=== PATIENT | male | born 1935 | race Caucasian/White ===

== ENCOUNTER 2016-08-03 12:38 | Outpatient (CLI) ==
[2015-03-22 16:52] VITALS: BMI 22.7
--- NOTE | 2016-08-03 13:13 | DI ---
EXAM: Lumbar spine three view HISTORY: Low back pain COMPARISON: None TECHNIQUE: Three views lumbar spine were performed FINDINGS: Sacroiliac joints intact. Sacral arcuate lines intact. Mild leftward curvature lumbar s pine. Vertebral bodies normal height. No fracture. Multilevel marginal osteophyte formation. Mil d to moderate intervertebral disc space narrowing L2-3 and severe intervertebral space narrowing L4- L5. Multilevel facet arthrosis, greatest in the lower spine. 2 mm retrolisthesis L2 on L3 and 4 mm anterolisthesis of L4 on L5. Atherosclerosis. IMPRESSION: Chronic discogenic degenerative disease and facet arthrosis with grade 1 spondylolisthe ses and leftward curvature lumbar spine.
== END 2016-08-03 12:39 | disposition home or self-care (01) ==
LOC: RAD 12:38
PROVIDERS: ATTEND Emergency Medicine
DX: M54.5 Low back pain (principal)

== ENCOUNTER 2016-10-27 12:24 | Emergency (ER) ==
[2016-10-27 12:28] VITALS: BP 152/79; TEMP 97.7; BMI 23.0
--- NOTE | 2016-10-27 12:32 | ED.PDOC ---
General ED Provider: Dr. CATIE GE JR Chief Complaint: Abdominal Pain Stated Complaint: COMPLAINS OF ADOMINAL PAIN AND BACK PAIN. FEELS LIKE HE IS CONSTIPATED. TOOK SOME MIRALAX AND HAD SMALL RESULTS. [ End ]97.7 67 20 93% 152 /79 12/17. DR PENA SAID HE WOULD SET UP FOR THE CAT SCAN OVER HERE- PER PATIENT Time Seen by Physician: 12:32 Mode of Arrival: Walk-In Information Source: Patient Exam Limitations: No limitations Primary Care Provider: SHWETA PENA Nursing and Triage Documentation Reviewed and Agree: No Review of Systems - Review Of Systems Constitutional: Reports: No symptoms Eyes: Reports: No symptoms Ears, Nose, Mouth, Throat: Reports: No symptoms Respiratory: Reports: Short of air, Wheezing Cardiac: Reports: No symptoms GI: Reports: Abdomen distended, Abdominal pain, Constipated, Nausea (CRAMPING) : Reports: No symptoms Musculoskeletal: Reports: No symptoms Skin: Reports: No symptoms Neurological: Reports: Cognitive dysfunction Endocrine: Reports: No symptoms Hematologic/Lymphatic: Reports: No symptoms All Other Systems: Other Past Medical History - Past Medical History Endocrine: Reports: Dyslipidemia Cardiovascular: Reports: CAD, Hypertension, CHF, Other () Respiratory: Reports: COPD, Bronchitis Hematological: Reports: None Gastrointestinal: Reports: None, GERD, Other (bilateral hernia) Genitourinary: Reports: CKD Neuro/Psych: Reports: None 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, Other (DJD SPINE) Cancer: Reports: Other (prostate) Other Pertinent Past Medical History: Prostate-Prostate, - Surgical History General Surgical History: Reports: Cholecystectomy, Hernia Repair (bilateral hernia), Other (Prostate) - Family History Family History: Reports: Unknown - Social History Smoking Status: Former smoker Hx Substance Use: No Alcohol Screening: None Physical Exam - Physical Exam Appearance: Well-appearing Pain Distress: Moderate Eyes: JANY, EOMI, Conjunctiva clear ENT: Ears normal, Nose normal, Oropharynx normal Neck: Supple Respiratory: Airway patent, Breath sounds clear, Breath sounds equal, Respirations nonlabored GI/: Soft, Tender, Bowel sounds hypoactive Musculoskeletal: Normal strength, ROM intact, No edema, No calf tenderness Skin: Warm, Dry, Normal color Neurological: Sensation intact, Motor intact, Reflexes intact, Cranial nerves intact, Alert, Oriented Psychiatric: Affect appropriate, Mood appropriate Critical Care Note - Critical Care Note Total Time (mins): 0 Course - Course Hematology/Chemistry: 10/27/16 12:55 10/27/16 12:55 Orders, Labs, Meds: Lab Review 10/27/16 10/27/16 12:50 12:55 WBC 9.37 RBC 3.83 L Hgb 11.6 L Hct 34.8 L MCV 90.9 MCH 30.3 MCHC 33.3 RDW Coeff of [place] 13.2 Plt Count 155 Immature Gran % (Auto) 0.5 Neut % (Auto) 76.7 Lymph % (Auto) 17.4 [place] % (Auto) 4.8 Eos % (Auto) 0.5 Baso % (Auto) 0.1 Immature Gran # (Auto) 0.1 Neut # 7.2 H Lymph # 1.6 [place] # 0.5 Eos # 0.1 Baso # 0.0 Sodium 139 Potassium 4.8 Chloride 97 L Carbon Dioxide 29 Anion Gap 17.8 BUN 54 H Creatinine 2.10 H Estimated GFR (MDRD) 30.00 BUN/Creatinine Ratio 25.71 Glucose 101 Calcium 9.3 Total Bilirubin 0.57 AST 19 ALT 17 Alkaline Phosphatase 52 L Total Protein 7.0 Albumin 3.5 Globulin 3.5 Albumin/Globulin Ratio 1.00 Amylase 299 H Lipase 31 Urine Color Yellow Urine Clarity Clear Urine pH 6.5 Ur Specific [place] 1.015 Urine Protein Negative Urine Glucose (UA) Negative Urine Ketones Negative Urine Blood Negative Urine Nitrite Negative Urine Bilirubin Negative Urine Urobilinogen 1.0 Ur Leukocyte Esterase Negative H. pylori IgG Antibody Negative Orders Category Date Time Status AMYLASE Stat LAB 10/27/16 12:55 Completed CBC W/ AUTO DIFF Stat LAB 10/27/16 12:55 Completed COMPREHENSIVE METABOLIC PANEL Stat LAB 10/27/16 12:55 Completed H. PYLORI SCREEN Stat LAB 10/27/16 12:55 Completed LIPASE Stat LAB 10/27/16 12:55 Completed URINALYSIS C & S IF INDICATED Stat LAB 10/27/16 12:[address] ABDOMEN/PELVIS WO CONTRAST Stat RADS 10/27/16 12:41 Completed Vital Signs: Temp Pulse Resp BP Pulse Ox 10/27/16 12:24 97.7 F 67 20 152/79 H 93 L Departure - Departure Time of Disposition: 15:05 Disposition: HOME SELF-CARE Discharge Problem: Impaction of the bowels Instructions: Fecal Impaction (ED), Obstipation (ED) Condition: Good Pt referred to PMD for follow-up: Yes Additional Instructions: ANUSOL SUPPOSITORY ONCE DAILY NEEDED FOR NO BOWEL MOVEMENT MAY USE DULCOLAX SUPPOSITORY TWICE A DAY IF ANUSOL NOT EFFECTIVE CONTINUE TO USE MIRALAX DAILY HOLD IF LOOSE STOOLS MAY STOP MEDICATIONS WHEN NORMAL STOOL FOR THREE DAYS RECHECK pmd Please follow-up with Dr. Pena in 1-5 days. Prescriptions: Bisacodyl [Dulcolax] 10 mg RC DAILY PRN #10 supp.rect PRN Reason: Constipation Hydrocortisone Acetate [Anusol-Hc] 25 mg RC DAILY PRN #7 supp.rect PRN Reason: Constipation Polyethylene Glycol 3350 [Miralax] 17 gm PO DAILY PRN #20 powd.pack PRN Reason: Constipation Allergies/Adverse Reactions: Allergies lisinopril Adverse Reaction (Verified 10/27/16 12:28) rash, cough Home Medications: Ambulatory Orders Alprazolam [Xanax] 0.25 mg PO TID PRN 12/09/12 Carvedilol [Coreg] 6.25 mg PO DAILY 12/09/12 Spironolactone [Aldactone] 25 mg PO DAILY 12/09/12 Furosemide [Lasix Tab] 40 mg PO QAM 12/12/12 Cholecalciferol (Vitamin D3) [Vitamin D] 400 unit PO DAILY 02/14/14 Ipratropium/Albuterol Sulfate [Combivent Respimat Inhal [place]] 4 gm IH QID PRN 02/14/14 Budesonide/Formoterol Fumarate [Symbicort 160-4.5 Mcg Inhaler] 2 puff INH BID Bisacodyl [Dulcolax] 10 mg RC DAILY PRN #10 supp.rect 10/27/16 Esomeprazole Magnesium [Nexium] 40 mg PO DAILY 10/27/16 Formoterol Fumarate [Foradil] 12 mcg IH Q12H 10/27/16 Furosemide [Lasix Tab] 20 mg PO BEDTIME 10/27/16 Hydrocortisone Acetate [Anusol-Hc] 25 mg RC DAILY PRN #7 supp.rect 10/27/16 Polyethylene Glycol 3350 [Miralax] 17 gm PO DAILY PRN #20 powd.pack 10/27/16
[2016-10-27 13:06] LABS: BASOPHILS % (AUTO) 0.1 % (0.0-3.0); EOSINOPHILS # (AUTO) 0.1 K/ul (0.0-0.7); EOSINOPHILS % (AUTO) 0.5 % (0.0-7.0); HEMATOCRIT 34.8 % (42.0-52.0); HEMOGLOBIN 11.6 g/dl (14.0-18.0); IMMATURE GRANULOCYTE % (AUTO) 0.5 % (0.0-5.0); LYMPHOCYTES # (AUTO) 1.6 K/uL (0.60-3.4); LYMPHOCYTES % (AUTO) 17.4 (10.0-50.0); MEAN CORPUSCULAR HEMOGLOBIN 30.3 pg (27.0-31.0); MEAN CORPUSCULAR HGB CONC 33.3 (31.8-35.4); MEAN CORPUSCULAR VOLUME 90.9 fl (80.0-94.0); MONOCYTES # (AUTO) 0.5 K/uL (0.4-2.0); MONOCYTES % (AUTO) 4.8 (0-10); NEUTROPHILS # (AUTO) 7.2 K/ul (2.0-6.9); NEUTROPHILS % (AUTO) 76.7; PLATELET COUNT 155 10^3/uL (140-440); RED BLOOD COUNT 3.83 10^6/ul (4.70-6.10); WHITE BLOOD COUNT 9.37 K/ul (4.2-10.2)
[2016-10-27 13:14] LABS: ADD URINE MICROSCOPIC NO; BILIRUBIN,URINE Negative (NEGATIVE); KETONES,URINE Negative (NEGATIVE); LEUKOCYTE ESTERASE ,URINE Negative (NEGATIVE); NITRITE,URINE Negative (NEGATIVE); PH,URINE 6.5 (5-9); PROTEIN,URINE Negative (NEGATIVE); URINE, BLOOD Negative (NEGATIVE)
[2016-10-27 13:19] LABS: H. PYLORI ANTIBODY NEGATIVE (NEGATIVE); H.PYLORI INTERNAL QC INTERNAL QC VALID
[2016-10-27 13:26] LABS: ALBUMIN 3.5 g/dL (3.4-5.0); ANION GAP 17.8; BILIRUBIN,TOTAL 0.57 mg/dL (0.00-1.20); BUN/CREATININE RATIO 25.71; CALCIUM 9.3 mg/dL (8.2-10.2); CREATININE 2.1 mg/dL (0.60-1.10); POTASSIUM 4.8 mmol/L (3.5-5.1)
--- NOTE | 2016-10-27 13:43 | CT ---
EXAM: CT ABDOMEN AND PELVIS HISTORY: Abdominal pain, constipation TECHNIQUE: CT abdomen and pelvis without intravenous contrast. Images were reconstructed using 5 m m section thickness. Reformations were prepared. COMPARISON: 04/29/2009 FINDINGS: Diagnostic limitations exist without including contrast enhanced images. No focal hepatic or spleni c lesions are identified. Gallbladder has been removed. Pancreas and adrenal glands are within norm al limits. Again noted are multiple cystic appearing masses of the renal cortices bilaterally large st superiorly on the left at 5 cm. Some of these cystic masses have enlarged since the distant prio r exam. The dominant cyst on the left has become partially calcified at its periphery. No hydronep hrosis. Moderate atherosclerotic disease of the aorta with no aneurysmal caliber. Stomach is within normal limits. The appendix has internal high attenuation suggesting either insuf flated dense material or an appendicolith. No evidence of appendicitis. There is moderate fecal ret ention within the distal rectosigmoid/rectum. Otherwise no excessive fecal retention is suggested. Normal bowel gas pattern. Urinary bladder appears normal. Surgical clips in the lower anatomic pe lvis. No definite prostate is seen. There is a penile prosthesis in place. No ascites. There is a lateral left diaphragmatic hernia containing only fat, neck of 2.8 cm and stable since pr evious exam. The bones demonstrate moderate degenerative changes of the lower spine with bilateral pars defects at L4 and anterior spondylolisthesis of L4 on L5 by about 0.40 cm. Scoliosis is noted. Lung bases reveal evidence of pulmonary emphysema. There is a punctate calcified diaphragmatic pl eural plaque on the right. No pneumoperitoneum. IMPRESSION: 1. Slight excess fecal retention within the rectal vault. Otherwise no excess. Normal bowel gas p attern. The appendix has internal high attenuation suggesting either insufflated dense material or an appendicolith. No evidence of appendicitis. 2. Multiple cystic masses of the kidneys probably representing cysts. This can be correlated with renal ultrasound. 3. Moderate atherosclerotic disease. 4. Postop changes within the pelvis. 5. Stable lateral left diaphragmatic hernia containing only fat. 6. Pars defects L4.
== END 2016-10-27 15:37 | disposition home or self-care (01) ==
LOC: ED 12:24
DX: K56.49 Other impaction of intestine (principal); R06.02 Shortness of breath; R06.2 Wheezing; E78.5 Hyperlipidemia, unspecified; I25.10 Atherosclerotic heart disease of native coronary artery without angina pectoris; I10 Essential (primary) hypertension; I50.9 Heart failure, unspecified; J44.9 Chronic obstructive pulmonary disease, unspecified; N18.9 Chronic kidney disease, unspecified; M19.90 Unspecified osteoarthritis, unspecified site; Z79.899 Other long term (current) drug therapy; Z87.19 Personal history of other diseases of the digestive system
CPT/HCPCS: 36415; 80053; 81001; 82150; 83690; 85025; 86677; 99283

== ENCOUNTER 2016-11-03 11:09 | Emergency (ER) ==
[2016-11-03 11:31] VITALS: BP 149/79; TEMP 96.8; BMI 23.3
[2016-11-03 11:49] LABS: BASOPHILS % (AUTO) 0.2 % (0.0-3.0); EOSINOPHILS # (AUTO) 0.3 K/ul (0.0-0.7); EOSINOPHILS % (AUTO) 3.4 % (0.0-7.0); HEMATOCRIT 37.5 % (42.0-52.0); HEMOGLOBIN 12.3 g/dl (14.0-18.0); IMMATURE GRANULOCYTE % (AUTO) 0.6 % (0.0-5.0); LYMPHOCYTES # (AUTO) 1.9 K/uL (0.60-3.4); LYMPHOCYTES % (AUTO) 21.6 (10.0-50.0); MEAN CORPUSCULAR HGB CONC 32.8 (31.8-35.4); MEAN CORPUSCULAR VOLUME 94.5 fl (80.0-94.0); MONOCYTES # (AUTO) 0.5 K/uL (0.4-2.0); MONOCYTES % (AUTO) 5.8 (0-10); NEUTROPHILS # (AUTO) 6.1 K/ul (2.0-6.9); NEUTROPHILS % (AUTO) 68.4; PLATELET COUNT 185 10^3/uL (140-440); RED BLOOD COUNT 3.97 10^6/ul (4.70-6.10); WHITE BLOOD COUNT 8.84 K/ul (4.2-10.2)
--- NOTE | 2016-11-03 12:15 | CT ---
EXAM: CT Abdomen without contrast. CT Pelvis without contrast. HISTORY: Abdominal pain. Constipation. COMPARISON: 10/27/2016. TECHNIQUE: Multiple axial images of the abdomen and pelvis were obtained without intravenous contra st. Images were reformatted in the coronal plane. FINDINGS: Please note that evaluation of the abdominal and pelvic structures is limited due to lack of intravenous contrast. Lung bases are clear. Calcified pleural plaquing seen along the right diaphragm. Left sided fat-co ntaining diaphragmatic hernia again seen. Degenerative changes present throughout the spine. Pars d efects L4 noted with grade 1 anterolisthesis of L4 on L5. Gallbladder is absent. The liver, pancreas, spleen, adrenal glands are unremarkable. Bilateral brandt al cysts noted, largest a peripherally calcified cyst of the medial left kidney measuring up to 5.3 cm diameter. The bowel is normal in course and caliber without evidence for obstruction or inflammatory process. Prostate is absent. Urinary bladder is unremarkable. Atherosclerotic calcifications present. No free fluid or free air identified. Since the prior study, there has been no significant interval change IMPRESSION: No acute abnormality in the abdomen or pelvis.
[2016-11-03 12:22] LABS: ALBUMIN 3.4 g/dL (3.4-5.0); ALBUMIN/GLOBULIN RATIO 1.13; AMYLASE 281 U/L (25-115); ANION GAP 17.6; BILIRUBIN,TOTAL 0.51 mg/dL (0.00-1.20); BUN/CREATININE RATIO 17.1; CALCIUM 9.1 mg/dL (8.2-10.2); CREATININE 2.28 mg/dL (0.60-1.10); LIPASE 59 U/L (8-78); POTASSIUM 4.6 mmol/L (3.5-5.1); TOTAL PROTEIN 6.4 g/dL (5.8-8.1)
--- NOTE | 2016-11-03 12:42 | ED.PDOC ---
General ED Provider: Dr. RENY ROBERTS Chief Complaint: Constipation Stated Complaint: constipation Time Seen by Physician: 11:10 (seen with staff ) Mode of Arrival: Walk-In Information Source: Patient Exam Limitations: No limitations Primary Care Provider: SHWETA PENA Nursing and Triage Documentation Reviewed and Agree: Yes GI Complaint Exam - Abdominal Pain Complaint/Exam Onset: Gradual Duration: constipation x 3 days Symptoms Are: Still present Timing: Constant Initial Severity: Mild Current Severity: None Aggravating: Reports: None Alleviating: Reports: None Associated Signs and Symptoms: Reports: Constipation. Denies: Diaphoresis, Fever, Cough, Chest pain, Dizziness, Back pain, Blood in stool, Dysuria, Urinary frequency, Decreased urine output, Decreased appetite, Discharge, Nausea , Vomiting, Diarrhea, Decreased activity Related History: Reports: Similar episode Review of Systems - Review Of Systems Constitutional: Reports: No symptoms Eyes: Reports: No symptoms Ears, Nose, Mouth, Throat: Reports: No symptoms Respiratory: Reports: No symptoms Cardiac: Reports: No symptoms GI: Reports: Abdominal pain, Constipated : Reports: No symptoms Musculoskeletal: Reports: No symptoms Skin: Reports: No symptoms Neurological: Reports: No symptoms Endocrine: Reports: No symptoms Hematologic/Lymphatic: Reports: No symptoms All Other Systems: Reviewed and Negative Past Medical History - Past Medical History Previously Healthy: Yes Endocrine: Reports: Dyslipidemia Cardiovascular: Reports: CAD, Hypertension, CHF, Other () Respiratory: Reports: COPD, Bronchitis Hematological: Reports: None Gastrointestinal: Reports: None, GERD, Other (bilateral hernia) Genitourinary: Reports: CKD Neuro/Psych: Reports: None 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, Other (DJD SPINE) Cancer: Reports: Other (prostate) Other Pertinent Past Medical History: Prostate-Prostate, - Surgical History General Surgical History: Reports: Cholecystectomy, Hernia Repair (bilateral hernia), Other (Prostate) - Family History Family History: Reports: Unknown - Social History Smoking Status: Current every day smoker, Light tobacco smoker Hx Substance Use: No Alcohol Screening: None Physical Exam - Physical Exam Appearance: Well-appearing, No pain distress, Well-nourished Eyes: JANY, EOMI, Conjunctiva clear ENT: Ears normal, Nose normal, Oropharynx normal Respiratory: Airway patent, Breath sounds clear, Breath sounds equal, Respirations nonlabored Cardiovascular: RRR, Pulses normal, No rub, No murmur GI/: Soft, Nontender, No masses, Bowel sounds normal, No Organomegaly Musculoskeletal: Normal strength, ROM intact, No edema, No calf tenderness Skin: Warm, Dry, Normal color Neurological: Sensation intact, Motor intact, Reflexes intact, Cranial nerves intact, Alert, Oriented Psychiatric: Affect appropriate, Mood appropriate Interpretation - Radiology Interpretation Radiology Interpretation By: Radiologist Radiology Results: No acute changes Physician Notification - Case Discussed Physician Notified: pmd Time of Notification: 12:43 (pt can go home amylase discussed ) Critical Care Note - Critical Care Note Total Time (mins): 0 Course - Course Hematology/Chemistry: 11/03/16 11:41 11/03/16 11:41 Orders, Labs, Meds: Lab Review 11/03/16 11:41 WBC 8.84 RBC 3.97 L Hgb 12.3 L Hct 37.5 L MCV 94.5 H MCH 31.0 MCHC 32.8 RDW Coeff of [place] 13.4 Plt Count 185 Immature Gran % (Auto) 0.6 Neut % (Auto) 68.4 Lymph % (Auto) 21.6 [place] % (Auto) 5.8 Eos % (Auto) 3.4 Baso % (Auto) 0.2 Immature Gran # (Auto) 0.1 Neut # 6.1 Lymph # 1.9 [place] # 0.5 Eos # 0.3 Baso # 0.0 Sodium 145 Potassium 4.6 Chloride 100 Carbon Dioxide 32 H Anion Gap 17.6 BUN 39 H Creatinine 2.28 H Estimated GFR (MDRD) 28.00 BUN/Creatinine Ratio 17.10 Glucose 94 Calcium 9.1 Total Bilirubin 0.51 AST 18 ALT 12 Alkaline Phosphatase 52 L Total Protein 6.4 Albumin 3.4 Globulin 3.0 Albumin/Globulin Ratio 1.13 Amylase 281 H Lipase 59 Orders Category Date Time Status AMYLASE Stat LAB 11/03/16 11:41 Completed CBC W/ AUTO DIFF Stat LAB 11/03/16 11:41 Completed COMPREHENSIVE METABOLIC PANEL Stat LAB 11/03/16 11:41 Completed LIPASE Stat LAB 11/03/16 11:[address] ABDOMEN/PELVIS WO CONTRAST Stat RADS 11/03/16 11:17 Completed Vital Signs: Temp Pulse Resp BP Pulse Ox 11/03/16 11:10 96.8 F L 68 20 149/79 H 94 L Departure - Departure Time of Disposition: 12:42 ( ct report given ) Disposition: HOME SELF-CARE Discharge Problem: Constipation Instructions: Abdominal Pain (ED) Condition: Good Pt referred to PMD for follow-up: Yes Additional Instructions: Please call your Family Physician as soon as possible to schedule a follow-up appointment. Allergies/Adverse Reactions: Allergies lisinopril Adverse Reaction (Verified 10/27/16 12:28) rash, cough Home Medications: Ambulatory Orders Alprazolam [Xanax] 0.25 mg PO TID PRN 12/09/12 Carvedilol [Coreg] 6.25 mg PO DAILY 12/09/12 Spironolactone [Aldactone] 25 mg PO DAILY 12/09/12 Furosemide [Lasix Tab] 40 mg PO QAM 12/12/12 Cholecalciferol (Vitamin D3) [Vitamin D] 400 unit PO DAILY 02/14/14 Ipratropium/Albuterol Sulfate [Combivent Respimat Inhal [place]] 4 gm IH QID PRN 02/14/14 Budesonide/Formoterol Fumarate [Symbicort 160-4.5 Mcg Inhaler] 2 puff INH BID Bisacodyl [Dulcolax] 10 mg RC DAILY PRN #10 supp.rect 10/27/16 Esomeprazole Magnesium [Nexium] 40 mg PO DAILY 10/27/16 Formoterol Fumarate [Foradil] 12 mcg IH Q12H 10/27/16 Furosemide [Lasix Tab] 20 mg PO BEDTIME 10/27/16 Hydrocortisone Acetate [Anusol-Hc] 25 mg RC DAILY PRN #7 supp.rect 10/27/16 Polyethylene Glycol 3350 [Miralax] 17 gm PO DAILY PRN #20 powd.pack 10/27/16
== END 2016-11-03 12:49 | disposition home or self-care (01) ==
LOC: ED 11:09
DX: K59.00 Constipation, unspecified (principal); F17.210 Nicotine dependence, cigarettes, uncomplicated; Z79.899 Other long term (current) drug therapy
CPT/HCPCS: 36415; 80053; 82150; 83690; 85025; 99283

== ENCOUNTER 2016-11-06 13:15 | Outpatient (CLI) ==
--- NOTE | 2016-11-06 13:43 | DI ---
EXAM: Radiographs, thoracic spine HISTORY: Back pain. COMPARISON: Abdominal CT 11/03/2016. TECHNIQUE: Three views. FINDINGS: Moderate compression fracture of T10 noted without retropulsion. Vertebral body heights are otherwise maintained. Disc heights are normal. Mild endplate osteophyte formation seen at mult iple levels. Adjacent soft tissues without acute abnormality. IMPRESSION: Moderate compression deformity of T10 without retropulsion.
== END 2016-11-06 13:16 | disposition home or self-care (01) ==
LOC: RAD 13:15
PROVIDERS: ATTEND Internal Medicine
DX: M54.9 Dorsalgia, unspecified (principal)

== ENCOUNTER 2016-11-30 19:30 | Outpatient (CLI) | payer OTHER | END 2016-11-30 19:31 | disposition home or self-care (01) | LOC: LAB 19:30 | PROVIDERS: ATTEND Internal Medicine | DX: T18.9XXA Foreign body of alimentary tract, part unspecified, initial encounter (principal) ==

== ENCOUNTER 2016-12-03 21:16 | Emergency (ER) | payer OTHER ==
[2016-12-03 21:24] VITALS: BP 158/80; BMI 22.1
[2016-12-03 21:30] LABS: BASOPHILS % (AUTO) 0.2 % (0.0-3.0); EOSINOPHILS # (AUTO) 0.3 K/ul (0.0-0.7); EOSINOPHILS % (AUTO) 3.7 % (0.0-7.0); HEMATOCRIT 33.9 % (42.0-52.0); HEMOGLOBIN 11.6 g/dl (14.0-18.0); IMMATURE GRANULOCYTE % (AUTO) 0.3 % (0.0-5.0); LYMPHOCYTES % (AUTO) 32.7 (10.0-50.0); MEAN CORPUSCULAR HEMOGLOBIN 30.7 pg (27.0-31.0); MEAN CORPUSCULAR HGB CONC 34.2 (31.8-35.4); MEAN CORPUSCULAR VOLUME 89.7 fl (80.0-94.0); MONOCYTES # (AUTO) 0.9 K/uL (0.4-2.0); MONOCYTES % (AUTO) 9.3 (0-10); NEUTROPHILS # (AUTO) 4.9 K/ul (2.0-6.9); NEUTROPHILS % (AUTO) 53.8; PLATELET COUNT 200 10^3/uL (140-440); RED BLOOD COUNT 3.78 10^6/ul (4.70-6.10); WHITE BLOOD COUNT 9.11 K/ul (4.2-10.2)
--- NOTE | 2016-12-03 21:39 | ED.PDOC ---
General ED Provider: Dr. MADI WHEELER-ER Chief Complaint: Stroke Stated Complaint: his right arm has been numb since this am---13hrs--no trouble with mobility or speech--moved rue without difficulty--has taken asa before coming Time Seen by Physician: 21:20 Mode of Arrival: Walk-In Information Source: Patient, Family Exam Limitations: No limitations Primary Care Provider: SHWETA FIELDS Nursing and Triage Documentation Reviewed and Agree: Yes Neurological Complaint Exam - Neurological Deficit Complaint/Exam Patient Complains of: Reports: Abnormal sensation Symptom Onset Unknown: No Symptom Onset Time: 07:00 Onset: Gradual Symptoms Are: Still present Timing: Constant Episodes Lasting: Hours Initial Severity: Mild Location: Reports: RUE Character: Reports: Numbness, Tingling, Paresthesia. Denies: Motor weakness, Paralysis, Sensory loss, Impaired speech Aggravating: Reports: Hypertension Alleviating: Reports: None Associated Signs and Symptoms: Denies: Confusion, Agitation, Responsiveness, LOC , Headache, Fever, Nuchal rigidity, Recent trauma, Remote trauma, Recent illness Related History: Reports: Anticoagulant therapy CVA Risk Factors: Reports: Hypertension SDH Risk Factors: Reports: Male, Elderly Related Surgical History: Denies: None, Craniotomy, Tumor, Carotid Endarterectomy, Pacemaker, Artificial valve Glascow Coma Scale (see protocol): 15 Meningeal Signs Positive: No Focal Weakness: Present: None Focal Sensory Loss: Present: RUE Gait: Normal Nystagmus Present: No Gag Reflex Present: Yes [id number]: Normal Findings Romberg Test Positive: No Babinski Sign: Negative Right, Negative Left Heel to Toe Normal: Yes Signs of Trauma: Yes NIH Scale Score (see protocol): 1 IV t-PA Prescribed: No Reasons for not prescribing IV t-PA: Medical contraindication (falls outside time) Differential Diagnoses: CVA, TIA Quality Indicator For Non-Traumatic Chest Pain/Syncope: EKG Performed Review of Systems - Review Of Systems Constitutional: Reports: No symptoms Eyes: Reports: No symptoms Ears, Nose, Mouth, Throat: Reports: No symptoms Respiratory: Reports: No symptoms Cardiac: Reports: No symptoms GI: Reports: No symptoms : Reports: No symptoms Musculoskeletal: Reports: No symptoms Skin: Reports: No symptoms Neurological: Reports: Numbness Endocrine: Reports: No symptoms Hematologic/Lymphatic: Reports: No symptoms All Other Systems: Reviewed and Negative Past Medical History - Past Medical History Previously Healthy: Yes Endocrine: Reports: Dyslipidemia Cardiovascular: Reports: CAD, Hypertension, CHF, Other () Respiratory: Reports: COPD, Bronchitis Hematological: Reports: None Gastrointestinal: Reports: None, GERD, Other (bilateral hernia) Genitourinary: Reports: CKD Neuro/Psych: Reports: None 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, Other (DJD SPINE) Cancer: Reports: Other (prostate) Other Pertinent Past Medical History: Prostate-Prostate, - Surgical History General Surgical History: Reports: Cholecystectomy, Hernia Repair (bilateral hernia), Other (Prostate) - Family History Family History: Reports: Unknown - Social History Smoking Status: Current some day smoker, Light tobacco smoker Hx Substance Use: No Alcohol Screening: None Lives: With family - Immunizations Tetanus Shot up to Date: (UNKNOWN) Physical Exam - Physical Exam Appearance: Well-appearing, No pain distress, Well-nourished Eyes: JANY, EOMI, Conjunctiva clear ENT: Ears normal, Nose normal, Oropharynx normal Neck: Supple Respiratory: Airway patent, Breath sounds clear, Breath sounds equal, Respirations nonlabored Cardiovascular: RRR, Pulses normal, No rub, No murmur GI/: Soft, Nontender, No masses, Bowel sounds normal, No Organomegaly Musculoskeletal: Normal strength, ROM intact, No edema, No calf tenderness Skin: Warm, Dry, Normal color Neurological: Sensation intact, Motor intact, Reflexes intact, Cranial nerves intact, Alert, Oriented, Focal Deficit Psychiatric: Affect appropriate, Mood appropriate Interpretation - Radiology Interpretation Radiology Interpretation By: Radiologist Radiology Results: Negative Exam Interpreted: CT Scan Physician Notification - Case Discussed Physician Notified: dr fields--asked for the patient to be transferred Time of Notification: 21:54 Physician Notified: dr perez will see but wants hospitalist to see--10:10 Endorsed To/Discussed With: dr christiansen accepted the patient--22:20 Critical Care Note - Critical Care Note Total Time (mins): 30 Course - Course Hematology/Chemistry: 12/03/16 21:29 12/03/16 21:29 Orders, Labs, Meds: Lab Review 12/03/16 21:29 WBC 9.11 RBC 3.78 L Hgb 11.6 L Hct 33.9 L MCV 89.7 MCH 30.7 MCHC 34.2 RDW Coeff of [place] 13.2 Plt Count 200 Immature Gran % (Auto) 0.3 Neut % (Auto) 53.8 Lymph % (Auto) 32.7 [place] % (Auto) 9.3 Eos % (Auto) 3.7 Baso % (Auto) 0.2 Immature Gran # (Auto) 0.0 Neut # 4.9 Lymph # 3.0 [place] # 0.9 Eos # 0.3 Baso # 0.0 PT 10.4 INR 1.02 Sodium 143 Potassium 4.2 Chloride 103 Carbon Dioxide 28 Anion Gap 16.2 BUN 47 H Creatinine 1.86 H Estimated GFR (MDRD) 35.00 BUN/Creatinine Ratio 25.26 Glucose 110 Calcium 9.4 Total Bilirubin 0.34 AST 15 ALT 9 L Alkaline Phosphatase 57 Total Creatine Kinase 47 Troponin I 0.3880 Total Protein 6.4 Albumin 3.3 L Globulin 3.1 Albumin/Globulin Ratio 1.06 Orders Category Date Time Status EKG-(ED ONLY) Stat CARDIO 12/03/16 21:19 Completed Software Validation Technician [ED ENGINEERING TECHNOLOGIST APPLIED] .ONCE EMERGENCY 12/03/16 21:20 Active IV [ED IV/MEDIPORT/POWERPORT] .ONCE EMERGENCY 12/03/16 21:20 Active RESUSCITATION [ED CODE STATUS] .ONCE EMERGENCY 12/03/16 21:26 Active CBC W/ AUTO DIFF Stat LAB 12/03/16 21:29 Completed COMPREHENSIVE METABOLIC PANEL Stat LAB 12/03/16 21:29 Completed CREATINE KINASE Stat LAB 12/03/16 21:29 Completed PT WITH INR Stat LAB 12/03/16 21:29 Completed TROPONIN I Stat LAB 12/03/16 21:29 Completed 0.9 % Sodium Chloride [Saline Flush] MEDS 12/03/16 21:20 Ordered 1 syr IVF PRN PRN CT HEAD W/O CONTRAST Stat RADS 12/03/16 21:19 Completed Medications Generic Name Dose Route Start Last Admin Trade Name Freq PRN Reason Stop Dose Admin Sodium Chloride 1 syr 12/03/16 21:20 Saline Flush IVF PRN PRN To flush IV Vital Signs: Temp Pulse Resp BP Pulse Ox 12/03/16 21:17 98.1 F 87 22 158/80 H 96 Departure - Departure Time of Disposition: 22:19 Disposition: TSF SHORT-TRM HOSP Discharge Problem: Cerebrovascular accident (CVA) Qualifiers: CVA mechanism: unspecified Qualifier Code: (I63.9) Cerebral infarction, unspecified Instructions: Paresthesia (ED) Condition: Stable Pt referred to PMD for follow-up: Yes Allergies/Adverse Reactions: Allergies lisinopril Adverse Reaction (Verified 10/27/16 12:28) rash, cough verapamil Adverse Reaction (Verified 12/03/16 21:24) Home Medications: Ambulatory Orders Alprazolam [Xanax] 0.25 mg PO TID PRN 12/09/12 Carvedilol [Coreg] 6.25 mg PO DAILY 12/09/12 Spironolactone [Aldactone] 25 mg PO DAILY 12/09/12 Furosemide [Lasix Tab] 40 mg PO QAM 12/12/12 Cholecalciferol (Vitamin D3) [Vitamin D] 400 unit PO DAILY 02/14/14 Ipratropium/Albuterol Sulfate [Combivent Respimat Inhal [place]] 2 puff IH QID PRN 02/14/14 Budesonide/Formoterol Fumarate [Symbicort 160-4.5 Mcg Inhaler] 2 puff INH BID Bisacodyl [Dulcolax] 10 mg RC DAILY PRN #10 supp.rect 10/27/16 Hydrocortisone Acetate [Anusol-Hc] 25 mg RC DAILY PRN #7 supp.rect 10/27/16 Polyethylene Glycol 3350 [Miralax] 17 gm PO DAILY PRN #20 powd.pack 10/27/16 Aspirin [Aspirin EC] 81 mg PO DAILYWM 12/03/16 Ipratropium/Albuterol Neb [Duoneb] 1 vial NEB RTQ6H 12/03/16 Omeprazole 20 mg PO DAILY 12/03/16 Pravastatin Sodium [Pravachol] 20 mg PO BEDTIME 12/03/16 Transfer Form Completed: Yes Disposition Discussed With: Patient, Family
[2016-12-03 21:41] VITALS: TEMP 98.1
[2016-12-03 21:47] LABS: PROTHROMBIN TIME 10.4 SEC (9.3-11.0)
--- NOTE | 2016-12-03 21:48 | CT ---
Exam: CT brain without contrast Clinical indication: Right arm numbness times 13 hours. Comparison: None available. TECHNIQUE: Axial unenhanced CT images from the skull base through the brain were obtained. Coronal and sagital reformats were performed. Findings: There is no evidence of intra or extra-axial hemorrhage. There is no evidence of mass, infarct or midline shift. The ventricles and basilar cisterns are within normal limits. The visualized paranasal sinuses and mastoid air cells are clear. The visualized bony structures are unremarkable. Impression: Negative unenhanced CT of the brain.
[2016-12-03 21:56] LABS: ALBUMIN 3.3 g/dL (3.4-5.0); ALBUMIN/GLOBULIN RATIO 1.06; ANION GAP 16.2; BILIRUBIN,TOTAL 0.34 mg/dL (0.00-1.20); BUN/CREATININE RATIO 25.26; CALCIUM 9.4 mg/dL (8.2-10.2); CREATININE 1.86 mg/dL (0.60-1.10); POTASSIUM 4.2 mmol/L (3.5-5.1); TOTAL PROTEIN 6.4 g/dL (5.8-8.1); TROPONIN I 0.388 ng/ml (0.0000-0.4000)
== END 2016-12-03 22:50 | disposition short-term general hospital (02) ==
LOC: ED 21:16
DX: I63.9 Cerebral infarction, unspecified (principal); I13.0 Hypertensive heart and chronic kidney disease with heart failure and stage 1 through stage 4 chronic kidney disease, or unspecified chronic kidney disease; N18.9 Chronic kidney disease, unspecified; I50.9 Heart failure, unspecified; E78.5 Hyperlipidemia, unspecified; J44.9 Chronic obstructive pulmonary disease, unspecified; F17.210 Nicotine dependence, cigarettes, uncomplicated; Z85.46 Personal history of malignant neoplasm of prostate; Z79.899 Other long term (current) drug therapy; R20.0 Anesthesia of skin
CPT/HCPCS: 36415; 80053; 82550; 84484; 85025; 85610; 93005; 93010; 99285

== ENCOUNTER 2017-02-11 16:59 | Inpatient (IN) ==
[2017-02-11] MEDS ORDERED: ROCEPHIN 1 GM in SODIUM CHLORIDE 50 ML IV STA (17:11)
[2017-02-11] MEDS ORDERED: DUONEB NEB STA (17:12)
[2017-02-11] MEDS ORDERED: SOLU-MEDROL 125 MG IVP STA (17:12)
[2017-02-11] MEDS ORDERED: XOPENEX 1.25 MG NEB STA (17:12)
[2017-02-11 17:19] LABS: ABG PH 7.361 (7.35-7.45)
[2017-02-11 17:20] LABS: ABG BASE EXCESS 9 (-2.0-2.0); ABG PCO2 60.2 mmHg (35-45)
[2017-02-11 17:21] LABS: ABG HCO3 34.1 (22.0-26.0); ABG TCO2 36 (22.0-28.0)
[2017-02-11] MEDS ORDERED: ROCEPHIN ONE (17:30)
[2017-02-11 17:41] LABS: BASOPHILS % (AUTO) 0.3 % (0.0-3.0); EOSINOPHILS # (AUTO) 0.4 K/ul (0.0-0.7); EOSINOPHILS % (AUTO) 5.6 % (0.0-7.0); HEMATOCRIT 36.9 % (42.0-52.0); HEMOGLOBIN 12.3 g/dl (14.0-18.0); IMMATURE GRANULOCYTE % (AUTO) 0.3 % (0.0-5.0); LYMPHOCYTES # (AUTO) 2.3 K/uL (0.60-3.4); LYMPHOCYTES % (AUTO) 29.1 (10.0-50.0); MEAN CORPUSCULAR HEMOGLOBIN 30.8 pg (27.0-31.0); MEAN CORPUSCULAR HGB CONC 33.3 (31.8-35.4); MEAN CORPUSCULAR VOLUME 92.5 fl (80.0-94.0); MONOCYTES # (AUTO) 0.7 K/uL (0.4-2.0); MONOCYTES % (AUTO) 9.4 (0-10); NEUTROPHILS # (AUTO) 4.4 K/ul (2.0-6.9); NEUTROPHILS % (AUTO) 55.3; PLATELET COUNT 151 10^3/uL (140-440); RED BLOOD COUNT 3.99 10^6/ul (4.70-6.10); WHITE BLOOD COUNT 7.87 K/ul (4.2-10.2)
--- NOTE | 2017-02-11 17:43 | CT ---
EXAM: CT chest without intravenous contrast 02/11/2017. Sagittal and coronal reformatted images obt ained productive HISTORY: Cough COMPARISON: 07/01/2015, 12/07/2010, 11/03/2016 FINDINGS: Aneurysmal dilatation of the ascending thoracic aorta. On image 39 this measures 4.4 x 4. 2 cm diameter. The heart size appears within normal limits. There is no pericardial effusion. There is extensive calcification at the level of the aortic root. Cardiology consultation could be ob tained for further evaluation. Emphysematous changes throughout both lungs. Nodular density within the right lower lobe on image 35 measures approximately 1.3 x 1.4 cm diameter. This is new as compared to 2010. Follow-up CT chest co uld be obtained in approximately 3 months. Alternatively PET-CT could be obtained. Diffuse bronchial wall thickening. Correlate for bronchitis/bronchiolitis. Severe compression fracture of the T10 vertebral body. This has progressed in severity as compared t o previous examinations. IMPRESSION: 1. 1.3 x 1.4 cm nodular density within the right lower lobe. Follow-up CT chest could be obtained 3 months. PET-CT could also be obtained. 2. Emphysema. 3. Bronchial wall thickening. Correlate for bronchitis/bronchiolitis. 4. Aneurysmal dilatation ascending thoracic aorta up to 4.2 x 4.4 cm diameter. 5.. Aortic root calcifications. Cardiology consultation could be obtained for further evaluation. 6. Severe compression fracture of T10. This has worsened in severity as compared to 11/03/2016. Th ere is near-complete loss of vertebral body height at the anterior aspect of the spine. This causes focal angulation of the spine. MRI thoracic spine could be considered for further evaluation if clin ically indicated.
[2017-02-11 17:57] LABS: FLU INTERNAL QC INTERNAL QC VALID; RAPID FLU A NEGATIVE (NEGATIVE); RAPID FLU B NEGATIVE (NEGATIVE)
[2017-02-11 18:14] LABS: ALBUMIN 3.5 g/dL (3.4-5.0); ALBUMIN/GLOBULIN RATIO 0.97; ANION GAP 13.2; BILIRUBIN,TOTAL 0.48 mg/dL (0.00-1.20); BUN/CREATININE RATIO 17.46; CALCIUM 9.9 mg/dL (8.2-10.2); CREATININE 1.89 mg/dL (0.60-1.10); POTASSIUM 4.2 mmol/L (3.5-5.1); TOTAL PROTEIN 7.1 g/dL (5.8-8.1); TROPONIN I 0.033 ng/ml (0.0000-0.4000)
--- NOTE | 2017-02-11 18:23 | ED.PDOC ---
General ED Provider: Dr. MADI WHEELER-ER Chief Complaint: Shortness of Air Stated Complaint: hes not breathign well at home--coughing up yellow sputum-- low grade temp Time Seen by Physician: 17:05 Mode of Arrival: Wheelchair Information Source: Patient Exam Limitations: No limitations Primary Care Provider: SHWETA FIELDS Nursing and Triage Documentation Reviewed and Agree: Yes Respiratory Complaint Exam - Respiratory Complaint/Exam Onset/Duration: 4 days Symptoms Are: Still present Timing: Constant Initial Severity: Mild Current Severity: Mild Location: Chest Character: Reports: Productive cough Aggravating: Reports: URI Alleviating: Reports: Bronchodilators Associated Signs and Symptoms: Reports: Dyspnea, Fever, URI, Hoarseness. Denies : Rapid breathing, Chills, Chest pain, Pleuritic chest pain, Wheezing, Hemoptysis, Dizziness, Calf pain, Calf swelling, Edema, Nasal congestion, Sinus discomfort, Vomiting, Sore throat, Weight loss, Decreased oral intake, Increased thirst, Increased appetite, Increased urination Related History: Reports: Similar episode History of Healthcare-Acquired Pneumonia: No Related Surgical History: Reports: None Pulmonary Embolism Risk Factors: Smoking Cardiac Risk Factors: Reports: Smoking Pseudomonas Risk Factors: Reports: Chronic Lung Disease Tuberculosis Risk Factors: Reports: Chronic Resp. Faliure Status Asthmaticus Risk Factors: Reports: None Home Oxygen Use: Yes Recent Stress Test: No Recent Echo/LV Function: No Current Antibiotic Use: No Current Asthma Medication Use: Yes Respiratory Distress: Mild Inadequate Respiratory Effort: No Dysphagia Present: No Stridor Present: No JVD Present: No Accessory Muscle Use: No Retractions: Not Present Diminished Breath Sounds: No Sinus Tenderness: None Grunting Respirations: No Kussmaul Respirations: No Differential Diagnoses: COPD Exacerbation, Pneumonia, Bronchitis Non-Traumatic Chest Pain Syncope: EKG Performed Review of Systems - Review Of Systems Constitutional: Reports: No symptoms Eyes: Reports: No symptoms Ears, Nose, Mouth, Throat: Reports: No symptoms Respiratory: Reports: Cough, Wheezing Cardiac: Reports: No symptoms GI: Reports: No symptoms : Reports: No symptoms Musculoskeletal: Reports: No symptoms Skin: Reports: No symptoms Neurological: Reports: No symptoms Endocrine: Reports: No symptoms Hematologic/Lymphatic: Reports: No symptoms All Other Systems: Reviewed and Negative Past Medical History - Past Medical History Previously Healthy: Yes Endocrine: Reports: Dyslipidemia Cardiovascular: Reports: CAD, Hypertension, CHF, Other () Respiratory: Reports: COPD, Bronchitis Hematological: Reports: None Gastrointestinal: Reports: None, GERD, Other (bilateral hernia) Genitourinary: Reports: CKD Neuro/Psych: Reports: None 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, Other (DJD SPINE) Cancer: Reports: Other (prostate) Other Pertinent Past Medical History: Prostate-Prostate, - Surgical History General Surgical History: Reports: Cholecystectomy, Hernia Repair (bilateral hernia), Other (Prostate) - Family History Family History: Reports: Unknown - Social History Smoking Status: Current some day smoker, Light tobacco smoker Hx Substance Use: No Alcohol Screening: None Lives: With family Physical Exam - Physical Exam Appearance: Well-appearing, No pain distress, Well-nourished Eyes: JANY, EOMI, Conjunctiva clear ENT: Ears normal, Nose normal, Oropharynx normal Neck: Supple Respiratory: Airway patent, Breath sounds equal, Respirations nonlabored, Crackles, Rhonchi, Wheezes Cardiovascular: RRR, Pulses normal, No rub, No murmur GI/: Soft, Nontender, No masses, Bowel sounds normal, No Organomegaly Musculoskeletal: Normal strength Skin: Warm, Dry, Normal color Neurological: Sensation intact, Motor intact, Reflexes intact, Cranial nerves intact, Alert, Oriented Psychiatric: Affect appropriate, Mood appropriate, Anxious Interpretation - Radiology Interpretation Radiology Interpretation By: Radiologist Radiology Results: Negative Exam Interpreted: CT Scan - EKG Interpretation Time of EKG #1: 18:24 Rate: Normal Rhythm: Sinus Ectopy: None [place]: NL ST Segment: Normal Physician Notification - Case Discussed Physician Notified: dr fields Time of Notification: 18:24 Critical Care Note - Critical Care Note Total Time (mins): 0 Course - Course Hematology/Chemistry: 02/11/17 17:35 02/11/17 17:35 Orders, Labs, Meds: Lab Review 02/11/17 02/11/17 02/11/17 17:10 17:26 17:35 WBC 7.87 RBC 3.99 L Hgb 12.3 L Hct 36.9 L MCV 92.5 MCH 30.8 MCHC 33.3 RDW Coeff of [place] 12.9 Plt Count 151 Immature Gran % (Auto) 0.3 Neut % (Auto) 55.3 Lymph % (Auto) 29.1 [place] % (Auto) 9.4 Eos % (Auto) 5.6 Baso % (Auto) 0.3 Immature Gran # (Auto) 0.0 Neut # 4.4 Lymph # 2.3 [place] # 0.7 Eos # 0.4 Baso # 0.0 Puncture Site Rr O2 Saturation 95.0 ABG pH 7.361 ABG pCO2 60.2 H ABG pO2 82.0 L ABG HCO3 34.1 H ABG Total CO2 36 H ABG Base Excess 9 H Manuel Test + O2 Delivery Device Nc Oxygen Liter Flow 2.00 FiO2 % 28.0 Sodium Potassium Chloride Carbon Dioxide Anion Gap BUN Creatinine Estimated GFR (MDRD) BUN/Creatinine Ratio Glucose Calcium Total Bilirubin AST ALT Alkaline Phosphatase Total Creatine Kinase Troponin I B-Natriuretic Peptide Total Protein Albumin Globulin Albumin/Globulin Ratio Influenza A (Rapid) Negative Influenza B (Rapid) Negative 02/11/17 02/11/17 17:35 17:35 WBC RBC Hgb Hct MCV MCH MCHC RDW Coeff of [place] Plt Count Immature Gran % (Auto) Neut % (Auto) Lymph % (Auto) [place] % (Auto) Eos % (Auto) Baso % (Auto) Immature Gran # (Auto) Neut # Lymph # [place] # Eos # Baso # Puncture Site O2 Saturation ABG pH ABG pCO2 ABG pO2 ABG HCO3 ABG Total CO2 ABG Base Excess Manuel Test O2 Delivery Device Oxygen Liter Flow FiO2 % Sodium 142 Potassium 4.2 Chloride 101 Carbon Dioxide 32 H Anion Gap 13.2 BUN 33 H Creatinine 1.89 H Estimated GFR (MDRD) 34.00 BUN/Creatinine Ratio 17.46 Glucose 117 H Calcium 9.9 Total Bilirubin 0.48 AST 16 ALT 7 L Alkaline Phosphatase 54 L Total Creatine Kinase 44 Troponin I 0.0330 B-Natriuretic Peptide 462 H Total Protein 7.1 Albumin 3.5 Globulin 3.6 Albumin/Globulin Ratio 0.97 Influenza A (Rapid) Influenza B (Rapid) Orders Category Date Time Status ABG DRAW REQUEST Stat CARDIO 02/11/17 17:10 Completed EKG-(ED ONLY) Stat CARDIO 02/11/17 17:10 Completed NEBULIZER TREATMENT Stat CARDIO 02/11/17 17:12 Completed Rda [ED TAX SERVICES SPECIALIST APPLIED] .ONCE EMERGENCY 02/11/17 17:11 Active IV [ED IV/MEDIPORT/POWERPORT] .ONCE EMERGENCY 02/11/17 17:10 Active ABG Stat LAB 02/11/17 17:10 Completed BLOOD CULTURE (ED ONLY) Stat LAB 02/11/17 17:35 Received BNP [B-TYPE NATRIURETIC PEPTIDE] Stat LAB 02/11/17 17:35 Completed CBC W/ AUTO DIFF Stat LAB 02/11/17 17:35 Completed COMPREHENSIVE METABOLIC PANEL Stat LAB 02/11/17 17:35 Completed CREATINE KINASE Stat LAB 02/11/17 17:35 Completed MOLECULAR GROUP A STREP Stat LAB 02/11/17 17:26 Results RAPID FLU A/B Stat LAB 02/11/17 17:26 Completed STREP SCREEN Stat LAB 02/11/17 17:26 Results TROPONIN I Stat LAB 02/11/17 17:35 Completed 0.9 % Sodium Chloride [Saline Flush] MEDS 02/11/17 17:10 Ordered 1 syr IVF PRN PRN Ceftriaxone Sodium [Rocephin] MEDS 02/11/17 17:30 Discontinued 1 gm .ROUTE .STK-MED ONE Ceftriaxone Sodium [Rocephin] 1 gm MEDS 02/11/17 17:11 Discontinued 0.9 % Sodium Chloride [Sodium Chloride] 50 ml IV ONCE Ipratropium/Albuterol Neb [Duoneb] MEDS 02/11/17 17:12 Discontinued 1 vial NEB ONCE STA Levalbuterol HCl [Xopenex 1.25 mg] MEDS 02/11/17 17:12 Discontinued 1 vial NEB ONCE STA Methylprednisolone Sod Succ/Pf [Solu-Medrol 125 mg] MEDS 02/11/17 17:12 Discontinued 125 [address] IVP ONCE STA CT CHEST W/O CONTRAST Stat RADS 02/11/17 17:13 Completed Medications Generic Name Dose Route Start Last Admin Trade Name Freq PRN Reason Stop Dose Admin Sodium Chloride 1 syr 02/11/17 17:10 02/11/17 17:50 Saline Flush IVF 1 syr PRN PRN Administration To flush IV Discontinued Medications Generic Name Dose Route Start Last Admin Trade Name Freq PRN Reason Stop Dose Admin Albuterol/Ipratropium 1 vial 02/11/17 17:12 02/11/17 17:29 Duoneb NEB 02/11/17 17:13 1 vial ONCE STA Administration Ceftriaxone Sodium 1 gm/ 50 mls @ 75 mls/hr 02/11/17 17:11 02/11/17 17:53 Sodium Chloride IV 02/11/17 17:50 75 mls/hr ONCE STA Administration Levalbuterol HCl 1 vial 02/11/17 17:12 02/11/17 17:46 Xopenex 1.25 Mg NEB 02/11/17 17:13 1 vial ONCE STA Administration Methylprednisolone Sodium Succinate 125 mg 02/11/17 17:12 02/11/17 17:48 Solu-Medrol 125 Mg IVP 02/11/17 17:13 125 mg ONCE STA Administration Vital Signs: Temp Pulse Resp BP Pulse Ox 02/11/17 17:01 99.4 F 93 H 24 148/74 H 89 L Departure - Departure Time of Disposition: 18:24 Disposition: ADMITTED INPATIENT Discharge Problem: COPD exacerbation Instructions: COPD (Chronic Obstructive Pulmonary Disease) (ED) Condition: Stable Pt referred to PMD for follow-up: Yes Allergies/Adverse Reactions: Allergies lisinopril Adverse Reaction (Verified 02/11/17 17:06) rash, cough verapamil Adverse Reaction (Verified 02/11/17 17:06) Home Medications: Ambulatory Orders Alprazolam [Xanax] 0.25 mg PO TID PRN 12/09/12 Carvedilol [Coreg] 6.25 mg PO DAILY 12/09/12 Spironolactone [Aldactone] 25 mg PO DAILY 12/09/12 Furosemide [Lasix Tab] 40 mg PO QAM 12/12/12 Cholecalciferol (Vitamin D3) [Vitamin D] 400 unit PO DAILY 02/14/14 Ipratropium/Albuterol Sulfate [Combivent Respimat Inhal Beatrice] 2 puff IH QID PRN 02/14/14 Budesonide/Formoterol Fumarate [Symbicort 160-4.5 Mcg Inhaler] 2 puff INH BID Polyethylene Glycol 3350 [Miralax] 17 gm PO DAILY PRN #20 powd.pack 10/27/16 Aspirin [Aspirin EC] 81 mg PO DAILYWM 12/03/16 Ipratropium/Albuterol Neb [Duoneb] 1 vial NEB RTQ4H PRN 12/03/16 Omeprazole 20 mg PO DAILY 12/03/16 Furosemide [Lasix Tab] 20 mg PO QPM 02/11/17 Glycerin 1 each RC DAILY PRN 02/11/17 Transfer Form Completed: No Disposition Discussed With: Patient, Family
[2017-02-11] MEDS ORDERED: TYLENOL PO PRN (18:27)
[2017-02-11] MEDS ORDERED: GLYCERIN RC PRN (18:30)
[2017-02-11] MEDS ORDERED: MIRALAX PO PRN (18:30)
[2017-02-11 19:10] VITALS: BMI 20.5
[2017-02-11] MEDS ORDERED: SOLU-MEDROL 40 MG IVP SCH (21:00)
[2017-02-11] MEDS: SYMBICORT 160-4.5 MCG INHALER IH SCH (21:13)
[2017-02-11] MEDS: DUONEB NEB SCH (23:06)
[2017-02-12 04:29] LABS: BASOPHILS % (AUTO) 0.2 % (0.0-3.0); EOSINOPHILS % (AUTO) 0.2 % (0.0-7.0); HEMATOCRIT 34.1 % (42.0-52.0); HEMOGLOBIN 11.4 g/dl (14.0-18.0); IMMATURE GRANULOCYTE % (AUTO) 0.4 % (0.0-5.0); LYMPHOCYTES % (AUTO) 19.3 (10.0-50.0); MEAN CORPUSCULAR HEMOGLOBIN 30.6 pg (27.0-31.0); MEAN CORPUSCULAR HGB CONC 33.4 (31.8-35.4); MEAN CORPUSCULAR VOLUME 91.7 fl (80.0-94.0); MONOCYTES # (AUTO) 0.1 K/uL (0.4-2.0); MONOCYTES % (AUTO) 1.3 (0-10); NEUTROPHILS # (AUTO) 4.2 K/ul (2.0-6.9); NEUTROPHILS % (AUTO) 78.6; PLATELET COUNT 142 10^3/uL (140-440); RED BLOOD COUNT 3.72 10^6/ul (4.70-6.10); WHITE BLOOD COUNT 5.28 K/ul (4.2-10.2)
[2017-02-12 04:50] LABS: ALBUMIN 3.2 g/dL (3.4-5.0); ALBUMIN/GLOBULIN RATIO 0.94; ANION GAP 13.7; BILIRUBIN,TOTAL 0.38 mg/dL (0.00-1.20); BUN/CREATININE RATIO 19.58; CALCIUM 9.5 mg/dL (8.2-10.2); CREATININE 1.94 mg/dL (0.60-1.10); POTASSIUM 4.7 mmol/L (3.5-5.1); TOTAL PROTEIN 6.6 g/dL (5.8-8.1)
[2017-02-12] MEDS: DUONEB NEB SCH ×4 (05:06→23:06)
[2017-02-12] MEDS ORDERED: GLYCERIN SUPPOSITORY RC PRN (06:39)
[2017-02-12] MEDS: LASIX TAB PO SCH ×2 (07:24→18:35)
[2017-02-12] MEDS: PRILOSEC PO SCH (07:24)
[2017-02-12] MEDS: ROCEPHIN 1 GM in SODIUM CHLORIDE 50 ML IV SCH (08:50)
[2017-02-12] MEDS: VITAMIN D PO SCH (08:50)
[2017-02-12] MEDS: ASPIRIN EC PO SCH (08:51)
[2017-02-12] MEDS: ALDACTONE PO SCH (08:51)
[2017-02-12] MEDS: COREG PO SCH (08:51)
[2017-02-12] MEDS: LOVENOX SUBCUT SCH (08:52)
[2017-02-12] MEDS: DEXTROSE 5%-1/2NS IV SOLUTION 1,000 ML IV SCH (08:58)
[2017-02-12] MEDS ORDERED: LOVENOX SUBCUT SCH (09:00)
--- NOTE | 2017-02-12 10:29 | PCM.PROG ---
Attending Provider: ATTENDING PROVIDER: Dr. SHWETA PENA This patient is seen with Caity Wagner, Nurse Practitioner. DATE OF SERVICE: 02/12/17 SUBJECTIVE: This 81 year old WHITE/ M was hospitalized 02/11/17. The patient is lying in bed, is alert. He states he is feeling better today. Shortness of breath slightly better. REVIEW OF SYSTEMS: CONSTITUTIONAL: No night sweats. No fatigue, malaise, lethargy. No fever or chills. HEENT: Eyes: No visual changes. No eye pain. No eye discharge. ENT: No runny nose. No epistaxis. No sinus pain. No odynophagia. No congestion. RESPIRATORY: Cough and congestion. Wheeze inspiratory and expiratory No hemoptysis. Shortness of breath, slightly better. CARDIOVASCULAR: No angina symptoms. No CHF symptoms. No atypical chest pain for CAD. No palpitations. No orthopnea.. GASTROINTESTINAL: No abdominal pain. No nausea or vomiting. No diarrhea or constipation. No hematemesis. No hematochezia. GENITOURINARY: No urgency. No frequency. No dysuria. No hematuria. No obstructive symptoms. No discharge. No pain. No significant abnormal bleeding. MUSCULOSKELETAL: No musculoskeletal pain; no joint swelling. NEUROLOGICAL: Awake, alert, oriented to time, place and person. No headache. No neck pain. No syncope. No seizures. No dizziness. PSYCHIATRIC: Not anxious. No depression. No suicidal thoughts. No homicidal thoughts. SKIN: No rash. No lesions. No wounds. ENDOCRINE: No unexplained weight loss. No weight gain. HEMATOLOGIC/LYMPHATIC: No anemia. No purpura. No petechiae. No prolonged or excessive bleeding. No palpable lymph nodes. PHYSICAL EXAMINATION: GENERAL: The patient is awake, alert and oriented, lying in bed in no distress. VITAL SIGNS: Temperature 98.7 F, Pulse 84, Respiratory Rate 15, BP 133/77, Pulse Ox 99% HEENT: Head normocephalic, atraumatic. Eyes: Extraocular muscles are intact. Pupils are equal, round and reactive to light and accommodation. Ears: No lesions. Nose appeared normal. Throat: No exudate or erythema. NECK: Supple. No JVD, no carotid bruit. No lymphadenopathy or thyromegaly. LUNGS: Bilateral inspiratory and expiratory wheeze with bilateral rub. Percussion note normal. Chest symmetrical. HEART: S1, S2, no S3. No murmurs. No cyanosis or clubbing. No ascites. Pulses: Dorsalis pedis and posterior tibial pulses +1 to +2 both sides. ABDOMEN: Soft. Non-tender. Bowel sounds active. No CVA tenderness. No mass felt. EXTREMITIES: No edema. Full range of motion of all extremities, equal. NEUROLOGIC: No focal deficit. Cranial nerves II through XII are grossly intact. No headache, no double vision or headache. SKIN: Not dry. Intact. Turgor-normal. LYMPHATIC: No palpable lymph nodes/no lymphedema. MUSCULOSKELETAL: Normal joints with no swelling. Muscle tone is normal. LAB REVIEW: 02/12/17 04:28 02/12/17 04:28 02/12/17 04:28: Sodium 141, Potassium 4.7, Chloride 99, Carbon Dioxide 33 H, Anion Gap 13.7, BUN 38 H, Creatinine 1.94 H, Estimated GFR (MDRD) 33.00, BUN/ Creatinine Ratio 19.58, Glucose 165 H, Calcium 9.5, Total Bilirubin 0.38, AST 14 L, ALT 8 L, Alkaline Phosphatase 50 L, Total Protein 6.6, Albumin 3.2 L, Globulin 3.4, Albumin/Globulin Ratio 0.94 02/12/17 04:28: WBC 5.28, RBC 3.72 L, Hgb 11.4 L, Hct 34.1 L, MCV 91.7, MCH 30.6 , MCHC 33.4, RDW Coeff of [place] 12.6, Plt Count 142, Immature Gran % (Auto) 0.4, Neut % (Auto) 78.6, Lymph % (Auto) 19.3, [place] % (Auto) 1.3, Eos % (Auto) 0.2, Baso % (Auto) 0.2, Immature Gran # (Auto) 0.0, Neut # 4.2, Lymph # 1.0, [place] # 0.1 L, Eos # 0.0, Baso # 0.0 ASSESSMENT: 1. ACUTE BRONCHITIS 2. ACUTE COPD EXACERBATION 3. SHORTNESS OF BREATH PLAN: 1. Solu-Medrol 125 mg t.i.d. 2. Continue meds 3. D5 1/2 NS at 75 mL/hr Plan and coordination of the patient's care discussed in the presence of Line Mechanic and nurse. CONDITION: STABLE SCRIBED BY: ALEC STOREY Pathology Collector scribed while in presence of service performed by Dr. Pena/Caity Wagner APRN on 02/12/17 ([id number])
--- NOTE | 2017-02-12 12:52 | PN ---
DATE OF SERVICE: 02/11/17 CHIEF COMPLAINT: Short of breath, cough, congestion, fever and chills. HISTORY OF PRESENT ILLNESS: The patient was seen and examined in the emergency room by Dr. Veliz, who called me. The patient's blood gases showed pH of 7.30 with pc02 of 49, p02 66 approximately on 2L. When I saw the patient in Room 115 at approximately 9 p.m. , the patient was sitting up reading some literature, was not in distress, said he was feeling a lot better. Oxygen saturation was 92% on 2L. REVIEW OF SYSTEMS: CONSTITUTIONAL: No night sweats. No fatigue, malaise, lethargy. No fever or chills. HEENT: Eyes: No visual changes. No eye pain. No eye discharge. ENT: No runny nose. No epistaxis. No sinus pain. No sore throat. No odynophagia. No congestion. RESPIRATORY: No cough, no congestion. No hemoptysis. No shortness of breath. CARDIOVASCULAR: No angina symptoms. No CHF symptoms. No atypical chest pain for CAD. No palpitations. No orthopnea. GASTROINTESTINAL: No abdominal pain. No nausea or vomiting. No diarrhea or constipation. No hematemesis. No hematochezia. GENITOURINARY: No urgency. No frequency. No dysuria. No hematuria. No obstructive symptoms. No discharge. No pain. No significant abnormal bleeding. MUSCULOSKELETAL: No musculoskeletal pain; no joint swelling. NEUROLOGICAL: No headache. No neck pain. No syncope. No seizures. No dizziness. PSYCHIATRIC: Not anxious. No depression. No suicidal thoughts. No homicidal thoughts. SKIN: No rash. No lesions. No wounds. ENDOCRINE: No unexplained weight loss. No weight gain. HEMATOLOGIC/LYMPHATIC: No anemia. No purpura. No petechiae. No prolonged or excessive bleeding. No palpable lymph nodes. PHYSICAL EXAMINATION: HEENT: Head normocephalic, atraumatic. Eyes: Extraocular muscles are intact. Pupils are equal, round and reactive to light and accommodation. Ears: No lesions. Nose appeared normal. Throat: No exudate or erythema. NECK: Supple. No JVD, no carotid bruit. No lymphadenopathy or thyromegaly. LUNGS: Bilateral wheezing. Clear to auscultation. Percussion note normal. Chest symmetrical. HEART: S1, S2, no S3. No murmurs. No cyanosis or clubbing. No ascites. Pulses: Dorsalis pedis and posterior tibial pulses +1 to +2 both sides. ABDOMEN: Soft. Nontender. Bowel sounds active. No CVA tenderness. No mass felt. EXTREMITIES: No edema. Full range of motion of all extremities, equal. NEUROLOGIC: No focal deficit. Cranial nerves II through XII are grossly intact. No headache, no double vision or headache. SKIN: Not dry. Intact. Turgor - normal. LYMPHATIC: No palpable lymph nodes/no lymphedema. MUSCULOSKELETAL: Normal joints with no swelling. Muscle tone is normal. ASSESSMENT: 1. ACUTE BRONCHITIS WITH PNEUMONITIS 2. SEVERE CHRONIC LUNG DISEASE 3. HISTORY OF CHF 4. HISTORY OF CORONARY ARTERY DISEASE PLAN: 1. Steroids, antibiotics 2. Nebs treatment 3. Oxygen 4. Advised pulmonary rehab TIME SPENT: More than 30 minutes. Plan and coordination of the patient's care discussed in the presence of nurse. JOSEPH
[2017-02-12] MEDS ORDERED: SOLU-MEDROL 40 MG IVP SCH (13:00)
[2017-02-12] MEDS: SOLU-MEDROL 125 MG IVP SCH ×2 (13:20→20:11)
[2017-02-12] MEDS: SYMBICORT 160-4.5 MCG INHALER IH SCH ×2 (13:22→20:13)
[2017-02-13] MEDS: DEXTROSE 5%-1/2NS IV SOLUTION 1,000 ML IV SCH ×2 (02:32→16:31)
[2017-02-13 04:40] LABS: BASOPHILS % (AUTO) 0.1 % (0.0-3.0); HEMATOCRIT 28.6 % (42.0-52.0); HEMOGLOBIN 9.6 g/dl (14.0-18.0); IMMATURE GRANULOCYTE % (AUTO) 0.6 % (0.0-5.0); LYMPHOCYTES % (AUTO) 13.4 (10.0-50.0); MEAN CORPUSCULAR HEMOGLOBIN 30.2 pg (27.0-31.0); MEAN CORPUSCULAR HGB CONC 33.6 (31.8-35.4); MEAN CORPUSCULAR VOLUME 89.9 fl (80.0-94.0); MONOCYTES # (AUTO) 0.2 K/uL (0.4-2.0); MONOCYTES % (AUTO) 3.1 (0-10); NEUTROPHILS # (AUTO) 5.9 K/ul (2.0-6.9); NEUTROPHILS % (AUTO) 82.8; PLATELET COUNT 126 10^3/uL (140-440); RED BLOOD COUNT 3.18 10^6/ul (4.70-6.10); WHITE BLOOD COUNT 7.14 K/ul (4.2-10.2)
[2017-02-13] MEDS: DUONEB NEB SCH ×4 (04:49→23:00)
[2017-02-13 05:07] LABS: ALBUMIN 2.9 g/dL (3.4-5.0); ALBUMIN/GLOBULIN RATIO 0.97; ANION GAP 11.4; BILIRUBIN,TOTAL 0.22 mg/dL (0.00-1.20); BUN/CREATININE RATIO 25.12; CALCIUM 8.4 mg/dL (8.2-10.2); CREATININE 1.95 mg/dL (0.60-1.10); POTASSIUM 4.4 mmol/L (3.5-5.1); TOTAL PROTEIN 5.9 g/dL (5.8-8.1)
[2017-02-13] MEDS: PRILOSEC PO SCH (05:32)
[2017-02-13] MEDS: SOLU-MEDROL 125 MG IVP SCH ×3 (05:32→20:20)
[2017-02-13] MEDS: LASIX TAB PO SCH ×2 (05:32→16:45)
[2017-02-13] MEDS: VITAMIN D PO SCH (08:19)
[2017-02-13] MEDS: ALDACTONE PO SCH (08:19)
[2017-02-13] MEDS: COREG PO SCH (08:19)
[2017-02-13] MEDS: ASPIRIN EC PO SCH (08:19)
[2017-02-13] MEDS: LOVENOX SUBCUT SCH (08:20)
[2017-02-13] MEDS: ROCEPHIN 1 GM in SODIUM CHLORIDE 50 ML IV SCH (08:20)
[2017-02-13] MEDS: SYMBICORT 160-4.5 MCG INHALER IH SCH ×2 (08:22→20:21)
--- NOTE | 2017-02-13 08:42 | PCM.PROG ---
Attending Provider: ATTENDING PROVIDER: Dr. SHWETA PENA This patient is seen with Caity Wagner, Nurse Practitioner. DATE OF SERVICE: 02/13/17 SUBJECTIVE: This 81 year old WHITE/ M was hospitalized 02/11/17. The patient is alert, lying in bed. Shortness of breath slightly improved. REVIEW OF SYSTEMS: CONSTITUTIONAL: No night sweats. No fatigue, malaise, lethargy. No fever or chills. HEENT: Eyes: No visual changes. No eye pain. No eye discharge. ENT: No runny nose. No epistaxis. No sinus pain. No odynophagia. No congestion. RESPIRATORY: Cough and wheeze. No hemoptysis. Shortness of breath. CARDIOVASCULAR: No angina symptoms. No CHF symptoms. No atypical chest pain for CAD. No palpitations. No orthopnea.. GASTROINTESTINAL: No abdominal pain. No nausea or vomiting. No diarrhea or constipation. No hematemesis. No hematochezia. GENITOURINARY: No urgency. No frequency. No dysuria. No hematuria. No obstructive symptoms. No discharge. No pain. No significant abnormal bleeding. MUSCULOSKELETAL: No musculoskeletal pain; no joint swelling. NEUROLOGICAL: Awake, alert, oriented to time, place and person. No headache. No neck pain. No syncope. No seizures. No dizziness. PSYCHIATRIC: Not anxious. No depression. No suicidal thoughts. No homicidal thoughts. SKIN: No rash. No lesions. No wounds. ENDOCRINE: No unexplained weight loss. No weight gain. HEMATOLOGIC/LYMPHATIC: No anemia. No purpura. No petechiae. No prolonged or excessive bleeding. No palpable lymph nodes. PHYSICAL EXAMINATION: GENERAL: The patient is awake, alert and oriented, lying in bed in no distress. VITAL SIGNS: Temperature 97.4 F, Pulse 77, Respiratory Rate 22, BP 133/73, Pulse Ox 98% HEENT: Head normocephalic, atraumatic. Eyes: Extraocular muscles are intact. Pupils are equal, round and reactive to light and accommodation. Ears: No lesions. Nose appeared normal. Throat: No exudate or erythema. NECK: Supple. No JVD, no carotid bruit. No lymphadenopathy or thyromegaly. LUNGS: Clear to auscultation. Percussion note normal. Chest symmetrical. HEART: S1, S2, no S3. Grade I/ systolic murmur with bilateral rub. No cyanosis or clubbing. No ascites. Pulses: Dorsalis pedis and posterior tibial pulses +1 to +2 both sides. ABDOMEN: Soft. Non-tender. Bowel sounds active. No CVA tenderness. No mass felt. EXTREMITIES: No edema. Full range of motion of all extremities, equal. NEUROLOGIC: No focal deficit. Cranial nerves II through XII are grossly intact. No headache, no double vision or headache. SKIN: Not dry. Intact. Turgor-normal. LYMPHATIC: No palpable lymph nodes/no lymphedema. MUSCULOSKELETAL: Normal joints with no swelling. Muscle tone is normal. LAB REVIEW: 02/13/17 04:20 02/13/17 04:20 02/13/17 04:20: Sodium 136, Potassium 4.4, Chloride 100, Carbon Dioxide 29, Anion Gap 11.4, BUN 49 H, Creatinine 1.95 H, Estimated GFR (MDRD) 33.00, BUN/ Creatinine Ratio 25.12, Glucose 194 H, Calcium 8.4, Total Bilirubin 0.22, AST 13 L, ALT 6 L, Alkaline Phosphatase 45 L, Total Protein 5.9, Albumin 2.9 L, Globulin 3.0, Albumin/Globulin Ratio 0.97 02/13/17 04:20: WBC 7.14, RBC 3.18 L, Hgb 9.6 L, Hct 28.6 L, MCV 89.9, MCH 30.2 , MCHC 33.6, RDW Coeff of [place] 12.5, Plt Count 126 L, Immature Gran % (Auto) 0.6 , Neut % (Auto) 82.8, Lymph % (Auto) 13.4, [place] % (Auto) 3.1, Eos % (Auto) 0.0, Baso % (Auto) 0.1, Immature Gran # (Auto) 0.0, Neut # 5.9, Lymph # 1.0, [place] # 0.2 L, Eos # 0.0, Baso # 0.0 ASSESSMENT: 1. ACUTE BRONCHITIS 2. ACUTE COPD EXACERBATION 3. SHORTNESS OF BREATH PLAN: 1. Encouraged to be up and about 2. Continue same plan Plan and coordination of the patient's care discussed in the presence of Field Coil Winder and nurse. CONDITION: Stable SCRIBED BY: Siena DUDLEY scribed while in presence of service performed by Dr. Pena/Caity Wagner APRN on 02/13/17 ([id number])
--- NOTE | 2017-02-13 09:29 | HP ---
DATE OF SERVICE: 02/12/17 HISTORY OF PRESENT ILLNESS: This is an 81-year-old white male who presented to the emergency room complaining of shortness of breath. He stated he was not breathing well at home , had been coughing up yellow sputum and had a low grade temperature. The patient has a history of severe COPD. He is on continuous oxygen all the time. He also has a significant history of CHF. He was subsequently admitted. PAST MEDICAL HISTORY: Chronic bronchitis COPD on continuous oxygen at History of CHF Moderate to severe aortic stenosis LVH Dyslipidemia Coronary artery disease Chronic kidney disease, Stage 4 Generalized anxiety History of chronic constipation History of CVA with left thalamic infarction PAST SURGICAL HISTORY: Status post cholecystectomy Bilateral hernia repair Prostate surgery REVIEW OF SYSTEMS: CONSTITUTIONAL: No night sweats. Fatigue. Low grade fever and chills. HEENT: Eyes: No visual changes. No eye pain. No eye discharge. ENT: Sinus drainage. No epistaxis. No sinus pain. Sore throat. No odynophagia. No ear pain. RESPIRATORY: Shortness of breath. Cough and wheeze. No hemoptysis. CARDIOVASCULAR: No angina symptoms. No CHF symptoms. No atypical chest pain for CAD. No palpitations. No orthopnea. GASTROINTESTINAL: No abdominal pain. No nausea or vomiting. No diarrhea or constipation. No hematemesis. No hematochezia. GENITOURINARY: No urgency. No frequency. No dysuria. No hematuria. No obstructive symptoms. No discharge. No pain. No significant abnormal bleeding. MUSCULOSKELETAL: No musculoskeletal pain. No joint swelling or redness. No pain. NEUROLOGICAL: No confusion. No dizziness. No headache. No neck pain. No syncope. No seizures. PSYCHIATRIC: Not anxious. No depression. No suicidal thoughts. No homicidal thoughts. SKIN: No rash. No lesions. No wounds. ENDOCRINE: No unexplained weight loss. No weight gain. HEMATOLOGIC/LYMPHATIC: No anemia. No purpura. No petechiae. No prolonged or excessive bleeding. No palpable lymph nodes. PERSONAL/FAMILY/SOCIAL HISTORY: The patient currently resides at home with his . He is a current every day smoker. He wears oxygen continuously. He denies any alcohol or ilicit drug use. He still drives his care and is pretty independent with activities of daily living. MEDICATIONS: (HOME) Xanax 0.25 mg p.o. t.i.d. p.r.n. Aldactone 25 mg p.o. daily Coreg 6.25 mg p.o. daily Lasix 40 mg p.o. q.a.m. Cholecalciferol 400 unit p.o. daily Ipratropium/Albuterol two puff IH q.i.d. p.r.n. Budesonide/Formoterol two puff INH b.i.d. Miralax 17 gm p.o. daily p.r.n. Aspirin 81 mg p.o. daily with meal Omeprazole 20 mg p.o. daily Duoneb one vial neb RT q.4h p.r.n. Lasix 20 mg p.o. q.p.m. Glycerin one each suppostiroy rectally daily p.r.n. ALLERGIES: LISINOPRIL, VERAPAMIL PHYSICAL EXAMINATION: VITAL SIGNS: Temperature 98.7, heart rate 84, respirations 15, BP 133/77, pulse ox 99%. HEENT: Head normocephalic, atraumatic. Eyes: Extraocular muscles are intact. Pupils are equal, round and reactive to light and accommodation. Conjunctiva clear. Ears: TM's within normal limits. No lesions. Nose: Clear nasal drainage. Throat: No exudate or erythema. NECK: Supple. No JVD, no carotid bruit. No lymphadenopathy or thyromegaly. LUNGS: Severely diminished breath sounds with bilateral inspiratory and expiratory wheezing as well as bilateral rubs. No rhonchi, crackles or rales. Percussion note normal. Chest symmetrical. HEART: Regular rate and rhythm. S1, S2, no S3. Grade II/ systolic murmur. No rub. No cyanosis or clubbing. No ascites. Pulses: Dorsalis pedis and posterior tibial pulses +1 to +2 both sides. ABDOMEN: Soft. Nontender. Bowel sounds active times four quadrants. No CVA tenderness. No mass felt. EXTREMITIES: No clubbing, no cyanosis, no edema. Full range of motion of all extremities, equal. Negative Jasmyn's sign bilaterally. NEUROLOGIC: Alert and oriented times three. No focal deficit. Cranial nerves II through XII are grossly intact. No headache, no double vision or headache. SKIN: Clean, dry and intact. Turgor - normal. He does have some skin discoloration on lower extremities due to peripheral vascular disease. LYMPHATIC: No palpable lymph nodes/no lymphedema. MUSCULOSKELETAL: Normal joints with no swelling. Muscle tone is normal. LABS: Most recent, hemoglobin 11.4, hematocrit 34.1, white count 5.28, platelets 142. Sodium 141, potassium 4.7, BUN 38, creatinine 1.94, glucose 165, BNP 462. ABGs on admission 02 saturation 95%, pH 7.361, pc02 60.2, p02 82, bicarb 34.1, total c02 36, base excess of 9. This is on 2L. Influenza A and B were both negative. CT scan of the chest without contrast showed a 1.3 times 1.4 cm nodular density within the right lower lobe with recommended followup chest CT in 3 months. Showed bronchial wall thickening, correlate for bronchitis. Dilatation of the ascending aorta 4 x 4. Aortic root calcifications. Severe compression fracture of T10. ASSESSMENT: 1. ACUTE BRONCHITIS 2. COPD EXACERBATION 3. CHRONIC KIDNEY DISEASE 4. SHORTNESS OF BREATH PLAN: 1. The patient is admitted, placed on Rocephin 1 gm IV daily 2. Continue home medications 3. Start Solu-Medrol 125 mg t.i.d. 4. Continue with oxygen 5. Start Duonebs q.6hr 6. Regular diet 7. Start on D5 1/2 NS at 75 cc/hr 8. CBC/CMP daily 9. Routine telemetry 10. Sputum for culture TIME SPENT: More than 70 minutes. MTDD
[2017-02-13] MEDS: XANAX PO PRN (20:21)
[2017-02-14] MEDS: SOLU-MEDROL 125 MG IVP SCH ×3 (04:12→20:05)
[2017-02-14] MEDS: DUONEB NEB SCH ×4 (05:00→22:12)
[2017-02-14] MEDS: DEXTROSE 5%-1/2NS IV SOLUTION 1,000 ML IV SCH ×2 (05:31→19:51)
[2017-02-14] MEDS: LASIX TAB PO SCH ×2 (05:31→17:08)
[2017-02-14] MEDS: PRILOSEC PO SCH (05:31)
[2017-02-14] MEDS ORDERED: CITRATE OF MAGNESIA PO STA ×2 (08:20→17:30)
[2017-02-14 08:56] LABS: HEMATOCRIT 32.8 % (42.0-52.0); HEMOGLOBIN 10.9 g/dl (14.0-18.0); IMMATURE GRANULOCYTE % (AUTO) 0.9 % (0.0-5.0); LYMPHOCYTES # (AUTO) 0.7 K/uL (0.60-3.4); MEAN CORPUSCULAR HEMOGLOBIN 30.6 pg (27.0-31.0); MEAN CORPUSCULAR HGB CONC 33.2 (31.8-35.4); MEAN CORPUSCULAR VOLUME 92.1 fl (80.0-94.0); MONOCYTES # (AUTO) 0.2 K/uL (0.4-2.0); NEUTROPHILS # (AUTO) 9.4 K/ul (2.0-6.9); NEUTROPHILS % (AUTO) 90.1; PLATELET COUNT 162 10^3/uL (140-440); RED BLOOD COUNT 3.56 10^6/ul (4.70-6.10); WHITE BLOOD COUNT 10.43 K/ul (4.2-10.2)
[2017-02-14 09:22] LABS: ALBUMIN 3.2 g/dL (3.4-5.0); ALBUMIN/GLOBULIN RATIO 0.97; ANION GAP 13.7; BILIRUBIN,TOTAL 0.27 mg/dL (0.00-1.20); BUN/CREATININE RATIO 25.12; CREATININE 1.99 mg/dL (0.60-1.10); POTASSIUM 4.7 mmol/L (3.5-5.1); TOTAL PROTEIN 6.5 g/dL (5.8-8.1)
[2017-02-14] MEDS: SYMBICORT 160-4.5 MCG INHALER IH SCH ×2 (09:31→20:06)
[2017-02-14] MEDS: ASPIRIN EC PO SCH (09:32)
[2017-02-14] MEDS: COREG PO SCH (09:32)
[2017-02-14] MEDS: ALDACTONE PO SCH (09:32)
[2017-02-14] MEDS: VITAMIN D PO SCH (09:32)
[2017-02-14] MEDS: ROCEPHIN 1 GM in SODIUM CHLORIDE 50 ML IV SCH (09:32)
[2017-02-14] MEDS: LOVENOX SUBCUT SCH (09:33)
--- NOTE | 2017-02-14 13:35 | PCM.PROG ---
Attending Provider: ATTENDING PROVIDER: Dr. SHWETA PENA DATE OF SERVICE: 02/14/17 SUBJECTIVE: This 81 year old WHITE/ M was hospitalized 02/11/17. The patient was admitted with acute bronchitis, COPD exaceration and is on antibiotics and steroids. He is still complaining of weakness, shortness of breath with mild wheezing. He is no on distress. Hydration status has improved. REVIEW OF SYSTEMS: CONSTITUTIONAL: Weakness. No night sweats. No fatigue, malaise, lethargy. No fever or chills. HEENT: Eyes: No visual changes. No eye pain. No eye discharge. ENT: No runny nose. No epistaxis. No sinus pain. No odynophagia. No congestion. RESPIRATORY: No cough, no congestion. No hemoptysis. Shortness of breath. CARDIOVASCULAR: No angina symptoms. No CHF symptoms. No atypical chest pain for CAD. No palpitations. No orthopnea.. GASTROINTESTINAL: No abdominal pain. No nausea or vomiting. No diarrhea or constipation. No hematemesis. No hematochezia. GENITOURINARY: No urgency. No frequency. No dysuria. No hematuria. No obstructive symptoms. No discharge. No pain. No significant abnormal bleeding. MUSCULOSKELETAL: No musculoskeletal pain; no joint swelling. NEUROLOGICAL: Awake, alert, oriented to time, place and person. No headache. No neck pain. No syncope. No seizures. No dizziness. PSYCHIATRIC: Not anxious. No depression. No suicidal thoughts. No homicidal thoughts. SKIN: No rash. No lesions. No wounds. ENDOCRINE: No unexplained weight loss. No weight gain. HEMATOLOGIC/LYMPHATIC: No anemia. No purpura. No petechiae. No prolonged or excessive bleeding. No palpable lymph nodes. PHYSICAL EXAMINATION: GENERAL: The patient is awake, alert and oriented, lying in bed in no distress. VITAL SIGNS: Temperature 97.8 F, Pulse 85, Respiratory Rate 18, BP 138/63, Pulse Ox 98% HEENT: Head normocephalic, atraumatic. Eyes: Extraocular muscles are intact. Pupils are equal, round and reactive to light and accommodation. Ears: No lesions. Nose appeared normal. Throat: No exudate or erythema. NECK: Supple. No JVD, no carotid bruit. No lymphadenopathy or thyromegaly. LUNGS: Good air entry with wheeze. Percussion note normal. Chest symmetrical. HEART: S1, S2, no S3. Grade I/ systolic murmur. No cyanosis or clubbing. No ascites. Pulses: Dorsalis pedis and posterior tibial pulses +1 to +2 both sides. ABDOMEN: Soft. Non-tender. Bowel sounds active. No CVA tenderness. No mass felt. EXTREMITIES: No edema. Full range of motion of all extremities, equal. NEUROLOGIC: No focal deficit. Cranial nerves II through XII are grossly intact. No headache, no double vision or headache. SKIN: Warm, dry and intact. Turgor better. LYMPHATIC: No palpable lymph nodes/no lymphedema. MUSCULOSKELETAL: Normal joints with no swelling. Muscle tone is normal. LAB REVIEW: 02/13/17 04:20 02/13/17 04:20 ASSESSMENT: 1. Acute bronchitis 2. Severe COPD exacerbation 3. The patient is followed by Dr. Cheema for lung problems and nodule 4. Aortic stenosis and is not a surgical candidate PLAN: 1. Mag Citrate 1/2 bottle 2. Daily CBC and CMP Plan and coordination of the patient's care discussed in the presence of Street Sprinkler and nurse. CONDITION: Stable SCRIBED BY: ALEC STOREY Medical Editor scribed while in presence of service performed by Dr. SHWETA PENA on 02/14/17 ([id number])
[2017-02-14] MEDS: XANAX PO PRN (20:05)
[2017-02-15] MEDS: SOLU-MEDROL 125 MG IVP SCH ×3 (04:13→20:04)
[2017-02-15 04:25] LABS: HEMATOCRIT 29.9 % (42.0-52.0); LYMPHOCYTES # (AUTO) 0.8 K/uL (0.60-3.4); LYMPHOCYTES % (AUTO) 9.3 (10.0-50.0); MEAN CORPUSCULAR HEMOGLOBIN 30.3 pg (27.0-31.0); MEAN CORPUSCULAR HGB CONC 33.4 (31.8-35.4); MEAN CORPUSCULAR VOLUME 90.6 fl (80.0-94.0); MONOCYTES # (AUTO) 0.4 K/uL (0.4-2.0); MONOCYTES % (AUTO) 4.9 (0-10); NEUTROPHILS # (AUTO) 7.1 K/ul (2.0-6.9); NEUTROPHILS % (AUTO) 84.8; PLATELET COUNT 162 10^3/uL (140-440); WHITE BLOOD COUNT 8.36 K/ul (4.2-10.2)
[2017-02-15 04:53] LABS: ALBUMIN 2.8 g/dL (3.4-5.0); ALBUMIN/GLOBULIN RATIO 1.04; ANION GAP 11.1; BILIRUBIN,TOTAL 0.19 mg/dL (0.00-1.20); BUN/CREATININE RATIO 28.72; CALCIUM 8.3 mg/dL (8.2-10.2); CREATININE 1.81 mg/dL (0.60-1.10); POTASSIUM 5.1 mmol/L (3.5-5.1); TOTAL PROTEIN 5.5 g/dL (5.8-8.1)
[2017-02-15] MEDS: DUONEB NEB SCH ×4 (05:03→22:35)
[2017-02-15] MEDS: PRILOSEC PO SCH (05:42)
[2017-02-15] MEDS: LASIX TAB PO SCH ×2 (05:43→17:28)
[2017-02-15] MEDS: ROCEPHIN 1 GM in SODIUM CHLORIDE 50 ML IV SCH (09:19)
[2017-02-15] MEDS: LOVENOX SUBCUT SCH (09:22)
[2017-02-15] MEDS: ASPIRIN EC PO SCH (09:23)
[2017-02-15] MEDS: COREG PO SCH (09:23)
[2017-02-15] MEDS: ALDACTONE PO SCH (09:24)
[2017-02-15] MEDS: VITAMIN D PO SCH (09:24)
[2017-02-15] MEDS: SYMBICORT 160-4.5 MCG INHALER IH SCH ×4 (09:40→20:04)
[2017-02-15] MEDS: DEXTROSE 5%-1/2NS IV SOLUTION 1,000 ML IV SCH (10:16)
--- NOTE | 2017-02-15 10:21 | PCM.PROG ---
Attending Provider: ATTENDING PROVIDER: Dr. SHWETA JARVIS This patient is seen with Caity Wagner, Nurse Practitioner. DATE OF SERVICE: 02/15/17 SUBJECTIVE: This 81 year old WHITE/ M was hospitalized 02/11/17. The patient is lying in bed, is alert. He states breathing is better. He states he feels somewhat better but not good enough to go home. REVIEW OF SYSTEMS: CONSTITUTIONAL: No night sweats. No fatigue, malaise, lethargy. No fever or chills. HEENT: Eyes: No visual changes. No eye pain. No eye discharge. ENT: No runny nose. No epistaxis. No sinus pain. No odynophagia. No congestion. RESPIRATORY: Cough and congestion. No hemoptysis. No shortness of breath. CARDIOVASCULAR: No angina symptoms. No CHF symptoms. No atypical chest pain for CAD. No palpitations. No orthopnea.. GASTROINTESTINAL: No abdominal pain. No nausea or vomiting. No diarrhea or constipation. No hematemesis. No hematochezia. GENITOURINARY: No urgency. No frequency. No dysuria. No hematuria. No obstructive symptoms. No discharge. No pain. No significant abnormal bleeding. MUSCULOSKELETAL: No musculoskeletal pain; no joint swelling. NEUROLOGICAL: Awake, alert, oriented to time, place and person. No headache. No neck pain. No syncope. No seizures. No dizziness. PSYCHIATRIC: Not anxious. No depression. No suicidal thoughts. No homicidal thoughts. SKIN: No rash. No lesions. No wounds. ENDOCRINE: No unexplained weight loss. No weight gain. HEMATOLOGIC/LYMPHATIC: No anemia. No purpura. No petechiae. No prolonged or excessive bleeding. No palpable lymph nodes. PHYSICAL EXAMINATION: GENERAL: The patient is awake, alert and oriented, lying/sitting in bed in no distress. VITAL SIGNS: Temperature 97.6 F, Pulse 88, Respiratory Rate 20, BP 159/78, Pulse Ox 100% HEENT: Head normocephalic, atraumatic. Eyes: Extraocular muscles are intact. Pupils are equal, round and reactive to light and accommodation. Ears: No lesions. Nose appeared normal. Throat: No exudate or erythema. NECK: Supple. No JVD, no carotid bruit. No lymphadenopathy or thyromegaly. LUNGS: Bilateral expiratory wheeze is improved. Percussion note normal. Chest symmetrical. HEART: S1, S2, no S3. Grade II/ murmur. No cyanosis or clubbing. No ascites. Pulses: Dorsalis pedis and posterior tibial pulses +1 to +2 both sides. ABDOMEN: Soft. Non-tender. Bowel sounds active. No CVA tenderness. No mass felt. EXTREMITIES: No edema. Full range of motion of all extremities, equal. NEUROLOGIC: No focal deficit. Cranial nerves II through XII are grossly intact. No headache, no double vision or headache. SKIN: Not dry. Intact. Turgor-normal. LYMPHATIC: No palpable lymph nodes/no lymphedema. MUSCULOSKELETAL: Normal joints with no swelling. Muscle tone is normal. LAB REVIEW: 02/15/17 03:50 02/15/17 03:50 02/15/17 03:50: Sodium 138, Potassium 5.1, Chloride 101, Carbon Dioxide 31, Anion Gap 11.1, BUN 52 H, Creatinine 1.81 H, Estimated GFR (MDRD) 36.00, BUN/ Creatinine Ratio 28.72, Glucose 157 H, Calcium 8.3, Total Bilirubin 0.19, AST 12 L, ALT 9 L, Alkaline Phosphatase 41 L, Total Protein 5.5 L, Albumin 2.8 L, Globulin 2.7, Albumin/Globulin Ratio 1.04 02/15/17 03:50: WBC 8.36, RBC 3.30 L, Hgb 10.0 L, Hct 29.9 L, MCV 90.6, MCH 30.3 , MCHC 33.4, RDW Coeff of [place] 12.8, Plt Count 162, Immature Gran % (Auto) 1.0, Neut % (Auto) 84.8, Lymph % (Auto) 9.3 L, [place] % (Auto) 4.9, Eos % (Auto) 0.0, Baso % (Auto) 0.0, Immature Gran # (Auto) 0.1, Neut # 7.1 H, Lymph # 0.8, [place] # 0.4, Eos # 0.0, Baso # 0.0 02/14/17 08:45: Sodium 139, Potassium 4.7, Chloride 100, Carbon Dioxide 30, Anion Gap 13.7, BUN 50 H, Creatinine 1.99 H, Estimated GFR (MDRD) 32.00, BUN/ Creatinine Ratio 25.12, Glucose 179 H, Calcium 9.0, Total Bilirubin 0.27, AST 13 L, ALT 8 L, Alkaline Phosphatase 44 L, Total Protein 6.5, Albumin 3.2 L, Globulin 3.3, Albumin/Globulin Ratio 0.97 02/14/17 08:45: WBC 10.43 H, RBC 3.56 L, Hgb 10.9 L, Hct 32.8 L, MCV 92.1, MCH 30.6, MCHC 33.2, RDW Coeff of [place] 12.6, Plt Count 162, Immature Gran % (Auto) 0.9, Neut % (Auto) 90.1, Lymph % (Auto) 7.0 L, [place] % (Auto) 2.0, Eos % (Auto) 0.0, Baso % (Auto) 0.0, Immature Gran # (Auto) 0.1, Neut # 9.4 H, Lymph # 0.7, [place] # 0.2 L, Eos # 0.0, Baso # 0.0 ASSESSMENT: 1. Acute bronchitis 2. Severe COPD exacerbation 3. The patient is followed by Dr. Cheema for lung problems and nodule 4. Aortic stenosis and is not a surgical candidate PLAN: 1. D/C IV fluids 2. Repeat chest x-ray up and about Plan and coordination of the patient's care discussed in the presence of Guest Services and nurse. CONDITION: Stable SCRIBED BY: ALEC STOREY Circuit Board Inspector scribed while in presence of service performed by Dr. Jarvis/Caity Wagner APRN on 02/15/17 ([id number])
--- NOTE | 2017-02-15 14:21 | PN ---
DATE OF SERVICE: 02/13/17 SUBJECTIVE: 81 year old white male was hospitalized with acute bronchitis and COPD. The patient's condition seems to have improve with steroids, antibiotics, NEBS treatment. Hydration status has improved. PHYSICAL EXAMINATION: HEENT: Head normocephalic, atraumatic. Eyes: Extraocular muscles are intact. Pupils are equal, round and reactive to light and accommodation. Ears: No lesions. Nose appeared normal. Throat: No exudate or erythema. NECK: Supple. No JVD, no carotid bruit. No lymphadenopathy or thyromegaly. LUNGS: More air entry with mild wheeze. Clear to auscultation. Percussion note normal. Chest symmetrical. HEART: S1, S2, no S3. Grade II-III/ systolic murmurs. No cyanosis or clubbing. No ascites. Pulses: Dorsalis pedis and posterior tibial pulses +1 to +2 both sides. As mentioned before the patient has aortic stenosis which is moderate to severe. He is not a candidate for surgery. In fact he himself declined along with his . ABDOMEN: Soft. Nontender. Bowel sounds active. No CVA tenderness. No mass felt. EXTREMITIES: No edema. Full range of motion of all extremities, equal. NEUROLOGIC: No focal deficit. Cranial nerves II through XII are grossly intact. No headache, no double vision or headache. SKIN: Not dry. Intact. Turgor - normal. LYMPHATIC: No palpable lymph nodes/no lymphedema. MUSCULOSKELETAL: Normal joints with no swelling. Muscle tone is normal. The patient was seen and examined with Nurse Practitioner and Informatics Coordinator. TIME SPENT: More than 30 minutes. Plan and coordination of the patient's care discussed in the presence of nurse. JOSEPH
--- NOTE | 2017-02-15 15:28 | PN ---
DATE OF SERVICE: 02/12/17 SUBJECTIVE: The patient was hospitalized with pneumonia. The patient is being treated with IV antibiotics and steroids. His condition has improved remarkably and his appetite has improved. He is sitting up in the chair and very comfortable. No distress but extremely weak and tired. His other problems are aortic stenosis which is quite severe. It is inoperable because of his medical conditions. The patient 's sql consultant on the valvular side had advised him to go to [place] but the patient's and the patient has decided not to go because his other medical conditions. The patient also has lung nodules. The patient is being followed by Dr. Estrada who is pulmonary physician and has been explained about these new findings. PHYSICAL EXAMINATION: HEENT: Head normocephalic, atraumatic. Eyes: Extraocular muscles are intact. Pupils are equal, round and reactive to light and accommodation. Ears: No lesions. Nose appeared normal. Throat: No exudate or erythema. NECK: Supple. No JVD, no carotid bruit. No lymphadenopathy or thyromegaly. LUNGS: Decreased breath sounds but clear to auscultation. Percussion note normal. Chest symmetrical. HEART: S1, S2, no S3. Grade II- systolic murmurs. No cyanosis or clubbing. No ascites. Pulses: Dorsalis pedis and posterior tibial pulses +1 to +2 both sides. No evidence of CHF. ABDOMEN: Soft. Nontender. Bowel sounds active. No CVA tenderness. No mass felt. EXTREMITIES: No edema. Full range of motion of all extremities, equal. NEUROLOGIC: No focal deficit. Cranial nerves II through XII are grossly intact. No headache, no double vision or headache. SKIN: Not dry. Intact. Turgor - normal. LYMPHATIC: No palpable lymph nodes/no lymphedema. MUSCULOSKELETAL: Normal joints with no swelling. Muscle tone is normal. The patient was seen and examined with Nurse Practitioner and Classroom Assistant. TIME SPENT: More than 30 minutes. Plan and coordination of the patient's care discussed in the presence of nurse. JOSEPH
--- NOTE | 2017-02-15 15:46 | DI ---
EXAM: CHEST FRONTAL AND LATERAL VIEWS HISTORY: Cough and congestion. COMPARISON: 07/01/2015 FINDINGS: Heart size remains within normal limits. There is at least mild atherosclerosis. Bluntin g of the left costophrenic angle is new. Mild hyperinflation. T10 vertebral body compression fractu re is severe although does not appear acute. This was described on CT thorax of 02/11/2017 has worse diana since October 2016. IMPRESSION: 1. Tiny left pleural effusion. Mild left base pneumonia would be difficult to exclude. Hyperinflat ion, correlate clinically for any evidence of chronic obstructive pulmonary disease. Consider follow- up chest imaging to assure resolution. 2. T10 vertebral body compression fracture.
[2017-02-15] MEDS: XANAX PO PRN (23:25)
[2017-02-16] MEDS: DUONEB NEB SCH ×2 (05:05→11:06)
[2017-02-16 05:06] LABS: BASOPHILS % (AUTO) 0.1 % (0.0-3.0); HEMATOCRIT 30.2 % (42.0-52.0); HEMOGLOBIN 10.3 g/dl (14.0-18.0); IMMATURE GRANULOCYTE % (AUTO) 1.1 % (0.0-5.0); LYMPHOCYTES # (AUTO) 0.8 K/uL (0.60-3.4); LYMPHOCYTES % (AUTO) 10.3 (10.0-50.0); MEAN CORPUSCULAR HEMOGLOBIN 30.7 pg (27.0-31.0); MEAN CORPUSCULAR HGB CONC 34.1 (31.8-35.4); MEAN CORPUSCULAR VOLUME 90.1 fl (80.0-94.0); MONOCYTES # (AUTO) 0.4 K/uL (0.4-2.0); MONOCYTES % (AUTO) 4.4 (0-10); NEUTROPHILS # (AUTO) 6.9 K/ul (2.0-6.9); NEUTROPHILS % (AUTO) 84.1; PLATELET COUNT 167 10^3/uL (140-440); RED BLOOD COUNT 3.35 10^6/ul (4.70-6.10); WHITE BLOOD COUNT 8.18 K/ul (4.2-10.2)
[2017-02-16 05:25] LABS: ALBUMIN 2.8 g/dL (3.4-5.0); ALBUMIN/GLOBULIN RATIO 1.17; ANION GAP 9.9; BILIRUBIN,TOTAL 0.26 mg/dL (0.00-1.20); BUN/CREATININE RATIO 31.63; CALCIUM 8.5 mg/dL (8.2-10.2); CREATININE 1.77 mg/dL (0.60-1.10); POTASSIUM 4.9 mmol/L (3.5-5.1); TOTAL PROTEIN 5.2 g/dL (5.8-8.1)
[2017-02-16] MEDS: PRILOSEC PO SCH (06:01)
[2017-02-16] MEDS: SOLU-MEDROL 125 MG IVP SCH (06:01)
[2017-02-16] MEDS: LASIX TAB PO SCH (06:01)
[2017-02-16] MEDS ORDERED: PREDNISONE PO SCH (08:30)
[2017-02-16] MEDS: ROCEPHIN 1 GM in SODIUM CHLORIDE 50 ML IV SCH (08:33)
[2017-02-16] MEDS: ALDACTONE PO SCH (08:39)
[2017-02-16] MEDS: COREG PO SCH (08:39)
[2017-02-16] MEDS: VITAMIN D PO SCH (08:39)
[2017-02-16] MEDS: ASPIRIN EC PO SCH (08:39)
[2017-02-16] MEDS: SYMBICORT 160-4.5 MCG INHALER IH SCH (08:40)
[2017-02-16] MEDS: LOVENOX SUBCUT SCH (08:41)
--- NOTE | 2017-02-16 09:25 | PCM.PROG ---
Attending Provider: ATTENDING PROVIDER: Dr. SHWETA JARVIS This patient is seen with Caity Wagner, Nurse Practitioner. DATE OF SERVICE: 02/16/17 SUBJECTIVE: This 81 year old WHITE/ M was hospitalized 02/11/17. The patient is lying in bed, is alert. He states he feels like going home. He has been up walking. Shortness of breath as usual. REVIEW OF SYSTEMS: CONSTITUTIONAL: No night sweats. No fatigue, malaise, lethargy. No fever or chills. HEENT: Eyes: No visual changes. No eye pain. No eye discharge. ENT: No runny nose. No epistaxis. No sinus pain. No odynophagia. No congestion. RESPIRATORY: Cough. No congestion. No hemoptysis. No shortness of breath. CARDIOVASCULAR: No angina symptoms. No CHF symptoms. No atypical chest pain for CAD. No palpitations. No orthopnea.. GASTROINTESTINAL: No abdominal pain. No nausea or vomiting. No diarrhea or constipation. No hematemesis. No hematochezia. GENITOURINARY: No urgency. No frequency. No dysuria. No hematuria. No obstructive symptoms. No discharge. No pain. No significant abnormal bleeding. MUSCULOSKELETAL: No musculoskeletal pain; no joint swelling. NEUROLOGICAL: Awake, alert, oriented to time, place and person. No headache. No neck pain. No syncope. No seizures. No dizziness. PSYCHIATRIC: Not anxious. No depression. No suicidal thoughts. No homicidal thoughts. SKIN: No rash. No lesions. No wounds. ENDOCRINE: No unexplained weight loss. No weight gain. HEMATOLOGIC/LYMPHATIC: No anemia. No purpura. No petechiae. No prolonged or excessive bleeding. No palpable lymph nodes. PHYSICAL EXAMINATION: GENERAL: The patient is awake, alert and oriented, lying/sitting in bed in no distress. VITAL SIGNS: Temperature 97.9 F, Pulse 69, Respiratory Rate 19, BP 127/69, Pulse Ox 100% HEENT: Head normocephalic, atraumatic. Eyes: Extraocular muscles are intact. Pupils are equal, round and reactive to light and accommodation. Ears: No lesions. Nose appeared normal. Throat: No exudate or erythema. NECK: Supple. No JVD, no carotid bruit. No lymphadenopathy or thyromegaly. LUNGS: Diminished breath sounds bilaterally. Clear to auscultation. Percussion note normal. Chest symmetrical. HEART: S1, S2, no S3. Grade II/ systolic murmur. No cyanosis or clubbing. No ascites. Pulses: Dorsalis pedis and posterior tibial pulses +1 to +2 both sides. ABDOMEN: Soft. Non-tender. Bowel sounds active. No CVA tenderness. No mass felt. EXTREMITIES: No edema. Full range of motion of all extremities, equal. NEUROLOGIC: No focal deficit. Cranial nerves II through XII are grossly intact. No headache, no double vision or headache. SKIN: Not dry. Intact. Turgor-normal. LYMPHATIC: No palpable lymph nodes/no lymphedema. MUSCULOSKELETAL: Normal joints with no swelling. Muscle tone is normal. LAB REVIEW: 02/16/17 04:19 02/16/17 04:19 02/16/17 04:19: Sodium 137, Potassium 4.9, Chloride 100, Carbon Dioxide 32 H, Anion Gap 9.9, BUN 56 H, Creatinine 1.77 H, Estimated GFR (MDRD) 37.00, BUN/ Creatinine Ratio 31.63, Glucose 128 H, Calcium 8.5, Total Bilirubin 0.26, AST 19 , ALT 22, Alkaline Phosphatase 36 L, Total Protein 5.2 L, Albumin 2.8 L, Globulin 2.4, Albumin/Globulin Ratio 1.17 02/16/17 04:19: WBC 8.18, RBC 3.35 L, Hgb 10.3 L, Hct 30.2 L, MCV 90.1, MCH 30.7 , MCHC 34.1, RDW Coeff of [place] 12.9, Plt Count 167, Immature Gran % (Auto) 1.1, Neut % (Auto) 84.1, Lymph % (Auto) 10.3, [place] % (Auto) 4.4, Eos % (Auto) 0.0, Baso % (Auto) 0.1, Immature Gran # (Auto) 0.1, Neut # 6.9, Lymph # 0.8, [place] # 0.4, Eos # 0.0, Baso # 0.0 ASSESSMENT: 1. Acute bronchitis 2. Severe COPD exacerbation 3. The patient is followed by Dr. Cheema for lung problems and nodule 4. Aortic stenosis and is not a surgical candidate 5. Chronic kidney disease. PLAN: 1. Possible discharge home today 2. Prednisone 20 mg p.o. b.i.d. 3. Up and about as tolerated. 4. One more dose of Rocephin IV then Keflex 500 mg t.i.d. beginning tomorrow. Plan and coordination of the patient's care discussed in the presence of Student Truck Driver and nurse. CONDITION: Stable SCRIBED BY: ALEC STOREY Appliance Painter And Refinisher scribed while in presence of service performed by Dr. Jarvis/Caity Wagner APRN on 02/16/17 ([id number])
[2017-02-16 09:39] VITALS: BP 136/72; TEMP 98.2
--- NOTE | 2017-02-16 10:43 | CM.DICTOOL ---
ADMISSION: 02/11/17 18:41 DISCHARGE: 02/16/17 FINAL DIAGNOSIS COPD exacerbation (Acute) HISTORY OF: CVA 2017 CAD CHF PVD HTN COPD PNEUMONIA GERF CKD DDD HYPERGLYCEMIA TOBACCO USE Treatment Plan: ADMIT FROM ER ROCEPHIN IV O2 THERAPY SOLUMEDROL SALINE LOCK HOME MEDICATIONS BLOOD CULTURES REGULAR DIET TELEMETRY SPUTUM CULTURE LAST VITALS Temp Pulse Resp BP Pulse Ox 98.2 F 81 20 136/72 98 02/16/17 09:38 02/16/17 09:38 02/16/17 09:38 02/16/17 09:38 02/16/17 09:38 ACTIVE MEDICATIONS Albuterol/Ipratropium (Duoneb) 1 vial NEB RTQ6H [facility] Last Admin: 02/16/17 05:05 Dose: 1 vial Alprazolam (Xanax) 0.25 mg PO TID PRN PRN Reason: Anxiety Last Admin: 02/15/17 23:25 Dose: 0.25 mg Aspirin (Aspirin Ec) 81 mg PO DAILYWM [facility] Last Admin: 02/16/17 08:39 Dose: 81 mg Budesonide/Formoterol Fumarate (Symbicort 160-4.5 Mcg Inhaler) 2 puff IH BID [facility] Last Admin: 02/16/17 08:40 Dose: 2 puff Carvedilol (Coreg) 6.25 mg PO DAILYWM [facility] Last Admin: 02/16/17 08:39 Dose: 6.25 mg Cephalexin (Keflex) 500 mg PO Q8HR [facility] Cholecalciferol (Vitamin D) 400 unit PO DAILY [facility] Last Admin: 02/16/17 08:39 Dose: 400 unit Furosemide (Lasix Tab) 20 mg PO QPM [facility] Last Admin: 02/15/17 17:28 Dose: Not Given Furosemide (Lasix Tab) 40 mg PO QDAC [facility] Last Admin: 02/16/17 06:01 Dose: 40 mg Glycerin (Glycerin Suppository) 1 each RC DAILY PRN PRN Reason: Constipation Omeprazole (Prilosec) 20 mg PO QDAC [facility] Last Admin: 02/16/17 06:01 Dose: 20 mg Polyethylene Glycol (Miralax) 17 gm PO DAILY PRN PRN Reason: Constipation Last Admin: 02/13/17 16:45 Dose: 17 gm Prednisone (Prednisone) 20 mg PO BIDWM [facility] Last Admin: 02/16/17 09:24 Dose: 20 mg Spironolactone (Aldactone) 25 mg PO DAILY [facility] Last Admin: 02/16/17 08:39 Dose: 25 mg ALLERGIES lisinopril Adverse Reaction (Verified 02/11/17 17:06) verapamil Adverse Reaction (Verified 02/11/17 17:06) NEW PRESCRIPTIONS: NEW MEDICATIONS: 1. KEFLEX 500MG TAKE 1 TABLET 3 TIMES A DAY FOR 7 DAYS. 2. PREDNISONE 20MG TAKE 1 TABLET 2 TIMES A DAY FOR 2 DAYS THEN 10MG 2 TIMES A DAY FOR 5 DAYS. SMOKING: NO SMOKING AND AVOID SECOND HAND SMOKE DISEASE SPECIFIC EDUCATION: MEDICATIONS COPD SMOKING CESSATION LAB REVIEW: 02/16/17 04:19 02/16/17 04:19 02/16/17 04:19: Sodium 137, Potassium 4.9, Chloride 100, Carbon Dioxide 32 H, Anion Gap 9.9, BUN 56 H, Creatinine 1.77 H, Estimated GFR (MDRD) 37.00, BUN/ Creatinine Ratio 31.63, Glucose 128 H, Calcium 8.5, Total Bilirubin 0.26, AST 19 , ALT 22, Alkaline Phosphatase 36 L, Total Protein 5.2 L, Albumin 2.8 L, Globulin 2.4, Albumin/Globulin Ratio 1.17 02/16/17 04:19: WBC 8.18, RBC 3.35 L, Hgb 10.3 L, Hct 30.2 L, MCV 90.1, MCH 30.7 , MCHC 34.1, RDW Coeff of [place] 12.9, Plt Count 167, Immature Gran % (Auto) 1.1, Neut % (Auto) 84.1, Lymph % (Auto) 10.3, [place] % (Auto) 4.4, Eos % (Auto) 0.0, Baso % (Auto) 0.1, Immature Gran # (Auto) 0.1, Neut # 6.9, Lymph # 0.8, [place] # 0.4, Eos # 0.0, Baso # 0.0 PLAN: HOME TODAY NO SMOKING AND AVOID SECOND HAND SMOKE CONTINUE HOME MEDICATIONS PER NURSING SHEET NEW MEDICATIONS: 1. KEFLEX 500MG TAKE 1 TABLET 3 TIMES A DAY FOR 7 DAYS. 2. PREDNISONE 20MG TAKE 1 TABLET 2 TIMES A DAY FOR 2 DAYS THEN 10MG 2 TIMES A DAY FOR 5 DAYS. DIET TOLERATED. GRADUALLY RESUME ACTIVITY TOLERATED. FOLLOW UP WITH DR. PENA ON SundayFebruary AT 2PM. SITTING UP IN BED. ALERT AND ORIENTED X 4. Colin CABELLO INTO SEE PATIENT. PATIENT STATES FEELING BETTER. PLAN OF CARE DISCUSSED PER Colin RIVERA INCLUDING POSSIBLE DISCHARGE LATER TODAY. PATIENT IS AGREEABLE. APPETITE IS GOOD. VITAL SIGNS ARE STABLE. IS AFEBRILE. POX 100% ON 2L/C. HEART TONES ARE REGULAR WITH TELEMETRY REVEALING SINUS RHYTHM. LUNGS ARE COARSE WITH WHEEZES NOTED. HAS INTERMITTENT NON-PRODUCTIVE COUGH. HAS DYSPNEA WITH ACTIVITY. IS UNABLE TO LIE FLAT DUE TO BREATHING. ABDOMEN IS SOFT, NON-TENDER WITH BOWEL SOUNDS POSITIVE IN ALL 4 QUADS. HAD BM 11/9. PEDAL PULSES ARE POSITIVE WITHOUT EDEMA. HAS SALINE LOCK IN RIGHT FOREARM SITE IS CLEAR. AMBULATED IN HALLWAY SEVERAL TIMES YESTERDAY AND TOLERATED ACTIVITY WELL. INDEPENDENT WITH USE OF STRAIGHT CANE. DR. SHWETA PENA MD Colin CABELLO LOADING UNIT TOOL SETTER
[2017-02-17] MEDS ORDERED: KEFLEX PO SCH (09:00)
--- NOTE | 2017-02-20 11:18 | PN ---
DATE OF SERVICE: 02/15/17 SUBJECTIVE: 81-year-old white male hospitalized with COPD AND BRONCHITIS. REVIEW OF SYSTEMS: CONSTITUTIONAL: No night sweats. No fatigue, malaise, lethargy. No fever or chills. HEENT: Eyes: No visual changes. No eye pain. No eye discharge. ENT: No runny nose. No epistaxis. No sinus pain. No sore throat. No odynophagia. No congestion. RESPIRATORY: No cough, no congestion. No hemoptysis. No shortness of breath. CARDIOVASCULAR: No angina symptoms. No CHF symptoms. No atypical chest pain for CAD. No palpitations. No orthopnea. GASTROINTESTINAL: No abdominal pain. No nausea or vomiting. No diarrhea or constipation. No hematemesis. No hematochezia. GENITOURINARY: No urgency. No frequency. No dysuria. No hematuria. No obstructive symptoms. No discharge. No pain. No significant abnormal bleeding. MUSCULOSKELETAL: No musculoskeletal pain; no joint swelling. NEUROLOGICAL: No headache. No neck pain. No syncope. No seizures. No dizziness. PSYCHIATRIC: Not anxious. No depression. No suicidal thoughts. No homicidal thoughts. SKIN: No rash. No lesions. No wounds. ENDOCRINE: No unexplained weight loss. No weight gain. HEMATOLOGIC/LYMPHATIC: No anemia. No purpura. No petechiae. No prolonged or excessive bleeding. No palpable lymph nodes. PHYSICAL EXAMINATION: HEENT: Head normocephalic, atraumatic. Eyes: Extraocular muscles are intact. Pupils are equal, round and reactive to light and accommodation. Ears: No lesions. Nose appeared normal. Throat: No exudate or erythema. NECK: Supple. No JVD, no carotid bruit. No lymphadenopathy or thyromegaly. LUNGS: Decreased breath sounds. More air entry. Clear to auscultation. Percussion note normal. Chest symmetrical. HEART: S1, S2, no S3. No murmurs. No cyanosis or clubbing. No ascites. Pulses: Dorsalis pedis and posterior tibial pulses +1 to +2 both sides. ABDOMEN: Soft. Nontender. Bowel sounds active. No CVA tenderness. No mass felt. EXTREMITIES: No edema. Full range of motion of all extremities, equal. NEUROLOGIC: No focal deficit. Cranial nerves II through XII are grossly intact. No headache, no double vision or headache. SKIN: Not dry. Intact. Turgor - normal. LYMPHATIC: No palpable lymph nodes/no lymphedema. MUSCULOSKELETAL: Normal joints with no swelling. Muscle tone is normal. LABS: BUN and creatinine seems to be stable but not done. Hydration status has improved. Appetite has improved. His blood pressure is borderline high. ASSESSMENT: 1. BRONCHITIS/COPD SEEMS TO BE GETTING UNDER CONTROL WITH NEBS TREATMENT, STEROIDS, ANTIBIOTICS, IV FLUIDS. 2. THE PATIENT IS END-STAGE CHF, COPD. 3. ALSO HAS MODERATE TO SEVERE AORTIC STENOSIS INOPERABLE BECAUSE OF THE PATIENT'S OVERALL MEDICAL CONDITION. The patient was seen and examined with the nurse practitioner. TIME SPENT: More than 30 minutes. Plan and coordination of the patient's care discussed in the presence of nurse. JOSEPH
--- NOTE | 2017-02-20 13:05 | PN ---
DATE OF SERVICE: 02/16/17 SUBJECTIVE: The patient is hospitalized with acute bronchitis, severe COPD and dehydration. The patient's condition has improved a lot. Breathing is a lot better. He is not in distress. He is eating better. His hydration status is better. Skin turgor is better. PHYSICAL EXAMINATION: HEENT: Head normocephalic, atraumatic. Eyes: Extraocular muscles are intact. Pupils are equal, round and reactive to light and accommodation. Ears: No lesions. Nose appeared normal. Throat: No exudate or erythema. NECK: Supple. No JVD, no carotid bruit. No lymphadenopathy or thyromegaly. LUNGS: Decreased breath sounds with good air entry. Clear to auscultation. Percussion note normal. Chest symmetrical. HEART: S1, S2, no S3. Grade I/ systolic murmur. No cyanosis or clubbing. No ascites. Pulses: Dorsalis pedis and posterior tibial pulses +1 to +2 both sides. ABDOMEN: Soft. Nontender. Bowel sounds active. No CVA tenderness. No mass felt. EXTREMITIES: No edema. Full range of motion of all extremities, equal. NEUROLOGIC: No focal deficit. Cranial nerves II through XII are grossly intact. No headache, no double vision or headache. SKIN: Not dry. Intact. Turgor - normal. LYMPHATIC: No palpable lymph nodes/no lymphedema. MUSCULOSKELETAL: Normal joints with no swelling. Muscle tone is normal. ASSESSMENT: 1. BRONCHITIS/COPD UNDER CONTROL. PLAN: 1. NUTRITIONAL ASPECT AGAIN STRESSED WITH THE PATIENT. HE NEEDS TO EAT 3 TO 4 MEALS, MORE PROTEIN. 2. ADVISED TO CONSIDER PULMONARY REHABILITATION AND HE DECLINED. The patient was seen and examined with the nurse practitioner. Plan and coordination of the patient's care discussed in the presence of nurse. JOSEPH
--- NOTE | 2017-02-20 13:07 | PN ---
CODING FOR BILLIN02/11/17 - Admission day - level 5 02/12/17 Intermediate 02/13/17 Intermediate 02/14/17 Intermediate 02/15/17 Intermediate 02/16/17 Discharge - Extensive MTDD
--- NOTE | 2017-02-21 14:21 | PN ---
02/11/17: Level 5 02/12/17: Intermediate 02/13/17: Intermediate 02/14/17: Intermediate 02/15/17: Intermediate 02/16/17: D as in discharge MTDD
--- NOTE | 2017-02-21 15:38 | DS ---
DATE OF SERVICE: 02/16/17 FINAL DIAGNOSIS: 1. COPD EXACERBATION (ACUTE) 2. HISTORY OF CVA 2016 3. CAD 4. CHF 5. PVD 6. HYPERTENSION 7. COPD 8. PNEUMONIA 9. GERD 10. CKD 11. DDD 12. HYPERGLYCEMIA 13. TOBACCO USE DISCHARGE INSTRUCTIONS: Followup appointment: To followup with Dr. Jarvis on , 02/22/17 at 2 p.m. MEDICATIONS AT DISCHARGE: Albuterol one vial neb Rtq.6h PATRIA Xanax 0.25 mg p.o.t.i.d. p.r.n. Aspirin 81 mg p.o. daily with meal PATRIA Symbicort inhaler 160-4.5 mcg, two puff IH b.i.d. PATRIA Coreg 6.25 mg p.o. daily with meal [facility] Keflex 500 mg p.o. q.8hr [facility] Cholecalciferol 400 unit p.o. daily [facility]A Furosemide 20 mg p.o. q.p.m. PAT[facility]A Furosemide 40 mg p.o. q.d a.c. [facility]A Glycerin suppository one each RC daily p.r.n. Prilosec 20 mg p.o. q.d a.c [facility] Miralax 17 gm p.o. daily p.r.n. Prednisone 20 mg p.o. b.i.d. with meal PATRIA Aldactone 25 mg p.o.d aily [facility] NEW PRESCRIPTIONS: 1. Keflex 500 mg take one tablet three times a day for 7 days 2. Prednisone 20 mg take one tablet two times a day for two days then 10 mg two times a day for five days. DIET INSTRUCTIONS: As tolerated ACTIVITY: Gradually resume as tolerated SMOKING: No smoking and avoid secondhand smoke DISEASE SPECIFIC EDUCATION: Medications COPD Smoking cessation HOSPITAL COURSE: This is an 81-year-old white male who presented to the emergency room complaining of shortness of breath, productive cough and low grade fever. He is a long-term smoker, has severe COPD and is oxygen dependent. He was admitted with acute bronchitis, acute COPD exacerbation, shortness of breath along with worsening chronic kidney disease. He was placed on IV fluids, D5 1/2 NS at 75 cc an hour. He was started on Rocephin 1 gm IV daily along with Solu-Medrol 125 mg q.8hr IV. He was started on Duoneb neb treatments q.6hr along with his continued oxygen. Chest x-ray revealed no pneumonia. Approximately two days after admission, his breath sounds finally started to improve. The bilateral rub had resolved and he began having a mild expiratory wheeze. Today on day of discharge, he just has a very faint expiratory wheeze. His kidney function has slowly improved with the administration of IV fluids. Creatinine 1.77, BUN 56. Yesterday, I encouraged him to be up and about and he stated that he made three rounds around the hospital with minimal exertion as usual for him so today he has been eating well and states he feels like he can go home. Will discharge him home after one last dose of Rocephin. He will be getting Keflex 500 mg t.i.d. tomorrow. Will start him on Prednisone 20 mg b.i.d. for the next three days and then 10 mg b.i.d. for the next four days. Labs are stable. Hemoglobin 10.3, hematocrit 30.2, BUN 56, creatinine 1.77, sodium 137, potassium 4.9. Vital Signs: Temperature 97.9, heart rate 69, respirations 19, BP 127/69, pulse ox 100. Will see him early next week in the office. He is discharged in stable condition. TIME SPENT: More than 60 minutes. JOSEPH
== END 2017-02-16 12:16 | disposition home or self-care (01) | DRG 191 ==
LOC: ED 16:59 → MEDSURG B 18:41
PROVIDERS: ADMIT Internal Medicine; ATTEND Internal Medicine
DX: J44.1 Chronic obstructive pulmonary disease with (acute) exacerbation (principal); N18.4 Chronic kidney disease, stage 4 (severe); J44.0 Chronic obstructive pulmonary disease with (acute) lower respiratory infection; J20.9 Acute bronchitis, unspecified; R06.02 Shortness of breath; I35.0 Nonrheumatic aortic (valve) stenosis; R50.9 Fever, unspecified; I12.9 Hypertensive chronic kidney disease with stage 1 through stage 4 chronic kidney disease, or unspecified chronic kidney disease; R91.1 Solitary pulmonary nodule; I71.4 Abdominal aortic aneurysm, without rupture; R73.9 Hyperglycemia, unspecified; I25.10 Atherosclerotic heart disease of native coronary artery without angina pectoris; R01.1 Cardiac murmur, unspecified; I73.9 Peripheral vascular disease, unspecified; I10 Essential (primary) hypertension; K21.9 Gastro-esophageal reflux disease without esophagitis; M51.34 Other intervertebral disc degeneration, thoracic region; S22.07 Fracture of T9-T10 vertebra; Z86.73 Personal history of transient ischemic attack (TIA), and cerebral infarction without residual deficits; F17.200 Nicotine dependence, unspecified, uncomplicated; Z79.899 Other long term (current) drug therapy; Z99.81 Dependence on supplemental oxygen
CPT/HCPCS: 36415; 80053; 82550; 82803; 83880; 84484; 85025; 87040; 87081; 87651; 87804; 87880; 93005; 93010; 94640; 96365; 96375; 99284

== ENCOUNTER 2017-03-07 12:04 | Inpatient (IN) ==
[2017-03-07 12:25] VITALS: BMI 21.2
[2017-03-07] MEDS ORDERED: VISTARIL INJ IM PRN (12:26)
[2017-03-07] MEDS ORDERED: ATROPINE SULFATE PFS IVP PRN (12:26)
[2017-03-07] MEDS ORDERED: TYLENOL PO PRN (12:26)
[2017-03-07] MEDS ORDERED: NITROSTAT SL PRN (12:26)
[2017-03-07] MEDS ORDERED: MORPHINE 4 MG/ML VIAL IVP PRN (12:26)
[2017-03-07] MEDS ORDERED: MIRALAX PO PRN (12:35)
[2017-03-07] MEDS ORDERED: COMBIVENT RESPIMAT INHAL SPRAY IH PRN (12:35)
[2017-03-07 12:42] LABS: BASOPHILS % (AUTO) 0.2 % (0.0-3.0); EOSINOPHILS # (AUTO) 0.6 K/ul (0.0-0.7); EOSINOPHILS % (AUTO) 8.6 % (0.0-7.0); HEMATOCRIT 34.4 % (42.0-52.0); HEMOGLOBIN 11.5 g/dl (14.0-18.0); IMMATURE GRANULOCYTE % (AUTO) 0.3 % (0.0-5.0); LYMPHOCYTES # (AUTO) 1.5 K/uL (0.60-3.4); LYMPHOCYTES % (AUTO) 22.5 (10.0-50.0); MEAN CORPUSCULAR HEMOGLOBIN 30.3 pg (27.0-31.0); MEAN CORPUSCULAR HGB CONC 33.4 (31.8-35.4); MEAN CORPUSCULAR VOLUME 90.8 fl (80.0-94.0); MONOCYTES # (AUTO) 0.7 K/uL (0.4-2.0); NEUTROPHILS # (AUTO) 3.8 K/ul (2.0-6.9); NEUTROPHILS % (AUTO) 57.4; PLATELET COUNT 151 10^3/uL (140-440); RED BLOOD COUNT 3.79 10^6/ul (4.70-6.10); WHITE BLOOD COUNT 6.61 K/ul (4.2-10.2)
[2017-03-07 12:46] LABS: ABG BASE EXCESS 10 (-2.0-2.0); ABG PCO2 47.7 mmHg (35-45); ABG PH 7.461 (7.35-7.45); ABG TCO2 35 (22.0-28.0)
[2017-03-07 13:02] LABS: ALBUMIN 2.9 g/dL (3.4-5.0); ALBUMIN/GLOBULIN RATIO 0.74; ANION GAP 16.4; BILIRUBIN,TOTAL 0.63 mg/dL (0.00-1.20); BUN/CREATININE RATIO 22.7; CALCIUM 9.6 mg/dL (8.2-10.2); CREATININE 2.07 mg/dL (0.60-1.10); POTASSIUM 4.4 mmol/L (3.5-5.1); TOTAL PROTEIN 6.8 g/dL (5.8-8.1)
[2017-03-07 13:07] LABS: TROPONIN I 0.237 ng/ml (0.0000-0.4000)
[2017-03-07] MEDS: DECADRON 4 MG/ML SDV IM SCH (13:07)
[2017-03-07] MEDS: ZITHROMAX PO SCH (13:08)
--- NOTE | 2017-03-07 14:07 | DI ---
EXAM: Chest one view, frontal view only. HISTORY: Chest pain. COMPARISON: 02/15/2017. FINDINGS: The heart size is normal. There is no pulmonary vascular congestion. Probable stable smal l left pleural effusion. The lungs are otherwise clear. No pneumothorax is seen. No acute osseous abnormality is identified. Since the prior study, there has been no significant interval change. IMPRESSION: Stable small left pleural effusion.
[2017-03-07] MEDS: TORADOL IVP SCH ×2 (14:14→21:15)
[2017-03-07 14:40] LABS: BILIRUBIN,URINE Negative (NEGATIVE); KETONES,URINE Negative (NEGATIVE); LEUKOCYTE ESTERASE ,URINE Negative (NEGATIVE); NITRITE,URINE Negative (NEGATIVE); PH,URINE 6.5 (5-9); PROTEIN,URINE Negative (NEGATIVE); URINE, BLOOD Negative (NEGATIVE)
[2017-03-07 14:41] LABS: ADD URINE MICROSCOPIC NO
[2017-03-07] MEDS: XOPENEX 1.25 MG NEB SCH ×2 (16:55→23:08)
[2017-03-07 21:08] LABS: TROPONIN I 0.165 ng/ml (0.0000-0.4000)
[2017-03-07] MEDS: SYMBICORT 160-4.5 MCG INHALER IH SCH (21:14)
[2017-03-08] MEDS: TORADOL IVP SCH ×3 (04:23→20:27)
[2017-03-08] MEDS: XOPENEX 1.25 MG NEB SCH ×3 (05:05→16:45)
[2017-03-08 05:14] LABS: EOSINOPHILS % (AUTO) 0.4 % (0.0-7.0); HEMOGLOBIN 11.3 g/dl (14.0-18.0); IMMATURE GRANULOCYTE % (AUTO) 0.4 % (0.0-5.0); LYMPHOCYTES # (AUTO) 0.9 K/uL (0.60-3.4); LYMPHOCYTES % (AUTO) 19.5 (10.0-50.0); MEAN CORPUSCULAR HEMOGLOBIN 30.6 pg (27.0-31.0); MEAN CORPUSCULAR HGB CONC 34.2 (31.8-35.4); MEAN CORPUSCULAR VOLUME 89.4 fl (80.0-94.0); MONOCYTES # (AUTO) 0.3 K/uL (0.4-2.0); MONOCYTES % (AUTO) 5.2 (0-10); NEUTROPHILS # (AUTO) 3.6 K/ul (2.0-6.9); NEUTROPHILS % (AUTO) 74.5; PLATELET COUNT 159 10^3/uL (140-440); RED BLOOD COUNT 3.69 10^6/ul (4.70-6.10); WHITE BLOOD COUNT 4.81 K/ul (4.2-10.2)
[2017-03-08 05:42] LABS: ALBUMIN 3.1 g/dL (3.4-5.0); ALBUMIN/GLOBULIN RATIO 0.79; ANION GAP 16.5; BILIRUBIN,TOTAL 0.44 mg/dL (0.00-1.20); BUN/CREATININE RATIO 25.86; CALCIUM 9.4 mg/dL (8.2-10.2); CREATININE 2.32 mg/dL (0.60-1.10); POTASSIUM 4.5 mmol/L (3.5-5.1)
[2017-03-08] MEDS: LASIX TAB PO SCH (05:59)
[2017-03-08] MEDS: PRILOSEC PO SCH (05:59)
[2017-03-08] MEDS: SYMBICORT 160-4.5 MCG INHALER IH SCH ×2 (08:52→20:27)
[2017-03-08] MEDS: ALDACTONE PO SCH (08:53)
[2017-03-08] MEDS: VITAMIN D PO SCH (08:53)
[2017-03-08] MEDS: ASPIRIN EC PO SCH (08:53)
[2017-03-08] MEDS: COREG PO SCH (08:53)
[2017-03-08] MEDS: DECADRON 4 MG/ML SDV IM SCH (08:54)
[2017-03-08] MEDS: ZITHROMAX PO SCH (08:57)
--- NOTE | 2017-03-08 13:00 | PCM.PROG ---
Attending Provider: ATTENDING PROVIDER: Dr. SHWETA PENA This patient is seen with Caity Wagner, Nurse Practitioner. DATE OF SERVICE: 03/08/17 SUBJECTIVE: This 81 year old WHITE/ M was hospitalized 03/07/17. The patient is alert, lying in bed. Shortness of breath improved. Chest x-ray showed stable left pleural effusion. REVIEW OF SYSTEMS: CONSTITUTIONAL: No night sweats. No fatigue, malaise, lethargy. No fever or chills. HEENT: Eyes: No visual changes. No eye pain. No eye discharge. ENT: No runny nose. No epistaxis. No sinus pain. No odynophagia. No congestion. RESPIRATORY: Cough. No hemoptysis. No shortness of breath. CARDIOVASCULAR: No angina symptoms. No CHF symptoms. Pleuritic type chest pain. No palpitations. No orthopnea.. GASTROINTESTINAL: No abdominal pain. No nausea or vomiting. No diarrhea or constipation. No hematemesis. No hematochezia. GENITOURINARY: No urgency. No frequency. No dysuria. No hematuria. No obstructive symptoms. No discharge. No pain. No significant abnormal bleeding. MUSCULOSKELETAL: No musculoskeletal pain; no joint swelling. NEUROLOGICAL: Awake, alert, oriented to time, place and person. No headache. No neck pain. No syncope. No seizures. No dizziness. PSYCHIATRIC: Not anxious. No depression. No suicidal thoughts. No homicidal thoughts. SKIN: No rash. No lesions. No wounds. ENDOCRINE: No unexplained weight loss. No weight gain. HEMATOLOGIC/LYMPHATIC: No anemia. No purpura. No petechiae. No prolonged or excessive bleeding. No palpable lymph nodes. PHYSICAL EXAMINATION: GENERAL: The patient is awake, alert and oriented, lying in bed in no distress. VITAL SIGNS: Temperature 97.5 F, Pulse 77, Respiratory Rate 16, BP 141/76, Pulse Ox 99% HEENT: Head normocephalic, atraumatic. Eyes: Extraocular muscles are intact. Pupils are equal, round and reactive to light and accommodation. Ears: No lesions. Nose appeared normal. Throat: No exudate or erythema. NECK: Supple. No JVD, no carotid bruit. No lymphadenopathy or thyromegaly. LUNGS: Diminished breath sounds bilaterally with bilateral rhonchi. Percussion note normal. Chest symmetrical. HEART: S1, S2, no S3. No murmurs. No cyanosis or clubbing. No ascites. Pulses: Dorsalis pedis and posterior tibial pulses +1 to +2 both sides. ABDOMEN: Soft. Non-tender. Bowel sounds active. No CVA tenderness. No mass felt. EXTREMITIES: No edema. Full range of motion of all extremities, equal. NEUROLOGIC: No focal deficit. Cranial nerves II through XII are grossly intact. No headache, no double vision or headache. SKIN: Not dry. Intact. Turgor-normal. LYMPHATIC: No palpable lymph nodes/no lymphedema. MUSCULOSKELETAL: Normal joints with no swelling. Muscle tone is normal. LAB REVIEW: 03/08/17 05:05 03/08/17 05:05 03/08/17 05:05: Sodium 139, Potassium 4.5, Chloride 96 L, Carbon Dioxide 31, Anion Gap 16.5, BUN 60 H*, Creatinine 2.32 H, Estimated GFR (MDRD) 27.00, BUN/ Creatinine Ratio 25.86, Glucose 138 H, Calcium 9.4, Total Bilirubin 0.44, AST 13 L, ALT 12, Alkaline Phosphatase 53 L, Total Protein 7.0, Albumin 3.1 L, Globulin 3.9, Albumin/Globulin Ratio 0.79 03/08/17 05:05: WBC 4.81, RBC 3.69 L, Hgb 11.3 L, Hct 33.0 L, MCV 89.4, MCH 30.6 , MCHC 34.2, RDW Coeff of [place] 12.9, Plt Count 159, Immature Gran % (Auto) 0.4, Neut % (Auto) 74.5, Lymph % (Auto) 19.5, [place] % (Auto) 5.2, Eos % (Auto) 0.4, Baso % (Auto) 0.0, Immature Gran # (Auto) 0.0, Neut # 3.6, Lymph # 0.9, [place] # 0.3 L, Eos # 0.0, Baso # 0.0 03/07/17 20:40: Total Creatine Kinase 31, Myoglobin 84, Troponin I 0.1650 03/07/17 14:30: Urine Color Yellow, Urine Clarity Clear, Urine pH 6.5, Ur Specific [place] 1.015, Urine Protein Negative, Urine Glucose (UA) Negative, Urine Ketones Negative, Urine Blood Negative, Urine Nitrite Negative, Urine Bilirubin Negative, Urine Urobilinogen 0.2, Ur Leukocyte Esterase Negative 03/07/17 12:39: Total Creatine Kinase 33, Myoglobin 92, Troponin I 0.2370 03/07/17 12:39: Sodium 141, Potassium 4.4, Chloride 97 L, Carbon Dioxide 32 H, Anion Gap 16.4, BUN 47 H, Creatinine 2.07 H, Estimated GFR (MDRD) 31.00, BUN/ Creatinine Ratio 22.70, Glucose 90, Calcium 9.6, Total Bilirubin 0.63, AST 16, ALT 13, Alkaline Phosphatase 58, Total Protein 6.8, Albumin 2.9 L, Globulin 3.9 , Albumin/Globulin Ratio 0.74 03/07/17 12:39: WBC 6.61, RBC 3.79 L, Hgb 11.5 L, Hct 34.4 L, MCV 90.8, MCH 30.3 , MCHC 33.4, RDW Coeff of [place] 13.2, Plt Count 151, Immature Gran % (Auto) 0.3, Neut % (Auto) 57.4, Lymph % (Auto) 22.5, [place] % (Auto) 11.0 H, Eos % (Auto) 8.6 H, Baso % (Auto) 0.2, Immature Gran # (Auto) 0.0, Neut # 3.8, Lymph # 1.5, [place] # 0.7, Eos # 0.6, Baso # 0.0 03/07/17 12:30: Puncture Site Lrad, O2 Saturation 98.0, ABG pH 7.461 H, ABG pCO2 47.7 H, ABG pO2 105.0 H, ABG HCO3 34.0 H, ABG Total CO2 35 H, ABG Base Excess 10 H, Manuel Test +, O2 Delivery Device Nc, Oxygen Liter Flow 2.00 ASSESSMENT: 1. ACUTE BRONCHITIS 2. SEVERE COPD 3. PLEURITIC TYPE CHEST PAIN 4. SMOKER 5. CHRONIC KIDNEY DISEASE 6. HYPERTENSION PLAN: 1. Continue daily Decadron 2. Nebs 3. CBC, CMP daily Plan and coordination of the patient's care discussed in the presence of Pen Rider and nurse. CONDITION: Stable SCRIBED BY: Siena DUDLEY scribed while in presence of service performed by Dr. Pena/Caity Wagner APRN on 03/08/17 ([id number])
[2017-03-08] MEDS: DEXTROSE 5%-1/2NS IV SOLUTION 1,000 ML IV SCH (14:57)
[2017-03-09] MEDS: XOPENEX 1.25 MG NEB SCH ×5 (00:16→23:01)
[2017-03-09 05:11] LABS: BASOPHILS % (AUTO) 0.1 % (0.0-3.0); EOSINOPHILS # (AUTO) 0.1 K/ul (0.0-0.7); EOSINOPHILS % (AUTO) 0.7 % (0.0-7.0); HEMATOCRIT 28.4 % (42.0-52.0); HEMOGLOBIN 9.4 g/dl (14.0-18.0); IMMATURE GRANULOCYTE % (AUTO) 0.4 % (0.0-5.0); LYMPHOCYTES # (AUTO) 1.2 K/uL (0.60-3.4); LYMPHOCYTES % (AUTO) 16.3 (10.0-50.0); MEAN CORPUSCULAR HGB CONC 33.1 (31.8-35.4); MEAN CORPUSCULAR VOLUME 90.7 fl (80.0-94.0); MONOCYTES # (AUTO) 0.6 K/uL (0.4-2.0); MONOCYTES % (AUTO) 8.5 (0-10); NEUTROPHILS # (AUTO) 5.5 K/ul (2.0-6.9); PLATELET COUNT 144 10^3/uL (140-440); RED BLOOD COUNT 3.13 10^6/ul (4.70-6.10); WHITE BLOOD COUNT 7.38 K/ul (4.2-10.2)
[2017-03-09] MEDS: LASIX TAB PO SCH (05:43)
[2017-03-09] MEDS: TORADOL IVP SCH ×3 (05:43→21:07)
[2017-03-09] MEDS: PRILOSEC PO SCH (05:43)
[2017-03-09 05:50] LABS: ALBUMIN 2.5 g/dL (3.4-5.0); ALBUMIN/GLOBULIN RATIO 0.78; ANION GAP 15.1; BILIRUBIN,TOTAL 0.21 mg/dL (0.00-1.20); BUN/CREATININE RATIO 31.83; CALCIUM 8.6 mg/dL (8.2-10.2); CREATININE 2.45 mg/dL (0.60-1.10); POTASSIUM 4.1 mmol/L (3.5-5.1); TOTAL PROTEIN 5.7 g/dL (5.8-8.1)
[2017-03-09] MEDS: ASPIRIN EC PO SCH (08:42)
[2017-03-09] MEDS: ALDACTONE PO SCH (08:42)
[2017-03-09] MEDS: VITAMIN D PO SCH (08:43)
[2017-03-09] MEDS: SYMBICORT 160-4.5 MCG INHALER IH SCH ×2 (08:43→21:07)
[2017-03-09] MEDS: ZITHROMAX PO SCH (08:43)
[2017-03-09] MEDS: COREG PO SCH (08:43)
--- NOTE | 2017-03-09 09:47 | PCM.PROG ---
Attending Provider: ATTENDING PROVIDER: Dr. SHWETA PENA This patient is seen with Caity Wagner, Nurse Practitioner. DATE OF SERVICE: 03/09/17 SUBJECTIVE: This 81 year old WHITE/ M was hospitalized 03/07/17. The patient is lying in bed, alert. Shortness of breath is improved. Kidney function slightly worse today. REVIEW OF SYSTEMS: CONSTITUTIONAL: No night sweats. No fatigue, malaise, lethargy. No fever or chills. HEENT: Eyes: No visual changes. No eye pain. No eye discharge. ENT: No runny nose. No epistaxis. No sinus pain. No odynophagia. No congestion. RESPIRATORY: Cough and congestion. No hemoptysis. No shortness of breath. CARDIOVASCULAR: No angina symptoms. No CHF symptoms. No atypical chest pain for CAD. No palpitations. No orthopnea.. GASTROINTESTINAL: No abdominal pain. No nausea or vomiting. No diarrhea or constipation. No hematemesis. No hematochezia. GENITOURINARY: No urgency. No frequency. No dysuria. No hematuria. No obstructive symptoms. No discharge. No pain. No significant abnormal bleeding. MUSCULOSKELETAL: No musculoskeletal pain; no joint swelling. NEUROLOGICAL: Awake, alert, oriented to time, place and person. No headache. No neck pain. No syncope. No seizures. No dizziness. PSYCHIATRIC: Not anxious. No depression. No suicidal thoughts. No homicidal thoughts. SKIN: No rash. No lesions. No wounds. ENDOCRINE: No unexplained weight loss. No weight gain. HEMATOLOGIC/LYMPHATIC: No anemia. No purpura. No petechiae. No prolonged or excessive bleeding. No palpable lymph nodes. PHYSICAL EXAMINATION: GENERAL: The patient is awake, alert and oriented, lying/sitting in bed in no distress. VITAL SIGNS: Temperature 97.5 F, Pulse 72, Respiratory Rate 15, BP 97/51, Pulse Ox 99% HEENT: Head normocephalic, atraumatic. Eyes: Extraocular muscles are intact. Pupils are equal, round and reactive to light and accommodation. Ears: No lesions. Nose appeared normal. Throat: No exudate or erythema. NECK: Supple. No JVD, no carotid bruit. No lymphadenopathy or thyromegaly. LUNGS: Diminished breath sounds bilaterally with faint expiratory wheeze. Percussion note normal. Chest symmetrical. HEART: S1, S2, no S3. No murmurs. No cyanosis or clubbing. No ascites. Pulses: Dorsalis pedis and posterior tibial pulses +1 to +2 both sides. ABDOMEN: Soft. Non-tender. Bowel sounds active. No CVA tenderness. No mass felt. EXTREMITIES: No edema. Full range of motion of all extremities, equal. NEUROLOGIC: No focal deficit. Cranial nerves II through XII are grossly intact. No headache, no double vision or headache. SKIN: Not dry. Intact. Turgor-normal. LYMPHATIC: No palpable lymph nodes/no lymphedema. MUSCULOSKELETAL: Normal joints with no swelling. Muscle tone is normal. LAB REVIEW: 03/09/17 05:05 03/09/17 05:05 03/09/17 05:05: Sodium 136, Potassium 4.1, Chloride 96 L, Carbon Dioxide 29, Anion Gap 15.1, BUN 78 H*, Creatinine 2.45 H, Estimated GFR (MDRD) 25.00, BUN/ Creatinine Ratio 31.83, Glucose 144 H, Calcium 8.6, Total Bilirubin 0.21, AST 11 L, ALT 11 L, Alkaline Phosphatase 42 L, Total Protein 5.7 L, Albumin 2.5 L, Globulin 3.2, Albumin/Globulin Ratio 0.78 03/09/17 05:05: WBC 7.38, RBC 3.13 L, Hgb 9.4 L, Hct 28.4 L, MCV 90.7, MCH 30.0 , MCHC 33.1, RDW Coeff of [place] 13.0, Plt Count 144, Immature Gran % (Auto) 0.4, Neut % (Auto) 74.0, Lymph % (Auto) 16.3, [place] % (Auto) 8.5, Eos % (Auto) 0.7, Baso % (Auto) 0.1, Immature Gran # (Auto) 0.0, Neut # 5.5, Lymph # 1.2, [place] # 0.6, Eos # 0.1, Baso # 0.0 ASSESSMENT: 1. ACUTE BRONCHITIS 2. SEVERE COPD 3. PLEURITIC TYPE CHEST PAIN RESOLVED 4. SMOKER 5. CHRONIC KIDNEY DISEASE 6. HYPERTENSION PLAN: 1. Continue IV fluids 2. Daily CBC and CMP Plan and coordination of the patient's care discussed in the presence of Pilot Teacher and nurse. CONDITION: Stable SCRIBED BY: ALEC STOREY, Firer Low Pressure scribed while in presence of service performed by Dr. Pena/Caity Wagner APRN on 03/09/17 ([id number])
[2017-03-09] MEDS: DEXTROSE 5%-1/2NS IV SOLUTION 1,000 ML IV SCH (11:35)
[2017-03-09] MEDS: XANAX PO PRN (21:07)
[2017-03-10] MEDS: TORADOL IVP SCH ×3 (04:56→21:04)
[2017-03-10] MEDS: XOPENEX 1.25 MG NEB SCH ×4 (05:11→23:20)
[2017-03-10] MEDS: PRILOSEC PO SCH (05:43)
[2017-03-10] MEDS: LASIX TAB PO SCH (05:43)
[2017-03-10] MEDS: DEXTROSE 5%-1/2NS IV SOLUTION 1,000 ML IV SCH (07:47)
[2017-03-10] MEDS: ASPIRIN EC PO SCH (09:59)
[2017-03-10] MEDS: VITAMIN D PO SCH (09:59)
[2017-03-10] MEDS: COREG PO SCH (09:59)
[2017-03-10] MEDS: ALDACTONE PO SCH (09:59)
[2017-03-10] MEDS: SYMBICORT 160-4.5 MCG INHALER IH SCH ×2 (09:59→21:04)
[2017-03-10 13:12] LABS: BASOPHILS % (AUTO) 0.3 % (0.0-3.0); EOSINOPHILS # (AUTO) 0.6 K/ul (0.0-0.7); EOSINOPHILS % (AUTO) 8.7 % (0.0-7.0); HEMOGLOBIN 10.9 g/dl (14.0-18.0); IMMATURE GRANULOCYTE % (AUTO) 0.9 % (0.0-5.0); LYMPHOCYTES # (AUTO) 1.8 K/uL (0.60-3.4); LYMPHOCYTES % (AUTO) 26.6 (10.0-50.0); MEAN CORPUSCULAR HEMOGLOBIN 30.4 pg (27.0-31.0); MEAN CORPUSCULAR VOLUME 91.9 fl (80.0-94.0); MONOCYTES % (AUTO) 14.3 (0-10); NEUTROPHILS # (AUTO) 3.3 K/ul (2.0-6.9); NEUTROPHILS % (AUTO) 49.2; PLATELET COUNT 208 10^3/uL (140-440); RED BLOOD COUNT 3.59 10^6/ul (4.70-6.10); WHITE BLOOD COUNT 6.77 K/ul (4.2-10.2)
[2017-03-10 13:38] LABS: ALBUMIN 2.9 g/dL (3.4-5.0); ALBUMIN/GLOBULIN RATIO 0.85; ANION GAP 17.1; BILIRUBIN,TOTAL 0.31 mg/dL (0.00-1.20); BUN/CREATININE RATIO 33.92; CALCIUM 9.3 mg/dL (8.2-10.2); CREATININE 2.27 mg/dL (0.60-1.10); POTASSIUM 5.1 mmol/L (3.5-5.1); TOTAL PROTEIN 6.3 g/dL (5.8-8.1)
[2017-03-10] MEDS: XANAX PO PRN (21:08)
[2017-03-11] MEDS: DEXTROSE 5%-1/2NS IV SOLUTION 1,000 ML IV SCH ×2 (03:39→23:54)
[2017-03-11] MEDS: XOPENEX 1.25 MG NEB SCH ×4 (05:00→23:48)
[2017-03-11 05:22] LABS: BASOPHILS % (AUTO) 0.2 % (0.0-3.0); EOSINOPHILS # (AUTO) 0.6 K/ul (0.0-0.7); EOSINOPHILS % (AUTO) 11.9 % (0.0-7.0); HEMATOCRIT 28.2 % (42.0-52.0); HEMOGLOBIN 9.3 g/dl (14.0-18.0); IMMATURE GRANULOCYTE % (AUTO) 0.6 % (0.0-5.0); LYMPHOCYTES # (AUTO) 1.4 K/uL (0.60-3.4); LYMPHOCYTES % (AUTO) 30.1 (10.0-50.0); MONOCYTES # (AUTO) 0.7 K/uL (0.4-2.0); MONOCYTES % (AUTO) 13.8 (0-10); NEUTROPHILS # (AUTO) 2.1 K/ul (2.0-6.9); NEUTROPHILS % (AUTO) 43.4; PLATELET COUNT 167 10^3/uL (140-440); WHITE BLOOD COUNT 4.78 K/ul (4.2-10.2)
[2017-03-11] MEDS: TORADOL IVP SCH ×3 (05:39→20:22)
[2017-03-11] MEDS: LASIX TAB PO SCH (05:39)
[2017-03-11] MEDS: PRILOSEC PO SCH (05:39)
[2017-03-11 06:10] LABS: ALANINE AMINOTRANSFERASE < 6 U/L (12-78); ALBUMIN 2.4 g/dL (3.4-5.0); ALBUMIN/GLOBULIN RATIO 0.86; ALKALINE PHOSPHATASE 43 U/L (56-119); ANION GAP 12.6; ASPARTATE AMINO TRANSFERASE 13 U/L (15-37); BILIRUBIN,TOTAL 0.25 mg/dL (0.00-1.20); CALCIUM 8.5 mg/dL (8.2-10.2); CARBON DIOXIDE 29 mmol/L (23-31); CHLORIDE 98 mmol/L (98-107); CREATININE 2.36 mg/dL (0.60-1.10); GLUCOSE 106 mg/dL (82-115); POTASSIUM 4.6 mmol/L (3.5-5.1); SODIUM 135 mmol/L (136-145); TOTAL PROTEIN 5.2 g/dL (5.8-8.1)
[2017-03-11 06:20] LABS: BLOOD UREA NITROGEN 76 mg/dL (7-18)
[2017-03-11] MEDS: ASPIRIN EC PO SCH (09:39)
[2017-03-11] MEDS: ALDACTONE PO SCH (09:39)
[2017-03-11] MEDS: VITAMIN D PO SCH (09:39)
[2017-03-11] MEDS: COREG PO SCH (09:39)
[2017-03-11] MEDS: SYMBICORT 160-4.5 MCG INHALER IH SCH ×2 (09:39→20:24)
[2017-03-11 18:14] VITALS: TEMP 97.4
[2017-03-12] MEDS: XOPENEX 1.25 MG NEB SCH ×2 (04:50→11:09)
[2017-03-12 05:50] LABS: BASOPHILS % (AUTO) 0.2 % (0.0-3.0); EOSINOPHILS # (AUTO) 0.5 K/ul (0.0-0.7); HEMATOCRIT 27.7 % (42.0-52.0); HEMOGLOBIN 9.1 g/dl (14.0-18.0); IMMATURE GRANULOCYTE % (AUTO) 0.6 % (0.0-5.0); LYMPHOCYTES # (AUTO) 1.3 K/uL (0.60-3.4); LYMPHOCYTES % (AUTO) 25.4 (10.0-50.0); MEAN CORPUSCULAR HGB CONC 32.9 (31.8-35.4); MEAN CORPUSCULAR VOLUME 91.4 fl (80.0-94.0); MONOCYTES # (AUTO) 0.6 K/uL (0.4-2.0); MONOCYTES % (AUTO) 11.5 (0-10); NEUTROPHILS # (AUTO) 2.7 K/ul (2.0-6.9); NEUTROPHILS % (AUTO) 53.3; PLATELET COUNT 177 10^3/uL (140-440); RED BLOOD COUNT 3.03 10^6/ul (4.70-6.10); WHITE BLOOD COUNT 5.11 K/ul (4.2-10.2)
[2017-03-12] MEDS: LASIX TAB PO SCH (05:54)
[2017-03-12] MEDS: PRILOSEC PO SCH (05:54)
[2017-03-12] MEDS: TORADOL IVP SCH ×2 (05:54→13:00)
[2017-03-12 06:27] LABS: ALANINE AMINOTRANSFERASE < 6 U/L (12-78); ALBUMIN 2.5 g/dL (3.4-5.0); ALBUMIN/GLOBULIN RATIO 0.86; ALKALINE PHOSPHATASE 50 U/L (56-119); ANION GAP 12.9; ASPARTATE AMINO TRANSFERASE 13 U/L (15-37); BILIRUBIN,TOTAL 0.29 mg/dL (0.00-1.20); BUN/CREATININE RATIO 30.63; CALCIUM 8.9 mg/dL (8.2-10.2); CARBON DIOXIDE 29 mmol/L (23-31); CHLORIDE 101 mmol/L (98-107); CREATININE 2.22 mg/dL (0.60-1.10); GLUCOSE 93 mg/dL (82-115); POTASSIUM 4.9 mmol/L (3.5-5.1); SODIUM 138 mmol/L (136-145); TOTAL PROTEIN 5.4 g/dL (5.8-8.1)
[2017-03-12 06:48] LABS: BLOOD UREA NITROGEN 68 mg/dL (7-18)
[2017-03-12] MEDS ORDERED: DECADRON 4 MG/ML SDV IM STA (08:04)
--- NOTE | 2017-03-12 08:08 | PN ---
DATE OF SERVICE: 03/08/17 SUBJECTIVE: 81 year old white male hospitalized with chest pain and chronic lung disease. The patient's chest pain is a lot better. His BUN and creatinine are 2.3 and 60 respectively. He has renal azotemia. The patient will be given slow IV fluids. The patient was seen and examined with Nurse Practitioner. PHYSICAL EXAMINATION: HEENT: Head normocephalic, atraumatic. Eyes: Extraocular muscles are intact. Pupils are equal, round and reactive to light and accommodation. Ears: No lesions. Nose appeared normal. Throat: No exudate or erythema. NECK: Supple. No JVD, no carotid bruit. No lymphadenopathy or thyromegaly. LUNGS: Decreased breath sounds with mild wheeze. Good air entry. Clear to auscultation. Percussion note normal. Chest symmetrical. HEART: S1, S2, no S3. No murmurs. No cyanosis or clubbing. No ascites. Pulses: Dorsalis pedis and posterior tibial pulses +1 to +2 both sides. ABDOMEN: Soft. Nontender. Bowel sounds active. No CVA tenderness. No mass felt. EXTREMITIES: No edema. Full range of motion of all extremities, equal. NEUROLOGIC: No focal deficit. Cranial nerves II through XII are grossly intact. No headache, no double vision or headache. SKIN: Not dry. Intact. Turgor - normal. LYMPHATIC: No palpable lymph nodes/no lymphedema. MUSCULOSKELETAL: Normal joints with no swelling. Muscle tone is normal. CONDITION: Over all is deteriorating with his multiple medical problems PROGNOSIS: Poor and the understands that. He is a DNR. TIME SPENT: More than 30 minutes. Plan and coordination of the patient's care discussed in the presence of nurse. JOSEPH
--- NOTE | 2017-03-12 09:38 | PCM.PROG ---
Attending Provider: ATTENDING PROVIDER: Dr. SHWETA PENA This patient is seen with Caity Wagner, Nurse Practitioner. DATE OF SERVICE: 03/12/17 SUBJECTIVE: This 81 year old WHITE/ M was hospitalized 03/07/17. The patient is lying in bed, alert. Kidney function is slightly improved today. Shortness of breath significantly improved. He still has a productive cough. He is afebrile , up and about. REVIEW OF SYSTEMS: CONSTITUTIONAL: No night sweats. No fatigue, malaise, lethargy. No fever or chills. HEENT: Eyes: No visual changes. No eye pain. No eye discharge. ENT: No runny nose. No epistaxis. No sinus pain. No odynophagia. No congestion. RESPIRATORY: Cough and congestion. No hemoptysis. Improved shortness of breath. CARDIOVASCULAR: No angina symptoms. No CHF symptoms. No atypical chest pain for CAD. No palpitations. No orthopnea.. GASTROINTESTINAL: No abdominal pain. No nausea or vomiting. No diarrhea or constipation. No hematemesis. No hematochezia. GENITOURINARY: No urgency. No frequency. No dysuria. No hematuria. No obstructive symptoms. No discharge. No pain. No significant abnormal bleeding. MUSCULOSKELETAL: No musculoskeletal pain; no joint swelling. NEUROLOGICAL: Awake, alert, oriented to time, place and person. No headache. No neck pain. No syncope. No seizures. No dizziness. PSYCHIATRIC: Not anxious. No depression. No suicidal thoughts. No homicidal thoughts. SKIN: No rash. No lesions. No wounds. ENDOCRINE: No unexplained weight loss. No weight gain. HEMATOLOGIC/LYMPHATIC: No anemia. No purpura. No petechiae. No prolonged or excessive bleeding. No palpable lymph nodes. PHYSICAL EXAMINATION: GENERAL: The patient is awake, alert and oriented, lying/sitting in bed in no distress. VITAL SIGNS: Temperature 97.4 F, Pulse 75, Respiratory Rate 22, BP 129/65, Pulse Ox 96% HEENT: Head normocephalic, atraumatic. Eyes: Extraocular muscles are intact. Pupils are equal, round and reactive to light and accommodation. Ears: No lesions. Nose appeared normal. Throat: No exudate or erythema. NECK: Supple. No JVD, no carotid bruit. No lymphadenopathy or thyromegaly. LUNGS: Diminished breath sounds bilaterally with expiratory wheeze which is chronic. Percussion note normal. Chest symmetrical. HEART: S1, S2, no S3. No murmurs. No cyanosis or clubbing. No ascites. Pulses: Dorsalis pedis and posterior tibial pulses +1 to +2 both sides. ABDOMEN: Soft. Non-tender. Bowel sounds active. No CVA tenderness. No mass felt. EXTREMITIES: No edema. Full range of motion of all extremities, equal. NEUROLOGIC: No focal deficit. Cranial nerves II through XII are grossly intact. No headache, no double vision or headache. SKIN: Not dry. Intact. Turgor-normal. LYMPHATIC: No palpable lymph nodes/no lymphedema. MUSCULOSKELETAL: Normal joints with no swelling. Muscle tone is normal. LAB REVIEW: 03/12/17 05:00 03/12/17 05:00 03/12/17 05:00: Sodium 138, Potassium 4.9, Chloride 101, Carbon Dioxide 29, Anion Gap 12.9, BUN 68 H*, Creatinine 2.22 H, Estimated GFR (MDRD) 29.00, BUN/ Creatinine Ratio 30.63, Glucose 93, Calcium 8.9, Total Bilirubin 0.29, AST 13 L , ALT < 6 L, Alkaline Phosphatase 50 L, Total Protein 5.4 L, Albumin 2.5 L, Globulin 2.9, Albumin/Globulin Ratio 0.86 03/12/17 05:00: WBC 5.11, RBC 3.03 L, Hgb 9.1 L, Hct 27.7 L, MCV 91.4, MCH 30.0 , MCHC 32.9, RDW Coeff of [place] 13.4, Plt Count 177, Immature Gran % (Auto) 0.6, Neut % (Auto) 53.3, Lymph % (Auto) 25.4, [place] % (Auto) 11.5 H, Eos % (Auto) 9.0 H, Baso % (Auto) 0.2, Immature Gran # (Auto) 0.0, Neut # 2.7, Lymph # 1.3, [place] # 0.6, Eos # 0.5, Baso # 0.0 ASSESSMENT: 1. ACUTE BRONCHITIS, RESOLVING 2. SEVERE COPD 3. PLEURITIC TYPE CHEST PAIN RESOLVED 4. SMOKER 5. ACUTE ON CHRONIC KIDNEY DISEASE, IMPROVING 6. HYPERTENSION PLAN: 1. 1 cc Decadron today 2. Continue IV fluids 3. Possible discharge home 4. PFT Plan and coordination of the patient's care discussed in the presence of Instrumentation Chemist and nurse. CONDITION: Stable SCRIBED BY: Siena DUDLEY scribed while in presence of service performed by Dr. Pena/Caity Wagner APRN on 03/12/17 ([id number])
[2017-03-12] MEDS: SYMBICORT 160-4.5 MCG INHALER IH SCH (09:48)
[2017-03-12] MEDS: COREG PO SCH (09:49)
[2017-03-12] MEDS: VITAMIN D PO SCH (09:49)
[2017-03-12] MEDS: ALDACTONE PO SCH (09:49)
[2017-03-12] MEDS: ASPIRIN EC PO SCH (09:49)
--- NOTE | 2017-03-12 10:40 | PN ---
DATE OF SERVICE: 03/09/17 SUBJECTIVE: 81-year-old white male hospitalized with chest pain. Chest pain was noncardiac. CHF and COPD under control. New problem is renal azotemia on top of CKD. Slow hydration is being done with IV fluids. Medical condition otherwise stable. Will monitor CBC and CMP. The patient was seen and examined with nurse practitioner. TIME SPENT: More than 30 minutes. Plan and coordination of the patient's care discussed in the presence of nurse. JOSEPH
--- NOTE | 2017-03-12 11:51 | CM.DICTOOL ---
ADMISSION: 03/07/17 12:04 DISCHARGE: 03/12/17 DATE OF SERVICE: 03/12/17 FINAL DIAGNOSIS CHEST PAIN, PLEURITIC IN NATURE ACUTE BRONCHITIS SEVERE COPD, OXYGEN DEPENDENT CHRONIC KIDNEY DISEASE, STAGE 4 HYPERTENSION CHF MODERATE TO SEVERE AORTIC STENOSIS LVH DYSLIPIDEMIA CAD CVA BY HISTORY, LEFT THALAMIC INFARCTION CHRONIC CONSTIPATION GENERALIZED ANXIETY CHOLECYSTECTOMY BILATERAL HERNIA REPAIR PROSTATE SURGERY LAST VITALS Temp Pulse Resp BP Pulse Ox 97.4 F L 75 22 129/65 96 03/11/17 22:00 03/12/17 05:40 03/12/17 05:40 03/12/17 05:40 03/12/17 05:40 ACTIVE MEDICATIONS Albuterol/Ipratropium (Combivent Respimat Inhal [place]) 1 spray IH QID PRN PRN Reason: shortness of air Alprazolam (Xanax) 0.25 mg PO TID PRN PRN Reason: anxiety Last Admin: 03/10/17 21:08 Dose: 0.25 mg Aspirin (Aspirin Ec) 81 mg PO DAILYWM [facility] Last Admin: 03/11/17 09:39 Dose: 81 mg Budesonide/Formoterol Fumarate (Symbicort 160-4.5 Mcg Inhaler) 2 puff IH BID [facility] Last Admin: 03/11/17 20:24 Dose: 2 puff Carvedilol (Coreg) 6.25 mg PO DAILYWM [facility] Last Admin: 03/11/17 09:39 Dose: 6.25 mg Cholecalciferol (Vitamin D) 400 unit PO DAILY [facility] Last Admin: 03/11/17 09:39 Dose: 400 unit Furosemide (Lasix Tab) 40 mg PO QDAC [facility] Last Admin: 03/12/17 05:54 Dose: 40 mg Ipratropium/Albuterol Neb (Duonebs) 1 Vial NEB Q4H PRN Omeprazole (Prilosec) 20 mg PO QDAC [facility] Last Admin: 03/12/17 05:54 Dose: 20 mg Polyethylene Glycol (Miralax) 17 gm PO DAILY PRN PRN Reason: Constipation Spironolactone (Aldactone) 25 mg PO DAILY [facility] Last Admin: 03/11/17 09:39 Dose: 25 mg ALLERGIES lisinopril Adverse Reaction (Verified 02/11/17 17:06) verapamil Adverse Reaction (Verified 02/11/17 17:06) NEW PRESCRIPTIONS: NO NEW PRESCRIPTIONS SMOKING: CURRENT SMOKER THE PATIENT HAS BEEN PROVIDED SMOKING CESSATION TEACHING. HE HAS BEEN MADE AWARE OF THE ADVERSE EFFECTS CONTINUATION WILL HAVE ON HIS CARDIOPULMONARY HEALTH. HE HAS ALSO BEEN MADE AWARE OF THE BENEFITS OF COMPLETE CESSATION. HE HAS NOT AGREED TO STOP SMOKING. HE WILL REQUIRE ADDITIONAL ENCOURAGEMENT/ TEACHING IN THE OUTPATIENT SETTING. DISEASE SPECIFIC EDUCATION: BRONCHITIS PLEURITIC TYPE CHEST PAIN KIDNEY DISEASE HOME MEDICATIONS FOLLOW UP LAB REVIEW: 03/12/17 05:00 03/12/17 05:00 03/12/17 05:00: Sodium 138, Potassium 4.9, Chloride 101, Carbon Dioxide 29, Anion Gap 12.9, BUN 68 H*, Creatinine 2.22 H, Estimated GFR (MDRD) 29.00, BUN/ Creatinine Ratio 30.63, Glucose 93, Calcium 8.9, Total Bilirubin 0.29, AST 13 L , ALT < 6 L, Alkaline Phosphatase 50 L, Total Protein 5.4 L, Albumin 2.5 L, Globulin 2.9, Albumin/Globulin Ratio 0.86 03/12/17 05:00: WBC 5.11, RBC 3.03 L, Hgb 9.1 L, Hct 27.7 L, MCV 91.4, MCH 30.0 , MCHC 32.9, RDW Coeff of [place] 13.4, Plt Count 177, Immature Gran % (Auto) 0.6, Neut % (Auto) 53.3, Lymph % (Auto) 25.4, [place] % (Auto) 11.5 H, Eos % (Auto) 9.0 H, Baso % (Auto) 0.2, Immature Gran # (Auto) 0.0, Neut # 2.7, Lymph # 1.3, [place] # 0.6, Eos # 0.5, Baso # 0.0 PLAN: DISCHARGE HOME TODAY PLEASE PHONE DR. PENA'S OFFICE TO SCHEDULE YOUR FOLLOW UP APPOINTMENT ([phone]) RESUME YOUR HOME MEDICATIONS PER LIST PROVIDED BY THE NURSING STAFF NO NEW PRESCRIPTIONS CONTINUE YOUR OXYGEN USE AT 2L/NC DIET HEALTHY HEART TOLERATED ACTIVITY GET PLENTY OF REST AT HOME. GRADUALLY INCREASE YOUR ACTIVITY LEVEL ACCORDING TO YOUR TOLERATION SUMMARY THE PATIENT CURRENTLY RESIDES AT HOME WITH HIS SPOUSE. HE HAS BEEN INDEPENDENT WITH ADL'S. HOWEVER, SHE IS VERY SUPPORTIVE OF HIS NEEDS WHEN NECESSARY. HE REQUIRES OXYGEN AT NIGHT BUT HAS BEEN REQUIRED IT HERE CONTINUALLY AT 2L/NC. WHEN MEASURED AT REST THIS MORNING SATS WERE 93-96% ON ROOM AIR. HE ALSO HAS A NEBULIZER AND A CANE AT HOME. HE DESIRES TO RETURN HOME AT DISCHARGE. HIS SKIN TURGOR IS INTACT AND WITHOUT DECUBITUS ULCERS. HE HAS MULTIPLE AREAS OF BRUISING ON HIS ARMS IN VARIOUS STAGES OF HEALING WHERE THE SKIN IS THIN AND MORE FRAGILE. HIS HYDRATION AND NUTRITIONAL STATUS IS GOOD. HE IS AWARE AND AGREEABLE FOR TODAY'S DISCHARGE PLANS. CURRENT CODE STATUS DO NOT INTUBATE, CPR ONLY MARLO DESTINEY, MULE DEVELOPER SHWETA PENA M.D.
--- NOTE | 2017-03-12 11:56 | HP ---
DATE OF SERVICE: 03/07/17 HISTORY OF PRESENT ILLNESS: This 81-year-old male presents with complaints of chest pain 3 to 4 times a day. The pain is sharp, unrelated to exertion. The patient has shortness of breath, fatigue and tiredness. Also has chronic cough. The duration of symptoms is 3 days. No PND, no orthopnea. PAST MEDICAL HISTORY: CA prostate CHF CAD CKD 4 Dyslipidemia CVA Aortic stenosis 02 LVH PAST SURGICAL HISTORY: Gallbladder Prostate Bilateral hernia REVIEW OF SYSTEMS: CONSTITUTIONAL: Fatigue. No fever. HEENT: No sinus drainage, no sore throat. RESPIRATORY: Cough. No hemoptysis. CARDIOVASCULAR: Atypical chest pain for coronary artery disease sharp with deep inspiration. Positive for shortness of breath. No angina, CHF symptoms, palpitations. GASTROINTESTINAL: No melena or abdominal pain. No GERD. GENITOURINARY: No hematuria, no prostatism, no polyuria. 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 MUSCULOSKELETAL: Osteoarthritis pain. ENDOCRINE: No weight loss, no weight gain. SKIN: Not dry, no rash. PSYCHIATRIC: Anxious. No depression, no suicidal thoughts, no homicidal thoughts. SOCIAL HISTORY: Smoker; . No alcohol use. Three children. FAMILY HISTORY: Father ; mother . Three brothers, two sisters. MEDICATIONS: Xanax 0.25 mg p.o. t.i.d. p.r.n. Aldactone 25 mg p.o. daily Coreg 6.25 mg p.o. daily Lasix 40 mg p.o. q.a.m. Cholecalciferol (Vitamin D3) 400 unit p.o. daily Ipratropium/Albuterol two puff IH q.i.d p.r.n. Budesonide/Formoterol (Symbicort 160-4.5 mcg inhaler) two puff INH b.i.d. Miralax 17 gm p.o. daily p.r.n. Aspirin 81 mg p.o. daily with meal Omeprazole 20 mg p.o. daily Ipratropium/Albuterol one vial neb RT q.4h p.r.n. ALLERGIES: LISINOPRIL, VERAPAMIL, PRAVASTATIN, ADVAIR, VALIUM, FOSAMAX PHYSICAL EXAMINATION: V/S: Pulse 96, BP 112/60, temperature 98.6, 02 sat 92%. Weight 142.4, height 5'8 ", BMI 21.6. GENERAL APPEARANCE: Oriented times three. HEENT: Normal. NECK: No JVP, no bruits. RESPIRATORY: Decreased breath sounds. Lungs are clear. CARDIOVASCULAR: S1, S2, no S3. Grade II/ systolic ejection murmur. No cyanosis, clubbing. No ascites. GI/ABDOMEN: No tenderness. Bowel sounds are active. EXTREMITIES: No edema, pulses +1, equal. 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 RECTAL/PROSTATE: The patient refused colonoscopy screening. LAB TESTS: ABG p02 105, pc02 47, pH 7.467 on 2L. Hemoglobin 11.5, hematocrit 34, WBC 6, 600, normal differential. ASSESSMENT: 1. CHEST PAIN, PLEURITIC TYPE 2. HISTORY OF CORONARY ARTERY DISEASE, RULE OUT CORONARY INSUFFICIENCY 3. ACUTE BRONCHITIS CHRONIC 4. LEG EDEMA DEPENDENT 5. CHRONIC CONSTIPATION 6. CVA 7. SUSAN 8. COPD 9. 02 PRN 10. CHF 11. AORTIC STENOSIS MODERATE/SEVERE 12. LVH 13. DYSLIPIDEMIA 14. CAD 15. CKD-4 PLAN: 1. Admit regular 2. Routine telemetry orders 3. 2 cc Decadron IM now and tomorrow a.m. 4. Continue all medications 5. Xopenex nebs q.i.d. 6. Sputum for C & S 7. Daily CBC and CMP 8. Zithromax 500 mg p.o. today and daily a.m. times three day 9. Oxygen 2 to 3L 10. ABG today 11. Toradol 30 mg IV now and 8 hourly TIME SPENT: More than 70 minutes. MTDD
[2017-03-12 14:40] VITALS: BP 146/76
--- NOTE | 2017-03-13 10:11 | PN ---
DATE OF SERVICE: 03/10/17 SUBJECTIVE: 81 year old white male hospitalized with chest pain. Chest pain was atypical. Didn't turnaround engineer to be coronary artery disease or insufficiency. There was no acute event. The patient's new problem is renal azotemia which is being treated with IV slow fluid. Today this morning CBC and CMP was not done so I ordered it , reports pending. Yesterday his creatinine was 2.4 and BUN 78. REVIEW OF SYSTEMS: CONSTITUTIONAL: No night sweats. No fatigue, malaise, lethargy. No fever or chills. Weakness. HEENT: Eyes: No visual changes. No eye pain. No eye discharge. ENT: No runny nose. No epistaxis. No sinus pain. No sore throat. No odynophagia. No congestion. RESPIRATORY: Mild cough, no congestion. No hemoptysis. No shortness of breath. CARDIOVASCULAR: No angina symptoms. No CHF symptoms. No atypical chest pain for CAD. No palpitations. No orthopnea. GASTROINTESTINAL: No abdominal pain. No nausea or vomiting. No diarrhea or constipation. No hematemesis. No hematochezia. GENITOURINARY: No urgency. No frequency. No dysuria. No hematuria. No obstructive symptoms. No discharge. No pain. No significant abnormal bleeding. MUSCULOSKELETAL: No musculoskeletal pain; no joint swelling. NEUROLOGICAL: No headache. No neck pain. No syncope. No seizures. No dizziness. PSYCHIATRIC: Not anxious. No depression. No suicidal thoughts. No homicidal thoughts. SKIN: No rash. No lesions. No wounds. ENDOCRINE: No unexplained weight loss. No weight gain. HEMATOLOGIC/LYMPHATIC: No anemia. No purpura. No petechiae. No prolonged or excessive bleeding. No palpable lymph nodes. PHYSICAL EXAMINATION: VITAL SIGNS: Temperature 97, pulse 70, respiratory rate 16, blood pressure 122/ 64 with pulse ox 97%. HEENT: Head normocephalic, atraumatic. Eyes: Extraocular muscles are intact. Pupils are equal, round and reactive to light and accommodation. Ears: No lesions. Nose appeared normal. Throat: No exudate or erythema. NECK: Supple. No JVD, no carotid bruit. No lymphadenopathy or thyromegaly. LUNGS: Decreased breath sounds but clear to auscultation. Percussion note normal. Chest symmetrical. HEART: S1, S2, no S3. No murmurs. No cyanosis or clubbing. No ascites. Pulses: Dorsalis pedis and posterior tibial pulses +1 to +2 both sides. ABDOMEN: Soft. Nontender. Bowel sounds active. No CVA tenderness. No mass felt. EXTREMITIES: No edema. Full range of motion of all extremities, equal. NEUROLOGIC: No focal deficit. Cranial nerves II through XII are grossly intact. No headache, no double vision or headache. SKIN: Not dry. Intact. Turgor - normal. LYMPHATIC: No palpable lymph nodes/no lymphedema. MUSCULOSKELETAL: Normal joints with no swelling. Muscle tone is normal. ASSESSMENT: 1. Chest pain seems to be noncardiac 2. History of coronary artery disease 3. History of CHF 4. Severe COPD 5. Severe aortic stenosis 6. Renal azotemia with chronic kidney disease PLAN: 1. Given slow hydration 2. Continue steroids 3. Continue antibiotics 4. Up and about 5. Pulmonary rehab advised PROGNOSIS: Poor CONDITION: Stable TIME SPENT: More than 30 minutes. Plan and coordination of the patient's care discussed in the presence of nurse. JOSEPH
--- NOTE | 2017-03-13 14:23 | PN ---
DATE OF SERVICE: 03/11/17 SUBJECTIVE: 81 year old white male hospitalized with chest pain. Chest pain was atypical. The patient's other problem is renal azotemia which seems to be resolving. He is on slow IV fluid hydration. The patient's overall vascular status is stable with no evidence of CHF and no evidence of fluid overload. The patient has coronary artery disease, CHF, Severe aortic stenosis. Also the patient has severe chronic lung disease endstage inoperable because of that condition concerning his aortic valves. The patient is feeling better, up and about. REVIEW OF SYSTEMS: CONSTITUTIONAL: No night sweats. No fatigue, malaise, lethargy. No fever or chills. HEENT: Eyes: No visual changes. No eye pain. No eye discharge. ENT: No runny nose. No epistaxis. No sinus pain. No sore throat. No odynophagia. No congestion. RESPIRATORY: No cough, no congestion. No hemoptysis. No shortness of breath. CARDIOVASCULAR: No angina symptoms. No CHF symptoms. No atypical chest pain for CAD. No palpitations. No orthopnea. GASTROINTESTINAL: No abdominal pain. No nausea or vomiting. No diarrhea or constipation. No hematemesis. No hematochezia. GENITOURINARY: No urgency. No frequency. No dysuria. No hematuria. No obstructive symptoms. No discharge. No pain. No significant abnormal bleeding. MUSCULOSKELETAL: No musculoskeletal pain; no joint swelling. NEUROLOGICAL: No headache. No neck pain. No syncope. No seizures. No dizziness. PSYCHIATRIC: Not anxious. No depression. No suicidal thoughts. No homicidal thoughts. SKIN: No rash. No lesions. No wounds. ENDOCRINE: No unexplained weight loss. No weight gain. HEMATOLOGIC/LYMPHATIC: No anemia. No purpura. No petechiae. No prolonged or excessive bleeding. No palpable lymph nodes. PHYSICAL EXAMINATION: VITAL SIGNS: Temperature 97.7, pulse 71, respiratory rate 16, blood pressure 137/69 and pulse ox 98%. HEENT: Head normocephalic, atraumatic. Eyes: Extraocular muscles are intact. Pupils are equal, round and reactive to light and accommodation. Ears: No lesions. Nose appeared normal. Throat: No exudate or erythema. NECK: Supple. No JVD, no carotid bruit. No lymphadenopathy or thyromegaly. LUNGS: Decreased breath sounds but clear to auscultation. Percussion note normal. Chest symmetrical. HEART: S1, S2, no S3. Grade II/ systolic murmurs. No cyanosis or clubbing. No ascites. Pulses: Dorsalis pedis and posterior tibial pulses +1 to +2 both sides. ABDOMEN: Soft. Nontender. Bowel sounds active. No CVA tenderness. No mass felt. EXTREMITIES: No edema. Full range of motion of all extremities, equal. NEUROLOGIC: No focal deficit. Cranial nerves II through XII are grossly intact. No headache, no double vision or headache. SKIN: Not dry. Intact. Turgor - normal. LYMPHATIC: No palpable lymph nodes/no lymphedema. MUSCULOSKELETAL: Normal joints with no swelling. Muscle tone is normal. LABS: Hgb 9.3, hct 28, WBC 4,700 normal differential, creatinine 2.3, BUN 76, potassium 4.6. ASSESSMENT: 1. Chest pain atypical 2. Severe chronic lung disease 3. Congestive heart failure, stable 4. Aortic stenosis, moderate to severe 5. Renal azotemia seems to be resolving on top of CKD PLAN: 1. Continue slow hydration 2. Up and about 3. Breathing exercises discussed 4. Advised to quit smoking 5. Pulmonary rehab advised in the room PROGNOSIS: Poor TIME SPENT: More than 30 minutes. Plan and coordination of the patient's care discussed in the presence of nurse. JOSEPH
--- NOTE | 2017-03-14 10:04 | PN ---
DATE OF SERVICE: 03/12/17 SUBJECTIVE: 81 year old white male hospitalized with chest pain noncardiac. No acute findings noted. The patient's other problem with renal azotemia which seems to be resolving. Now the creatinine is 2.3 and BUN [address] of improvement. He was given slow hydration for 3-4 days the patient is up and about. PHYSICAL EXAMINATION: HEENT: Head normocephalic, atraumatic. Eyes: Extraocular muscles are intact. Pupils are equal, round and reactive to light and accommodation. Ears: No lesions. Nose appeared normal. Throat: No exudate or erythema. NECK: Supple. No JVD, no carotid bruit. No lymphadenopathy or thyromegaly. LUNGS: Decreased breath sounds more air entry. Clear to auscultation. Percussion note normal. Chest symmetrical. HEART: S1, S2, no S3. No murmurs. No cyanosis or clubbing. No ascites. Pulses: Dorsalis pedis and posterior tibial pulses +1 to +2 both sides. ABDOMEN: Soft. Nontender. Bowel sounds active. No CVA tenderness. No mass felt. EXTREMITIES: No edema. Full range of motion of all extremities, equal. NEUROLOGIC: No focal deficit. Cranial nerves II through XII are grossly intact. No headache, no double vision or headache. SKIN: Not dry. Intact. Turgor - normal. LYMPHATIC: No palpable lymph nodes/no lymphedema. MUSCULOSKELETAL: Normal joints with no swelling. Muscle tone is normal. CONDITION: Stable. PROGNOSIS: Poor PLAN: 1. The patient will undergo echo as an outpatient The patient was seen and examined with Nurse Practitioner. TIME SPENT: More than 30 minutes. Plan and coordination of the patient's care discussed in the presence of nurse. JOSEPH
--- NOTE | 2017-03-14 10:06 | PN ---
03/07/17: Level 5 03/08/17: Intermediate 03/09/17: Intermediate 03/10/17: Intermediate 03/11/17: Intermediate 03/12/17: D as in discharge MTDD
--- NOTE | 2017-03-14 15:37 | DS ---
DATE OF SERVICE: 03/12/17 FINAL DIAGNOSIS: 1. Chest pain, pleuritic in nature 2. Acute bronchitis 3. Severe COPD, oxygen dependant 4. Chronic kidney disease, stage 4 5. Hypertension 6. CHF 7. Moderate to severe aortic stenosis 8. LVH 9. Dyslipidemia 10.CAD 11.CVA by history, left thalamic infarction 12.Chronic constipation 13.Generalized anxiety 14.Cholecystectomy 15.Bilateral hernia repair 16.Prostate surgery LAST VITALS: Temperature 97.4, pulse 75, respiratory 22, blood pressure 129/65, pulse ox 96. DISCHARGE INSTRUCTIONS: Discharge home today. Please phone Dr. Jarvis's office to schedule follow up appointment. Resume home medications as per list provided by the nursing staff. Continue oxygen use at 2 liters nasal cannula. MEDICATIONS AT DISCHARGE: Combivent 1 spray IH four times a day PRN Xanax 0.25mg PO three times a day PRN Aspirin EC 81mg PO daily Symbicort 160-4.5ncg two puff IH twice a day Coreg 6.25mg Po daily Vitamin D 400 unit PO daily Lasix 40mg PO QDAC DUO NEBS Q4 hour PRN Prilosec 20mg PO QDAC Miralax 17 grams PO daily PRN Aldactone 25mg PO daily ALLERGIES: Lisinopril Verapamil NEW PRESCRIPTIONS: No new medications DIET INSTRUCTIONS: Healthy heart As tolerated ACTIVITY: Get plenty of rest at home. Gradually increased your activity level according to toleration. SMOKING: Current smoker. The patient has been provided smoking cessation teaching. He has been made aware of the adverse effects continuation will have on his cardiopulmonary health. He has also been made aware of the benefits of complete cessation. He has not agreed to stop smoking. He will require additional encouragement/ teaching in the outpatient setting. DISEASE SPECIFIC EDUCATION: Bronchitis Pleuritic type chest pain Kidney disease Home medications Followup. HOSPITAL COURSE: This is an 80 year old white male with a history of severe COPD, he is oxygen dependant who presented to the office with worsening shortness of breath, coughing for the past several days and pleuritic type chest pain. He was subsequently admitted. Chest x-ray revealed that he had no pneumonia, more acute COPD exacerbation and acute bronchitis. He was placed on Solu-Medrol 125mg Q 8 hours IV along with Rocephin 1 gram daily IV and Zithromax 500mg daily times three days PO. Within 24 hours his respiratory distress improved. His pleuritic type pain improved within 24 hours after starting the IV steroids. We placed him on Xopenex NEBS treats Q 4-6 hours. Due to history CHF and Aortic stenosis he initially was not started any IV fluids however even though his breathing had improved after the second day his kidney function began to acutely worsen with BUN of up to 80, creatinine up to 3. This has slowly improved with slow IV hydration. He was started on IV fluids normal saline at 50cc an hour. Today on day of discharge his BUN has steadily gone down for the past two days with BUN of 68 and creatinine of 2.22 today. His vital signs have otherwise remained stable. He has afebrile since admission. At this point is not on any steroids or antibiotics at time of discharge as his bronchitis has resolved as well as his pleuritic pain. He has a history of chronic kidney disease and normally has a creatinine around 2 so this is not unusual for him so he is now back to baseline. Today on day so discharge temperature 97.4, heart rate 75, respirations 22, blood pressure 129/65 and pulse ox 96% on room air. For the past three days he has been up and about walking around on his own mingling and talking to the nursing staff. He has been eating 75-100% of his meals. He will get 1cc of Decadron before discharge due to a very mild expiratory wheeze on auscultation today. No changes were made to his home medications. Education has been provided regarding the need to stop smoking. 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 He is instructed to continue with increased rest and gradually increase his activity according to toleration. We will followup him up later in the office this week. TIME SPENT: More than 60 minutes. JOSEPH
== END 2017-03-12 16:00 | disposition home or self-care (01) | DRG 204 ==
LOC: MEDSURG B 12:04
PROVIDERS: ADMIT Internal Medicine; ATTEND Internal Medicine
DX: R07.81 Pleurodynia (principal); J44.1 Chronic obstructive pulmonary disease with (acute) exacerbation; J44.0 Chronic obstructive pulmonary disease with (acute) lower respiratory infection; N18.4 Chronic kidney disease, stage 4 (severe); J90 Pleural effusion, not elsewhere classified; N17.9 Acute kidney failure, unspecified; R06.02 Shortness of breath; R53.83 Other fatigue; J20.9 Acute bronchitis, unspecified; I12.9 Hypertensive chronic kidney disease with stage 1 through stage 4 chronic kidney disease, or unspecified chronic kidney disease; I10 Essential (primary) hypertension; I50.9 Heart failure, unspecified; I35.0 Nonrheumatic aortic (valve) stenosis; I25.10 Atherosclerotic heart disease of native coronary artery without angina pectoris; E78.5 Hyperlipidemia, unspecified; K59.09 Other constipation; F41.1 Generalized anxiety disorder; F17.200 Nicotine dependence, unspecified, uncomplicated; Z86.73 Personal history of transient ischemic attack (TIA), and cerebral infarction without residual deficits; Z90.49 Acquired absence of other specified parts of digestive tract; Z98.890 Other specified postprocedural states; Z79.899 Other long term (current) drug therapy
CPT/HCPCS: 36415; 80053; 81001; 82550; 82803; 83874; 84484; 85025; 87070; 87081; 87186; 93005; 93010; 94640

== ENCOUNTER 2017-03-15 06:18 | Outpatient (CLI) ==
--- NOTE | 2017-03-16 11:02 | ECHO2D ---
Date of Exam: 03/15/17 Ordering Physician: SHWETA PENA Room #: OP Reason for Echo: CHEST PAIN, HYPERTENSION, COPD M-Mode Normal Adult Results LV Dimensions Normal Adult Results AoV Opening excursions >1.6 0.8 LVEDD-base- 3.5-5.8 5.1 Ao root dimensions 2.0-3.7 3.8 LVESD-base- 3.1-4.6 L. Atrium dimensions 1.9-3.8 4.5 Post. Wall thickness 0.8-1.1 1.3 IV septum (thickness) 0.7-1.2 1.4 Post. Wall excursion 0.72-1.3 NORMAL Septal motion NORMAL Systolic motion R. Ventricular cavity 1.5-2.0 3.0 LVEF 60% 50% Paradoxical septal wall motion NORMAL 2-D : NORMAL LEFT VENTRICULAR CONTRACTILITY--CALCIFIC AORTIC STENOSIS, NO EFFUSION, NO THROMBUS, ENLARGED LEFT ATRIAL CAVITY M-MODE: MV: NORMAL AV: CALCIFIC AORTIC STENOSIS, MODERATE TO SEVERE TV: NORMAL PV: CHAMBER SIZE: ENLARGED LEFT ATRIAL CAVITY WALL MOTION: NORMAL PERICARDIUM: NORMAL INTERPRETATION: 1. CALCIFIC AORTIC STENOSIS (MODERATE TO SEVERE) 2. LEFT VENTRICULAR HYPERTROPHY 3. NORMAL LEFT VENTRICULAR CONTRACTILITY MTDD
== END 2017-03-15 06:19 | disposition home or self-care (01) ==
LOC: CAR 06:18
PROVIDERS: ATTEND Internal Medicine
DX: R07.9 Chest pain, unspecified (principal); I10 Essential (primary) hypertension

== ENCOUNTER 2017-03-23 13:57 | Outpatient (CLI) ==
[2017-03-23 15:42] LABS: ALBUMIN/GLOBULIN RATIO 0.83; ANION GAP 15.6; BILIRUBIN,TOTAL 0.37 mg/dL (0.00-1.20); BUN/CREATININE RATIO 19.07; CALCIUM 9.6 mg/dL (8.2-10.2); CREATININE 1.94 mg/dL (0.60-1.10); POTASSIUM 4.6 mmol/L (3.5-5.1); TOTAL PROTEIN 6.6 g/dL (5.8-8.1)
== END 2017-03-23 13:58 | disposition home or self-care (01) ==
LOC: LAB 13:57
PROVIDERS: ATTEND Internal Medicine
DX: I50.9 Heart failure, unspecified (principal); R06.02 Shortness of breath; J40 Bronchitis, not specified as acute or chronic
CPT/HCPCS: 36415; 80053

== ENCOUNTER 2017-04-11 14:32 | Inpatient (IN) ==
[2017-04-11 14:41] VITALS: BMI 20.7
[2017-04-11] MEDS ORDERED: SOLU-MEDROL 125 MG IVP STA (14:51)
[2017-04-11] MEDS ORDERED: DUONEB NEB STA (15:01)
--- NOTE | 2017-04-11 16:24 | CT ---
EXAM: CT cervical spine without contrast. HISTORY: Initial presentation for neck injury due to a fall. COMPARISON: 06/16/2009. TECHNIQUE: Multiple axial images of the cervical spine were obtained without intravenous contrast. Images were reformatted in the sagittal and coronal planes. FINDINGS: There is approximately 0.4 cm anterolisthesis of C7 and T1. There is approximately 0.2 cm retrolisthesis of C5 on C6. Cervical spine vertebral body heights are normal. There is mild superi or endplate compression deformity of T1 and T2 which is old. Severe loss of disc height seen at C4-5 and C5-6 with more mild changes at C3-4 and C6-7. Multilevel disc osteophyte formation, uncovertebr al hypertrophy and facet arthropathy noted with mild spinal stenosis at C4-5 through C6-7, and multil evel neural foraminal narrowing, severe at C3-4 on the right, C4-5 on the right, C5-6 bilaterally, an d C6-7 on the left. Paravertebral soft tissue without acute abnormality. Atherosclerotic calcificat ions present. Emphysematous changes seen in the lung apices. IMPRESSION: No acute abnormality of the cervical spine.
--- NOTE | 2017-04-11 16:25 | CT ---
EXAM: CT LUMBAR SPINE HISTORY: Fall TECHNIQUE: CT lumbar spine without contrast. 3-mm axial sections. Coronal and sagittal reformation s. COMPARISON: CT abdomen and pelvis dated 11/03/2016 FINDINGS: The bones appear demineralized. No acute fracture is obvious. There is a healing fracture of the mi d left 12th rib. There is a scoliosis convex to the left. Sacroiliac joints are intact. Chronic bi lateral pars defects are present at L4 with anterior spondylolisthesis of L4 on L5 by approximately 5 .2 mm. The endplates at the interspace of L4/L5 are sclerotic and irregular suggesting change from s evere longstanding degenerative disc disease. This does not appear noticeably changed since the [facility] and therefore endplate infection and diskitis would be less likely. There is no paraspinal soft tissue inflammation or fluid collection. Correlate clinically. No significant loss of vertebral body height. Other levels of degenerative disc and facet disease are present. This leads to mild c entral stenosis probably most apparent at L2/L3. Incidental findings include atherosclerotic disease and cystic masses of the kidneys suggesting cysts, at least one on the left complex in nature. IMPRESSION: 1. No acute fracture or subluxation. 2. Degenerative disc and facet disease most apparent at L4/L5 as described. Bilateral pars interarti cularis defects L4 with listhesis.
--- NOTE | 2017-04-11 16:37 | CT ---
EXAM: CT thoracic spine without contrast HISTORY: Fall COMPARISON: CT chest of 02/11/2017 TECHNIQUE: CT thoracic spine performed without intravenous contrast. Coronal and sagittal reformatt ed images obtained. FINDINGS: Severe compression fracture of T10, unchanged from 02/11/2017. No retropulsion. Remote f racture T9 spinous process appears unchanged. Mild chronic compression deformities T1, T2, T4 appear unchanged. No acute fracture. No subluxation. Central canal grossly patent. Mild to moderate mult ilevel chronic discogenic degenerative disease with intervertebral disc space narrowing and marginal osteophyte formation. Mild to moderate rightward curvature lumbar spine, thoracic spine. Emphysema. Bilateral lower airway thickening. Debris in the trachea and right and left mainstem bronchus. Gran ulomatous calcification. Atherosclerosis. Remote fractures of the left posterior eleventh and twelft h ribs. IMPRESSION: 1. No new compression fracture of the thoracic spine. 2. Severe compression fracture of T10, unchanged from 02/11/2017. 3. Remote fracture T9 spinous process. Remote fractures of the left posterior eleventh and twelfth r ibs. 4. Mild chronic compression deformities T1, T2, T4, unchanged. 5. Chronic degenerative changes. 6. Lower airway thickening, suggesting infectious/inflammatory bronchitis. Debris in the trachea and right and left mainstem bronchus. Bronchitis may be on the basis of aspiration. 7. Emphysema.
[2017-04-11] MEDS ORDERED: MIRALAX PO PRN (17:24)
--- NOTE | 2017-04-11 17:28 | ED.PDOC ---
General ED Provider: Dr. RENY ROBERTS Chief Complaint: Shortness of Air Stated Complaint: flu like symp Time Seen by Physician: 14:40 (seen with entire staff) Mode of Arrival: Wheelchair Information Source: Patient, Family Exam Limitations: No limitations Primary Care Provider: SHWETA PENA Nursing and Triage Documentation Reviewed and Agree: Yes Reviewed sepsis parameters & appropriate labs ordered?: Yes (fall history perwide 1 week ago pt denied ) System Inflammatory Response Syndrome: Temp 101F or Greater Sepsis Protocol: For patient's 13 years and over: Temp is 96.8 and below OR 101 and greater Pulse >90 BPM Resp >20/minute Acutely Altered Mental Status Are patient's symptoms suggestive of a new infection, such as: -Pneumonia -Skin, Soft Tissue -Endocarditis -UTI -Bone, Joint Infection -Implantable Device -Acute Abdominal Infection -Wound Infection -Meningitis -Blood Stream Catheter Infection -Unknown Respiratory Complaint Exam - Respiratory Complaint/Exam Onset/Duration: chronic issue worse today Symptoms Are: Still present Timing: Intermittent Initial Severity: Moderate Current Severity: Mild Location: Nose, Throat, Chest Character: Reports: Non-productive cough Aggravating: Reports: URI Alleviating: Reports: Bronchodilators, Upright position Associated Signs and Symptoms: Reports: URI, Nasal congestion, Sore throat. Denies: Rapid breathing, Dyspnea, Fever, Chills, Chest pain, Pleuritic chest pain, Wheezing, Hemoptysis, Dizziness, Calf pain, Calf swelling, Edema, Hoarseness, Sinus discomfort, Vomiting, Weight loss, Decreased oral intake, Increased thirst, Increased appetite, Increased urination Related History: Reports: Similar episode (copd) History of Healthcare-Acquired Pneumonia: No Related Surgical History: Reports: None Pulmonary Embolism Risk Factors: Bedrest, Smoking Cardiac Risk Factors: Reports: Hypertension Pseudomonas Risk Factors: Reports: Chronic Lung Disease Tuberculosis Risk Factors: Reports: None Status Asthmaticus Risk Factors: Reports: None Home Oxygen Use: Yes Recent Stress Test: No Recent Echo/LV Function: No Current Antibiotic Use: No Current Asthma Medication Use: Yes Respiratory Distress: None Inadequate Respiratory Effort: No Dysphagia Present: No Stridor Present: No JVD Present: No Accessory Muscle Use: No Retractions: Not Present Diminished Breath Sounds: Yes Prolonged Respiration: Expiratory phase Sinus Tenderness: None Grunting Respirations: No Kussmaul Respirations: No Differential Diagnoses: Asthma, CHF, Pulmonary Edema, COPD Exacerbation, Pneumonia, Bronchitis, Bronchospasm, URI, Influenza, Lower Resp. Infection Quality Indicators For Pneumonia: Blood Cultures-SCU admit, Antibiotics in 6hr- admit, SpO2 assessed, Vital signs, Mental status assessed Non-Traumatic Chest Pain Syncope: EKG Performed Review of Systems - Review Of Systems Constitutional: Reports: Fever, Malaise, Weakness, Loss of appetite Eyes: Reports: No symptoms Ears, Nose, Mouth, Throat: Reports: No symptoms Respiratory: Reports: Cough Cardiac: Reports: No symptoms GI: Reports: No symptoms : Reports: No symptoms Musculoskeletal: Reports: Back pain, Joint pain (left shoulder paon) Skin: Reports: No symptoms Neurological: Reports: No symptoms Endocrine: Reports: No symptoms Hematologic/Lymphatic: Reports: No symptoms All Other Systems: Reviewed and Negative Past Medical History - Past Medical History Previously Healthy: Yes Endocrine: Reports: Dyslipidemia Cardiovascular: Reports: CAD, Hypertension, CHF, Other () Respiratory: Reports: COPD, Bronchitis Hematological: Reports: None Gastrointestinal: Reports: None, GERD, Other (bilateral hernia) Genitourinary: Reports: CKD Neuro/Psych: Reports: None 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, Other (DJD SPINE) Cancer: Reports: Other (prostate) Other Pertinent Past Medical History: Prostate-Prostate, - Surgical History General Surgical History: Reports: Cholecystectomy, Hernia Repair (bilateral hernia), Other (Prostate) - Family History Family History: Reports: Unknown - Social History Smoking Status: Current some day smoker, Light tobacco smoker Hx Substance Use: No Alcohol Screening: None Physical Exam - Physical Exam Appearance: Ill-appearing Ill-appearing: Mild Pain Distress: Mild Eyes: JANY, EOMI, Conjunctiva clear ENT: Ears normal, Nose normal, Oropharynx normal Respiratory: Breath sounds diminished, Rhonchi, Wheezes Cardiovascular: RRR, Pulses normal, No rub, No murmur GI/: Soft, Nontender, No masses, Bowel sounds normal, No Organomegaly Musculoskeletal: Normal strength, ROM intact, No edema, No calf tenderness Skin: Warm, Dry, Normal color Neurological: Sensation intact, Motor intact, Reflexes intact, Cranial nerves intact, Alert, Oriented Psychiatric: Affect appropriate, Mood appropriate Interpretation - Radiology Interpretation Radiology Interpretation By: Radiologist Radiology Results: No acute changes Physician Notification - Case Discussed Physician Notified: pmd Time of Notification: 17:31 Admit To: Inpatient Critical Care Note - Critical Care Note Total Time (mins): 0 Course - Course Hematology/Chemistry: 04/11/17 15:10 04/11/17 15:10 Orders, Labs, Meds: Lab Review 04/11/17 04/11/17 04/11/17 14:50 14:55 15:10 WBC 13.64 H RBC 3.72 L Hgb 11.5 L Hct 34.5 L MCV 92.7 MCH 30.9 MCHC 33.3 RDW Coeff of Park 13.8 Plt Count 191 Immature Gran % (Auto) 0.5 Neut % (Auto) 75.0 Lymph % (Auto) 13.1 [place] % (Auto) 10.3 H Eos % (Auto) 1.0 Baso % (Auto) 0.1 Immature Gran # (Auto) 0.1 Neut # 10.2 H Lymph # 1.8 [place] # 1.4 Eos # 0.1 Baso # 0.0 Puncture Site R rad O2 Saturation 92.0 L ABG pH 7.430 ABG pCO2 47.3 H ABG pO2 62.0 L ABG HCO3 31.3 H ABG Total CO2 33 H ABG Base Excess 7 H Manuel Test + FiO2 % 21.0 Sodium Potassium Chloride Carbon Dioxide Anion Gap BUN Creatinine Estimated GFR (MDRD) BUN/Creatinine Ratio Glucose Lactic Acid Calcium Total Bilirubin AST ALT Alkaline Phosphatase Total Creatine Kinase Troponin I Total Protein Albumin Globulin Albumin/Globulin Ratio Procalcitonin Influenza A (Rapid) Negative by naat Influenza B (Rapid) Negative by naat 04/11/17 04/11/17 04/11/17 15:10 15:10 15:10 WBC RBC Hgb Hct MCV MCH MCHC RDW Coeff of [place] Plt Count Immature Gran % (Auto) Neut % (Auto) Lymph % (Auto) [place] % (Auto) Eos % (Auto) Baso % (Auto) Immature Gran # (Auto) Neut # Lymph # [place] # Eos # Baso # Puncture Site O2 Saturation ABG pH ABG pCO2 ABG pO2 ABG HCO3 ABG Total CO2 ABG Base Excess Manuel Test FiO2 % Sodium 137 Potassium 4.4 Chloride 94 L Carbon Dioxide 33 H Anion Gap 14.4 BUN 50 H Creatinine 1.89 H Estimated GFR (MDRD) 34.00 BUN/Creatinine Ratio 26.45 Glucose 185 H Lactic Acid 10.9 Calcium 9.5 Total Bilirubin 0.8 AST 14 L ALT < 6 L Alkaline Phosphatase 58 Total Creatine Kinase 30 Troponin I 0.2070 Total Protein 7.2 Albumin 3.1 L Globulin 4.1 Albumin/Globulin Ratio 0.76 Procalcitonin < 0.05 Influenza A (Rapid) Influenza B (Rapid) Orders Category Date Time Status ADMIT PATIENT INPATIENT .TO [facility] (MONITORED BED) ADMISSION 04/11/17 17: 22 Ordered ABG DRAW REQUEST Stat CARDIO 04/11/17 14:46 Completed EKG-(ED ONLY) Stat CARDIO 04/11/17 14:46 Completed EKG-(IP & OP ONLY) DAILY CARDIO 04/12/17 06:00 Ordered EKG-(IP & OP ONLY) DAILY CARDIO 04/13/17 06:00 Ordered EKG-(IP & OP ONLY) DAILY CARDIO 04/14/17 06:00 Ordered NEBULIZER TREATMENT Stat CARDIO 04/11/17 15:01 Completed NEBULIZER TREATMENT Stat CARDIO 04/11/17 17:24 Ordered OXYGEN Routine CARDIO 04/11/17 17:23 Ordered ACTIVITY .Complete BR CARE 04/11/17 17:22 Ordered TELEMETRY MONITORING TELE CARE 04/11/17 17:22 Ordered VITAL SIGNS Q8HR CARE 04/11/17 17:22 Ordered REGULAR DIET DIETARY 04/11/17 Dinner Ordered ED IV/MEDIPORT/POWERPORT .ONCE EMERGENCY 04/11/17 14:51 Active ABG Stat LAB 04/11/17 14:50 Completed BLOOD CULTURE (ED ONLY) Stat LAB 04/11/17 15:10 Received CBC W/ AUTO DIFF DAILY@0600 LAB 04/12/17 06:00 Ordered CBC W/ AUTO DIFF DAILY@0600 LAB 04/13/17 06:00 Ordered CBC W/ AUTO DIFF Stat LAB 04/11/17 15:10 Completed COMPREHENSIVE METABOLIC PANEL DAILY@0600 LAB 04/12/17 06:00 Ordered COMPREHENSIVE METABOLIC PANEL DAILY@0600 LAB 04/13/17 06:00 Ordered COMPREHENSIVE METABOLIC PANEL Stat LAB 04/11/17 15:10 Completed CREATINE KINASE Q8H LAB 04/11/17 23:30 Ordered CREATINE KINASE Q8H LAB 04/12/17 07:30 Ordered CREATINE KINASE Stat LAB 04/11/17 15:10 Completed LACTIC ACID Stat LAB 04/11/17 15:10 Completed MOLECULAR FLU A/B Stat LAB 04/11/17 14:55 Completed PROCALCITONIN Stat LAB 04/11/17 15:10 Completed TROPONIN I Q8H LAB 04/11/17 23:30 Ordered TROPONIN I Q8H LAB 04/12/17 07:30 Ordered TROPONIN I Stat LAB 04/11/17 15:10 Completed 0.9 % Sodium Chloride [Saline Flush] MEDS 04/11/17 14:51 Active 1 syr IVF PRN PRN Alprazolam [Xanax] MEDS 04/11/17 17:24 Ordered 0.25 mg PO TID PRN Aspirin [Aspirin EC] MEDS 04/12/17 08:00 Ordered 81 mg PO DAILYWM Carvedilol [Coreg] MEDS 04/12/17 09:00 Ordered 6.25 mg PO DAILY Ceftriaxone Sodium [Rocephin] 1 gm MEDS 04/11/17 17:30 Ordered 0.9 % Sodium Chloride [Sodium Chloride] 50 ml IV DAILY Enoxaparin Sodium [Lovenox] MEDS 04/12/17 09:00 Ordered 30 mg SUBCUT DAILY Furosemide [Lasix Tab] MEDS 04/12/17 09:00 Ordered 40 mg PO QAM Ipratropium/Albuterol Neb [Duoneb] MEDS 04/11/17 15:01 Discontinued 1 vial NEB ONCE STA Ipratropium/Albuterol Neb [Duoneb] MEDS 04/11/17 18:00 Ordered 1 vial NEB RTQ6H Methylprednisolone Sod Succ/Pf [Solu-Medrol 125 mg] MEDS 04/11/17 14:51 Discontinued 125 mg IVP ONCE STA Methylprednisolone Sod Succ/Pf [Solu-Medrol 40 mg] MEDS 04/11/17 21:00 Ordered 40 mg IVP Q12HR Omeprazole [Prilosec] MEDS 04/12/17 09:00 Ordered 20 mg PO DAILY Polyethylene Glycol 3350 [Miralax] MEDS 04/11/17 17:24 Ordered 17 gm PO DAILY PRN Potassium Chloride in 0.9%NaCl [Sodium Chloride 0.9%- MEDS 04/11/17 17:30 Ordered KCl 20 Meq] 1,000 ml IV 75 mls/hr Sodium Chloride 0.9% [Sodium Chloride] 1,000 ml MEDS 04/11/17 17:30 Ordered IV 75 mls/hr Spironolactone [Aldactone] MEDS 04/12/17 09:00 Ordered [address] CERVICAL SPINE W/O CONTRAST Stat RADS 04/11/17 15:[address] CHEST W/O CONTRAST Stat RADS 04/11/17 17:[address] LUMBAR SPINE W/O CONTRAST Stat RADS 04/11/17 15:[address] THORACIC SPINE W/O CONTRAST Stat RADS 04/11/17 15:04 Completed Medications Generic Name Dose Route Start Last Admin Trade Name Fredwayne PRN Reason Stop Dose Admin Albuterol/Ipratropium 1 vial 04/11/17 18:00 Duoneb NEB RTQ6H PATRIA Alprazolam 0.25 mg 04/11/17 17:24 Xanax PO TID PRN Anxiety Aspirin 81 mg 04/12/17 08:00 Aspirin Ec PO DAILYWM PATRIA Carvedilol 6.25 mg 04/12/17 09:00 Coreg PO DAILY PATRIA Enoxaparin Sodium 30 mg 04/12/17 09:00 Lovenox SUBCUT DAILY PATRIA Furosemide 40 mg 04/12/17 09:00 Lasix Tab PO QAM PATRIA Ceftriaxone Sodium 1 gm/ 50 mls @ 75 mls/hr 04/11/17 17:30 Sodium Chloride IV DAILY PATRIA Sodium Chloride 1,000 mls @ 75 mls/hr 04/11/17 17:30 Sodium Chloride IV .[id number] PATRIA Potassium Chloride/Sodium Chloride 1,000 mls @ 75 mls/hr 04/11/17 17:30 Sodium Chloride 0.9%-Kcl 20 Meq IV .[id number] PATRIA Methylprednisolone Sodium Succinate 40 mg 04/11/17 21:00 Solu-Medrol 40 Mg IVP Q12HR PATRIA Omeprazole 20 mg 04/12/17 09:00 Prilosec PO DAILY PATRIA Polyethylene Glycol 17 gm 04/11/17 17:24 Miralax PO DAILY PRN Constipation Sodium Chloride 1 syr 04/11/17 14:51 Saline Flush IVF PRN PRN To flush IV Spironolactone 25 mg 04/12/17 09:00 Aldactone PO DAILY PATRIA Discontinued Medications Generic Name Dose Route Start Last Admin Trade Name Freq PRN Reason Stop Dose Admin Albuterol/Ipratropium 1 vial 04/11/17 15:01 04/11/17 15:12 Moncho GARCIA 04/11/17 15:02 1 vial ONCE STA Administration Methylprednisolone Sodium Succinate 125 mg 04/11/17 14:51 04/11/17 15:24 Solu-Medrol 125 Mg IVP 04/11/17 14:52 125 mg ONCE STA Administration Vital Signs: Temp Pulse Resp BP Pulse Ox 04/11/17 17:21 101.7 F H 04/11/17 14:36 97.0 F L 96 H 24 110/71 95 Departure - Departure Time of Disposition: 18:30 (all labs and imaging discussed with malik reese was present eladio also present during the process ) Disposition: ADMITTED INPATIENT Discharge Problem: Bronchitis, Renal insufficiency Compressed spine fracture Qualifiers: Fracture healing: with delayed healing Instructions: COPD (Chronic Obstructive Pulmonary Disease) (ED) Condition: Good Pt referred to PMD for follow-up: Yes Additional Instructions: Please call your Family Physician as soon as possible to schedule a follow-up appointment. Allergies/Adverse Reactions: Allergies lisinopril Adverse Reaction (Verified 04/11/17 14:34) rash, cough verapamil Adverse Reaction (Verified 04/11/17 14:34) Home Medications: Ambulatory Orders Alprazolam [Xanax] 0.25 mg PO TID PRN 12/09/12 Carvedilol [Coreg] 6.25 mg PO DAILY 12/09/12 Spironolactone [Aldactone] 25 mg PO DAILY 12/09/12 Furosemide [Lasix Tab] 40 mg PO QAM 12/12/12 Cholecalciferol (Vitamin D3) [Vitamin D] 400 unit PO DAILY 02/14/14 Ipratropium/Albuterol Sulfate [Combivent Respimat Inhal [place]] 2 puff IH QID PRN 02/14/14 Budesonide/Formoterol Fumarate [Symbicort 160-4.5 Mcg Inhaler] 2 puff INH BID Polyethylene Glycol 3350 [Miralax] 17 gm PO DAILY PRN #20 powd.pack 10/27/16 Aspirin [Aspirin EC] 81 mg PO DAILYWM 12/03/16 Ipratropium/Albuterol Neb [Duoneb] 1 vial NEB RTQ4H PRN 12/03/16 Omeprazole 20 mg PO DAILY 12/03/16 Tramadol HCl [Ultram] 50 mg PO BID PRN 04/11/17
[2017-04-11] MEDS ORDERED: ROCEPHIN 1 GM in SODIUM CHLORIDE 50 ML IV SCH (17:30)
[2017-04-11] MEDS ORDERED: SODIUM CHLORIDE 0.9%-KCL 20 MEQ 1,000 ML IV SCH (17:30)
[2017-04-11] MEDS ORDERED: NORCO 10-325 PO PRN (17:34)
[2017-04-11] MEDS ORDERED: DUONEB NEB ONE (18:10)
[2017-04-11] MEDS: DUONEB NEB SCH ×2 (18:12→22:57)
--- NOTE | 2017-04-11 19:13 | CT ---
EXAM: Noncontrast CT of the chest HISTORY: Cough COMPARISON: 03/07/2017 chest x-ray, 02/11/2017 CT TECHNIQUE: Noncontrast CT of the chest FINDINGS: There are mild to moderate emphysematous changes. There is mild peribronchial wall thickening. Minim al right lower lobe and left lower lobe tree in bud type opacities are identified. This is best seen on coronal images. A few calcified granulomas are seen. There is mild lingular atelectasis. Debris i s seen within the left mainstem bronchus. The previously seen right lower lobe nodular density is muc h less conspicuous than in the prior exam. No pneumothorax, pleural effusion or focal consolidation is identified. Heart size is normal. Atherosclerotic calcifications are present including the coronary arteries. T here is calcification of the aortic valve. The ascending aorta measures 4.1 x 4.2 cm. No mediastinal lymphadenopathy is seen. Multiple renal cysts are identified with thin peripheral calcification of one on the left. There is a left renal superior pole exophytic lesion measuring 1.9 cm and 57 HU. Severe compression fracture of T10 is again seen unchanged compared to 02/11/2017. Multiple other remote compression deformities ar e again seen. IMPRESSION: Mild peribronchial thickening suggesting bronchitis/bronchiolitis. Minimal bilateral lower lobe tree in bud opacities which can be seen with small airway infection or i nflammation. Left mainstem bronchus debris which could represent mucous, with aspiration not excluded. Ascending aortic aneurysmal dilation measuring 4.1 x 4.2 cm, unchanged. Atherosclerosis including the coronary arteries. Emphysematous changes. Left renal lesion measuring soft density. Neoplasm cannot be excluded. Follow-up renal mass protocol CT is recommended. Please see same day thoracic spine report for spine findings.
[2017-04-11] MEDS ORDERED: ROCEPHIN ONE (19:27)
[2017-04-11] MEDS: SODIUM CHLORIDE 1,000 ML IV SCH (19:33)
[2017-04-11] MEDS ORDERED: SODIUM CHLORIDE 50 ML IV ONE (19:38)
[2017-04-11] MEDS: SOLU-MEDROL 40 MG IVP SCH (20:03)
[2017-04-11] MEDS: XANAX PO PRN (20:41)
[2017-04-12] MEDS: DUONEB NEB SCH ×4 (04:18→22:52)
[2017-04-12] MEDS ORDERED: TORADOL IVP PRN (09:15)
[2017-04-12] MEDS: LASIX TAB PO SCH (09:31)
[2017-04-12] MEDS: ALDACTONE PO SCH (09:31)
[2017-04-12] MEDS: ASPIRIN EC PO SCH (09:31)
[2017-04-12] MEDS: COREG PO SCH (09:31)
[2017-04-12] MEDS: LOVENOX SUBCUT SCH (09:32)
[2017-04-12] MEDS: PRILOSEC PO SCH (09:32)
[2017-04-12] MEDS ORDERED: SOLU-MEDROL 40 MG IVP SCH (10:00)
[2017-04-12] MEDS: SODIUM CHLORIDE 1,000 ML IV SCH ×2 (10:14→10:15)
--- NOTE | 2017-04-12 10:20 | PCM.PROG ---
Attending Provider: ATTENDING PROVIDER: Dr. SHWETA PENA This patient is seen with Caity Wagner, Nurse Practitioner. DATE OF SERVICE: 04/12/17 SUBJECTIVE: This 81 year old WHITE/ M was hospitalized 04/11/17. The patient is sitting on the side of the bed, alert. Arm pain is better. Cough, shortness of breath. REVIEW OF SYSTEMS: CONSTITUTIONAL: Weakness. No night sweats. No fever or chills. HEENT: Eyes: No visual changes. No eye pain. No eye discharge. ENT: No runny nose. No epistaxis. No sinus pain. No odynophagia. No congestion. RESPIRATORY: Cough. No congestion. No hemoptysis. No shortness of breath. CARDIOVASCULAR: No angina symptoms. No CHF symptoms. No atypical chest pain for CAD. No palpitations. No orthopnea.. GASTROINTESTINAL: No abdominal pain. No nausea or vomiting. No diarrhea or constipation. No hematemesis. No hematochezia. GENITOURINARY: No urgency. No frequency. No dysuria. No hematuria. No obstructive symptoms. No discharge. No pain. No significant abnormal bleeding. MUSCULOSKELETAL: Neck and arm pain. NEUROLOGICAL: Awake, alert, oriented to time, place and person. No headache. No neck pain. No syncope. No seizures. No dizziness. PSYCHIATRIC: Not anxious. No depression. No suicidal thoughts. No homicidal thoughts. SKIN: No rash. No lesions. No wounds. ENDOCRINE: No unexplained weight loss. No weight gain. HEMATOLOGIC/LYMPHATIC: No anemia. No purpura. No petechiae. No prolonged or excessive bleeding. No palpable lymph nodes. PHYSICAL EXAMINATION: GENERAL: The patient is awake, alert and oriented, sitting on side of bed in no distress. VITAL SIGNS: Temperature 97.8 F, Pulse 70, Respiratory Rate 16, BP 111/68, Pulse Ox 98% HEENT: Head normocephalic, atraumatic. Eyes: Extraocular muscles are intact. Pupils are equal, round and reactive to light and accommodation. Ears: No lesions. Nose appeared normal. Throat: No exudate or erythema. NECK: Supple. No JVD, no carotid bruit. No lymphadenopathy or thyromegaly. LUNGS: Bilateral expiratory wheeze. Percussion note normal. Chest symmetrical. HEART: S1, S2, no S3. No murmurs. No cyanosis or clubbing. No ascites. Pulses: Dorsalis pedis and posterior tibial pulses +1 to +2 both sides. ABDOMEN: Soft. Non-tender. Bowel sounds active. No CVA tenderness. No mass felt. EXTREMITIES: No edema. Full range of motion of all extremities, equal. NEUROLOGIC: No focal deficit. Cranial nerves II through XII are grossly intact. No headache, no double vision or headache. SKIN: Not dry. Intact. Turgor-normal. LYMPHATIC: No palpable lymph nodes/no lymphedema. MUSCULOSKELETAL: Normal joints with no swelling. Muscle tone is normal. LAB REVIEW: 04/12/17 05:00 04/12/17 05:00 04/12/17 07:00: Total Creatine Kinase 20, Troponin I 0.1760 04/12/17 05:00: Sodium 136, Potassium 4.4, Chloride 99, Carbon Dioxide 32 H, Anion Gap 9.4, BUN 52 H, Creatinine 1.79 H, Estimated GFR (MDRD) 37.00, BUN/ Creatinine Ratio 29.05, Glucose 184 H, Calcium 8.7, Total Bilirubin 0.4, AST 12 L, ALT < 6 L, Alkaline Phosphatase 46 L, Total Protein 6.1, Albumin 2.5 L, Globulin 3.6, Albumin/Globulin Ratio 0.69 04/12/17 05:00: WBC 10.27 H, RBC 3.09 L, Hgb 9.6 L, Hct 28.0 L D, MCV 90.6, MCH 31.1 H, MCHC 34.3, RDW Coeff of Park 13.7, Plt Count 138 L, Immature Gran % (Auto ) 0.6, Neut % (Auto) 85.8, Lymph % (Auto) 9.9 L, [place] % (Auto) 3.6, Eos % (Auto ) 0.0, Baso % (Auto) 0.1, Immature Gran # (Auto) 0.1, Neut # 8.8 H, Lymph # 1.0 , [place] # 0.4, Eos # 0.0, Baso # 0.0 04/11/17 23:05: Total Creatine Kinase 24, Troponin I 0.2140 ASSESSMENT: Please see below. 1. ACUTE BRONCHITIS 2. CERVICAL OSTEOARTHRITIS WITH RADICULOPATHY 3. SEVERE COPD OXYGEN DEPENDENT 4. ACUTE ON CHRONIC RENAL FAILURE PLAN: 1. Solu-Medrol 125 mg q.8hr 2. Toradol 30 mg IV q.8hr 3. PT/OT evaluation 4. IV fluids 50 mL/hr Plan and coordination of the patient's care discussed in the presence of Oil Field Worker and nurse. CONDITION: Stable SCRIBED BY: ALEC STOREY Personal Counselor scribed while in presence of service performed by Dr. Pena/Caity Wagner APRN on 04/12/17 ([id number])
[2017-04-12] MEDS: SOLU-MEDROL 125 MG IVP SCH ×3 (10:25→20:40)
[2017-04-12] MEDS: SOLU-MEDROL 40 MG IVP SCH (10:48)
--- NOTE | 2017-04-12 15:41 | RS.PTINEVL ---
Subjective - Patient information Date of Evaluation: 04/12/17 Date of Arrival on Unit: 04/11/17 Living Arrangement Comments: With , son, and grandson Home Environment: Stairs (few) Medical History: Hypertension, COPD (severe oxygen dependent) Medical History Comments:: bilateral hernia repair, chronic back pain, GERD, CAD , PVD, Anxiety Subjective Information/ Patient Comments:: Patient reports he walks with his cane in his home. States he sometimes gets off balance. He denies dizziness with all mobility. Reports having recent onset of neck and upper back pain, along with weakness in both arms. States he is moving them better and has less discomfort today. - Level of function Prior to this admission, the patient could do the following:: Independent Selfcare, Independent ADL's, Independent Ambulation Current Equipment Used at Home: oxygen, cane, nebulizer Interventions - Objective Patient Orientation: Person, Place, Time, Situation Current Interventions: IV's, Oxygen, Telemetry Range of Motion - ROM Right Lower Extremity AROM: WFL's Left Lower Extremity AROM: WFL's Comments:: Demonstrates functional AROM of right UE. Left UE is 75% of functional and much slower. Muscle Strength - Muscle Strength Comments:: LE strength is at least 4 to 4+/5. Sensation - Sensation Comments: Reports intact sensation to LE's with light touch. Balance - Sitting Balance and Reactions Static Sitting Balance: Good Dynamic Sitting Balance: Good - Standing Balance and Reactions Static Standing Balance: Good Dynamic Standing Balance: Good (-) Functional Mobility - Bed Mobility Rolling R/L: Independent Scooting: Independent Supine to Sit: Independent Sit to Supine: Independent - Transfers Sit to Stand: Independent Stand to Sit: Independent Stand Pivot Transfers: Supervision - Safety Awareness Safety Awareness: Fair Ambulation - Ambulation Weight Bearing Status: FWB Assistive Device Used: Small Base Quad Cane Distance: 60 feet (limited hallway walking to avoid flu exposure) Assistance needed with Ambulation: Supervision Gait Deviations: Forward posture Ambulation Comments: Patient ambulates with quad cane in left hand and requests to push IV with right. He demonstrates steady gait. He does not put the quad cane flat on the floor consistently. He changes directions without loss of balance and denies dizziness. Treatment time - Time with patient Total treatment time: 21 (mins) Patient Education - Education Patient Education: Education of diagnosis, Home Safety Teaching Recipient: Patient Teaching Methods: Discussion Assessment - Assessment Comments: Demonstrates to be a good OT patient due to Severe COPD dx and UE weakness reports. Demonstrates high level of function, as he is independent with bed mobility and transfers. Ambulation with quad cane is steady. Plan Frequency of Treatment: One time treatment Duration of Treatment: One Time Treatment Anticipated Discharge Destination: Home Has the Physician been added for Co-signature?: Yes
--- NOTE | 2017-04-12 16:28 | RS.OTINEVL ---
Subjective - Patient information Date of Evaluation: 04/12/17 Date of Arrival on Unit: 04/11/17 Admitted From:: Home Diagnosis: Weakness Usual Living Arrangement: With Spouse Living Arrangement Comments: With , son, and grandson Home Environment: Stairs (few) Medical History: Hypertension, COPD (severe oxygen dependent) Medical History Comments:: bilateral hernia repair, chronic back pain, GERD, CAD , PVD, Anxiety Surgical History Comments:: Prostate Cancer removed, cholecystectomy Subjective Information/ Patient Comments:: "I could not pick my Right arm up yesterday. It hurt too bad. I can't move this arm up much either." "I can move it more now. You did good." "That is sore." - Level of function Prior to this admission, the patient could do the following:: Independent Selfcare, Independent ADL's, Independent Ambulation Current Equipment Used at Home: oxygen, cane, nebulizer Pain Assessment - Pain Pain Score: 2 Side: left Pain Location Body Site: Shoulder Pain Aggravating Factors: ADL's, Changing Position, Exercise/Activity Pain Alleviating Factors: Medication, Exercise, Sitting Interventions - Objective Patient Orientation: Person, Place, Situation Current Interventions: IV's, Oxygen, Telemetry Observation: Pt sitting EOB and appears weak. Pt is slumped over. Pt reports his shoulders hurt too bad to lay on his back. That's why he sits EOB and then his neck starts hurting from one shoulder to the next. Interventions - ROM Right Upper Extremity AROM: Moderate limitation Left Upper Extremity AROM: Moderate limitation Comments: Pt tolerated Bilateral scapular releases to decrease pain and increase AROM - Strength Right Upper Extremity Strength: Mild Weakness Left Upper Extremity Strength: Mild Weakness - Sensation Right Upper Extremity Sensation: Intact/Normal Left Upper Extremity Sensation: Intact/Normal Balance - Sitting Balance Static Sitting Balance: Good Dynamic Sitting Balance: Fair - Standing Balance Static Standing Balance: Fair Dynamic Standing Balance: Poor - Comments Balance Assessment Comments: Pt carries his quad cane around instead of placing it on the floor. ADL Skills - Self Feeding Self Feeding: Independent - Grooming Grooming: Supervision - Bathing Bathing UE: Supervision Bathing LE: Supervision - Dressing Dressing UE: Independent Dressing LE: CGA - Toilet Management Toileting Management: Supervision Functional Mobility - Bed Mobility Rolling R/L: Independent Scooting: Independent Supine to Sit: Independent Sit to Supine: Independent - Transfers Sit to Stand: CGA Stand to Sit: CGA Stand Pivot Transfers: CGA - Ambulation Weight Bearing Status: FWB Assistive Device Used: Small Base Quad Cane Assistance needed with Ambulation: CGA - Safety Awareness Safety Awareness: Fair Additional Treatment Performed - Time with patient Total treatment time: 20 Activities Patient Interests:: Visiting/Socializing Patient Education Patient Education: Education of diagnosis, Home Exercise Program, Education of Plan of Care Teaching Recipient: Patient, Family Teaching Methods: Discussion Assessment Problem List:: Decreased level of function, Decreased safety/Risk of falls, Weakness, Pain limits previous level of function Rehab Potential: Good Further Therapy Indicated?: Yes Short Term Goals - Goals GOAL 1: Pt to tolerate standing balance activities for 15 minutes. Goal to be met by: 04/19/17 GOAL 2: Pt to increase BUE AROM to be WFL. Goal to be met by: 04/19/17 GOAL 3: Pt to increase BUE strength to 4+/5. Goal to be met by: 04/19/17 Rn Lpn Cna Goals GOAL 1: Pt to tolerate standing balance activities for 20 minutes. Goal to be met by: 04/26/17 GOAL 2: Pt to increase BUE AROM to be WNL. Goal to be met by: 04/26/17 GOAL 3: Pt to increase BUE strength to 5/5. Goal to be met by: 04/26/17 Plan Plan of Care: Therapeutic EX, Neuromuscular Re-Educ, Therapeutic Activity, Self- Care/Home Management Frequency of Treatment: 1-2 X day, as tolerated Duration of Treatment: 2 Weeks Anticipated Discharge Destination: Home Has the Physician been added for Co-signature?: Yes
[2017-04-12] MEDS: ROCEPHIN 1 GM in SODIUM CHLORIDE 50 ML IV SCH (20:40)
[2017-04-13] MEDS: DUONEB NEB SCH ×3 (04:15→14:13)
[2017-04-13] MEDS: SOLU-MEDROL 125 MG IVP SCH ×3 (05:31→21:02)
[2017-04-13] MEDS: LASIX TAB PO SCH (05:31)
[2017-04-13] MEDS: PRILOSEC PO SCH (05:31)
[2017-04-13] MEDS: SODIUM CHLORIDE 1,000 ML IV SCH (05:36)
[2017-04-13] MEDS: COREG PO SCH (08:48)
[2017-04-13] MEDS: ASPIRIN EC PO SCH (08:48)
[2017-04-13] MEDS: LOVENOX SUBCUT SCH (08:48)
[2017-04-13] MEDS: ALDACTONE PO SCH (08:48)
--- NOTE | 2017-04-13 10:09 | PCM.PROG ---
Attending Provider: ATTENDING PROVIDER: Dr. SHWETA PENA This patient is seen with Caity Wagner, Nurse Practitioner. DATE OF SERVICE: 04/13/17 SUBJECTIVE: This 81 year old WHITE/ M was hospitalized 04/11/17. The patient is sitting on the side of the bed, alert, shoulder pain feels better. Kidney function still slightly elevated. REVIEW OF SYSTEMS: CONSTITUTIONAL: No night sweats. Weakness. No fever or chills. HEENT: Eyes: No visual changes. No eye pain. No eye discharge. ENT: No runny nose. No epistaxis. No sinus pain. No odynophagia. No congestion. RESPIRATORY: Cough and congestion. No hemoptysis. No shortness of breath. CARDIOVASCULAR: No angina symptoms. No CHF symptoms. No atypical chest pain for CAD. No palpitations. No orthopnea.. GASTROINTESTINAL: No abdominal pain. No nausea or vomiting. No diarrhea or constipation. No hematemesis. No hematochezia. GENITOURINARY: No urgency. No frequency. No dysuria. No hematuria. No obstructive symptoms. No discharge. No pain. No significant abnormal bleeding. MUSCULOSKELETAL: Arthritis pain. NEUROLOGICAL: Awake, alert, oriented to time, place and person. No headache. No neck pain. No syncope. No seizures. No dizziness. PSYCHIATRIC: Not anxious. No depression. No suicidal thoughts. No homicidal thoughts. SKIN: No rash. No lesions. No wounds. ENDOCRINE: No unexplained weight loss. No weight gain. HEMATOLOGIC/LYMPHATIC: No anemia. No purpura. No petechiae. No prolonged or excessive bleeding. No palpable lymph nodes. PHYSICAL EXAMINATION: GENERAL: The patient is awake, alert and oriented, sitting in bed in no distress. VITAL SIGNS: Temperature 97.4 F, Pulse 93, Respiratory Rate 16, BP 127/74, Pulse Ox 99% HEENT: Head normocephalic, atraumatic. Eyes: Extraocular muscles are intact. Pupils are equal, round and reactive to light and accommodation. Ears: No lesions. Nose appeared normal. Throat: No exudate or erythema. NECK: Supple. No JVD, no carotid bruit. No lymphadenopathy or thyromegaly. LUNGS: Diminished breath sounds bilaterally with expiratory wheeze on left. Percussion note normal. Chest symmetrical. HEART: S1, S2, no S3. No murmurs. No cyanosis or clubbing. No ascites. Pulses: Dorsalis pedis and posterior tibial pulses +1 to +2 both sides. ABDOMEN: Soft. Non-tender. Bowel sounds active. No CVA tenderness. No mass felt. EXTREMITIES: No edema. Full range of motion of all extremities, equal. NEUROLOGIC: No focal deficit. Cranial nerves II through XII are grossly intact. No headache, no double vision or headache. SKIN: Not dry. Intact. Turgor-normal. LYMPHATIC: No palpable lymph nodes/no lymphedema. MUSCULOSKELETAL: Normal joints with no swelling. Muscle tone is normal. LAB REVIEW: 04/13/17 04:30 04/13/17 04:30 04/13/17 04:30: Sodium 137, Potassium 4.2, Chloride 101, Carbon Dioxide 29, Anion Gap 11.2, BUN 61 H*, Creatinine 1.77 H, Estimated GFR (MDRD) 37.00, BUN/ Creatinine Ratio 34.46, Glucose 182 H, Calcium 8.1 L, Total Bilirubin < 0.3, AST 12 L, ALT 6 L, Alkaline Phosphatase 41 L, Total Protein 5.7 L, Albumin 2.3 L , Globulin 3.4, Albumin/Globulin Ratio 0.68 04/13/17 04:30: WBC 14.43 H, RBC 2.87 L, Hgb 8.7 L, Hct 25.9 L, MCV 90.2, MCH 30.3, MCHC 33.6, RDW Coeff of [place] 13.6, Plt Count 138 L, Immature Gran % (Auto) 0.8, Neut % (Auto) 90.1, Lymph % (Auto) 6.0 L, [place] % (Auto) 3.0, Eos % (Auto) 0.0, Baso % (Auto) 0.1, Immature Gran # (Auto) 0.1, Neut # 13.0 H, Lymph # 0.9, [place] # 0.4, Eos # 0.0, Baso # 0.0 ASSESSMENT: 1. ACUTE BRONCHITIS 2. CERVICAL OSTEOARTHRITIS WITH RADICULOPATHY 3. SEVERE COPD OXYGEN DEPENDENT 4. ACUTE ON CHRONIC RENAL FAILURE PLAN: 1. Continue PT/OT 2. Continue IV fluids Plan and coordination of the patient's care discussed in the presence of Hip Hop Artist and nurse. CONDITION: Stable SCRIBED BY: ALEC STOREY Patent Examiner scribed while in presence of service performed by Dr. Pena/Caity Wagner APRN on 04/13/17 ([id number])
[2017-04-13] MEDS: ROCEPHIN 1 GM in SODIUM CHLORIDE 50 ML IV SCH (21:03)
[2017-04-14] MEDS: DUONEB NEB SCH ×5 (00:06→20:14)
[2017-04-14] MEDS: XANAX PO PRN ×2 (00:10→21:16)
[2017-04-14] MEDS: SODIUM CHLORIDE 1,000 ML IV SCH ×2 (00:29→21:03)
[2017-04-14] MEDS: LASIX TAB PO SCH (05:36)
[2017-04-14] MEDS: PRILOSEC PO SCH (05:36)
[2017-04-14] MEDS: SOLU-MEDROL 125 MG IVP SCH ×3 (05:36→21:03)
[2017-04-14] MEDS: COREG PO SCH (10:14)
[2017-04-14] MEDS: ASPIRIN EC PO SCH (10:14)
[2017-04-14] MEDS: LOVENOX SUBCUT SCH (10:14)
[2017-04-14] MEDS: ALDACTONE PO SCH (10:14)
[2017-04-14] MEDS: ROCEPHIN 1 GM in SODIUM CHLORIDE 50 ML IV SCH (21:03)
[2017-04-15] MEDS: DUONEB NEB SCH ×4 (05:43→20:02)
[2017-04-15] MEDS: LASIX TAB PO SCH (06:00)
[2017-04-15] MEDS: PRILOSEC PO SCH (06:00)
[2017-04-15] MEDS: SOLU-MEDROL 125 MG IVP SCH ×3 (06:01→21:13)
[2017-04-15] MEDS: COREG PO SCH (08:52)
[2017-04-15] MEDS: ASPIRIN EC PO SCH (08:52)
[2017-04-15] MEDS: ALDACTONE PO SCH (08:52)
[2017-04-15] MEDS: LOVENOX SUBCUT SCH (08:53)
[2017-04-15] MEDS: SODIUM CHLORIDE 1,000 ML IV SCH (15:58)
[2017-04-15] MEDS: ROCEPHIN 1 GM in SODIUM CHLORIDE 50 ML IV SCH (20:39)
[2017-04-15] MEDS: XANAX PO PRN (20:42)
[2017-04-16] MEDS: DUONEB NEB SCH ×2 (04:58→10:25)
[2017-04-16] MEDS: SOLU-MEDROL 125 MG IVP SCH (05:17)
[2017-04-16 05:43] VITALS: BP 138/67; TEMP 97.5
[2017-04-16] MEDS: LASIX TAB PO SCH (06:17)
[2017-04-16] MEDS: PRILOSEC PO SCH (06:17)
[2017-04-16] MEDS: LOVENOX SUBCUT SCH (08:15)
[2017-04-16] MEDS: ALDACTONE PO SCH (08:15)
[2017-04-16] MEDS: ASPIRIN EC PO SCH (08:16)
[2017-04-16] MEDS: COREG PO SCH (08:16)
--- NOTE | 2017-04-16 09:43 | PCM.PROG ---
Attending Provider: ATTENDING PROVIDER: Dr. SHWETA PENA This patient is seen with Caity Wagner, Nurse Practitioner. DATE OF SERVICE: 04/16/17 SUBJECTIVE: This 81 year old WHITE/ M was hospitalized 04/11/17. The patient is lying in bed, alert. He has been up walking around. Shoulder pain has resolved. Shortness of breath has improved. REVIEW OF SYSTEMS: CONSTITUTIONAL: Fatigue. No night sweats. No fever or chills. HEENT: Eyes: No visual changes. No eye pain. No eye discharge. ENT: No runny nose. No epistaxis. No sinus pain. No odynophagia. No congestion. RESPIRATORY: Cough and congestion. No hemoptysis. No shortness of breath. CARDIOVASCULAR: No angina symptoms. No CHF symptoms. No atypical chest pain for CAD. No palpitations. No orthopnea.. GASTROINTESTINAL: No abdominal pain. No nausea or vomiting. No diarrhea or constipation. No hematemesis. No hematochezia. GENITOURINARY: No urgency. No frequency. No dysuria. No hematuria. No obstructive symptoms. No discharge. No pain. No significant abnormal bleeding. MUSCULOSKELETAL: No musculoskeletal pain; no joint swelling. NEUROLOGICAL: Awake, alert, oriented to time, place and person. No headache. No neck pain. No syncope. No seizures. No dizziness. PSYCHIATRIC: Not anxious. No depression. No suicidal thoughts. No homicidal thoughts. SKIN: No rash. No lesions. No wounds. ENDOCRINE: No unexplained weight loss. No weight gain. HEMATOLOGIC/LYMPHATIC: No anemia. No purpura. No petechiae. No prolonged or excessive bleeding. No palpable lymph nodes. PHYSICAL EXAMINATION: GENERAL: The patient is awake, alert and oriented, lying in bed in no distress. VITAL SIGNS: Temperature 97.5 F, Pulse 70, Respiratory Rate 20, BP 138/67, Pulse Ox 94% HEENT: Head normocephalic, atraumatic. Eyes: Extraocular muscles are intact. Pupils are equal, round and reactive to light and accommodation. Ears: No lesions. Nose appeared normal. Throat: No exudate or erythema. NECK: Supple. No JVD, no carotid bruit. No lymphadenopathy or thyromegaly. LUNGS: Diminished breath sounds bilaterally with faint expiratory wheeze on the left. Percussion note normal. Chest symmetrical. HEART: S1, S2, no S3. No murmurs. No cyanosis or clubbing. No ascites. Pulses: Dorsalis pedis and posterior tibial pulses +1 to +2 both sides. ABDOMEN: Soft. Non-tender. Bowel sounds active. No CVA tenderness. No mass felt. EXTREMITIES: No edema. Full range of motion of all extremities, equal. NEUROLOGIC: No focal deficit. Cranial nerves II through XII are grossly intact. No headache, no double vision or headache. SKIN: Not dry. Intact. Turgor-normal. LYMPHATIC: No palpable lymph nodes/no lymphedema. MUSCULOSKELETAL: Normal joints with no swelling. Muscle tone is normal. LAB REVIEW: 04/16/17 04:10 04/16/17 04:10 04/16/17 04:10: Sodium 139, Potassium 4.3, Chloride 106, Carbon Dioxide 27, Anion Gap 10.3, BUN 57 H, Creatinine 1.73 H, Estimated GFR (MDRD) 38.00, BUN/ Creatinine Ratio 32.94, Glucose 159 H, Calcium 7.7 L, Total Bilirubin < 0.3, AST 14 L, ALT 13, Alkaline Phosphatase 34 L, Total Protein 4.9 L, Albumin 2.3 L , Globulin 2.6, Albumin/Globulin Ratio 0.88 04/16/17 04:10: WBC 7.19, RBC 2.74 L, Hgb 8.3 L, Hct 25.2 L, MCV 92.0, MCH 30.3 , MCHC 32.9, RDW Coeff of [place] 14.1, Plt Count 124 L, Immature Gran % (Auto) 0.8 , Neut % (Auto) 87.6, Lymph % (Auto) 8.1 L, [place] % (Auto) 3.5, Eos % (Auto) 0.0 , Baso % (Auto) 0.0, Immature Gran # (Auto) 0.1, Neut # 6.3, Lymph # 0.6, [place] # 0.3 L, Eos # 0.0, Baso # 0.0 ASSESSMENT: 1. ACUTE BRONCHITIS 2. CERVICAL OSTEOARTHRITIS WITH RADICULOPATHY 3. SEVERE COPD OXYGEN DEPENDENT 4. ACUTE ON CHRONIC RENAL FAILURE PLAN: 1. D/C home 2. Prednisone 20 mg b.i.d .for 2 days 10 b.i.d. for 5 days 3. Keflex 500 t.i.d. for 7 days 4. See next week in Dr. Pena's office Plan and coordination of the patient's care discussed in the presence of Revolving Field Assembler and nurse. CONDITION: Stable SCRIBED BY: Jez DUDLEYist scribed while in presence of service performed by Dr. Pena/Caity Wagner APRN on 04/16/17 ([id number])
--- NOTE | 2017-04-16 10:43 | CM.DICTOOL ---
ADMISSION: 04/11/17 17:39 DISCHARGE: 04/16/17 FINAL DIAGNOSIS Bronchitis (Acute) Compressed spine fracture (Acute) Renal insufficiency (Acute) FEVER BACK PAIN (SEVERE CHRONIC DEGENERATIVE CHANGES TO THORACIC SPINE) SEVERE CHRONIC LUNG DISEASE GERD HYPERTENSION CHRONIC KIDNEY DISEASE, STAGE 4 CAD DYSLIPIDEMIA CVA BY HISTORY, LEFT THALAMIC INFARCTION AORTIC STENOSIS, CALCIFIC BY ECHOCARDIOGRAM 03/2017 ANXIETY CHOLECYSTECTOMY BILATERAL HERNIA REPAIR PROSTATE SURGERY LAST VITALS Temp Pulse Resp BP Pulse Ox 97.5 F L 70 20 138/67 94 L 04/16/17 05:42 04/16/17 05:42 04/16/17 07:14 04/16/17 05:42 04/16/17 05:42 ACTIVE HOME MEDICATIONS Albuterol/Ipratropium (Duoneb) 1 vial NEB RTQ4 PRN Last Admin: 04/16/17 04:58 Dose: 1 vial Alprazolam (Xanax) 0.25 mg PO TID PRN PRN Reason: Anxiety Last Admin: 04/15/17 20:42 Dose: 0.25 mg Aspirin (Aspirin Ec) 81 mg PO DAILYWM [facility] Last Admin: 04/16/17 08:16 Dose: 81 mg Carvedilol (Coreg) 6.25 mg PO DAILYWM [facility] Last Admin: 04/16/17 08:16 Dose: 6.25 mg Furosemide (Lasix Tab) 40 mg PO QDAC [facility] Last Admin: 04/16/17 06:17 Dose: 40 mg Omeprazole (Prilosec) 20 mg PO QDAC [facility] Last Admin: 04/16/17 06:17 Dose: 20 mg Polyethylene Glycol (Miralax) 17 gm PO DAILY PRN PRN Reason: Constipation Spironolactone (Aldactone) 25 mg PO DAILY [facility] Last Admin: 04/16/17 08:15 Dose: 25 mg Cholecalciferol 400unit PO Daily Combivent Inhaler 2 puff IH QID PRN Tranadol HCL 50mg PO BID PRN ALLERGIES lisinopril Adverse Reaction (Verified 04/11/17 14:34) verapamil Adverse Reaction (Verified 04/11/17 14:34) NEW PRESCRIPTIONS: NEW MEDICATIONS: 1. PREDNISONE 20MG PO BID X 2 DAYS THEN 10MG PO BID FOR 5 DAYS 2. KEFLEX 500 MG PO TID X 7 DAYS SMOKING: N/A DISEASE SPECIFIC EDUCATION: BRONCHITIS MEDICATIONS STEROIDS ACTIVITY DIET LAB REVIEW: 04/16/17 04:10 04/16/17 04:10 04/16/17 04:10: Sodium 139, Potassium 4.3, Chloride 106, Carbon Dioxide 27, Anion Gap 10.3, BUN 57 H, Creatinine 1.73 H, Estimated GFR (MDRD) 38.00, BUN/ Creatinine Ratio 32.94, Glucose 159 H, Calcium 7.7 L, Total Bilirubin < 0.3, AST 14 L, ALT 13, Alkaline Phosphatase 34 L, Total Protein 4.9 L, Albumin 2.3 L , Globulin 2.6, Albumin/Globulin Ratio 0.88 04/16/17 04:10: WBC 7.19, RBC 2.74 L, Hgb 8.3 L, Hct 25.2 L, MCV 92.0, MCH 30.3 , MCHC 32.9, RDW Coeff of [place] 14.1, Plt Count 124 L, Immature Gran % (Auto) 0.8 , Neut % (Auto) 87.6, Lymph % (Auto) 8.1 L, [place] % (Auto) 3.5, Eos % (Auto) 0.0 , Baso % (Auto) 0.0, Immature Gran # (Auto) 0.1, Neut # 6.3, Lymph # 0.6, [place] # 0.3 L, Eos # 0.0, Baso # 0.0 PLAN: DISCHARGE HOME TODAY CONTINUE HOME MEDICATIONS PER NURSING SHEET NEW MEDICATIONS: 1. PREDNISONE 10MG TAKE 2 TABLETS 2 TIMES A DAY FOR 2 DAYS THEN TAKE 1 TABLET 2 TIMES A DAY FOR 5 DAYS. TAKE WITH FOOD. 2. KEFLEX 500MG TAKE 1 CAPSULE 3 TIMES A DAY UNTIL ALL GONE. DIET: TOLERATED. ACTIVITY: GRADUALLY RESUME ACTIVITY. AVOID EXTREME COLD WEATHER AND CROWDS. FOLLOW UP WITH DR. PENA ON SundayApril AT 1145AM. IF UNABLE TO KEEP APPOINTMENT PLEASE CALL TO RESCHEDULE. [phone]. SITTING UP IN BED. ALERT AND ORIENTED X 4. SPOUSE AT BEDSIDE. Colin CABELLO APRN INTO SEE PATIENT. STATES FEELING BETTER. STATES READY TO GO HOME. Colin CABELLO APRN DISCUSSED PLAN OF CARE INCLUDING POSSIBLE DISCHARGE AFTER SPEAKING WITH DR. PENA. PATIENT AND SPOUSE AGREEABLE. VITAL SIGNS ARE STABLE. PATIENT HAS BEEN AFEBRILE. POX 94% AT 2L/C. HEART TONES ARE REGULAR. LUNGS CLEAR WITH COARSE DIMINISHED BREATH SOUNDS. NO COUGH NOTED. ABDOMEN IS SOFT, NON-TENDER WITH BOWEL SOUNDS POSITIVE IN ALL 4 QUADS. LAST BM DOCUMENTED 04/12/17. HAS IV OF NORMAL SALINE AT 75ML/HR IN RIGHT WRIST SITE IS CLEAR. IS INDEPENDENT WITH ACTIVITIES OF DAILY LIVING. DR. SHWETA PENA MD Colin CABELLO APRN
--- NOTE | 2017-04-16 15:28 | PN ---
DATE OF SERVICE: 04/13/17 SUBJECTIVE: The patient is feeling a lot better. He was hospitalized with dehydration, renal azotemia and chronic bronchitis with generalized aches. The patient's condition has improved. Condition has improved and he is feeling better. His hydration status has improved and kidney functions have improved. The patient was seen and examined with Nurse Practitioner. TIME SPENT: More than 30 minutes. Plan and coordination of the patient's care discussed in the presence of nurse. JOSEPH
--- NOTE | 2017-04-17 11:23 | RS.OTQKDC ---
OT Discharge Date of Discharge: 04/16/17 Reason for Discharge: Pt discharged from hospital to home at [facility].
--- NOTE | 2017-04-17 13:13 | PN ---
DATE OF SERVICE: 04/15/17 SUBJECTIVE: 81 year old white male hospitalized with fever, weakness, dehydration and renal azotemia. The patient's condition has steadily improved. He is feeling a lot better. He is up and about in the room without having any symptoms of coronary insufficiency or CHF. He is coughing as usual nothing unusual for him to have mild chronic cough. REVIEW OF SYSTEMS: CONSTITUTIONAL: No night sweats. No fatigue, malaise, lethargy. No fever or chills. HEENT: Eyes: No visual changes. No eye pain. No eye discharge. ENT: No runny nose. No epistaxis. No sinus pain. No sore throat. No odynophagia. No congestion. RESPIRATORY: No cough, no congestion. No hemoptysis. No shortness of breath. CARDIOVASCULAR: No angina symptoms. No CHF symptoms. No atypical chest pain for CAD. No palpitations. No orthopnea. GASTROINTESTINAL: No abdominal pain. No nausea or vomiting. No diarrhea or constipation. No hematemesis. No hematochezia. Appetite has improved. GENITOURINARY: No urgency. No frequency. No dysuria. No hematuria. No obstructive symptoms. No discharge. No pain. No significant abnormal bleeding. MUSCULOSKELETAL: No musculoskeletal pain; no joint swelling. Strength has been improving. NEUROLOGICAL: No headache. No neck pain. No syncope. No seizures. No dizziness. PSYCHIATRIC: Not anxious. No depression. No suicidal thoughts. No homicidal thoughts. SKIN: No rash. No lesions. No wounds. ENDOCRINE: No unexplained weight loss. No weight gain. HEMATOLOGIC/LYMPHATIC: No anemia. No purpura. No petechiae. No prolonged or excessive bleeding. No palpable lymph nodes. PHYSICAL EXAMINATION: GENERAL: The patient is oriented to time, place and person. VITAL SIGNS: Temperature 96.9, pulse 70, respiratory 18, blood pressure 140/70 and pulse ox 99%. HEENT: Head normocephalic, atraumatic. Eyes: Extraocular muscles are intact. Pupils are equal, round and reactive to light and accommodation. Ears: No lesions. Nose appeared normal. Throat: No exudate or erythema. Somewhat pale. NECK: Supple. No JVD, no carotid bruit. No lymphadenopathy or thyromegaly. LUNGS: Decreased breath sounds with mild wheeze. Percussion note normal. Chest symmetrical. HEART: S1, S2, no S3. Grade II/Vi systolic murmur. No cyanosis or clubbing. No ascites. Pulses: Dorsalis pedis and posterior tibial pulses +1 to +2 both sides. ABDOMEN: Soft. Nontender. Bowel sounds active. No CVA tenderness. No mass felt. EXTREMITIES: No edema. Full range of motion of all extremities, equal. NEUROLOGIC: No focal deficit. Cranial nerves II through XII are grossly intact. No headache, no double vision or headache. SKIN: Not dry. Intact. Turgor - normal. LYMPHATIC: No palpable lymph nodes/no lymphedema. MUSCULOSKELETAL: Normal joints with no swelling. Muscle tone is normal. LABS: Hgb 8.3, hct 25, WBC 9,000 normal differential, creatinine 1.68, BUN 62. ASSESSMENT: 1. Renal azotemia seems to be resolving 2. Flu type of symptoms seems to be resolving 3. Dehydration resolved 4. Chronic bronchitis 5. Fever, absent for past several days 6. Anemia 7. 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 Chronic lung disease PLAN: 1. Continue Rocephin and Solu-Medrol 2. NEBS treatment 3. IV fluids and watch for fluid overload. So far the patient doesn't have it with some improvement in the kidney function. CONDITION: Stable. TIME SPENT: More than 30 minutes. Plan and coordination of the patient's care discussed in the presence of nurse. JOSEPH
--- NOTE | 2017-04-18 12:44 | PN ---
DATE OF SERVICE: 04/14/17 SUBJECTIVE: 81 year old white male hospitalized with fever, weakness, dehydration and renal azotemia. The patient's respiratory status is stable. He is feeling some better and getting more strength. His appetite is improving. His is in the room. PHYSICAL EXAMINATION: VITAL SIGNS: Temperature 96.9, pulse 82, respiratory rate 20, blood pressure 127/68, pulse ox 100% with 3 liters. HEENT: Head normocephalic, atraumatic. Eyes: Extraocular muscles are intact. Pupils are equal, round and reactive to light and accommodation. Ears: No lesions. Nose appeared normal. Throat: No exudate or erythema. NECK: Supple. No JVD, no carotid bruit. No lymphadenopathy or thyromegaly. LUNGS: Decreased breath sounds. Percussion note normal. Chest symmetrical. HEART: S1, S2, no S3. Grade II/ systolic murmur. No cyanosis or clubbing. No ascites. Pulses: Dorsalis pedis and posterior tibial pulses +1 to +2 both sides. ABDOMEN: Soft. Nontender. Bowel sounds active. No CVA tenderness. No mass felt. EXTREMITIES: No edema. Full range of motion of all extremities, equal. NEUROLOGIC: No focal deficit. Cranial nerves II through XII are grossly intact. No headache, no double vision or headache. SKIN: Not dry. Intact. Turgor - normal. LYMPHATIC: No palpable lymph nodes/no lymphedema. MUSCULOSKELETAL: Normal joints with no swelling. Muscle tone is normal. LABS: Hemoglobin 8.2, hematocrit 34, WBC 12,000 with normal differential. Creatinine 1.6, BUN 64. ASSESSMENT: 1. ACUTE RENAL AZOTEMIA, SEEMS TO BE SLOWLY RESOLVING 2. CONGESTIVE HEART FAILURE, STABLE 3. CORONARY ARTERY DISEASE, STABLE 4. SEVERE CHRONIC LUNG DISEASE WITH CHRONIC BRONCHITIS PLAN: 1. Continue IV fluids slowly. Watch for fluid overload. 2. Continue steroids. 3. Continue the rest of the medications. CONDITION: Stable. TIME SPENT: More than 30 minutes. Plan and coordination of the patient's care discussed in the presence of nurse. JOSEPH
--- NOTE | 2017-04-18 12:50 | PN ---
DATE OF SERVICE: 04/16/17 SUBJECTIVE: 81 year old white male was hospitalized with fever, weakness, dehydration and renal azotemia. The patient's overall status has improved remarkably. His hydration status has improved. His cardiovascular and respiratory status this hospitalization was stable. Kidney functions have improved with slow IV hydration with no evidence of fluid overload. He is up and about with good appetite. LABS: Hemoglobin and hematocrit has been stabilizing at 8.3, 8.4 with a hematocrit of 25. PLAN: He will be followed as an outpatient with hemoglobin and hematocrit. CONDITION: Stable. PROGNOSIS: Poor, considering the patient's end stage medical problems. The patient was seen and examined by the nurse practitioner. TIME SPENT: More than 30 minutes. Plan and coordination of the patient's care discussed in the presence of nurse. JOSEPH
--- NOTE | 2017-04-18 12:52 | PN ---
BILLING 04/11/17 LEVEL 5 04/12/17 INTERMEDIATE 04/13/17 INTERMEDIATE 04/14/17 INTERMEDIATE 04/15/17 BRIEF 04/16/17 D MTDD
--- NOTE | 2017-04-29 15:34 | PN ---
DATE OF SERVICE: 04/12/17 SUBJECTIVE: The patient was hospitalized with cough, congestion, shortness of breath. The patient had generalized aches consistent with flu-type of syndrome. The patient has severe chronic lung disease. His kidney functions were somewhat abnormal, dehydration. The patient has been treated with IV fluids, steroids, antibiotics, IV Toradol. His condition is more or less chronic but has end-stage chronic lung disease, severe aortic stenosis, severe generalized osteoporosis, compression fractures, debilitation, malnutrition. The patient looks better. Hydration status has improved. The patient was seen and examined with the nurse practitioner. TIME SPENT: More than 30 minutes. Plan and coordination of the patient's care discussed in the presence of nurse. JOSEPH
--- NOTE | 2017-04-29 15:38 | PN ---
DATE OF SERVICE: 04/11/17 The patient was seen on the day of admission 04/11/17. History and Physical will be done on 04/12/17. TIME SPENT: More than 30 minutes. Plan and coordination of the patient's care discussed in the presence of nurse. JOSEPH
--- NOTE | 2017-05-02 11:48 | HP ---
DATE OF SERVICE: 04/11/17 HISTORY OF PRESENT ILLNESS: This is an 81-year-old white male who presented to the emergency room complaining of cough, shortness of breath, neck pain and bilateral arm pain. He has a history of severe COPD and is oxygen dependent along with osteoporosis, osteoarthritis and multiple compression fractures. PAST MEDICAL HISTORY: Dyslipidemia Coronary artery disease with stent Hypertension History of CHF Aortic stenosis COPD, oxygen dependent Chronic bronchitis GERD Bilateral hernia with repair Chronic kidney disease Stage 3 Severe degenerative disease of the spine Osteoporosis Osteoarthritis BPH History of CVA Hypertension History of leg edema History of CHF PAST SURGICAL HISTORY: Status post cholecystectomy Bilateral hernia repair Prostate surgery REVIEW OF SYSTEMS: CONSTITUTIONAL: Positive for malaise, weakness and low grade fever. No night sweats. No lethargy. No chills. HEENT: Eyes: No visual changes. No eye pain. No eye discharge. ENT: No runny nose. No epistaxis. No sinus pain. No sore throat. No odynophagia. No ear pain. No congestion. RESPIRATORY: Positive for cough and wheeze. Positive for shortness of breath. No hemoptysis. No shortness of breath. CARDIOVASCULAR: No angina symptoms. No CHF symptoms. No atypical chest pain for CAD. No palpitations. No orthopnea. GASTROINTESTINAL: Positive for loss of appetite. No abdominal pain. No nausea or vomiting. No diarrhea or constipation. No hematemesis. No hematochezia. GENITOURINARY: No urgency. No frequency. No dysuria. No hematuria. No obstructive symptoms. No discharge. No pain. No significant abnormal bleeding. MUSCULOSKELETAL: Positive for neck pain, back pain and bilateral shoulder pain. NEUROLOGICAL: No headache. No neck pain. No syncope. No seizures. No dizziness. PSYCHIATRIC: Not anxious. No depression. No suicidal thoughts. No homicidal thoughts. SKIN: No rash. No lesions. No wounds. ENDOCRINE: No unexplained weight loss. No weight gain. HEMATOLOGIC/LYMPHATIC: No anemia. No purpura. No petechiae. No prolonged or excessive bleeding. No palpable lymph nodes. PERSONAL/FAMILY/SOCIAL HISTORY: The patient is a heavy smoker who continues to smoke daily. He lives with his , who is also a smoker. He has been residing at home. MEDICATIONS: Xanax 0.25 mg p.o. t.i.d. p.r.n. Aldactone 25 mg p.o. daily Coreg 6.25 mg p.o. daily Lasix 40 mg p.o. q.a.m. Cholecalciferol 400 unit p.o. daily Ipratropium/Albuterol two puffs IH q.i.d. p.r.n. Symbicort 160-4.5 mcg inhaler two puffs INH b.i.d. Miralax 17 gm p.o. daily p.r.n. Aspirin 81 mg p.o. daily with meal Omeprazole 20 mg p.o. daily Duoneb one vial neb RT q.4h p.r.n. Tramadol 50 mg p.o. b.i.d. p.r.n. ALLERGIES: LISINOPRIL AND VERAPAMIL PHYSICAL EXAMINATION: VITAL SIGNS: Temperature 101.7 on admission. Heart rate 96, respirations 24, BP 110/71, pulse ox 95% on 2L. HEENT: Head normocephalic, atraumatic. Eyes: Extraocular muscles are intact. Pupils are equal, round and reactive to light and accommodation. Ears: No lesions. Nose appeared normal. Throat: No exudate or erythema. NECK: Supple. No JVD, no carotid bruit. No lymphadenopathy or thyromegaly. LUNGS: Bilateral inspiratory and expiratory wheezing with diminished breath sounds. Clear to auscultation. Percussion note normal. Chest symmetrical. HEART: S1, S2, no S3. Grade II/ systolic murmur which is chronic due to aortic stenosis. No cyanosis or clubbing. No ascites. Pulses: Dorsalis pedis and posterior tibial pulses +1 to +2 both sides. ABDOMEN: Soft. Nontender. Bowel sounds active. No CVA tenderness. No mass felt. EXTREMITIES: No leg edema. Full range of motion of all extremities, equal. NEUROLOGIC: Alert, oriented times three. No focal deficit. Cranial nerves II through XII are grossly intact. No headache, no double vision or headache. SKIN: Not dry. Intact. Turgor - normal. LYMPHATIC: No palpable lymph nodes/no lymphedema. MUSCULOSKELETAL: Normal joints with no swelling. Muscle tone is normal. LABS: White count 13.64, hemoglobin 11.5, hematocrit 34.5, platelets 191. Sodium 137, potassium 4.4, BUN 50, creatinine 1.89, glucose 185. ABGs on room air - 02 sat 92, pH 7.430, pc02 47.3, p02 62, bicarb 31.3, total c02 33, base excess of 7. Influenza A and B were both negative. Lactic acid 10.9. CT of the chest showed bronchitis, lower lobe opacities consistent with infection. Ascending aortic aneurysm which is unchanged at 4.1 x 4.2 cm. Left renal lesion not present prior to with follow up recommended. CT of the C-spine showed no acute abnormalities. CT of the L-spine showed no fracture. Degenerative disk disease at L4-L5. CT of the T-spine showed no new compression fractures, unchanged compression fracture of T10, T9, T1, T2 and T4. ASSESSMENT: 1. ACUTE BRONCHITIS 2. COPD 3. SEVERE OXYGEN DEPENDENT 4. OSTEOARTHRITIS, SEVERE 5. MULTIPLE COMPRESSION FRACTURES OF THE T-SPINE 6. OSTEOPOROSIS 7. GENERALIZED WEAKNESS PLAN: 1. Admit to the floor 2. Routine telemetry orders 3. CBC/CMP daily 4. Xopenex 1.25 q.6hr scheduled 5. Solu-Medrol 125 mg IV q.8hr 6. Rocephin 1 gm Iv daily 7. Toradol 30 mg IV q.8hr 8. [place] 7.5 mg t.i.d. p.r.n. 9. IV fluids at 50 cc/hr 10. D5 1/2 NS 11. Oxygen as needed 12. Smoking cessation provided 13. Regular diet TIME SPENT: More than 70 minutes. MTDD
--- NOTE | 2017-05-03 14:50 | DS ---
DATE OF SERVICE: 04/16/17 FINAL DIAGNOSIS: 1. BRONCHITIS (ACUTE) 2. COMPRESSED SPINE FRACTURE (ACUTE) 3. RENAL INSUFFICIENCY (ACUTE) 4. FEVER 5. BACK PAIN (SEVERE CHRONIC DEGENERATIVE CHANGES TO THORACIC SPINE) 6. SEVERE CHRONIC LUNG DISEASE 7. GERD 8. HYPERTENSION 9. CHRONIC KIDNEY DISEASE, STAGE 4 10. CAD 11. DYSLIPIDEMIA 12. CVA BY HISTORY, LEFT THALAMIC INFARCTION 13. AORTIC STENOSIS, CALCIFIC BY ECHOCARDIOGRAM 03/2017 14. ANXIETY 15. CHOLECYSTECTOMY 16. BILATERAL HERNIA REPAIR 17. PROSTATE SURGERY LAST V/S: Temperature 97.5, pulse 70, respiratory rate 20, BP 138/67, pulse ox 94. DISCHARGE INSTRUCTIONS: Followup appointment with Dr. Jarvis on April 23 at 1145 a.m. If unable to keep appointment please call to reschedule. [phone]. MEDICATIONS AT DISCHARGE: Duoneb one vial neb RT q.4 p.r.n. Xanax 0.25 mg p.o. t.i.d. p.r.n. Aspirin 81 mg p.o. daily with meal PATRIA Coreg 6.25 mg p.o. daily with meal PATRIA Lasix 40 mg p.o. q.d. a.c. PATRIA Prilosec 20 mg p.o. q.d a.c. PATRIA Miralax 17 gm p.o. daily p.r.n. Aldactone 25 mg p.o. daily PATRIA Cholecalciferol 400 unit p.o. daily Combivent inhaler two puff IH q.i.d. p.r.n. Tramadol 50 mg p.o. b.i.d. p.r.n. NEW PRESCRIPTIONS: 1. Prednisone 10 mg take 2 tablets 2 times a day for 2 days then take 1 tabelt 2 times a day for 5 days. Take with food. 2. Keflex 500 mg take 1 capsule 3 imes a day until all gone. DIET INSTRUCTIONS: As tolerated. ACTIVITY: Gradually resume activity. Avoid extreme cold weather and crowds. SMOKING: N/A DISEASE SPECIFIC EDUCATION: Bronchitis Medications Steroids Activity Diet HOSPITAL COURSE: 81-year-old white male with extensive history of severe COPD, osteoporosis, osteoarthritis. He presented to the emergency room complaining of back and shoulder pain along with shortness of breath. Chest x-ray revealed acute bronchitis. Sputum culture was done which is positive for serratious bacteria. It was positive for this the previous hospitalization. The patient has old compression fractures, multiple of the spine due to osteoporosis. These were found to be unchanged. He was admitted with intractable pain and shortness of breath. He was placed on Solu-Medrol 125 mg IV q.6hr along with Rocephin 1 gm IV daily. He was given Toradol 30 mg IV q.8hr for pain. He did have some elevated kidney function which is chronic for him. He is in Stage 4 kidney failure. Today, on day of discharge, creatinine 1.73, BUN 57, this is about normal for him secondary to the chronic kidney disease, he is chronically anemic. Hemoglobin has been unchanged for the past three days and stable at 8.3 , hematocrit 25.2, white count 7.19, platelets 124. During his hospital stay, PT and OT was consulted which worked with him and he stated that it significantly helped his shoulder pain by loosening this up. He does not want physical therapy at home. He is weaned off his steroids. He will go home on Prednisone 20 mg b.i.d for 2 days and 10 mg b.i.d. for 5 days along with Keflex 500 mg t.i.d. for 7 days. Vital signs have been table. Today, on day of discharge temperature 97.5, heart rate 70, respirations 20, BP 138/67, pulse ox 94%. For the past 24 to 48 hours he has been up and about walking around the hospital eating 75 to 100% of his meals. Upon examination his breath sounds have significantly improved. He has very mild wheezing which is chronic for him. He has full range of motion of his shoulders at the moment and does not seem to be in any acute pain. Most likely a lot of this pain is due to poor posture secondary to osteoporosis, osteoarthritis and poor posturing due to severe emphysema. We will discharge him today in stable condition and we will followup with him later on this week in the office. TIME SPENT: More than 60 minutes. JOSEPH
== END 2017-04-16 11:52 | disposition home or self-care (01) | DRG 202 ==
LOC: ED 14:32 → MEDSURG A 17:39
PROVIDERS: ADMIT Internal Medicine; ATTEND Internal Medicine
DX: J20.9 Acute bronchitis, unspecified (principal); J44.1 Chronic obstructive pulmonary disease with (acute) exacerbation; N18.4 Chronic kidney disease, stage 4 (severe); A48.8 Other specified bacterial diseases; Z87.310 Personal history of (healed) osteoporosis fracture; N28.9 Disorder of kidney and ureter, unspecified; R50.9 Fever, unspecified; M54.89 Other dorsalgia; K21.9 Gastro-esophageal reflux disease without esophagitis; M19.90 Unspecified osteoarthritis, unspecified site; G89.29 Other chronic pain; J44.9 Chronic obstructive pulmonary disease, unspecified; I12.9 Hypertensive chronic kidney disease with stage 1 through stage 4 chronic kidney disease, or unspecified chronic kidney disease; I25.10 Atherosclerotic heart disease of native coronary artery without angina pectoris; E78.5 Hyperlipidemia, unspecified; Z86.73 Personal history of transient ischemic attack (TIA), and cerebral infarction without residual deficits; I35.0 Nonrheumatic aortic (valve) stenosis; F41.9 Anxiety disorder, unspecified
CPT/HCPCS: 36415; 80053; 82550; 82803; 83605; 84145; 84484; 85025; 87040; 87070; 87081; 87186; 87502; 87651; 93005; 93010; 94640; 96374; 97802; 99223; 99232; 99239; 99284

== ENCOUNTER 2017-05-25 10:39 | Inpatient (IN) ==
[2017-05-25] MEDS ORDERED: MORPHINE 4 MG/ML VIAL IVP PRN (10:58)
[2017-05-25] MEDS ORDERED: VISTARIL INJ IM PRN (10:58)
[2017-05-25] MEDS ORDERED: ATROPINE SULFATE PFS IVP PRN (10:58)
[2017-05-25] MEDS ORDERED: NITROSTAT SL PRN (10:58)
[2017-05-25] MEDS ORDERED: DEXTROSE 5%-1/2NS IV SOLUTION 1,000 ML IV SCH ×2 (11:00→11:05)
[2017-05-25] MEDS: XOPENEX 1.25 MG NEB SCH ×3 (11:30→22:50)
[2017-05-25 11:36] VITALS: BMI 21.2
[2017-05-25] MEDS ORDERED: MIRALAX PO PRN (12:04)
[2017-05-25] MEDS ORDERED: XANAX PO PRN (12:04)
[2017-05-25] MEDS: ROCEPHIN 1 GM in SODIUM CHLORIDE 50 ML IV SCH (12:16)
[2017-05-25] MEDS: SOLU-CORTEF 250 MG IVP SCH ×2 (12:17→21:13)
--- NOTE | 2017-05-25 12:24 | DI ---
EXAM: Single view chest COMPARISON: Chest Xray from 03/07/2017 HISTORY: Short of breath FINDINGS: There is some minimal bibasilar atelectasis and perhaps a small effusion on the left. The re is no lobar infiltrate or failure or large effusion. Cardiac and mediastinal silhouettes show no acute abnormality. There is calcific atherosclerosis of the aorta. No acute soft tissue or osseous ab normalities. IMPRESSION: Bibasilar atelectasis and possible left effusion.
[2017-05-25] MEDS: TYLENOL PO PRN (15:20)
[2017-05-25] MEDS: LASIX TAB PO SCH (15:20)
[2017-05-25] MEDS: PULMICORT 0.5 MG/2 ML NEB SCH (17:05)
[2017-05-25] MEDS: XANAX PO SCH (21:14)
[2017-05-26] MEDS: XOPENEX 1.25 MG NEB SCH ×4 (05:43→23:15)
[2017-05-26] MEDS: PULMICORT 0.5 MG/2 ML NEB SCH ×2 (05:43→16:55)
[2017-05-26] MEDS: SOLU-CORTEF 250 MG IVP SCH ×3 (05:49→20:30)
[2017-05-26] MEDS: LASIX TAB PO SCH ×2 (05:50→15:41)
[2017-05-26] MEDS: PROTONIX PO SCH (05:50)
[2017-05-26] MEDS: ULTRAM PO PRN (07:43)
[2017-05-26] MEDS ORDERED: ASPIRIN EC PO SCH (08:00)
[2017-05-26] MEDS: COREG PO SCH (08:45)
[2017-05-26] MEDS: ASPIRIN EC PO SCH (08:45)
[2017-05-26] MEDS: ALDACTONE PO SCH (08:45)
[2017-05-26] MEDS: ROCEPHIN 1 GM in SODIUM CHLORIDE 50 ML IV SCH (08:46)
[2017-05-26] MEDS: XANAX PO SCH ×2 (08:46→20:30)
[2017-05-26] MEDS ORDERED: VITAMIN D PO SCH (09:00)
[2017-05-26] MEDS ORDERED: PRILOSEC PO SCH (09:00)
[2017-05-26] MEDS: VITAMIN D PO SCH (09:47)
[2017-05-26] MEDS ORDERED: CITRATE OF MAGNESIA PO STA (11:29)
[2017-05-26] MEDS ORDERED: TORADOL IVP STA (11:30)
[2017-05-27] MEDS: SOLU-CORTEF 250 MG IVP SCH ×3 (04:41→20:44)
[2017-05-27] MEDS: PULMICORT 0.5 MG/2 ML NEB SCH ×2 (05:37→16:55)
[2017-05-27] MEDS: XOPENEX 1.25 MG NEB SCH ×4 (05:37→23:45)
[2017-05-27] MEDS: PROTONIX PO SCH (06:31)
[2017-05-27] MEDS: LASIX TAB PO SCH ×2 (06:31→16:07)
[2017-05-27] MEDS: ALDACTONE PO SCH (08:41)
[2017-05-27] MEDS: COREG PO SCH (08:41)
[2017-05-27] MEDS: XANAX PO SCH ×2 (08:41→20:44)
[2017-05-27] MEDS: ASPIRIN EC PO SCH (08:41)
[2017-05-27] MEDS: ROCEPHIN 1 GM in SODIUM CHLORIDE 50 ML IV SCH (08:41)
[2017-05-27] MEDS: VITAMIN D PO SCH (08:41)
[2017-05-27] MEDS ORDERED: CITRATE OF MAGNESIA PO STA (08:46)
[2017-05-27] MEDS: SODIUM CHLORIDE 1,000 ML IV SCH (11:27)
[2017-05-27] MEDS: ULTRAM PO PRN (16:07)
[2017-05-28] MEDS: ULTRAM PO PRN ×2 (03:25→13:04)
[2017-05-28] MEDS: SOLU-CORTEF 250 MG IVP SCH ×3 (04:15→20:46)
[2017-05-28] MEDS: PULMICORT 0.5 MG/2 ML NEB SCH ×2 (05:38→18:05)
[2017-05-28] MEDS: XOPENEX 1.25 MG NEB SCH ×4 (05:38→23:10)
[2017-05-28] MEDS: PROTONIX PO SCH (05:56)
[2017-05-28] MEDS: LASIX TAB PO SCH (05:57)
[2017-05-28] MEDS: SODIUM CHLORIDE 1,000 ML IV SCH (06:37)
[2017-05-28] MEDS: COREG PO SCH (08:58)
[2017-05-28] MEDS: ASPIRIN EC PO SCH (08:58)
[2017-05-28] MEDS: ROCEPHIN 1 GM in SODIUM CHLORIDE 50 ML IV SCH (08:58)
[2017-05-28] MEDS: VITAMIN D PO SCH (08:59)
[2017-05-28] MEDS: ALDACTONE PO SCH (08:59)
[2017-05-28] MEDS: XANAX PO SCH ×2 (08:59→20:46)
--- NOTE | 2017-05-28 09:03 | PCM.PROG ---
Attending Provider: ATTENDING PROVIDER: Dr. SHWETA PENA This patient is seen with Caity Wagner, Nurse Practitioner. DATE OF SERVICE: 05/28/17 SUBJECTIVE: This 81 year old WHITE/ M was hospitalized 05/25/17. The patient is lying in bed, alert. Breathing has improved. He is still weak, had a large BM last night. REVIEW OF SYSTEMS: CONSTITUTIONAL: Weakness and fatigue. No night sweats. No malaise, lethargy. No fever or chills. HEENT: Eyes: No visual changes. No eye pain. No eye discharge. ENT: No runny nose. No epistaxis. No sinus pain. No odynophagia. No congestion. RESPIRATORY: No cough, no congestion. No hemoptysis. Positive for shortness of breath. CARDIOVASCULAR: No angina symptoms. No CHF symptoms. No atypical chest pain for CAD. No palpitations. No orthopnea.. GASTROINTESTINAL: No abdominal pain. No nausea or vomiting. No diarrhea or constipation. No hematemesis. No hematochezia. GENITOURINARY: No urgency. No frequency. No dysuria. No hematuria. No obstructive symptoms. No discharge. No pain. No significant abnormal bleeding. MUSCULOSKELETAL: No musculoskeletal pain; no joint swelling. NEUROLOGICAL: Awake, alert, oriented to time, place and person. No headache. No neck pain. No syncope. No seizures. No dizziness. PSYCHIATRIC: Not anxious. No depression. No suicidal thoughts. No homicidal thoughts. SKIN: No rash. No lesions. No wounds. ENDOCRINE: No unexplained weight loss. No weight gain. HEMATOLOGIC/LYMPHATIC: No anemia. No purpura. No petechiae. No prolonged or excessive bleeding. No palpable lymph nodes. PHYSICAL EXAMINATION: GENERAL: The patient is awake, alert and oriented, lying in bed in no distress. VITAL SIGNS: Temperature 98.1 F, Pulse 72, Respiratory Rate 18, BP 131/72, Pulse Ox 96% HEENT: Head normocephalic, atraumatic. Eyes: Extraocular muscles are intact. Pupils are equal, round and reactive to light and accommodation. Ears: No lesions. Nose appeared normal. Throat: No exudate or erythema. NECK: Supple. No JVD, no carotid bruit. No lymphadenopathy or thyromegaly. LUNGS: Severely diminished breath sounds with bilateral wheeze on right. Percussion note normal. Chest symmetrical. HEART: Grade II/ murmur. S1, S2, no S3. No cyanosis or clubbing. No ascites. Pulses: Dorsalis pedis and posterior tibial pulses +1 to +2 both sides. ABDOMEN: Soft. Non-tender. Bowel sounds active. No CVA tenderness. No mass felt. EXTREMITIES: No edema. Full range of motion of all extremities, equal. NEUROLOGIC: No focal deficit. Cranial nerves II through XII are grossly intact. No headache, no double vision or headache. SKIN: Not dry. Intact. Turgor-normal. LYMPHATIC: No palpable lymph nodes/no lymphedema. MUSCULOSKELETAL: Normal joints with no swelling. Muscle tone is normal. LAB REVIEW: 05/28/17 05:29 05/28/17 05:29 05/28/17 05:29: Sodium 140, Potassium 5.1, Chloride 98, Carbon Dioxide 32 H, Anion Gap 15.1, BUN 57 H, Creatinine 2.00 H D, Estimated GFR (MDRD) 32.00, BUN/ Creatinine Ratio 28.50, Glucose 127 H, Calcium 8.3, Total Bilirubin < 0.3, AST 13 L, ALT 7 L, Alkaline Phosphatase 42 L, Total Protein 5.4 L, Albumin 2.6 L, Globulin 2.8, Albumin/Globulin Ratio 0.93 05/28/17 05:29: WBC 7.94, RBC 2.75 L, Hgb 8.4 L, Hct 25.5 L, MCV 92.7, MCH 30.5 , MCHC 32.9, RDW Coeff of [place] 14.0, Plt Count 142, Immature Gran % (Auto) 0.5, Neut % (Auto) 77.2, Lymph % (Auto) 16.4, [place] % (Auto) 5.9, Eos % (Auto) 0.0, Baso % (Auto) 0.0, Immature Gran # (Auto) 0.0, Neut # 6.1, Lymph # 1.3, [place] # 0.5, Eos # 0.0, Baso # 0.0 05/27/17 16:15: Stl Occult Blood (IFOB) Positive, Stool Occult Blood #2 No specimen received, Stool Occult Blood #3 No specimen received ASSESSMENT: 1. ACUTE BRNOCHITIS 2. CHRONIC RESP FAILURE 3. CHF 4. ACUTE ON CHRONIC KIDNEY DISEASE 5. ANEMIA 6. STOOL POSITIVE FOR BLOOD 7. HISTORY OF BLOOD IN STOOL, HAS PREVIOUSLY SEEN GI AND IS NOT A CANDIDATE FOR COLONOSCOPY OR FURTHER INVESTIGATION DUE TO CHRONIC LUNG DISEASE AND RESPIRATORY STATUS PLAN: 1. Will increase Protonix 40 mg IV b.i.d. 2. Hold oral Protonix 3. D/C Lasix 20 mg in the evening, continue 40 in the morning 4. Continue IV fluids Plan and coordination of the patient's care discussed in the presence of Slimer and nurse. CONDITION: STABLE SCRIBED BY: ALEC STOREY [employer] Network Manager scribed while in presence of service performed by Dr. Pena/Caity Wagner APRN on 05/28/17 ([id number])
[2017-05-28] MEDS: PROTONIX IV IVP SCH ×2 (09:29→20:46)
--- NOTE | 2017-05-28 10:29 | RS.PTINEVL ---
Subjective - Patient information Date of Evaluation: 05/28/17 Date of Arrival on Unit: 05/25/17 Admitted From:: Home Diagnosis: COPD, pleural effusion Usual Living Arrangement: With Spouse Home Environment: House, Stairs (few) Medical History: CVA/TIA, Cancer (prostate) Medical History Comments:: chronic kidney disease, hyperglycemia LATEX ALLERGY?: No Medications: see chart Subjective Information/ Patient Comments:: pt states that he does not use a walker or a cane at home and he does not want to use one. He says that he will use one if he falls. Explained that would be safer to try one now to prevent fall. Will continue to discuss with patient. - Level of function Prior to this admission, the patient could do the following:: Independent Selfcare, Independent ADL's, Independent Ambulation Current Level of Function: Partially Dependent Current Equipment Used at Home: oxygen Pain Assessement - Location Back Description: Aching Intensity: 1 Pain Behavior: Facial Grimacing Pain Aggravating Factors: Standing, Walking Pain Alleviating Factors: Medication Interventions - Objective Patient Orientation: Person, Place, Time, Situation Current Interventions: IV's, Oxygen, Telemetry Range of Motion - ROM Right Upper Extremity AROM: WFL's Left Upper Extremity AROM: WFL's Right Lower Extremity AROM: WFL's Left Lower Extremity AROM: WFL's Muscle Strength - Muscle Strength Right Upper Extremity Strength: Mild Weakness (shld flex 3+/5, elbow flex/ext 4- /5) Left Upper Extremity Strength: Mild Weakness (shld flex 3+/5, elbow flex/ext 4-/ 5) Right Lower Extremity Strength: Mild Weakness (hip flex 4-/5, knee flex/ext 4/5 , ankle Df/PF 4/5) Left Lower Extremity Strength: Mild Weakness (hip flex 4-/5, knee flex/ext 4/5, ankle Df/PF 4/5) Sensation - Sensation Right Upper Extremity Sensation: Intact/Normal Left Upper Extremity Sensation: Intact/Normal Right Lower Extremity Sensation: Intact/Normal Left Lower Extremity Sensation: Intact/Normal Palpation Palpation Findings: Tenderness Comments:: lumbar spine Balance - Sitting Balance and Reactions Static Sitting Balance: Normal Dynamic Sitting Balance: Good Sitting Equilibrium Reactions: Delayed Left, Delayed Right Sitting Protective Reactions: Within Normal Limits Left, Within Normal Limit Right - Standing Balance and Reactions Static Standing Balance: Fair Dynamic Standing Balance: Poor Standing Equilibrium Reactions: Delayed Left, Delayed Right Standing Protective Reactions: Delayed Left, Delayed Right - Comments Balance Assessment Comments: pt with flexed posture, decreased CT, increased lat sway. Functional Mobility - Bed Mobility Comments:: pt seen sitting up on side of bed. - Transfers Sit to Stand: CGA Stand to Sit: CGA - Safety Awareness Safety Awareness: Fair Ambulation - Ambulation Assistive Device Used: Gait belt (pt refused to use assistive device amb with PACKING AND FINAL ASSEMBLY SUPERVISOR) Orthotic/Prosthetic Device: No Distance: 120ft Assistance needed with Ambulation: CGA, 1 person assist, 2 person assist Quality of Ambulation: amb with CGA x 1 +1 for IV pole and O2. Gait Deviations: Narrow Based gait, Forward posture, Short stride Ambulation Comments: pt amb with flexed posture, decreased step length and decreased CT. Feel pt would benefit from use of AD to improve safety with gait , pt refused will continue to encourage pt and educate on safety with amb. Factors Affecting Ambulation: Decreased Balance, Weakness, Decreased Safety, Limited Endurance Treatment time - Time with patient Total treatment time: 23 Patient Education - Education Patient Education: Home Safety, Education of Plan of Care Teaching Recipient: Patient Teaching Methods: Discussion (Discussion with patient regarding POC as well as safety with amb) Assessment - Assessment Problem List:: Decreased level of function, Requires training/education, Decreased safety/Risk of falls, Weakness Rehab Potential: Good Further Therapy Indicated?: Yes Evaluation Complexity: HISTORY: Medium (age, COPD, hx of CVA), EXAM OF BODY SYSTEMS: Medium (strength, balance, gait, SOA), CLINICAL PRESENTATION: Medium ( evolving), CLINICAL DECISION MAKING: Medium Short Term Goals GOAL #1: pt demonstrate independence with bed mobility Goal to be met by: 05/30/17 GOAL #2: pt transfer sup to/from sit to/from stand SBA Goal to be met by: 05/30/17 GOAL #3: pt amb 150ft with/without AD with improved posture, no LOB Goal to be met by: 05/30/17 Hardness Inspector Goals GOAL #1: pt transfer sup to/from sit to/from stand independently Goal to be met by: 06/02/17 GOAL #2: pt amb functional household distance with/without AD with SBA Goal to be met by: 06/02/17 GOAL #3: Improve BLE strength 4 to 4+/5, independent with HEP Goal to be met by: 06/02/17 Plan Plan of Care: Therapeutic EX, Therapeutic Activity Other:: gait training Frequency of Treatment: 1-2 X day, as tolerated Duration of Treatment: 5 days Anticipated Discharge Destination: Home Has the Physician been added for Co-signature?: Yes
[2017-05-29] MEDS: SODIUM CHLORIDE 1,000 ML IV SCH (03:02)
[2017-05-29] MEDS: SOLU-CORTEF 250 MG IVP SCH ×3 (05:40→20:33)
[2017-05-29] MEDS: LASIX TAB PO SCH (05:40)
[2017-05-29] MEDS: XOPENEX 1.25 MG NEB SCH ×4 (05:50→23:20)
[2017-05-29] MEDS: PULMICORT 0.5 MG/2 ML NEB SCH ×2 (05:50→17:00)
[2017-05-29] MEDS: ULTRAM PO PRN (07:51)
--- NOTE | 2017-05-29 08:26 | OP ---
DATE OF SERVICE: 05/26/17 SUBJECTIVE: 81 year old white male hospitalized with acute bronchitis, renal azotemia, pleuritic pain, loss of appetite, constipation. The patient is feeling a lot better. He is sitting up in the chair and talking normally. His hydration status has improved and skin turgor is better. REVIEW OF SYSTEMS: CONSTITUTIONAL: No night sweats. No fatigue, malaise, lethargy. No fever or chills. HEENT: Eyes: No visual changes. No eye pain. No eye discharge. ENT: No runny nose. No epistaxis. No sinus pain. No sore throat. No odynophagia. No congestion. RESPIRATORY: No cough, no congestion. No hemoptysis. No shortness of breath. CARDIOVASCULAR: No angina symptoms. No CHF symptoms. No atypical chest pain for CAD. No palpitations. No orthopnea. GASTROINTESTINAL: No abdominal pain. No nausea or vomiting. No diarrhea or constipation. No hematemesis. No hematochezia. Improving appetite was mild cough. GENITOURINARY: No urgency. No frequency. No dysuria. No hematuria. No obstructive symptoms. No discharge. No pain. No significant abnormal bleeding. MUSCULOSKELETAL: No musculoskeletal pain; no joint swelling. Back pain. NEUROLOGICAL: No headache. No neck pain. No syncope. No seizures. No dizziness. PSYCHIATRIC: Not anxious. No depression. No suicidal thoughts. No homicidal thoughts. SKIN: No rash. No lesions. No wounds. ENDOCRINE: No unexplained weight loss. No weight gain. HEMATOLOGIC/LYMPHATIC: No anemia. No purpura. No petechiae. No prolonged or excessive bleeding. No palpable lymph nodes. PHYSICAL EXAMINATION: GENERAL: The patient is oriented to time, place and person. VITAL SIGNS: Temperature 96.5, pulse 65, respiratory rate 16, blood pressure 105/60 and pulse ox 95%. HEENT: Head normocephalic, atraumatic. Eyes: Extraocular muscles are intact. Pupils are equal, round and reactive to light and accommodation. Ears: No lesions. Nose appeared normal. Throat: No exudate or erythema. NECK: Supple. No JVD, no carotid bruit. No lymphadenopathy or thyromegaly. LUNGS:Decreased breath sounds. Percussion note normal. Chest symmetrical. HEART: S1, S2, no S3. No murmurs. No cyanosis or clubbing. No ascites. Pulses: Dorsalis pedis and posterior tibial pulses +1 to +2 both sides. ABDOMEN: Soft. Nontender. Bowel sounds active. No CVA tenderness. No mass felt. EXTREMITIES: No edema. Full range of motion of all extremities, equal. NEUROLOGIC: No focal deficit. Cranial nerves II through XII are grossly intact. No headache, no double vision or headache. SKIN: Not dry. Intact. Turgor - normal. LYMPHATIC: No palpable lymph nodes/no lymphedema. MUSCULOSKELETAL: Normal joints with no swelling. Muscle tone is normal. LABS: Hgb 9.3, hct 28, WBC 5,300 normal differential, creatinine 1.9, BUN 45. ASSESSMENT: 1. Improving renal azotemia 2. Chronic lung disease with chronic bronchitis 3. Anemia 4. Moderate to severe aortic stenosis 5. Congestive heart failure with severe chronic lung disease, the patient is still smoking off and on PLAN: 1. Strongly advised the patient to stop smoking. The also smokes with history of lung cancer 2. Counseling for smoking done. CONDITION: Stable TIME SPENT: More than 30 minutes. Plan and coordination of the patient's care discussed in the presence of nurse. JOSEPH
[2017-05-29] MEDS ORDERED: LEVAQUIN PO SCH (08:30)
[2017-05-29] MEDS: PROTONIX IV IVP SCH ×2 (08:49→20:33)
[2017-05-29] MEDS: ALDACTONE PO SCH (08:50)
[2017-05-29] MEDS: ASPIRIN EC PO SCH (08:50)
[2017-05-29] MEDS: COREG PO SCH (08:50)
[2017-05-29] MEDS: VITAMIN D PO SCH (08:50)
[2017-05-29] MEDS: ROCEPHIN 1 GM in SODIUM CHLORIDE 50 ML IV SCH (08:50)
[2017-05-29] MEDS: ULTRAM PO SCH ×3 (08:52→20:33)
[2017-05-29] MEDS: XANAX PO SCH ×2 (08:52→20:33)
--- NOTE | 2017-05-29 09:08 | PCM.PROG ---
Attending Provider: ATTENDING PROVIDER: Dr. SHWETA PENA This patient is seen with Caity Wagner, Nurse Practitioner. DATE OF SERVICE: 05/29/17 SUBJECTIVE: This 81 year old WHITE/ M was hospitalized 05/25/17. The patient is lying in bed, alert. He has been up walking. He complains of back pain. He is still extremely short of breath, is pale and weak. Kidney function slightly improved with slow IV rehydration. Anemia is worse. REVIEW OF SYSTEMS: CONSTITUTIONAL: Weakness. Pale. No night sweats. No malaise, lethargy. No fever or chills. HEENT: Eyes: No visual changes. No eye pain. No eye discharge. ENT: No runny nose. No epistaxis. No sinus pain. No odynophagia. No congestion. RESPIRATORY: No cough, no congestion. No hemoptysis. Shortness of breath. CARDIOVASCULAR: No angina symptoms. No CHF symptoms. No atypical chest pain for CAD. No palpitations. No orthopnea. GASTROINTESTINAL: No abdominal pain. No nausea or vomiting. No diarrhea or constipation. No hematemesis. No hematochezia. GENITOURINARY: No urgency. No frequency. No dysuria. No hematuria. No obstructive symptoms. No discharge. No pain. No significant abnormal bleeding. MUSCULOSKELETAL: Back pain. NEUROLOGICAL: Awake, alert, oriented to time, place and person. No headache. No neck pain. No syncope. No seizures. No dizziness. PSYCHIATRIC: Not anxious. No depression. No suicidal thoughts. No homicidal thoughts. SKIN: No rash. No lesions. No wounds. ENDOCRINE: No unexplained weight loss. No weight gain. HEMATOLOGIC/LYMPHATIC: No anemia. No purpura. No petechiae. No prolonged or excessive bleeding. No palpable lymph nodes. PHYSICAL EXAMINATION: GENERAL: The patient is awake, alert and oriented, lying in bed in no distress. Pallor positive clammy. VITAL SIGNS: Temperature 97.5 F, Pulse 71, Respiratory Rate 14, BP 140/78, Pulse Ox 100% HEENT: Head normocephalic, atraumatic. Eyes: Extraocular muscles are intact. Pupils are equal, round and reactive to light and accommodation. Ears: No lesions. Nose appeared normal. Throat: No exudate or erythema. NECK: Supple. No JVD, no carotid bruit. No lymphadenopathy or thyromegaly. LUNGS: diminished breath sounds bilaterally wheeze on right. Clear to auscultation. Percussion note normal. Chest symmetrical. HEART: S1, S2, no S3. Grade II/. No cyanosis or clubbing. No ascites. Pulses: Dorsalis pedis and posterior tibial pulses +1 to +2 both sides. ABDOMEN: Soft. Non-tender. Bowel sounds active. No CVA tenderness. No mass felt. EXTREMITIES: No edema. Full range of motion of all extremities, equal. NEUROLOGIC: No focal deficit. Cranial nerves II through XII are grossly intact. No headache, no double vision or headache. SKIN: Not dry. Intact. Turgor-normal. LYMPHATIC: No palpable lymph nodes/no lymphedema. MUSCULOSKELETAL: Normal joints with no swelling. Muscle tone is normal. LAB REVIEW: 05/29/17 04:30 05/29/17 04:30 05/29/17 04:30: Sodium 137, Potassium 4.7, Chloride 101, Carbon Dioxide 31, Anion Gap 9.7, BUN 58 H, Creatinine 1.85 H, Estimated GFR (MDRD) 35.00, BUN/ Creatinine Ratio 31.35, Glucose 128 H, Calcium 7.8 L, Total Bilirubin < 0.3, AST 14 L, ALT 9 L, Alkaline Phosphatase 40 L, Total Protein 5.2 L, Albumin 2.6 L , Globulin 2.6, Albumin/Globulin Ratio 1.00 05/29/17 04:30: WBC 8.73, RBC 2.67 L, Hgb 8.1 L, Hct 25.0 L, MCV 93.6, MCH 30.3 , MCHC 32.4, RDW Coeff of [place] 13.9, Plt Count 128 L, Immature Gran % (Auto) 0.9 , Neut % (Auto) 79.6, Lymph % (Auto) 14.1, [place] % (Auto) 5.4, Eos % (Auto) 0.0, Baso % (Auto) 0.0, Immature Gran # (Auto) 0.1, Neut # 7.0 H, Lymph # 1.2, [place] # 0.5, Eos # 0.0, Baso # 0.0 ASSESSMENT: 1. ACUTE BRONCHITIS 2. CHRONIC RESPIRATORY FAILURE 3. CHF 4. ACUTE ON CHRONIC KIDNEY DISEASE, IMPROVING 5. ANEMIA, SYMPTOMATIC 6. STOOL POSITIVE FOR BLOOD 7. HISTORY OF BLOOD IN STOOL, HAS PREVIOUSLY SEEN GI AND IS NOT A CANDIDATE FOR COLONOSCOPY OR FURTHER INVESTIGATION DUE TO CHRONIC LUNG DISEASE AND RESPIRATORY STATUS PLAN: 1. Ultram t.i.d. 2. Levaquin 500 mg daily due to positive sputum culture 3. Type and Crossmatch 4. D/C IV fluids Plan and coordination of the patient's care discussed in the presence of Straight Line Press Setter and nurse. CONDITION: Stable SCRIBED BY: ALEC STOREY Supervisor Prepress scribed while in presence of service performed by Dr. Pena/Caity Wagner APRN on 05/29/17 ([id number])
[2017-05-29] MEDS: TYLENOL PO PRN (11:13)
--- NOTE | 2017-05-29 11:25 | PN ---
DATE OF SERVICE: 05/27/17 SUBJECTIVE: 81 year old white male hospitalized with acute bronchitis, respiratory failure, pleuritic pain and dehydration. The patient's condition is slowly improving and he is feeling some what better. We will start him on fluids 50cc per hour. We will have to watch him for fluid overload because of his moderate to severe aortic stenosis and history of CHF. His hgb is 9.1, hct 27 with no evidence of active GI bleed. I will also watch for his Potassium which is 5.3. REVIEW OF SYSTEMS: CONSTITUTIONAL: No night sweats. Weakness. No fever or chills. HEENT: Eyes: No visual changes. No eye pain. No eye discharge. ENT: No runny nose. No epistaxis. No sinus pain. No sore throat. No odynophagia. No congestion. RESPIRATORY: Cough and Congestion improving but still there. No hemoptysis. No shortness of breath. CARDIOVASCULAR: No angina symptoms. No CHF symptoms. No atypical chest pain for CAD. No palpitations. No orthopnea. GASTROINTESTINAL: No abdominal pain. No nausea or vomiting. Still constipated. No hematemesis. No hematochezia. Appetite is improving. GENITOURINARY: No urgency. No frequency. No dysuria. No hematuria. No obstructive symptoms. No discharge. No pain. No significant abnormal bleeding. MUSCULOSKELETAL: No musculoskeletal pain; no joint swelling. NEUROLOGICAL: No headache. No neck pain. No syncope. No seizures. No dizziness. PSYCHIATRIC: Not anxious. No depression. No suicidal thoughts. No homicidal thoughts. SKIN: No rash. No lesions. No wounds. ENDOCRINE: No unexplained weight loss. No weight gain. HEMATOLOGIC/LYMPHATIC: No anemia. No purpura. No petechiae. No prolonged or excessive bleeding. No palpable lymph nodes. PHYSICAL EXAMINATION: VITAL SIGNS: Temperature 97.6, pulse 60, respiratory rate 20, blood pressure 137/68 and pulse ox 100%. HEENT: Head normocephalic, atraumatic. Eyes: Extraocular muscles are intact. Pupils are equal, round and reactive to light and accommodation. Ears: No lesions. Nose appeared normal. Throat: No exudate or erythema. NECK: Supple. No JVD, no carotid bruit. No lymphadenopathy or thyromegaly. LUNGS: Decreased breath sounds with mild wheeze. Percussion note normal. Chest symmetrical. HEART: S1, S2, no S3. Grade II/ systolic murmur. No cyanosis or clubbing. No ascites. Pulses: Dorsalis pedis and posterior tibial pulses +1 to +2 both sides. ABDOMEN: Soft. Nontender. Bowel sounds active. No CVA tenderness. No mass felt. EXTREMITIES: No edema. Full range of motion of all extremities, equal. NEUROLOGIC: No focal deficit. Cranial nerves II through XII are grossly intact. No headache, no double vision or headache. SKIN: Not dry. Intact. Turgor - normal. LYMPHATIC: No palpable lymph nodes/no lymphedema. MUSCULOSKELETAL: Normal joints with no swelling. Muscle tone is normal. ASSESSMENT: 1. Acute bronchitis/pneumonitis seems to be improving slowly 2. Dehydration seems to be resolving 3. Chronic renal failure which seems to be stable and somewhat improving PLAN: 1. Given slow IV hydration 2. Continue the rest of the medications. TIME SPENT: More than 30 minutes. Plan and coordination of the patient's care discussed in the presence of nurse. JOSEPH
--- NOTE | 2017-05-29 12:47 | PN ---
DATE OF SERVICE: 05/28/17 SUBJECTIVE: The patient was hospitalized with chronic lung disease and respiratory failure. The patient's condition has improved. He is feeling better and his kidney functions are a little bit better. His hydration status has improved. We will given him Protonix twice a day and discontinue Lasix. The patient has anemia. He is a very poor candidate to undergo any colonoscopy or EGD. His overall medical conditions are endstage and his prognosis is poor. knows and also the patient knows about it. CONDITION: Stable The patient was seen and examined with the Nurse Practitioner. TIME SPENT: More than 30 minutes. Plan and coordination of the patient's care discussed in the presence of nurse. JOSEPH
--- NOTE | 2017-05-29 13:43 | HP ---
DATE OF SERVICE: 05/25/17 REASON FOR HOSPITALIZATION/HISTORY OF PRESENT ILLNESS: This 81-year-old male presented with feeling more short of breath the past two days. He has been wheezing, back is hurting more and hard to walk. He has lost 2 lbs in seven days. Appetite is poor. He sleeps all the time. No signs or symptoms of CHF or CAD. The says she does not know what to do. PAST MEDICAL HISTORY: CA prostate CHF CKD, stage 4 CAD Dyslipidemia CVA Aortic stenosis 02 LVH PAST SURGICAL HISTORY: Gallbladder Prostate Bilateral hernia REVIEW OF SYSTEMS: CONSTITUTIONAL: Fatigue. No fever. HEENT: No sinus drainage, no sore throat. RESPIRATORY: Cough, no congestion. CARDIOVASCULAR: Shortness of breath on manual exam. No atypical chest pain for coronary artery disease. No angina, CHF symptoms, or palpitations. GASTROINTESTINAL: No melena or abdominal pain. No GERD. GENITOURINARY: No hematuria, no prostatism, no polyuria. LIQUOR STORES AND AGENCIES SUPERVISOR: Dizziness. No blackout, no headache, no double vision. MUSCULOSKELETAL: Osteoarthritis pain, no joint swelling. ENDOCRINE: Lost 2 lbs. SKIN: Dry, no rash. PSYCHIATRIC: Anxious. No depression, no suicidal thoughts, no homicidal thoughts. SOCIAL HISTORY: . He has three children. Smoker - yes. No alcohol use. No ilicit drug use. FAMILY HISTORY: Father ; mother . Three brothers, two sisters. MEDICATIONS: Aldactone 25 mg p.o. once daily Coreg 6.25 mg one p.o. one time per day one tab p.o. q.h.s. Lasix 20 mg two times per day, two tabs p.o. in a.m., one tab p.o. every evening Symbicort 160/4.5 mcg two puffs two times per day in the morning and evening Xanax 0.25 mg one p.o. two times per day p.r.n. one tab p.o. b.i.d. p.r.n. Pantoprazole 40 mg one p.o. once daily Combivent p.r.n. Vitamin D OTC Oxygen 2L/NC p.r.n. ALLERGIES: VERAPAMIL, LISINOPRIL, PRAVASTATIN, ATIVAN, VALIUM, FOSAMAX PHYSICAL EXAMINATION: V/S: Pulse 96, BP 110/64, temperature 97.5, 02 sat 91%, 02/2L/NC. Height 5'8", Weight 140.8 lbs. BMI 21.4. GENERAL APPEARANCE: Oriented times three. HEENT: Normal. NECK: No JVP, no bruits. RESPIRATORY: Decreased breath sounds, inspiratory and expiratory wheeze. CARDIOVASCULAR: S1, S2, no S3. Systolic murmur Grade II/. No cyanosis, clubbing. No ascites. GI/ABDOMEN: No tenderness. Bowel sounds are active. EXTREMITIES: No edema, pulses +1, equal. LIQUOR STORES [employer] AGENCIES SUPERVISOR: Deep tendon reflexes, sensory, motor and gait all normal. RECTAL/PROSTATE: Colonoscopy refused. LABS: Urine is normal, negative leuks, normal pH, no blood, no nitrites. Sodium 142, potassium 4.7, BUN 47, creatinine 1.99. GFR 32, AST 16, ALT 10. Total protein 6.5, albumin 3.1, globulin 3.4. White count 9.04, hemoglobin 10.5, hematocrit 32.6, platelets 152. ASSESSMENT: 1. ACUTE BRONCHITIS 2. RESPIRATORY FAILURE 3. PLEURITIC PAIN 4. CHRONIC KIDNEY DISEASE STAGE 4 5. CHF 6. MODERATE/SEVERE AORTIC STENOSIS 7. CORONARY ARTERY DISEASE 8. CHRONIC BRONCHITIS 9. LEG EDEMA 10. CHRONIC CONSTIPATION 11. CVA 12. SUSAN 13. COPD 14. 02 p.r.n. 15. LEFT VENTRICULAR HYPERTROPHY 16. DYSLIPIDEMIA 17. SMOKER (continues to smoke) PLAN: 1. Admit regular 2. Routine telemetry orders 3. 1000 cc's D5 1/2 NS 24 hourly times one bag 4. Daily CBC, CMP 5. Solu-Cortef 125 mg IV 8 hourly 6. Sputum for culture and sensitivity 7. ABG 8. Nebs 9. Xopenex q.6hourly 10. Pulmicort b.i.d. 11. Rocephin 1 gm q.24 hourly 12. Diet, regular and extra meals 13. UA 14. TSH 15. Continue all home medications PROGNOSIS: POOR TIME SPENT: More than 70 minutes. MTDD
[2017-05-29] MEDS ORDERED: LASIX IVP STA (15:05)
[2017-05-30] MEDS: XOPENEX 1.25 MG NEB SCH ×4 (04:44→23:30)
[2017-05-30] MEDS: PULMICORT 0.5 MG/2 ML NEB SCH ×2 (04:44→18:00)
[2017-05-30] MEDS: LEVAQUIN PO SCH (06:21)
[2017-05-30] MEDS: SOLU-CORTEF 250 MG IVP SCH ×3 (06:21→20:36)
[2017-05-30] MEDS: LASIX TAB PO SCH (06:21)
[2017-05-30] MEDS: COREG PO SCH (08:55)
[2017-05-30] MEDS: ASPIRIN EC PO SCH (08:55)
[2017-05-30] MEDS: ALDACTONE PO SCH (08:55)
[2017-05-30] MEDS: XANAX PO SCH ×2 (08:56→20:35)
[2017-05-30] MEDS: VITAMIN D PO SCH (08:56)
[2017-05-30] MEDS: ROCEPHIN 1 GM in SODIUM CHLORIDE 50 ML IV SCH (08:56)
[2017-05-30] MEDS: ULTRAM PO SCH ×3 (08:56→20:35)
[2017-05-30] MEDS: PROTONIX IV IVP SCH ×2 (10:00→20:50)
[2017-05-30] MEDS ORDERED: CITRATE OF MAGNESIA PO STA (10:20)
--- NOTE | 2017-05-30 11:22 | PCM.PROG ---
Attending Provider: ATTENDING PROVIDER: Dr. SHWETA PENA DATE OF SERVICE: 05/30/17 SUBJECTIVE: This 81 year old WHITE/ M was hospitalized 05/25/17 with acute bronchitis, respiratory failure and pleuritic pain. Condition improved. The patient was transfused 2 units of PRBC. Hemoglobin 10.8, Hematocrit 32.2. No evidence of active GI bleed. The patient has several medical conditions which are end-stagelike chronic lung disease, severe aortic stenosis and is not a candidate to undergo any GI procedures like endoscopy or colonoscopy. Kidney function has improved; the patient has chronic kidney disease. The patient complains of constipation. REVIEW OF SYSTEMS: CONSTITUTIONAL: Fatigue, weakness. No night sweats. No malaise, lethargy. No fever or chills. HEENT: Eyes: No visual changes. No eye pain. No eye discharge. ENT: No runny nose. No epistaxis. No sinus pain. No odynophagia. No congestion. RESPIRATORY: Less cough, no congestion. No hemoptysis. Shortness of breath but is breathing better. CARDIOVASCULAR: No angina symptoms. No CHF symptoms. No atypical chest pain for CAD. No palpitations. No orthopnea.. GASTROINTESTINAL: Appetite has improved. No abdominal pain. No nausea or vomiting. No diarrhea or constipation. No hematemesis. No hematochezia. GENITOURINARY: No urgency. No frequency. No dysuria. No hematuria. No obstructive symptoms. No discharge. No pain. No significant abnormal bleeding. MUSCULOSKELETAL: No musculoskeletal pain; no joint swelling. NEUROLOGICAL: Awake, alert, oriented to time, place and person. No headache. No neck pain. No syncope. No seizures. No dizziness. PSYCHIATRIC: Not anxious. No depression. No suicidal thoughts. No homicidal thoughts. SKIN: No rash. No lesions. No wounds. ENDOCRINE: No unexplained weight loss. No weight gain. HEMATOLOGIC/LYMPHATIC: No anemia. No purpura. No petechiae. No prolonged or excessive bleeding. No palpable lymph nodes. PHYSICAL EXAMINATION: GENERAL: The patient is awake, alert and oriented, lying in bed in no distress. VITAL SIGNS: Temperature 97.5 F, Pulse 71, Respiratory Rate 21, BP 149/81, Pulse Ox 98% HEENT: Head normocephalic, atraumatic. Eyes: Extraocular muscles are intact. Pupils are equal, round and reactive to light and accommodation. Ears: No lesions. Nose appeared normal. Throat: No exudate or erythema. NECK: Supple. No JVD, no carotid bruit. No lymphadenopathy or thyromegaly. LUNGS: Clear to auscultation. Percussion note normal. Chest symmetrical. HEART: S1, S2, no S3. Grade II/ systolic murmur. No cyanosis or clubbing. No ascites. Pulses: Dorsalis pedis and posterior tibial pulses +1 to +2 both sides. ABDOMEN: Soft. Non-tender. Bowel sounds active. No CVA tenderness. No mass felt. EXTREMITIES: No edema. Full range of motion of all extremities, equal. NEUROLOGIC: No focal deficit. Cranial nerves II through XII are grossly intact. No headache, no double vision or headache. SKIN: Warm and dry. Intact. Turgor-normal. LYMPHATIC: No palpable lymph nodes/no lymphedema. MUSCULOSKELETAL: Normal joints with no swelling. Muscle tone is normal. LAB REVIEW: 05/30/17 04:30 05/30/17 04:30 05/30/17 04:30: Sodium 138, Potassium 4.1, Chloride 99, Carbon Dioxide 30, Anion Gap 13.1, BUN 54 H, Creatinine 1.81 H, Estimated GFR (MDRD) 36.00, BUN/ Creatinine Ratio 29.83, Glucose 127 H, Calcium 8.1 L, Total Bilirubin 0.4, AST 20, ALT 12, Alkaline Phosphatase 44 L, Total Protein 5.5 L, Albumin 2.8 L, Globulin 2.7, Albumin/Globulin Ratio 1.04 05/30/17 04:30: WBC 9.91, RBC 3.56 L, Hgb 10.8 L, Hct 32.2 L, MCV 90.4, MCH 30.3 , MCHC 33.5, RDW Coeff of [place] 14.6, Plt Count 143, Immature Gran % (Auto) 1.0, Neut % (Auto) 81.7, Lymph % (Auto) 12.2, [place] % (Auto) 5.0, Eos % (Auto) 0.0, Baso % (Auto) 0.1, Immature Gran # (Auto) 0.1, Neut # 8.1 H, Lymph # 1.2, [place] # 0.5, Eos # 0.0, Baso # 0.0 05/29/17 19:41: Hgb 10.9 L, Hct 32.7 L D 05/29/17 08:20: Blood Type A POSITIVE, Antibody Screen Negative, Crossmatch (AHG ) See Detail ASSESSMENT: 1. CHRONIC RESPIRATORY FAILURE 2. CHRONIC BRONCHITIS 3. ANEMIA 4. CHRONIC KIDNEY DISEASE 5. CONGESTIVE HEART FAILURE PLAN: 1. 1/2 bottle mag citrate for constipation 2. Continue steroids and nebs treatment Plan and coordination of the patient's care discussed in the presence of Laboratory Courier and nurse. CONDITION: Stable SCRIBED BY: ALEC STOREY Flooring Sales Manager scribed while in presence of service performed by Dr. SHWETA PENA on 05/30/17 (06)
[2017-05-31] MEDS: SOLU-CORTEF 250 MG IVP SCH (05:31)
[2017-05-31] MEDS: LEVAQUIN PO SCH (05:31)
[2017-05-31] MEDS: LASIX TAB PO SCH (05:33)
[2017-05-31] MEDS: PULMICORT 0.5 MG/2 ML NEB SCH ×2 (06:00→17:06)
[2017-05-31] MEDS: XOPENEX 1.25 MG NEB SCH ×4 (06:00→23:00)
--- NOTE | 2017-05-31 09:14 | PCM.PROG ---
Attending Provider: ATTENDING PROVIDER: Dr. SHWETA PENA This patient is seen with Caity Wagner, Nurse Practitioner. DATE OF SERVICE: 05/31/17 SUBJECTIVE: This 81 year old WHITE/ M was hospitalized 05/25/17. The patient is sitting on side of bed, alert. Leg left slightly more swollen today. Hemoglobin stable. The patient had a bowel movement yesterday. REVIEW OF SYSTEMS: CONSTITUTIONAL: Weakness. No night sweats. No malaise, lethargy. No fever or chills. HEENT: Eyes: No visual changes. No eye pain. No eye discharge. ENT: No runny nose. No epistaxis. No sinus pain. No odynophagia. No congestion. RESPIRATORY: Positive for shortness of breath. No cough, no congestion. No hemoptysis. CARDIOVASCULAR: No angina symptoms. No CHF symptoms. No atypical chest pain for CAD. No palpitations. No orthopnea.. GASTROINTESTINAL: No abdominal pain. No nausea or vomiting. No diarrhea or constipation. No hematemesis. No hematochezia. GENITOURINARY: No urgency. No frequency. No dysuria. No hematuria. No obstructive symptoms. No discharge. No pain. No significant abnormal bleeding. MUSCULOSKELETAL: No musculoskeletal pain; no joint swelling. NEUROLOGICAL: Awake, alert, oriented to time, place and person. No headache. No neck pain. No syncope. No seizures. No dizziness. PSYCHIATRIC: Not anxious. No depression. No suicidal thoughts. No homicidal thoughts. SKIN: No rash. No lesions. No wounds. ENDOCRINE: No unexplained weight loss. No weight gain. HEMATOLOGIC/LYMPHATIC: No anemia. No purpura. No petechiae. No prolonged or excessive bleeding. No palpable lymph nodes. PHYSICAL EXAMINATION: GENERAL: The patient is awake, alert and oriented, sitting in bed in no distress. VITAL SIGNS: Temperature 97.8 F, Pulse 75, Respiratory Rate 20, BP 160/90, Pulse Ox 100% HEENT: Head normocephalic, atraumatic. Eyes: Extraocular muscles are intact. Pupils are equal, round and reactive to light and accommodation. Ears: No lesions. Nose appeared normal. Throat: No exudate or erythema. NECK: Supple. No JVD, no carotid bruit. No lymphadenopathy or thyromegaly. LUNGS: Diminished breath sounds with faint wheeze on the left. Percussion note normal. Chest symmetrical. HEART: S1, S2, no S3. Grade II/ murmur. No cyanosis or clubbing. No ascites. Pulses: Dorsalis pedis and posterior tibial pulses +1 to +2 both sides. ABDOMEN: Soft. Non-tender. Bowel sounds active. No CVA tenderness. No mass felt. EXTREMITIES: Trace edema, left lower extremity. Full range of motion of all extremities, equal. NEUROLOGIC: No focal deficit. Cranial nerves II through XII are grossly intact. No headache, no double vision or headache. SKIN: Not dry. Intact. Turgor-normal. LYMPHATIC: No palpable lymph nodes/no lymphedema. MUSCULOSKELETAL: Normal joints with no swelling. Muscle tone is normal. LAB REVIEW: 05/31/17 04:30 05/31/17 04:30 05/31/17 04:30: Sodium 141, Potassium 4.6, Chloride 98, Carbon Dioxide 33 H, Anion Gap 14.6, BUN 54 H, Creatinine 2.00 H, Estimated GFR (MDRD) 32.00, BUN/ Creatinine Ratio 27.00, Glucose 138 H, Calcium 8.4, Total Bilirubin 0.4, AST 15 , ALT 14, Alkaline Phosphatase 51 L, Total Protein 5.7 L, Albumin 2.9 L, Globulin 2.8, Albumin/Globulin Ratio 1.04 05/31/17 04:30: WBC 10.27 H, RBC 3.83 L, Hgb 11.5 L, Hct 34.7 L, MCV 90.6, MCH 30.0, MCHC 33.1, RDW Coeff of [place] 14.5, Plt Count 158, Immature Gran % (Auto) 0.9, Neut % (Auto) 81.3, Lymph % (Auto) 12.1, [place] % (Auto) 5.6, Eos % (Auto) 0.0, Baso % (Auto) 0.1, Immature Gran # (Auto) 0.1, Neut # 8.4 H, Lymph # 1.2, [place] # 0.6, Eos # 0.0, Baso # 0.0 ASSESSMENT: 1. CHRONIC RESPIRATORY FAILURE 2. CHRONIC BRONCHITIS 3. ANEMIA 4. CHRONIC KIDNEY DISEASE 5. CONGESTIVE HEART FAILURE PLAN: 1. Extra Lasix 20 mg today at 2 p.m. 2. Prednisone 20 mg b.i.d. 3. Stop Solu-Cortef 4. Protonix 40 p.o. b.i.d. 5. UA 6. Encouraged to drink more water Plan and coordination of the patient's care discussed in the presence of Retaining Room Cutter and nurse. CONDITION: Stable SCRIBED BY: ALEC STOREY Grease Buffer scribed while in presence of service performed by Dr. Pena/Caity Wagner APRN on 05/31/17 (0800)
[2017-05-31] MEDS: ROCEPHIN 1 GM in SODIUM CHLORIDE 50 ML IV SCH (09:18)
[2017-05-31] MEDS: ASPIRIN EC PO SCH (09:20)
[2017-05-31] MEDS: ULTRAM PO SCH ×3 (09:21→20:44)
[2017-05-31] MEDS: ALDACTONE PO SCH (09:21)
[2017-05-31] MEDS: COREG PO SCH (09:21)
[2017-05-31] MEDS: PROTONIX PO SCH ×2 (09:22→16:44)
[2017-05-31] MEDS: VITAMIN D PO SCH (09:22)
[2017-05-31] MEDS: XANAX PO SCH ×2 (09:22→20:43)
--- NOTE | 2017-05-31 13:28 | PN ---
DATE OF SERVICE: 05/29/17 SUBJECTIVE: 81 year old white male hospitalized with shortness of breath, respiratory failure and pleuritic. The patient is short of breath on minimal exertion. He feels weak and tired. Has CHF also, severe aortic stenosis and active GI bleed. Oral intake is acceptable but appetite is not that good. His hgb is 8.1, hct 25 he is symptomatic with anemia with shortness of breath. Needs couple of units of packed red cells he agreed. The patient was seen and examined with Nurse Practitioner. PHYSICAL EXAMINATION: VITAL SIGNS: Blood pressure 140/78 and pulse ox 100% on 2liters. HEENT: Head normocephalic, atraumatic. Eyes: Extraocular muscles are intact. Pupils are equal, round and reactive to light and accommodation. Ears: No lesions. Nose appeared normal. Throat: No exudate or erythema. NECK: Supple. No JVD, no carotid bruit. No lymphadenopathy or thyromegaly. LUNGS: Clear to auscultation. Percussion note normal. Chest symmetrical. HEART: S1, S2, no S3. Grade II to III/ systolic murmur. No cyanosis or clubbing. No ascites. Pulses: Dorsalis pedis and posterior tibial pulses +1 to +2 both sides. ABDOMEN: Soft. Nontender. Bowel sounds active. No CVA tenderness. No mass felt. EXTREMITIES: No edema. Full range of motion of all extremities, equal. NEUROLOGIC: No focal deficit. Cranial nerves II through XII are grossly intact. No headache, no double vision or headache. SKIN: Not dry. Intact. Turgor - normal. LYMPHATIC: No palpable lymph nodes/no lymphedema. MUSCULOSKELETAL: Normal joints with no swelling. Muscle tone is normal. CONDITION: Stable. TIME SPENT: More than 30 minutes. Plan and coordination of the patient's care discussed in the presence of nurse. JOSEPH
[2017-05-31] MEDS ORDERED: LASIX IVP ONE (14:00)
[2017-05-31] MEDS: PREDNISONE PO SCH (16:44)
[2017-06-01] MEDS: PULMICORT 0.5 MG/2 ML NEB SCH ×2 (05:20→17:01)
[2017-06-01] MEDS: XOPENEX 1.25 MG NEB SCH ×4 (05:20→23:02)
[2017-06-01] MEDS: LEVAQUIN PO SCH (05:41)
[2017-06-01] MEDS: PROTONIX PO SCH ×2 (05:41→17:17)
[2017-06-01] MEDS: LASIX TAB PO SCH (05:41)
--- NOTE | 2017-06-01 09:24 | PCM.PROG ---
Attending Provider: ATTENDING PROVIDER: Dr. SHWETA PENA This patient is seen with Caity Wagner, Nurse Practitioner. DATE OF SERVICE: 06/01/17 SUBJECTIVE: This 81 year old WHITE/ M was hospitalized 05/25/17. The patient has been sitting up in bed. He had two bowel movements yesterday. He is alert and oriented. He has been up and about walking. REVIEW OF SYSTEMS: CONSTITUTIONAL: Weakness. No night sweats. No malaise, lethargy. No fever or chills. HEENT: Eyes: No visual changes. No eye pain. No eye discharge. ENT: No runny nose. No epistaxis. No sinus pain. No odynophagia. No congestion. RESPIRATORY: No cough, no congestion. No hemoptysis. Shortness of breath. CARDIOVASCULAR: No angina symptoms. No CHF symptoms. No atypical chest pain for CAD. No palpitations. No orthopnea. Positive for leg edema. GASTROINTESTINAL: No abdominal pain. No nausea or vomiting. No diarrhea or constipation. No hematemesis. No hematochezia. GENITOURINARY: No urgency. No frequency. No dysuria. No hematuria. No obstructive symptoms. No discharge. No pain. No significant abnormal bleeding. MUSCULOSKELETAL: No musculoskeletal pain; no joint swelling. NEUROLOGICAL: Awake, alert, oriented to time, place and person. No headache. No neck pain. No syncope. No seizures. No dizziness. PSYCHIATRIC: Not anxious. No depression. No suicidal thoughts. No homicidal thoughts. SKIN: No rash. No lesions. No wounds. ENDOCRINE: No unexplained weight loss. No weight gain. HEMATOLOGIC/LYMPHATIC: No anemia. No purpura. No petechiae. No prolonged or excessive bleeding. No palpable lymph nodes. PHYSICAL EXAMINATION: GENERAL: The patient is awake, alert and oriented, lying in bed in no distress. VITAL SIGNS: Temperature 97.6 F, Pulse 79, Respiratory Rate 20, BP 144/77, Pulse Ox 100% HEENT: Head normocephalic, atraumatic. Eyes: Extraocular muscles are intact. Pupils are equal, round and reactive to light and accommodation. Ears: No lesions. Nose appeared normal. Throat: No exudate or erythema. NECK: Supple. No JVD, no carotid bruit. No lymphadenopathy or thyromegaly. LUNGS: Diminished breath sounds on the right. Clear to auscultation. Percussion note normal. Chest symmetrical. HEART: S1, S2, no S3. Grade II/ murmur. No cyanosis or clubbing. No ascites. Pulses: Dorsalis pedis and posterior tibial pulses +1 to +2 both sides. ABDOMEN: Soft. Non-tender. Bowel sounds active. No CVA tenderness. No mass felt. EXTREMITIES: Trace left lower extremity edema. Full range of motion of all extremities, equal. NEUROLOGIC: No focal deficit. Cranial nerves II through XII are grossly intact. No headache, no double vision or headache. SKIN: Not dry. Intact. Turgor-normal. LYMPHATIC: No palpable lymph nodes/no lymphedema. MUSCULOSKELETAL: Normal joints with no swelling. Muscle tone is normal. LAB REVIEW: 06/01/17 05:15 06/01/17 05:15 06/01/17 05:15: Sodium 140, Potassium 4.5, Chloride 95 L, Carbon Dioxide 35 H, Anion Gap 14.5, BUN 46 H, Creatinine 1.86 H, Estimated GFR (MDRD) 35.00, BUN/ Creatinine Ratio 24.73, Glucose 101, Calcium 8.7, Total Bilirubin 0.5, AST 17, ALT 13, Alkaline Phosphatase 51 L, Total Protein 5.9, Albumin 3.0 L, Globulin 2.9, Albumin/Globulin Ratio 1.03 06/01/17 05:15: WBC 11.19 H, RBC 4.01 L, Hgb 12.1 L, Hct 36.9 L, MCV 92.0, MCH 30.2, MCHC 32.8, RDW Coeff of [place] 14.3, Plt Count 172, Immature Gran % (Auto) 0.8, Neut % (Auto) 73.7, Lymph % (Auto) 18.2, [place] % (Auto) 7.0, Eos % (Auto) 0.2, Baso % (Auto) 0.1, Immature Gran # (Auto) 0.1, Neut # 8.3 H, Lymph # 2.0, [place] # 0.8, Eos # 0.0, Baso # 0.0 ASSESSMENT: 1. CHRONIC RESPIRATORY FAILURE 2. CHRONIC BRONCHITIS 3. ANEMIA 4. CHRONIC KIDNEY DISEASE 5. CONGESTIVE HEART FAILURE PLAN: 1. Encourage to get up and about 2. Possible discharge today 3. Elevate legs Plan and coordination of the patient's care discussed in the presence of Building Service Worker and nurse. CONDITION: Stable SCRIBED BY: ALEC STOREY, Neck Skewer scribed while in presence of service performed by Dr. Pena/Caity Wagner APRN on 06/01/17 (1511)
[2017-06-01] MEDS: PREDNISONE PO SCH ×2 (09:46→17:17)
[2017-06-01] MEDS: ROCEPHIN 1 GM in SODIUM CHLORIDE 50 ML IV SCH (09:46)
[2017-06-01] MEDS: COREG PO SCH (09:46)
[2017-06-01] MEDS: XANAX PO SCH ×2 (09:46→20:09)
[2017-06-01] MEDS: VITAMIN D PO SCH (09:47)
[2017-06-01] MEDS: ULTRAM PO SCH ×3 (09:47→20:09)
[2017-06-01] MEDS: ASPIRIN EC PO SCH (09:47)
[2017-06-01] MEDS: ALDACTONE PO SCH (09:47)
[2017-06-02] MEDS: PULMICORT 0.5 MG/2 ML NEB SCH (05:09)
[2017-06-02] MEDS: XOPENEX 1.25 MG NEB SCH ×2 (05:09→11:11)
[2017-06-02] MEDS: LASIX TAB PO SCH (05:32)
[2017-06-02] MEDS: PROTONIX PO SCH (05:32)
[2017-06-02] MEDS: LEVAQUIN PO SCH (05:32)
[2017-06-02] MEDS: PREDNISONE PO SCH (08:10)
[2017-06-02] MEDS: ALDACTONE PO SCH (08:10)
[2017-06-02] MEDS: VITAMIN D PO SCH (08:10)
[2017-06-02] MEDS: ROCEPHIN 1 GM in SODIUM CHLORIDE 50 ML IV SCH (08:10)
[2017-06-02] MEDS: ASPIRIN EC PO SCH (08:10)
[2017-06-02] MEDS: ULTRAM PO SCH (08:10)
[2017-06-02] MEDS: XANAX PO SCH (08:10)
[2017-06-02] MEDS: COREG PO SCH (08:10)
[2017-06-02 10:16] VITALS: BP 138/69; TEMP 98.1
--- NOTE | 2017-06-05 08:59 | PN ---
DATE OF SERVICE: 06/01/17 SUBJECTIVE: He is up and about doing well. Hgb 12 and hct 36. No evidence of GI bleed. Not candidate for any GI workup. The patient's appetite is improving. His kidney functions are stable, abnormal but better than before. Strongly advised to quit smoking. PHYSICAL EXAMINATION: HEENT: Head normocephalic, atraumatic. Eyes: Extraocular muscles are intact. Pupils are equal, round and reactive to light and accommodation. Ears: No lesions. Nose appeared normal. Throat: No exudate or erythema. NECK: Supple. No JVD, no carotid bruit. No lymphadenopathy or thyromegaly. LUNGS: Decreased breath sounds but good air entry. Clear to auscultation. Percussion note normal. Chest symmetrical. HEART: S1, S2, no S3. No murmurs. No cyanosis or clubbing. No ascites. Pulses: Dorsalis pedis and posterior tibial pulses +1 to +2 both sides. ABDOMEN: Soft. Nontender. Bowel sounds active. No CVA tenderness. No mass felt. EXTREMITIES: No edema. Full range of motion of all extremities, equal. NEUROLOGIC: No focal deficit. Cranial nerves II through XII are grossly intact. No headache, no double vision or headache. SKIN: Not dry. Intact. Turgor - normal. LYMPHATIC: No palpable lymph nodes/no lymphedema. MUSCULOSKELETAL: Normal joints with no swelling. Muscle tone is normal. CONDITION: Stable. The patient was seen and examined with Nurse Practitioner. PLAN: 1. The patient will be discharged home on Levaquin. TIME SPENT: More than 30 minutes. Plan and coordination of the patient's care discussed in the presence of nurse. JOSEPH
--- NOTE | 2017-06-05 09:32 | PN ---
05/25/17: Level 5 05/26/17: Intermediate 05/27/17: Intermediate 05/28/17: Intermediate 05/29/17: Intermediate 05/30/17: Intermediate 05/31/17: Intermediate 06/01/17: D as in discharge MTDD
--- NOTE | 2017-06-06 09:06 | PN ---
DATE OF SERVICE: 06/02/17 SUBJECTIVE: 81-year-old white male hospitalized with acute bronchitis and respiratory failure, pleuritic pain. The patient's condition has remarkably improved. Hemoglobin and hematocrit is stable 11.7, hematocrit dropped 34. His kidney functions are stable, 1.8 and 46 (creatinine and BUN respectively). The as usual is in the room. The patient's appetite has improved; in fact, he had a bowel movement yesterday. REVIEW OF SYSTEMS: CONSTITUTIONAL: No night sweats. No fatigue, malaise, lethargy. No fever or chills. HEENT: Eyes: No visual changes. No eye pain. No eye discharge. ENT: No runny nose. No epistaxis. No sinus pain. No sore throat. No odynophagia. No congestion. RESPIRATORY: No cough, no congestion. No hemoptysis. Mild shortness of breath as usual with exertion. CARDIOVASCULAR: No angina symptoms. No CHF symptoms. No atypical chest pain for CAD. No palpitations. No PND. No orthopnea. GASTROINTESTINAL: Appetite has improved. No abdominal pain. No nausea or vomiting. No diarrhea or constipation. No hematemesis. No hematochezia. GENITOURINARY: No urgency. No frequency. No dysuria. No hematuria. No obstructive symptoms. No discharge. No pain. No significant abnormal bleeding. MUSCULOSKELETAL: No musculoskeletal pain; no joint swelling. NEUROLOGICAL: No headache. No neck pain. No syncope. No seizures. No dizziness. PSYCHIATRIC: Not anxious. No depression. No suicidal thoughts. No homicidal thoughts. SKIN: No rash. No lesions. No wounds. ENDOCRINE: No unexplained weight loss. No weight gain. HEMATOLOGIC/LYMPHATIC: No anemia. No purpura. No petechiae. No prolonged or excessive bleeding. No palpable lymph nodes. PHYSICAL EXAMINATION: GENERAL: The patient is oriented to time, place and person. VITAL SIGNS: Temperature 97, pulse 65, respiratory rate 20, BP 130/70, pulse ox 99% on 2L. HEENT: Head normocephalic, atraumatic. Eyes: Extraocular muscles are intact. Pupils are equal, round and reactive to light and accommodation. Ears: No lesions. Nose appeared normal. Throat: No exudate or erythema. NECK: Supple. No JVD, no carotid bruit. No lymphadenopathy or thyromegaly. LUNGS: Decreased breath sounds but clear to auscultation. Percussion note normal. Chest symmetrical. HEART: S1, S2, no S3. No murmurs. No cyanosis or clubbing. No ascites. Pulses: Dorsalis pedis and posterior tibial pulses +1 to +2 both sides. ABDOMEN: Soft. Nontender. Bowel sounds active. No CVA tenderness. No mass felt. EXTREMITIES: No edema. Full range of motion of all extremities, equal. NEUROLOGIC: No focal deficit. Cranial nerves II through XII are grossly intact. No headache, no double vision or headache. SKIN: Not dry. Intact. Turgor - normal. LYMPHATIC: No palpable lymph nodes/no lymphedema. MUSCULOSKELETAL: Normal joints with no swelling. Muscle tone is normal. ASSESSMENT: 1. RESPIRATORY FAILURE, STABLE 2. BRONCHITIS, CHRONIC, STABLE 3. CHF UNDER CONTROL 4. AORTIC STENOSIS PLAN: 1. Discharge home on Levaquin. 2. Steroid - he already has. 3. The patient was mildly depressed, has been started on Lexapro, which seems to be working okay. 4. Will discharge home in stable condition to be followed as an outpatient. CONDITION: Stable. TIME SPENT: More than 30 minutes. Plan and coordination of the patient's care discussed in the presence of nurse. JOSEPH
--- NOTE | 2017-06-06 09:23 | DS ---
DATE OF SERVICE: 06/02/17 FINAL DIAGNOSIS: 1. BRONCHITIS, CHRONIC 2. RESPIRATORY FAILURE 3. PLEURITIC PAIN 4. HISTORY OF SEVERE AORTIC STENOSIS 5. STATUS POST CATARACT SURGERY LEFT EYE 2015, RIGHT EYE 2014 6. CVA 2016 7. CORONARY ARTERY DISEASE 8. CONGESTIVE HEART FAILURE 9. PERIPHERAL VASCULAR DISEASE 10. HYPERTENSION 11. HYPOXEMIA 12. COPD 13. PNEUMONIA 14. GERD 15. CKD 16. STATUS POST PROSTATE CANCER WITH SURGERY, 1996 17. DEGENERATIVE DISK DISEASE 18. HYPERGLYCEMIA DISCHARGE INSTRUCTIONS: Followup appointment with Dr. Jarvis on morning, please call for appointment. MEDICATIONS: Xanax 0.25 mg p.o. b.i.d. Aldactone 25 mg p.o. daily Coreg 6.25 mg p.o. daily Lasix 40 mg p.o. q.a.m. Cholecalciferol 1000 unit p.o. daily Ipratropium/Albuterol two puff IH q.i.d. p.r.n. Symbicort 160-4.5 mcg inhaler two puff INH b.i.d. p.r.n. Miralax 17 gm p.o. daily p.r.n. Aspirin 81 mg p.o. daily with meal Duoneb one vial neb RT q.4h p.r.n. Ultram 50 mg p.o. b.i.d. p.r.n. Lasix 20 mg p.o. 1600 NEW PRESCRIPTIONS: Levaquin 250 mg take one tablet daily for 7 days. Take until all gone. Lexapro 10 mg take one tablet daily at bedtime. Increase Protonix 40 mg to two times a day. DIET INSTRUCTIONS: As patient tolerates. ACTIVITY: Gradually resume activity. Avoid crowds. SMOKING: Advised to quit. Counseling for smoking done. DISEASE SPECIFIC EDUCATION: Smoking cessation Medications as well as new medications Followup appointment HOSPITAL COURSE: 81-year-old white male hospitalized with acute bronchitis, respiratory failure, dehydration. The patient also had anemia. The patient was given a couple units of packed red cells. His hemoglobin is now stable with no evidence of active GI bleed. Hemoglobin was 11.7, hematocrit 34. He was up and about, feeling better. The patient has been on Protonix. He is still sneaking around and smoking. Counseling for smoking done. The patient was discharged on Levaquin to be taken as an outpatient for 7 days. Lexapro was added because of mild depression. It seems to be helping him. The side effects of Lexapro discussed with the patient. The patient has some Prednisone at home. He was advised to continue the same tapering dose of Prednisone. The patient's COPD's dose of prednisone dependent. He has some end-stage medical problems like severe aortic stenosis, congestive heart failure, coronary artery disease, end-stage COPD. His prognosis is poor. Condition is stable at the time of discharge. TIME SPENT: More than 60 minutes. MTDD
--- NOTE | 2017-06-06 09:25 | PN ---
CODING FOR BILLING 05/25/17 LEVEL 5 05/26/17 INTERMEDIATE 05/27/17 INTERMEDIATE 05/28/17 INTERMEDIATE 05/29/17 INTERMEDIATE 05/30/17 INTERMEDIATE 05/31/17 INTERMEDIATE 06/01/17 INTERMEDIATE 06/02/17 DISCHARGE MTDD
== END 2017-06-02 13:09 | disposition home or self-care (01) | DRG 190 ==
LOC: MEDSURG B 10:39
PROVIDERS: ADMIT Internal Medicine; ATTEND Internal Medicine
PROC: 30233N1 Transfusion of Nonautologous Red Blood Cells into Peripheral Vein, Percutaneous Approach (ICD-10-PCS; principal; 2017-05-29)
PROC: 30233N1 Transfusion of Nonautologous Red Blood Cells into Peripheral Vein, Percutaneous Approach (ICD-10-PCS; 2017-05-29)
DX: J44.0 Chronic obstructive pulmonary disease with (acute) lower respiratory infection (principal); J18.9 Pneumonia, unspecified organism; J96.11 Chronic respiratory failure with hypoxia; N17.9 Acute kidney failure, unspecified; N18.4 Chronic kidney disease, stage 4 (severe); K92.1 Melena; I12.9 Hypertensive chronic kidney disease with stage 1 through stage 4 chronic kidney disease, or unspecified chronic kidney disease; J20.9 Acute bronchitis, unspecified; D64.9 Anemia, unspecified; E86.0 Dehydration; I35.0 Nonrheumatic aortic (valve) stenosis; I25.10 Atherosclerotic heart disease of native coronary artery without angina pectoris; I50.9 Heart failure, unspecified; R07.81 Pleurodynia; I73.9 Peripheral vascular disease, unspecified; I10 Essential (primary) hypertension; K21.9 Gastro-esophageal reflux disease without esophagitis; R73.9 Hyperglycemia, unspecified; K59.00 Constipation, unspecified; M51.36 Other intervertebral disc degeneration, lumbar region; F17.210 Nicotine dependence, cigarettes, uncomplicated; Z85.46 Personal history of malignant neoplasm of prostate; Z86.73 Personal history of transient ischemic attack (TIA), and cerebral infarction without residual deficits; Z87.19 Personal history of other diseases of the digestive system; Z79.899 Other long term (current) drug therapy
CPT/HCPCS: 36415; 36430; 80053; 81001; 82272; 82550; 82803; 84443; 84484; 85014; 85018; 85025; 86850; 86900; 86922; 87070; 87186; 93005; 93010; 94640; 97802; 99223; 99232; 99239

== ENCOUNTER 2017-06-04 15:12 | Emergency (ER) | payer OTHER ==
[2017-06-04 15:22] VITALS: BP 125/73; TEMP 98.3; BMI 22.0
--- NOTE | 2017-06-04 16:18 | US ---
EXAM: Bilateral lower extremity venous Doppler HISTORY: Concern for DVT with tenderness and swelling. COMPARISON: None TECHNIQUE: Sonographic and Doppler evaluation of the bilateral lower extremity vessels from the comm on femoral through the anterior tibial veins were obtained. Augmentation and compression techniques were also performed. FINDINGS: There is spontaneous Doppler flow seen in the bilateral lower extremity veins from the com mon femoral through the anterior tibial veins. There is normal compression and augmentation througho ut the lower extremity veins. Sonographic appearance of the soft tissues demonstrates scattered edema . IMPRESSION: No lower extremity thrombus with mild subcutaneous edema.
--- NOTE | 2017-06-04 16:35 | ED.PDOC ---
General ED Provider: Dr. CRYSTAL PEREZ Chief Complaint: Extremity Swelling/Pain Stated Complaint: Legs swollen; discharged from hospital past weekend. Time Seen by Physician: 15:30 Mode of Arrival: Walk-In Information Source: Patient Exam Limitations: No limitations Primary Care Provider: SHWETA PENA Seen Within Last 72 Hours for Same Complaint By: In-Patient Facility Nursing and Triage Documentation Reviewed and Agree: Yes Reviewed sepsis parameters & appropriate labs ordered?: Yes System Inflammatory Response Syndrome: Not Applicable Sepsis Protocol: For patient's 13 years and over: Temp is 96.8 and below OR 101 and greater Pulse >90 BPM Resp >20/minute Acutely Altered Mental Status Are patient's symptoms suggestive of a new infection, such as: -Pneumonia -Skin, Soft Tissue -Endocarditis -UTI -Bone, Joint Infection -Implantable Device -Acute Abdominal Infection -Wound Infection -Meningitis -Blood Stream Catheter Infection -Unknown System Inflammatory Response Syndrome: Not Applicable Review of Systems - Review Of Systems Constitutional: Reports: No symptoms Respiratory: Reports: No symptoms All Other Systems: Reviewed and Negative Past Medical History - Past Medical History Previously Healthy: Yes Endocrine: Reports: Dyslipidemia Cardiovascular: Reports: CAD, Hypertension, CHF, Other () Respiratory: Reports: COPD, Bronchitis Hematological: Reports: None Gastrointestinal: Reports: None, GERD, Other (bilateral hernia) Genitourinary: Reports: CKD Neuro/Psych: Reports: None 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, Other (DJD SPINE) Cancer: Reports: Other (prostate) Other Pertinent Past Medical History: Prostate-Prostate, - Surgical History General Surgical History: Reports: Cholecystectomy, Hernia Repair (bilateral hernia), Other (Prostate) - Family History Family History: Reports: Unknown - Social History Smoking Status: Current some day smoker, Light tobacco smoker Hx Substance Use: No Alcohol Screening: None Physical Exam - Physical Exam Appearance: Ill-appearing Ill-appearing: Moderate (Chronic appearing, on Oxygen) Respiratory: Airway patent Skin: Pale Neurological: Alert, Oriented Psychiatric: Affect appropriate, Mood appropriate Interpretation - Radiology Interpretation Radiology Interpretation By: Radiologist Radiology Results: Negative Exam Interpreted: Other (Bilateral US of Lower Extremities - negative for thrombus formation) Physician Notification - Case Discussed Physician Notified: Dr. Pena Time of Notification: 16:25 (US only needed; no further evaluation based on negative findings of US) Critical Care Note - Critical Care Note Total Time (mins): 10 Course - Course Orders, Labs, Meds: Orders Category Date Time Status ULTRASOUND VENOUS SCAN SYDNEY LEGS [U/S VENOUS SCAN SYDNEY RADS 06/04/17 15:27 Completed LEGS] Stat Vital Signs: Temp Pulse Resp BP Pulse Ox 06/04/17 15:13 98.3 F 90 24 125/73 92 L LAM Risk Score LAM Risk Score: Risk Score Odds of by 30D 0 0.1 (0.1-0.2) 1 0.3 (0.2-0.3) 2 0.4 (0.3-0.5) 3 0.7 (0.6-0.9) 4 1.2 (1.0-1.5) 5 2.2 (1.9-2.6) 6 3.0 (2.5-3.6) 7 4.8 (3.8-6.1) Departure - Departure Time of Disposition: 16:33 Disposition: HOME SELF-CARE Discharge Problem: Edema extremities Instructions: Leg Edema (ED) Condition: Stable Pt referred to PMD for follow-up: Yes (Call for appointment) IPMP verified?: No (Not indicated) Additional Instructions: Follow up with Dr. Pena; call his office tomorrow. He and I discussed the ultrasound of the legs - negaqtive for blood clot formation. Allergies/Adverse Reactions: Allergies lisinopril Adverse Reaction (Verified 04/11/17 14:34) rash, cough verapamil Adverse Reaction (Verified 04/11/17 14:34) Home Medications: Ambulatory Orders Alprazolam [Xanax] 0.25 mg PO BID 12/09/12 Carvedilol [Coreg] 6.25 mg PO DAILY 12/09/12 Spironolactone [Aldactone] 25 mg PO DAILY 12/09/12 Furosemide [Lasix Tab] 40 mg PO QAM 12/12/12 Cholecalciferol (Vitamin D3) [Vitamin D] 1,000 unit PO DAILY 02/14/14 Ipratropium/Albuterol Sulfate [Combivent Respimat Inhal [place]] 2 puff IH QID PRN 02/14/14 Budesonide/Formoterol Fumarate [Symbicort 160-4.5 Mcg Inhaler] 2 puff INH BID PRN 12/24/14 Polyethylene Glycol 3350 [Miralax] 17 gm PO DAILY PRN #20 powd.pack 10/27/16 Aspirin [Aspirin EC] 81 mg PO DAILYWM 12/03/16 Ipratropium/Albuterol Neb [Duoneb] 1 vial NEB RTQ4H PRN 12/03/16 Tramadol HCl [Ultram] 50 mg PO BID PRN 04/11/17 Furosemide [Lasix Tab] 20 mg PO 1600 05/25/17 Escitalopram Oxalate [Lexapro] 10 mg PO BEDTIME #30 tablet 06/02/17 Levofloxacin [Levaquin] 250 mg PO DAILY #7 tablet 06/02/17 Pantoprazole Sodium [Protonix] 40 mg PO BIDAC #60 tablet. 06/02/17 Disposition Discussed With: Patient (And )
== END 2017-06-04 16:38 | disposition home or self-care (01) ==
LOC: ED 15:12
DX: R60.0 Localized edema (principal); F17.210 Nicotine dependence, cigarettes, uncomplicated
CPT/HCPCS: 99283

== ENCOUNTER 2017-06-11 18:13 | Inpatient (IN) | payer OTHER ==
[2017-06-11] MEDS ORDERED: DUONEB NEB STA (18:36)
[2017-06-11] MEDS ORDERED: SOLU-MEDROL 125 MG IVP STA (18:36)
--- NOTE | 2017-06-11 18:40 | ED.PDOC ---
General Stated Complaint: shortness of breath Time Seen by Physician: 18:33 (SEE WITH ROGELIO AT ALL TIMES STATED HE WAS RECENTLY D/C FROM HOSPITAL NEGATIVE PAIN) Mode of Arrival: Wheelchair Information Source: Patient Exam Limitations: No limitations Referred to ED by: Other (NO RESP DISTRESS ) Nursing and Triage Documentation Reviewed and Agree: Yes (STILL SMOKES . BUT WITHIN PAST FEW DAYS NEGATIVE CHEST PAIN) Reviewed sepsis parameters & appropriate labs ordered?: Yes System Inflammatory Response Syndrome: Not Applicable System Inflammatory Response Syndrome: Not Applicable (D/C FROM HOSPITAL ) <RENY ROBERTS - Last Filed: 06/11/17 18:50> <JANICE PENA - Last Filed: 06/11/17 20:41> ED Provider: Dr. JANICE PENA Chief Complaint: Shortness of Air Primary Care Provider: SHWETA PENA Sepsis Protocol: For patient's 13 years and over: Temp is 96.8 and below OR 101 and greater Pulse >90 BPM Resp >20/minute Acutely Altered Mental Status Are patient's symptoms suggestive of a new infection, such as: -Pneumonia -Skin, Soft Tissue -Endocarditis -UTI -Bone, Joint Infection -Implantable Device -Acute Abdominal Infection -Wound Infection -Meningitis -Blood Stream Catheter Infection -Unknown Respiratory Complaint Exam - Shortness of Air Complaint/Exam Onset/Duration: 3 DAYS Symptoms Are: Still present Timing: Intermittent Initial Severity: Moderate Current Severity: Moderate Aggravating: Reports: None Alleviating: Reports: Bronchodilators, Upright position Associated Signs and Symptoms: Reports: Cough, Wheezing, Nasal congestion, Rapid breathing. Denies: Chest pain with cough, Chest pain, Fever, Chills, Diaphoresis, Dizziness, Calf pain, Calf swelling, Edema, Labored breathing, Decreased intake Related History: Reports: Similar episode History of Healthcare-Acquired Pneumonia: No Pulmonary Embolism Risk Factors: Reports: None Cardiac Risk Factors: Reports: CAD (VALVULAR HEAT DISEASE ), Hypertension Pseudomonas Risk Factors: Reports: Chronic Lung Disease Tuberculosis Risk Factors: Reports: Chronic Resp. Faliure Home Oxygen Use: Yes (2 L) Recent Stress Test: No Recent Echo/LV Function: No Respiratory Distress: None Stridor Present: No Tracheal Deviation: No Subcutaneous Emphysema: No Accessory Muscle Use: No Retractions: Diaphragmatic Diminished Breath Sounds: Yes Prolonged Expiratory Phase: Yes Unable to Speak Full Sentences: No Fatigue: No Leg Swelling: No Jasmyn's Sign Present: No Grunting Respirations: No Kussmaul Respirations: No Differential Diagnoses: COPD Exacerbation, Pneumonia, Bronchitis Quality Indicators for AMI: EKG in 10min. Quality Indicators for Cardiac Chest Pain: EKG in 10min. Quality Indicator For Non-Traumatic Chest Pain/Syncope: EKG Performed <RENY ROBERTS - Last Filed: 06/11/17 18:50> Review of Systems - Review Of Systems Constitutional: Reports: Malaise, Weakness, Loss of appetite Eyes: Reports: No symptoms Ears, Nose, Mouth, Throat: Reports: No symptoms Respiratory: Reports: Cough, Short of air, Wheezing Cardiac: Reports: No symptoms GI: Reports: No symptoms : Reports: No symptoms Musculoskeletal: Reports: No symptoms Skin: Reports: No symptoms Neurological: Reports: No symptoms Endocrine: Reports: No symptoms Hematologic/Lymphatic: Reports: No symptoms All Other Systems: Reviewed and Negative <RENY ROBERTS - Last Filed: 06/11/17 18:50> Past Medical History - Past Medical History Previously Healthy: Yes Endocrine: Reports: Dyslipidemia Cardiovascular: Reports: CAD, Hypertension, CHF, Other () Respiratory: Reports: COPD, Bronchitis Hematological: Reports: None Gastrointestinal: Reports: None, GERD, Other (bilateral hernia) Genitourinary: Reports: CKD Neuro/Psych: Reports: None 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, Other (DJD SPINE) Cancer: Reports: Other (prostate) Other Pertinent Past Medical History: Prostate-Prostate, - Surgical History General Surgical History: Reports: Cholecystectomy, Hernia Repair (bilateral hernia), Other (Prostate) - Family History Family History: Reports: Unknown - Social History Smoking Status: Current some day smoker, Light tobacco smoker Hx Substance Use: No Alcohol Screening: None <RENY ROBERTS - Last Filed: 06/11/17 18:50> Physical Exam - Physical Exam Appearance: Ill-appearing Ill-appearing: Mild Pain Distress: Mild Eyes: JANY, EOMI, Conjunctiva clear ENT: Dry mucosa Respiratory: Wheezes Cardiovascular: RRR, Pulses normal, No rub, No murmur GI/: Soft, Nontender, No masses, Bowel sounds normal, No Organomegaly Musculoskeletal: Normal strength, ROM intact, No edema, No calf tenderness Skin: Warm, Dry, Normal color Neurological: Sensation intact, Motor intact, Reflexes intact, Cranial nerves intact, Alert, Oriented Psychiatric: Affect appropriate, Mood appropriate <RENY ROBERTS - Last Filed: 06/11/17 18:50> Re-Evaluation - Re-Evaluation Time of Re-Evaluation: 19:00 (HR 113 ,O2 SAT 96% ) Status: Improved Vital Signs Stable: Yes Pain Level: 0 HAS CHRONIC BACK PAIN NOT ACUTELY WORSE Appearance: NAD Lungs: Other (WHEEZING SCATTERED) Skin: Warm and Dry Neuro: Alert and Oriented X3 CV: RRR <BAIRONLINORENY - Last Filed: 06/11/17 18:50> Physician Notification - Case Discussed Physician Notified: JEAN Time of Notification: 19:00 <BAIRONLINORENY - Last Filed: 06/11/17 18:50> Critical Care Note - Critical Care Note Total Time (mins): 0 <BAIRONLINORENY - Last Filed: 06/11/17 18:50> Course - Course Hematology/Chemistry: 06/11/17 18:58 06/11/17 18:58 <JEANJANICE - Last Filed: 06/11/17 20:41> - Course Orders, Labs, Meds: Lab Review 06/11/17 06/11/17 06/11/17 18:35 18:47 18:58 WBC 7.77 RBC 4.34 L Hgb 12.9 L Hct 41.2 L MCV 94.9 H MCH 29.7 MCHC 31.3 L RDW Coeff of [place] 13.8 Plt Count 128 L Immature Gran % (Auto) 0.4 Neut % (Auto) 65.1 Lymph % (Auto) 20.5 [place] % (Auto) 11.2 H Eos % (Auto) 2.7 Baso % (Auto) 0.1 Immature Gran # (Auto) 0.0 Neut # (Auto) 5.1 Lymph # (Auto) 1.6 [place] # (Auto) 0.9 Eos # (Auto) 0.2 Baso # (Auto) 0.0 PT INR APTT Puncture Site Rr O2 Saturation 98.0 ABG pH 7.508 H* ABG pCO2 52.7 H ABG pO2 102.0 H ABG HCO3 41.8 H ABG Total CO2 43 H ABG Base Excess 19 H Manuel Test + O2 Delivery Device Nc Oxygen Liter Flow 2.00 FiO2 % 28.0 Sodium Potassium Chloride Carbon Dioxide Anion Gap BUN Creatinine Estimated GFR (MDRD) BUN/Creatinine Ratio Glucose Lactic Acid Calcium Total Bilirubin AST ALT Alkaline Phosphatase Total Creatine Kinase Troponin I B-Natriuretic Peptide Total Protein Albumin Globulin Albumin/Globulin Ratio Procalcitonin Influ A Molecular Assay Negative by naat Influ B Molecular Assay Negative by naat 06/11/17 06/11/17 06/11/17 18:58 18:58 18:58 WBC RBC Hgb Hct MCV MCH MCHC RDW Coeff of [place] Plt Count Immature Gran % (Auto) Neut % (Auto) Lymph % (Auto) [place] % (Auto) Eos % (Auto) Baso % (Auto) Immature Gran # (Auto) Neut # (Auto) Lymph # (Auto) [place] # (Auto) Eos # (Auto) Baso # (Auto) PT 10.5 INR 1.03 APTT 24.9 Puncture Site O2 Saturation ABG pH ABG pCO2 ABG pO2 ABG HCO3 ABG Total CO2 ABG Base Excess Manuel Test O2 Delivery Device Oxygen Liter Flow FiO2 % Sodium 145 Potassium 4.6 Chloride 96 L Carbon Dioxide 38 H Anion Gap 15.6 BUN 29 H Creatinine 1.65 H Estimated GFR (MDRD) 40.00 BUN/Creatinine Ratio 17.57 Glucose 105 Lactic Acid Calcium 9.4 Total Bilirubin 0.9 AST 15 ALT 14 Alkaline Phosphatase 62 Total Creatine Kinase 20 Troponin I 0.3330 B-Natriuretic Peptide Total Protein 6.4 Albumin 3.0 L Globulin 3.4 Albumin/Globulin Ratio 0.88 Procalcitonin < 0.05 Influ A Molecular Assay Influ B Molecular Assay 06/11/17 06/11/17 18:58 18:58 WBC RBC Hgb Hct MCV MCH MCHC RDW Coeff of [place] Plt Count Immature Gran % (Auto) Neut % (Auto) Lymph % (Auto) [place] % (Auto) Eos % (Auto) Baso % (Auto) Immature Gran # (Auto) Neut # (Auto) Lymph # (Auto) [place] # (Auto) Eos # (Auto) Baso # (Auto) PT INR APTT Puncture Site O2 Saturation ABG pH ABG pCO2 ABG pO2 ABG HCO3 ABG Total CO2 ABG Base Excess Manuel Test O2 Delivery Device Oxygen Liter Flow FiO2 % Sodium Potassium Chloride Carbon Dioxide Anion Gap BUN Creatinine Estimated GFR (MDRD) BUN/Creatinine Ratio Glucose Lactic Acid 10.7 Calcium Total Bilirubin AST ALT Alkaline Phosphatase Total Creatine Kinase Troponin I B-Natriuretic Peptide 3644 H Total Protein Albumin Globulin Albumin/Globulin Ratio Procalcitonin Influ A Molecular Assay Influ B Molecular Assay Orders Category Date Time Status ABG DRAW REQUEST Stat CARDIO 06/11/17 18:35 Completed EKG-(ED ONLY) Stat CARDIO 06/11/17 18:35 Completed NEBULIZER TREATMENT Stat CARDIO 06/11/17 18:36 Completed ED IV/MEDIPORT/POWERPORT .ONCE EMERGENCY 06/11/17 18:35 Active ABG Stat LAB 06/11/17 18:35 Completed B-TYPE NATRIURETIC PEPTIDE Stat LAB 06/11/17 18:58 Completed BLOOD CULTURE (ED ONLY) Stat LAB 06/11/17 18:58 Received CBC W/ AUTO DIFF Stat LAB 06/11/17 18:58 Completed COMPREHENSIVE METABOLIC PANEL Stat LAB 06/11/17 18:58 Completed CREATINE KINASE Stat LAB 06/11/17 18:58 Completed FLU A/B MOLECULAR Stat LAB 06/11/17 18:47 Completed LACTIC ACID Stat LAB 06/11/17 18:58 Completed PARTIAL THROMBOPLASTIN TIME Stat LAB 06/11/17 18:58 Completed PROCALCITONIN Stat LAB 06/11/17 18:58 Completed PT WITH INR Stat LAB 06/11/17 18:58 Completed TROPONIN I Stat LAB 06/11/17 18:58 Completed 0.9 % Sodium Chloride [Saline Flush] MEDS 06/11/17 18:34 Ordered 1 syr IVF PRN PRN Ipratropium/Albuterol Neb [Duoneb] MEDS 06/11/17 18:36 Discontinued 1 vial NEB ONCE STA Methylprednisolone Sod Succ/Pf [Solu-Medrol 125 mg] MEDS 06/11/17 18:36 Discontinued 125 mg IVP ONCE STA CHEST, 1V AP ONLY Stat RADS 06/11/17 18:34 Completed Medications Generic Name Dose Route Start Last Admin Trade Name Freq PRN Reason Stop Dose Admin Sodium Chloride 1 syr 06/11/17 18:34 06/11/17 18:57 Saline Flush IVF 1 syr PRN PRN Administration To flush IV Discontinued Medications Generic Name Dose Route Start Last Admin Trade Name Freq PRN Reason Stop Dose Admin Albuterol/Ipratropium 1 vial 06/11/17 18:36 06/11/17 18:53 Duoneb NEB 06/11/17 18:37 1 vial ONCE STA Administration Methylprednisolone Sodium Succinate 125 mg 06/11/17 18:36 06/11/17 18:57 Solu-Medrol 125 Mg IVP 06/11/17 18:37 125 mg ONCE STA Administration Vital Signs: Temp Pulse Resp BP Pulse Ox 06/11/17 19:27 110 H 19 120/71 97 06/11/17 18:21 98.8 F 115 H 24 139/72 96 Departure - Departure Pt referred to PMD for follow-up: Yes IPMP verified?: No Disposition Discussed With: Patient, Family <RENY ROBERTS - Last Filed: 06/11/17 18:50> - Departure Time of Disposition: 20:32 <JANICE PENA - Last Filed: 06/11/17 20:41> - Departure Disposition: HOME SELF-CARE Discharge Problem: COPD exacerbation Renal failure (ARF), acute on chronic Qualifiers: Acute renal failure type: with acute renal cortical necrosis Chronic kidney disease stage: stage 3 (moderate) Qualified Code(s): N17.1 - Acute kidney failure with acute cortical necrosis; N18.3 - Chronic kidney disease, stage 3 ( moderate); N18.3 - Chronic kidney disease, stage 3 (moderate) Instructions: COPD (Chronic Obstructive Pulmonary Disease) (ED) Condition: Good Additional Instructions: Please call your Family Physician as soon as possible to schedule a follow-up appointment. Allergies/Adverse Reactions: Allergies lisinopril Adverse Reaction (Verified 06/11/17 18:47) rash, cough verapamil Adverse Reaction (Verified 06/11/17 18:47) Home Medications: Ambulatory Orders Alprazolam [Xanax] 0.25 mg PO BID 12/09/12 Carvedilol [Coreg] 6.25 mg PO DAILY 12/09/12 Spironolactone [Aldactone] 25 mg PO DAILY 12/09/12 Furosemide [Lasix Tab] 40 mg PO QAM 12/12/12 Cholecalciferol (Vitamin D3) [Vitamin D] 1,000 unit PO DAILY 02/14/14 Ipratropium/Albuterol Sulfate [Combivent Respimat Inhal [place]] 2 puff IH QID PRN 02/14/14 Budesonide/Formoterol Fumarate [Symbicort 160-4.5 Mcg Inhaler] 2 puff INH BID PRN 12/24/14 Polyethylene Glycol 3350 [Miralax] 17 gm PO DAILY PRN #20 powd.pack 10/27/16 Aspirin [Aspirin EC] 81 mg PO DAILYWM 12/03/16 Ipratropium/Albuterol Neb [Duoneb] 1 vial NEB RTQ4H PRN 12/03/16 Tramadol HCl [Ultram] 50 mg PO BID PRN 04/11/17 Furosemide [Lasix Tab] 20 mg PO 1600 05/25/17 Escitalopram Oxalate [Lexapro] 10 mg PO BEDTIME #30 tablet 06/02/17 Pantoprazole Sodium [Protonix] 40 mg PO BIDAC #60 tablet. 06/02/17
--- NOTE | 2017-06-11 18:54 | DI ---
Exam: Single x-ray of the chest. Comparison: 05/25/2017. Reason for exam: Cough. FINDINGS: Patchy airspace opacities are seen in both lung bases with blunting of the left costophren ic angle. The cardiac silhouette is unchanged and not enlarged. The imaged osseous structures appea r grossly unremarkable without acute fracture. Impression: Similar appearing basilar atelectasis/pneumonia with a left-sided pleural effusion.
[2017-06-11] MEDS ORDERED: TYLENOL PO PRN (20:33)
[2017-06-11] MEDS ORDERED: DUONEB NEB PRN (20:33)
[2017-06-11] MEDS ORDERED: ZOFRAN 4 MG/2 ML IVP PRN (20:33)
[2017-06-11] MEDS ORDERED: MIRALAX PO PRN (20:37)
[2017-06-11 21:25] VITALS: BMI 21.5
[2017-06-11] MEDS: SOLU-MEDROL 125 MG IVP SCH (21:54)
[2017-06-11] MEDS: SODIUM CHLORIDE 1,000 ML IV SCH (21:54)
[2017-06-11] MEDS: LEXAPRO PO SCH (21:55)
[2017-06-11] MEDS: XANAX PO SCH (21:55)
[2017-06-11] MEDS: SYMBICORT 160-4.5 MCG INHALER IH SCH (23:00)
[2017-06-11] MEDS: DUONEB NEB SCH ×2 (23:17→23:23)
[2017-06-12] MEDS: DUONEB NEB SCH ×4 (05:28→22:11)
[2017-06-12] MEDS: SOLU-MEDROL 125 MG IVP SCH ×3 (05:40→20:01)
[2017-06-12] MEDS: PROTONIX PO SCH ×2 (05:40→17:27)
[2017-06-12] MEDS: XANAX PO SCH ×2 (08:50→20:51)
[2017-06-12] MEDS: ASPIRIN EC PO SCH (08:50)
[2017-06-12] MEDS: COREG PO SCH (08:50)
[2017-06-12] MEDS: VITAMIN D PO SCH (08:50)
[2017-06-12] MEDS: ALDACTONE PO SCH (08:51)
[2017-06-12] MEDS: LASIX TAB PO SCH ×2 (08:51→17:27)
[2017-06-12] MEDS: LOVENOX SUBCUT SCH (08:57)
[2017-06-12] MEDS: SYMBICORT 160-4.5 MCG INHALER IH SCH ×2 (08:59→20:51)
[2017-06-12] MEDS ORDERED: VITAMIN D PO SCH (09:00)
--- NOTE | 2017-06-12 10:05 | PCM.PROG ---
Attending Provider: ATTENDING PROVIDER: Dr. SHWETA PENA This patient is seen with Caity Wagner, Nurse Practitioner. DATE OF SERVICE: 06/12/17 SUBJECTIVE: This 82 year old WHITE/ M was hospitalized 06/11/17. The patient is lying in bed, is alert. The patient states he is tired and he doesn't feel like he is going to get any better. He has been more short of breath for several days. The is present with discussion and both agreeable to hospice. Considering poor prognosis and deteriorating medical conditions will consult [facility] in hospital. REVIEW OF SYSTEMS: CONSTITUTIONAL: Positive for fatigue, lethargy, weakness. No night sweats. No fever or chills. HEENT: Eyes: No visual changes. No eye pain. No eye discharge. ENT: No runny nose. No epistaxis. No sinus pain. No odynophagia. No congestion. RESPIRATORY: No cough, no congestion. No hemoptysis. Positive for shortness of breath. CARDIOVASCULAR: No angina symptoms. No CHF symptoms. No atypical chest pain for CAD. No palpitations. No orthopnea.. GASTROINTESTINAL: No abdominal pain. No nausea or vomiting. No diarrhea or constipation. No hematemesis. No hematochezia. GENITOURINARY: No urgency. No frequency. No dysuria. No hematuria. No obstructive symptoms. No discharge. No pain. No significant abnormal bleeding. MUSCULOSKELETAL: No musculoskeletal pain; no joint swelling. NEUROLOGICAL: Awake, alert, oriented to time, place and person. No headache. No neck pain. No syncope. No seizures. No dizziness. PSYCHIATRIC: Not anxious. No depression. No suicidal thoughts. No homicidal thoughts. SKIN: No rash. No lesions. No wounds. ENDOCRINE: No unexplained weight loss. No weight gain. HEMATOLOGIC/LYMPHATIC: No anemia. No purpura. No petechiae. No prolonged or excessive bleeding. No palpable lymph nodes. PHYSICAL EXAMINATION: GENERAL: The patient is awake, alert and oriented, lying in bed in no distress. VITAL SIGNS: Temperature 97 F, Pulse 118, Respiratory Rate 20, BP 134/89, Pulse Ox 95% HEENT: Head normocephalic, atraumatic. Eyes: Extraocular muscles are intact. Pupils are equal, round and reactive to light and accommodation. Ears: No lesions. Nose appeared normal. Throat: No exudate or erythema. NECK: Supple. No JVD, no carotid bruit. No lymphadenopathy or thyromegaly. LUNGS: Severely diminished breath sounds with bilateral rub. Clear to auscultation. Percussion note normal. Chest symmetrical. HEART: Irregular heart rate. S1, S2, no S3. No murmurs. No cyanosis or clubbing. No ascites. Pulses: Dorsalis pedis and posterior tibial pulses +1 to +2 both sides. ABDOMEN: Soft. Non-tender. Bowel sounds active. No CVA tenderness. No mass felt. EXTREMITIES: No edema. Full range of motion of all extremities, equal. NEUROLOGIC: No focal deficit. Cranial nerves II through XII are grossly intact. No headache, no double vision or headache. SKIN: Dry. Intact. Turgor-poor. LYMPHATIC: No palpable lymph nodes/no lymphedema. MUSCULOSKELETAL: Normal joints with no swelling. Muscle tone is normal. LAB REVIEW: 06/12/17 04:45 06/12/17 04:45 06/12/17 04:45: Sodium 144, Potassium 4.8, Chloride 98, Carbon Dioxide 33 H, Anion Gap 17.8, BUN 34 H, Creatinine 1.61 H, Estimated GFR (MDRD) 41.00, BUN/ Creatinine Ratio 21.11, Glucose 150 H, Calcium 9.1 06/12/17 04:45: WBC 5.21, RBC 4.30 L, Hgb 12.7 L, Hct 40.5 L, MCV 94.2 H, MCH 29.5, MCHC 31.4 L, RDW Coeff of Park 13.6, Plt Count 128 L, Immature Gran % (Auto ) 0.4, Neut % (Auto) 84.1, Lymph % (Auto) 13.8, Lassen % (Auto) 1.3, Eos % (Auto) 0.2, Baso % (Auto) 0.2, Immature Gran # (Auto) 0.0, Neut # (Auto) 4.4, Lymph # ( Auto) 0.7, Lassen # (Auto) 0.1 L, Eos # (Auto) 0.0, Baso # (Auto) 0.0 ASSESSMENT: 1. Acute on chronic respiratory failure 2. Acute on chronic renal failure 3. Dehydration 4. Failure to thrive 5. Weight loss PLAN: Consult Hospice, patient is a DNI. Plan and coordination of the patient's care discussed in the presence of Content Designer and nurse. CONDITION: Guarded. PROGNOSIS: Poor. SCRIBED BY: ALEC STOREY Duct Cleaner scribed while in presence of service performed by Dr. Pena/Caity Wagner APRN on 06/12/17 ([id number])
[2017-06-12] MEDS: SODIUM CHLORIDE 1,000 ML IV SCH ×2 (10:50→23:42)
[2017-06-12] MEDS ORDERED: DUONEB NEB STA (13:54)
[2017-06-12] MEDS: LEXAPRO PO SCH (20:51)
[2017-06-13] MEDS: DUONEB NEB SCH ×4 (05:14→22:30)
[2017-06-13] MEDS: PROTONIX PO SCH ×2 (05:55→17:33)
[2017-06-13] MEDS: SOLU-MEDROL 125 MG IVP SCH ×3 (05:55→21:29)
[2017-06-13] MEDS ORDERED: ALBUTEROL 0.083% NEB NEB STA (08:38)
[2017-06-13] MEDS: SYMBICORT 160-4.5 MCG INHALER IH SCH ×2 (09:43→21:29)
[2017-06-13] MEDS: LOVENOX SUBCUT SCH (09:43)
[2017-06-13] MEDS: VITAMIN D PO SCH (09:44)
[2017-06-13] MEDS: COREG PO SCH (09:44)
[2017-06-13] MEDS: XANAX PO SCH ×3 (09:44→21:29)
[2017-06-13] MEDS: ALDACTONE PO SCH (09:44)
[2017-06-13] MEDS: ASPIRIN EC PO SCH (09:44)
[2017-06-13] MEDS: LASIX TAB PO SCH ×2 (09:44→17:32)
--- NOTE | 2017-06-13 10:33 | PCM.PROG ---
Attending Provider: ATTENDING PROVIDER: Dr. SHWETA PENA DATE OF SERVICE: 06/13/17 SUBJECTIVE: This 82 year old WHITE/ M was hospitalized 06/11/17. The patient is hospitalized with chronic bronchitis exacerbation. No evidence of CHF at present time. He has moderate to severe aortic stenosis. Overall health status has deteriorated with multiple hospitalizations and multiple times with bronchitis and deterioration of his overall valvular problem. The is present in the room, discussed hospice and the patient and are agreeable. The patient likely will be discharged tomorrow with Hospice. Diagnosis will be severe chronic lung disease along with CHF and moderate to severe aortic stenosis REVIEW OF SYSTEMS: CONSTITUTIONAL: Weakness and fatigue. No night sweats. No malaise, lethargy. No fever or chills. HEENT: Eyes: No visual changes. No eye pain. No eye discharge. ENT: No runny nose. No epistaxis. No sinus pain. No odynophagia. No congestion. RESPIRATORY: No cough, no congestion. No hemoptysis. Shortness of breath on minimal exertion. CARDIOVASCULAR: No angina symptoms. No CHF symptoms. No coronary insufficiency symptoms. No atypical chest pain for CAD. No palpitations. No orthopnea.. GASTROINTESTINAL: No abdominal pain. No nausea or vomiting. No diarrhea or constipation. No hematemesis. No hematochezia. GENITOURINARY: No urgency. No frequency. No dysuria. No hematuria. No obstructive symptoms. No discharge. No pain. No significant abnormal bleeding. MUSCULOSKELETAL: No musculoskeletal pain; no joint swelling. NEUROLOGICAL: Awake, alert, oriented to time, place and person. No headache. No neck pain. No syncope. No seizures. No dizziness. PSYCHIATRIC: Not anxious. No depression. No suicidal thoughts. No homicidal thoughts. SKIN: No rash. No lesions. No wounds. ENDOCRINE: No unexplained weight loss. No weight gain. HEMATOLOGIC/LYMPHATIC: No anemia. No purpura. No petechiae. No prolonged or excessive bleeding. No palpable lymph nodes. PHYSICAL EXAMINATION: GENERAL: The patient is awake, alert and oriented, lying in bed in no distress. VITAL SIGNS: Temperature 97.9 F, Pulse 82, Respiratory Rate 20, BP 137/79, Pulse Ox 95% HEENT: Head normocephalic, atraumatic. Eyes: Extraocular muscles are intact. Pupils are equal, round and reactive to light and accommodation. Ears: No lesions. Nose appeared normal. Throat: No exudate or erythema. NECK: Supple. No JVD, no carotid bruit. No lymphadenopathy or thyromegaly. LUNGS: Clear to auscultation. Percussion note normal. Chest symmetrical. HEART: S1, S2, no S3. Grade II to III/ systolic murmur. No cyanosis or clubbing. No ascites. Pulses: Dorsalis pedis and posterior tibial pulses +1 to +2 both sides. ABDOMEN: Soft. Non-tender. Bowel sounds active. No CVA tenderness. No mass felt. EXTREMITIES: No pedal edema. Full range of motion of all extremities, equal. NEUROLOGIC: No focal deficit. Cranial nerves II through XII are grossly intact. No headache, no double vision or headache. SKIN: Warm and dry. Intact. Turgor-normal. LYMPHATIC: No palpable lymph nodes/no lymphedema. MUSCULOSKELETAL: Normal joints with no swelling. Muscle tone is normal. LAB REVIEW: 06/13/17 05:30 06/13/17 05:30 06/13/17 05:30: Sodium 142, Potassium 4.2, Chloride 100, Carbon Dioxide 32 H, Anion Gap 14.2, BUN 43 H, Creatinine 1.64 H, Estimated GFR (MDRD) 40.00, BUN/ Creatinine Ratio 26.21, Glucose 159 H, Calcium 8.3 06/13/17 05:30: WBC 7.96, RBC 3.58 L, Hgb 10.7 L, Hct 33.2 L D, MCV 92.7, MCH 29.9, MCHC 32.2, RDW Coeff of Park 13.8, Plt Count 115 L, Immature Gran % (Auto) 0.4, Neut % (Auto) 88.2, Lymph % (Auto) 8.4 L, Garfield % (Auto) 3.0, Eos % (Auto) 0.0, Baso % (Auto) 0.0, Immature Gran # (Auto) 0.0, Neut # (Auto) 7.0 H, Lymph # (Auto) 0.7, Garfield # (Auto) 0.2 L, Eos # (Auto) 0.0, Baso # (Auto) 0.0 ASSESSMENT: 1. 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 CHF 3. CAD 4. Aortic stenosis 5. Chronic kidney disease 6. Anemia PLAN: 1. Continue same management with nebs treatment and steroids 2. Hospice will follow patient after discharge Plan and coordination of the patient's care discussed in the presence of Land Surveyor Manager and nurse. CONDITION: Stable; Prognosis is poor. SCRIBED BY: ALEC STOREY Reimbursement Auditor scribed while in presence of service performed by Dr. SHWETA PENA on 06/13/17 ([id number])
[2017-06-13] MEDS: SODIUM CHLORIDE 1,000 ML IV SCH (13:18)
[2017-06-13] MEDS: ALBUTEROL 0.083% NEB NEB PRN ×3 (14:08→20:15)
[2017-06-13] MEDS ORDERED: XANAX ONE (16:35)
[2017-06-13] MEDS: LEXAPRO PO SCH (21:29)
[2017-06-14] MEDS: SODIUM CHLORIDE 1,000 ML IV SCH (01:38)
[2017-06-14] MEDS: ALBUTEROL 0.083% NEB NEB PRN ×2 (02:30→07:53)
[2017-06-14] MEDS: SOLU-MEDROL 125 MG IVP SCH ×2 (05:45→13:07)
[2017-06-14] MEDS: PROTONIX PO SCH (05:45)
[2017-06-14] MEDS: DUONEB NEB SCH ×2 (06:05→13:36)
[2017-06-14] MEDS ORDERED: MORPHINE 2 MG/ML SYRINGE IVP PRN ×3 (06:39→08:15)
[2017-06-14] MEDS: LASIX TAB PO SCH ×2 (07:24→08:31)
[2017-06-14] MEDS ORDERED: LASIX IVP STA (07:29)
[2017-06-14] MEDS ORDERED: MORPHINE 4 MG/ML VIAL ONE ×2 (08:22→12:21)
[2017-06-14] MEDS ORDERED: MORPHINE 4 MG/ML SYRINGE IVP PRN (08:25)
[2017-06-14] MEDS: SYMBICORT 160-4.5 MCG INHALER IH SCH (08:26)
[2017-06-14] MEDS: LOVENOX SUBCUT SCH (08:29)
[2017-06-14] MEDS: ALDACTONE PO SCH (08:30)
[2017-06-14] MEDS: ASPIRIN EC PO SCH (08:30)
[2017-06-14] MEDS: XANAX PO SCH (08:30)
[2017-06-14] MEDS: VITAMIN D PO SCH (08:30)
[2017-06-14] MEDS: COREG PO SCH (08:30)
--- NOTE | 2017-06-14 09:35 | PCM.PROG ---
Attending Provider: ATTENDING PROVIDER: Dr. SHWETA PENA This patient is seen with Caity Wagner, Nurse Practitioner. DATE OF SERVICE: 06/14/17 SUBJECTIVE: This 82 year old WHITE/ M was hospitalized 06/11/17. The patient is alert and is in acute respiratory distress. He has been gradually worsening overnight, now on 6L of 02. He has refused Venti mask. Hospice had declined referral as inpatient earlier in the week so will call for reevaluation. Will give additional 40 mg Lasix IV along with 2 mg Morphine q.2hr. The patient received 2 mg of Morphine approx 20 minutes ago and seems to be somewhat more comfortable. The family has stated that they do not want any intervention and strictly comfort measures only. REVIEW OF SYSTEMS: CONSTITUTIONAL: Weakness. No night sweats. No malaise, lethargy. No fever or chills. HEENT: Eyes: No visual changes. No eye pain. No eye discharge. ENT: No runny nose. No epistaxis. No sinus pain. No odynophagia. No congestion. RESPIRATORY: No cough, no congestion. No hemoptysis. Shortness of breath. CARDIOVASCULAR: No angina symptoms. No CHF symptoms. No atypical chest pain for CAD. No palpitations. No orthopnea.. GASTROINTESTINAL: No abdominal pain. No nausea or vomiting. No diarrhea or constipation. No hematemesis. No hematochezia. GENITOURINARY: No urgency. No frequency. No dysuria. No hematuria. No obstructive symptoms. No discharge. No pain. No significant abnormal bleeding. MUSCULOSKELETAL: No musculoskeletal pain; no joint swelling. NEUROLOGICAL: Awake, alert, oriented to person and place. No headache. No neck pain. No syncope. No seizures. No dizziness. PSYCHIATRIC: Not anxious. No depression. No suicidal thoughts. No homicidal thoughts. SKIN: No rash. No lesions. No wounds. ENDOCRINE: No unexplained weight loss. No weight gain. HEMATOLOGIC/LYMPHATIC: No anemia. No purpura. No petechiae. No prolonged or excessive bleeding. No palpable lymph nodes. PHYSICAL EXAMINATION: GENERAL: The patient is awake, alert and oriented, lying in bed in mild distress. VITAL SIGNS: Temperature 98.0 F, Pulse 121, Respiratory Rate 24, BP 133/84, Pulse Ox 123% HEENT: Head normocephalic, atraumatic. Eyes: Extraocular muscles are intact. Pupils are equal, round and reactive to light and accommodation. Ears: No lesions. Nose appeared normal. Throat: No exudate or erythema. NECK: Supple. No JVD, no carotid bruit. No lymphadenopathy or thyromegaly. LUNGS: Severely diminished breath sounds bilaterally with tight expiratory wheezing. Percussion note normal. Chest symmetrical. HEART: S1, S2, no S3. No murmurs. No cyanosis or clubbing. No ascites. Pulses: Dorsalis pedis and posterior tibial pulses +1 to +2 both sides. ABDOMEN: Soft. Non-tender. Bowel sounds active. No CVA tenderness. No mass felt. EXTREMITIES: Edema. Full range of motion of all extremities, equal. NEUROLOGIC: No focal deficit. Cranial nerves II through XII are grossly intact. No headache, no double vision or headache. SKIN: Not dry. Intact. Turgor-normal. LYMPHATIC: No palpable lymph nodes/no lymphedema. MUSCULOSKELETAL: Normal joints with no swelling. Muscle tone is normal. LAB REVIEW: 06/13/17 05:30 06/13/17 05:30 ASSESSMENT: 1. Acute respiratory failure end-stage. 2. CHF 3. CAD 4. Aortic stenosis 5. Chronic kidney disease 6. Anemia PLAN: 1. Morphine q.2hr 2 mg 2. D/C IV fluids 3. IV Lasix 40 mg times one dose 4. Recontact hospice 5. Family called and notified Plan and coordination of the patient's care discussed in the presence of Production Leader and nurse. CONDITION: Critical. SCRIBED BY: ALEC STOREY Senior Resident Care Director scribed while in presence of service performed by Dr. Pena/Catiy Wagner APRN on 06/14/17 ([id number])
[2017-06-14 09:57] VITALS: BP 114/74; TEMP 96.6
[2017-06-14] MEDS ORDERED: MORPHINE 4 MG/ML VIAL IVP PRN (12:23)
--- NOTE | 2017-06-14 14:26 | CM.DICTOOL ---
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, STAGE 4 HYPERTENSION GENERALIZED ANXIETY CHOLECYSTECTOMY BILATERAL HERNIA REPAIR PROSTATE SURGERY LAST VITALS Temp Pulse Resp BP Pulse Ox 96.6 F L 114 H 16 114/74 95 06/14/17 09:55 06/14/17 09:55 06/14/17 09:55 06/14/17 09:55 06/14/17 10:00 ACTIVE HOSPITAL MEDICATIONS Acetaminophen (Tylenol) 650 mg PO Q4H PRN PRN Reason: Fever or Mild pain Albuterol Sulfate (Albuterol 0.083% Neb) 1 vial NEB RTQ2H PRN PRN Reason: Wheezing Last Admin: 06/14/17 07:53 Dose: 1 vial Albuterol/Ipratropium (Duoneb) 1 vial NEB RTQ6H [facility] Last Admin: 06/14/17 13:36 Dose: Not Given Alprazolam (Xanax) 0.5 mg PO TID [facility] Last Admin: 06/14/17 08:30 Dose: 0.5 mg Aspirin (Aspirin Ec) 81 mg PO DAILYWM [facility] Last Admin: 06/14/17 08:30 Dose: 81 mg Budesonide/Formoterol Fumarate (Symbicort 160-4.5 Mcg Inhaler) 2 puff IH BID [facility] Last Admin: 06/14/17 08:26 Dose: 2 puff Carvedilol (Coreg) 6.25 mg PO DAILYWM [facility] Last Admin: 06/14/17 08:30 Dose: 6.25 mg Cholecalciferol (Vitamin D) 1,000 unit PO DAILY [facility] Last Admin: 06/14/17 08:30 Dose: 1,000 unit Enoxaparin Sodium (Lovenox) 30 mg SUBCUT DAILY [facility] Last Admin: 06/14/17 08:29 Dose: 30 mg Escitalopram Oxalate (Lexapro) 10 mg PO BEDTIME [facility] Last Admin: 06/13/17 21:29 Dose: 10 mg Furosemide (Lasix Tab) 20 mg PO 1600 [facility] Last Admin: 06/13/17 17:32 Dose: 20 mg Furosemide (Lasix Tab) 40 mg PO QAM [facility] Last Admin: 06/14/17 08:31 Dose: Not Given Methylprednisolone Sodium Succinate (Solu-Medrol 125 Mg) 125 mg IVP Q8HR [facility] Last Admin: 06/14/17 13:07 Dose: 125 mg Morphine Sulfate (Morphine 4 Mg/Ml Vial) 3 mg IVP Q2HR PRN PRN Reason: PAIN Ondansetron HCl (Zofran 4 Mg/2 Ml) 4 mg IVP Q6H PRN PRN Reason: Nausea / Vomiting Pantoprazole Sodium (Protonix) 40 mg PO BIDAC [facility] Last Admin: 06/14/17 05:45 Dose: 40 mg Polyethylene Glycol (Miralax) 17 gm PO DAILY PRN PRN Reason: Constipation Sodium Chloride (Saline Flush) 1 syr IVF PRN PRN PRN Reason: To flush IV Last Admin: 06/11/17 18:57 Dose: 1 syr Sodium Chloride (Saline Flush) 1 syr IVF Q8HR [facility] Last Admin: 06/14/17 13:10 Dose: 1 syr Spironolactone (Aldactone) 25 mg PO DAILY [facility] Last Admin: 06/14/17 08:30 Dose: 25 mg ALLERGIES lisinopril Adverse Reaction (Verified 06/11/17 18:47) verapamil Adverse Reaction (Verified 06/11/17 18:47) NEW PRESCRIPTIONS: NONE SMOKING: CURRENT SMOKER DISEASE SPECIFIC EDUCATION: HOSPICE SERVICES END OF LIFE DECISIONS DO NOT RESUSCITATE LAB REVIEW: 06/13/17 05:30 06/13/17 05:30 PLAN: DISCHARGE FROM ACUTE CARE TO BE ADMITTED TO [facility] INPATIENT SERVICES PLEASE OBSERVE HOSPICE ORDERS BY DR. ORNELAS. DR. PENA WILL CONTINUE FOLLOWING THE PATIENT DURING THIS HOSPICE VISIT CODE STATUS DNR SUMMARY THE PATIENT IS POORLY RESPONSIVE. HIS RESPIRATIONS ARE LABORED. HE IS REQUIRING MORPHINE iv TO REDUCE ANXIETY AND FACILITATE EASE OF RESPIRATIONS. HIS FAMILY INCLUDING HIS GRANDSON, SPOUSE AND DAUGHTER, ARE HERE AT HIS BEDSIDE. THEY AGREE FOR THE PATIENT'S/SPOUSE'S DECISION FOR DO NOT RESUSCITATE. I WILL HONOR THIS DIRECTIVE. THEY ARE ALSO AGREEABLE FOR HOSPICE SERVICES TO PROVIDE COMFORT MEASURES. MS. ARNETT HAS CHOSEN [facility]. MR. ARNETT WILL BE DISCHARGED FROM ACUTE CARE AND ADMITTED TO [facility] SERVICES. DR. ORNELAS, HOSPICE SUPERVISOR COOLER SERVICE, HAS REQUESTED I CONTINUE TO FOLLOW THE PATIENT WHILE HERE AT [facility]. I HAVE CONSENTED TO CONTINUE TO FOLLOW MR. ARNETT. CURRENT CODE STATUS DO NOT RESUSCITATE SHWETA PENA M.D.
--- NOTE | 2017-06-15 07:52 | PN ---
DATE OF SERVICE: 06/14/17 SUBJECTIVE: The patient was hospitalized with severe acute bronchitis and failing health with multiple medical problems. The patient has endstage CHF and Coronary artery disease. He also has moderate to severe aortic stenosis. The patient is already considered for Hospice and he is waiting to be seen by [facility]. The patient's condition has deteriorated last night and the patient is in respiratory distress with combination of COPD and CHF. The patient is being treated with Morphine Sulfate and IV Lasix and NEBS treatment. The patient is alert but wheezing. The is by the bedside. They both know that condition is critical. The is going to call kids and grandkids. PROGNOSIS: Poor The patient was seen and examined with Nurse Practitioner. TIME SPENT: More than 30 minutes. Plan and coordination of the patient's care discussed in the presence of nurse. JOSEPH
--- NOTE | 2017-06-19 08:23 | PN ---
06/11/17: Level 5 06/12/17: Intermediate 06/13/17: Intermediate 06/14/17: The patient was discharged to Hospice [facility]
--- NOTE | 2017-06-19 09:28 | PN ---
DATE OF SERVICE: 06/11/17 SUBJECTIVE: The patient was seen in the emergency room by Dr. Higgins. He was hospitalized through the ER with complaint of being short of breath and fatigue. Overall general condition is deteriorating according to the . The patient has end- stage chronic lung disease, congestive heart failure, coronary artery disease and moderate to severe aortic stenosis. The patient is DNR. He has continued to smoke. The patient is on steroids, nebs treatment and several other medications. PHYSICAL EXAMINATION: HEENT: Head normocephalic, atraumatic. Eyes: Extraocular muscles are intact. Pupils are equal, round and reactive to light and accommodation. Ears: No lesions. Nose appeared normal. Throat: No exudate or erythema. NECK: Supple. No JVD, no carotid bruit. No lymphadenopathy or thyromegaly. LUNGS: Decreased breath sounds but clear to auscultation. Percussion note normal. Chest symmetrical. HEART: S1, S2. Grade II/ systolic murmur. No cyanosis or clubbing. No ascites. Pulses: Dorsalis pedis and posterior tibial pulses +1 to +2 both sides. ABDOMEN: Soft. Nontender. Bowel sounds active. No CVA tenderness. No mass felt. EXTREMITIES: No edema. Full range of motion of all extremities, equal. NEUROLOGIC: No focal deficit. Cranial nerves II through XII are grossly intact. No headache, no double vision or headache. SKIN: Not dry. Intact. Turgor - normal. LYMPHATIC: No palpable lymph nodes/no lymphedema. MUSCULOSKELETAL: Normal joints with no swelling. Muscle tone is normal. X-RAY: The patient's chest x-ray shows emphysema otherwise clear. ASSESSMENT: 1. Shortness of breath 2. Deterioration of his generalized health from overall deterioration of his end-stage medical conditions like COPD, CHF, CAD, moderate to severe aortic stenosis. PLAN: 1. Admit the patient. 2. Slow IV fluids. The patient has chronic kidney disease but he is dehydrated. 3. Also, put him on steroids to improve his appetite to improve the feeling of well-being. The patient to some extent was depressed and was put on Lexapro that doesn't seem to help. 4. His overall status has deteriorated. He will be continued on Duonebs. 5. The patient is DNR. TIME SPENT: More than 30 minutes. Plan and coordination of the patient's care discussed in the presence of nurse. JOSEPH
--- NOTE | 2017-06-19 10:03 | PN ---
DATE OF SERVICE: 06/12/17 SUBJECTIVE: 82-year-old white male hospitalized with shortness of breath, acute bronchitis, which is exacerbation of COPD. The patient's overall medical conditions have been deteriorating with weakening of his overall skeleture and strength with inability to walk or even breathe. The patient referred to [facility] at family's request. The patient was seen and examined with the nurse practitioner. TIME SPENT: More than 30 minutes. Plan and coordination of the patient's care discussed in the presence of nurse. JOSEPH
--- NOTE | 2017-07-02 11:21 | HP ---
DATE OF SERVICE: 06/12/17 HISTORY OF PRESENT ILLNESS: This is an 82-year-old white male with a long history of COPD and chronic respiratory failure who presents to the emergency room with worsening shortness of breath and inability to eat. PAST MEDICAL HISTORY: Chronic respiratory failure Chronic kidney failure Failure to thrive Weight loss Coronary artery disease Aortic stenosis CHF Dyslipidemia CVA COPD Chronic kidney disease, Stage 4 Hypertension Anxiety PAST SURGICAL HISTORY: Status post cholecystectomy Bilateral hernia repair Prostate surgery REVIEW OF SYSTEMS: CONSTITUTIONAL: Positive for weakness, mild distress. No night sweats. No malaise, lethargy. No fever or chills. HEENT: Eyes: No visual changes. No eye pain. No eye discharge. ENT: No runny nose. No epistaxis. No sinus pain. No sore throat. No odynophagia. No ear pain. No congestion. RESPIRATORY: No cough, no congestion. No hemoptysis. Positive for shortness of breath. CARDIOVASCULAR: No angina symptoms. No CHF symptoms. No atypical chest pain for CAD. No palpitations. No orthopnea. GASTROINTESTINAL: No abdominal pain. No nausea or vomiting. No diarrhea or constipation. No hematemesis. No hematochezia. GENITOURINARY: No urgency. No frequency. No dysuria. No hematuria. No obstructive symptoms. No discharge. No pain. No significant abnormal bleeding. MUSCULOSKELETAL: No musculoskeletal pain. No joint swelling. No arthritis. NEUROLOGICAL: No headache. No neck pain. No syncope. No seizures. No dizziness. PSYCHIATRIC: Not anxious. No depression. No suicidal thoughts. No homicidal thoughts. SKIN: No rash. No lesions. No wounds. ENDOCRINE: No unexplained weight loss. No weight gain. HEMATOLOGIC/LYMPHATIC: No anemia. No purpura. No petechiae. No prolonged or excessive bleeding. No palpable lymph nodes. PERSONAL/FAMILY/SOCIAL HISTORY: The patient is a long-term smoker. He resides at home with his . He is oxygen dependent. They also help take care of their grandchildren. MEDICATIONS: (HOME) Xanax 0.25 mg p.o. b.i.d. Aldacton3 25 mg p.o. daily Coreg 6.25 mg p.o. daily Lasix 40 mg p.o. q.a.m. Cholecalciferol 1,000 unit p.o. daily Ipratropium/Albuterol two puff IH q.i.d. p.r.n. Symbicort 160-4.5 mcg inhaler one puff INH Miralax 17 gm p.o. daily p.r.n. Aspirin 81 mg p.o. daily with meal Ipratropium/Albuterol one vial Neb Rt q.4h p.r.n. Tramadol 50 mg p.o. b.i.d. p.r.n. Lasix 20 mg p.o. 1600 Lexapro 10 mg p.o. bedtime Protonix 40 mg p.o. b.i.d. a.c. ALLERGIES: LISINOPRIL VERAPAMIL PHYSICAL EXAMINATION: GENERAL: In mild distress. Alert and oriented. VITAL SIGNS: Temperature 98, heart rate 120, respirations 24, BP 110/70, pulse ox 90%. HEENT: Head normocephalic, atraumatic. Eyes: Extraocular muscles are intact. Pupils are equal, round and reactive to light and accommodation. Ears: No lesions. Nose appeared normal. Throat: No exudate or erythema. NECK: Supple. No JVD, no carotid bruit. No lymphadenopathy or thyromegaly. LUNGS: Severely diminished breath sounds with bilateral rub. Percussion note normal. Chest symmetrical. HEART: S1, S2, no S3. Grade II/ systolic murmur. No cyanosis or clubbing. No ascites. Pulses: Dorsalis pedis and posterior tibial pulses +1 to +2 both sides. ABDOMEN: Soft. Nontender. Bowel sounds active. No CVA tenderness. No mass felt. EXTREMITIES: No leg edema. Full range of motion of all extremities, equal. NEUROLOGIC: No focal deficit. Cranial nerves II through XII are grossly intact. No headache, no double vision or headache. SKIN: Not dry. Intact. Turgor - normal. LYMPHATIC: No palpable lymph nodes/no lymphedema. MUSCULOSKELETAL: Normal joints with no swelling. Muscle tone is normal. LABS: WBC 7.77, RBC 4.34, hgb 12.9, hct 41.2, platelet count 128. Chemistry: Sodium 145, potassium 4.6, chloride 96, carbon dioxide 8, BUn 29, creatinine 1.65, glucose 105, calcium 9.4, total bili 0.9, AST 15, ALT 14, alkaline phosphatase 62, total protein 6.4, albumin 3.0, procalcitonin less than 0.05. BNP 3644. ABG 02 sat 98.0, pH 7.508, pc02 52.7, p02 102.0, Hc03 41.8, c02 43, base excess 19. FI02 28.0. Flu A and B negative. Chest x-ray - similar appearing basilar atelectasis/pneumonia with a left-sided pleural effusion. ASSESSMENT: 1. ACUTE ON CHRONIC RESPIRATORY FAILURE 2. ACUTE ON CHRONIC RENAL FAILURE 3. DEHYDRATION 4. FAILURE TO THRIVE PLAN: 1. We will admit him 2. Routine telemetry orders 3. CBC, CMP daily 4. Continue home medications 5. One dose additional Lasix 40 mg IV now 6. Start him on Solu-Cortef 125 mg IV q.6hr 7. Oxygen at 1 to 4L as needed 8. Chest x-ray 9. Admit to the floor 10. Regular diet 11. D5 1/2 NS at 50 cc/hr TIME SPENT: More than 70 minutes. MTDD
--- NOTE | 2017-07-02 13:39 | DS ---
DATE OF SERVICE: 06/14/17 - TO HOSPICE FINAL DIAGNOSIS: 1. ACUTE ON CHRONIC RESPIRATORY FAILURE 2. ACUTE ON CHRONIC RENAL FAILURE 3. DEHYDRATION 4. FAILURE TO THRIVE 5. WEIGHT LOSS 6. CAD 7. CHF 8. MODERATE TO SEVERE AORTIC STENOSIS 9. DYSLIPIDEMIA 10. CVA BY HISTORY, LEFT THALAMIC INFARCTION 11. SEVERE COPD, OXYGEN DEPENDENT 12. CKD, STAGE 4 13. HYPERTENSION 14. GENERALIZED ANXIETY 15. CHOLECYSTECTOMY 16. BILATERAL HERNIA REPAIR 17. PROSTATE SURGERY DISCHARGE INSTRUCTIONS: Discharge from [facility] care to be admitted to [facility]. Please observe hospice orders by Dr. Warner. Dr. Jarvis will continue following the patient during this hospice visit. CODE STATUS - DNR MEDICATIONS AT DISCHARGE: Tylenol 650 mg p.o. q.4h p.r.n. Albuterol Sulfate one vial NEB RT q.2h p.r.n. Duoneb one vial NEB RT q.6h PATRIA Xanax 0.5 mg p.o. t.i.d. PATRIA Aspirin EC 81 mg p.o. daily with meal PATRIA Symbicort 160-4.5 mcg inhaler two puff IH b.i.d. PATRIA Coreg 6.25 mg p.o. daily with meal PATRIA Cholecalciferol 1,000 unit p.o. daily PATRIA Lovenox 30 mg subcut daily PATRIA Lexapro 10 mg p.o. bedtime PATRIA Lasix 20 mg p.o. 1600 PATRIA Lasix 40 mg p.o. q.a.m. PATRIA Methylprednisolone (Solu-Medrol 125 mg) 125 mg IVP q.8hr PATRIA Morphine 3 mg IVP q.2hr p.r.n. Zofran 4 mg IVP q.6h p.r.n. Protonix 40 mg p.o. b.i.d. a.c. PATRIA Miralax 17 gm p.o. daily p.r.n. Saline Flush one syringe IVF p.r.n. Aldactone 25 mg p.o. daily PATRIA NEW PRESCRIPTIONS: None DIET INSTRUCTIONS: As patient tolerates ACTIVITY: As patient tolerates; fall precautions SMOKING: Current smoker. DISEASE SPECIFIC EDUCATION: Hospice Services End of Life Decisions Do not resuscitate HOSPITAL COURSE: This is an 82-year-old white with a long history of COPD, chronic respiratory failure who presented to the emergency room with acute respiratory failure. On date of discharge from acute care, he was in acute respiratory distress. Hospice has been called in and consulted. Both he and his state that he would like comfort measures only. He does not want any further intervention. Hospice has agreed to care for him and start with palliative care. We will assist as needed. This has been agreed on with the , family and the patient , Mr. Claros. We will continue to follow up with him as needed. TIME SPENT: More than 60 minutes. JOSEPH
== END 2017-06-14 14:29 | disposition hospice, inpatient (51) | DRG 189 ==
LOC: ED 18:13 → MEDSURG B 20:37
PROVIDERS: ADMIT Internal Medicine; ATTEND Internal Medicine
DX: J96.20 Acute and chronic respiratory failure, unspecified whether with hypoxia or hypercapnia (principal); N17.1 Acute kidney failure with acute cortical necrosis; J44.1 Chronic obstructive pulmonary disease with (acute) exacerbation; N18.4 Chronic kidney disease, stage 4 (severe); I50.9 Heart failure, unspecified; I35.0 Nonrheumatic aortic (valve) stenosis; R62.7 Adult failure to thrive; E86.0 Dehydration; R63.4 Abnormal weight loss; R06.02 Shortness of breath; I25.10 Atherosclerotic heart disease of native coronary artery without angina pectoris; E78.5 Hyperlipidemia, unspecified; I10 Essential (primary) hypertension; F41.1 Generalized anxiety disorder; D64.9 Anemia, unspecified; Z66 Do not resuscitate; Z86.73 Personal history of transient ischemic attack (TIA), and cerebral infarction without residual deficits; Z99.81 Dependence on supplemental oxygen; Z79.899 Other long term (current) drug therapy; Z72.0 Tobacco use
CPT/HCPCS: 36415; 80048; 80053; 82550; 82803; 83605; 83880; 84145; 84484; 85025; 85610; 85730; 87040; 87081; 87502; 93005; 93010; 94640; 96374; 99285

== ENCOUNTER 2017-06-14 14:36 | Inpatient (IN) | payer OTHER ==
[2017-06-14] MEDS ORDERED: SENNA PO PRN (14:41)
[2017-06-14] MEDS ORDERED: TYLENOL RC PRN (14:42)
[2017-06-14] MEDS ORDERED: PHENERGAN TAB PO PRN (14:43)
[2017-06-14] MEDS ORDERED: PHENERGAN 25 MG/ML VIAL IM PRN (14:44)
[2017-06-14] MEDS ORDERED: PHENERGAN SUPP RC PRN (14:44)
[2017-06-14] MEDS ORDERED: IMODIUM PO PRN (14:45)
[2017-06-14] MEDS ORDERED: ATIVAN SL PRN (14:46)
[2017-06-14] MEDS ORDERED: DUONEB NEB PRN (14:49)
[2017-06-14] MEDS ORDERED: ROXANOL 20 MG/ML PO PRN (14:50)
[2017-06-14] MEDS ORDERED: DULCOLAX RC PRN (14:51)
[2017-06-14 15:26] VITALS: BMI 21.4
[2017-06-14] MEDS: MORPHINE 4 MG/ML VIAL IVP PRN ×2 (15:28→17:11)
[2017-06-14] MEDS: LEVSIN PO PRN (17:11)
[2017-06-14 18:48] VITALS: BP 90/40; TEMP 98
[2017-06-15] MEDS: LEVSIN PO PRN (02:23)
--- NOTE | 2017-06-19 08:20 | PN ---
DATE OF SERVICE: 06/15/17 SUBJECTIVE: The patient 06/15/17. The patient was put on Hospice on 06/14/17. He was discharged to Hospice on 06/14/17. Had not seen the patient on the day when he . The last time the patient was seen by me and Nurse Practitioner was 06/14/17 that was on . CAUSE OF : 1. Respiratory failure with severe chronic lung disease 2. History of CHF 3. Coronary artery disease 4. Moderate to severe aortic stenosis TIME SPENT: More than 30 minutes. Plan and coordination of the patient's care discussed in the presence of nurse. JOSEPH
--- NOTE | 2017-07-10 08:06 | PN ---
DATE OF VISIT: 06/15/17 SUBJECTIVE: Nursing staff called me to see the patient to pronounce him. There are no spontaneous respirations or pulse. Pupils are fixed and dilated. The patient was declared at 2:52am. JOSEPH
== END 2017-06-15 02:52 | disposition expired | DRG 189 ==
LOC: MEDSURG B 14:36
PROVIDERS: ADMIT Internal Medicine; ATTEND Internal Medicine
DX: J96.00 Acute respiratory failure, unspecified whether with hypoxia or hypercapnia (principal); N17.1 Acute kidney failure with acute cortical necrosis; J44.1 Chronic obstructive pulmonary disease with (acute) exacerbation; N18.4 Chronic kidney disease, stage 4 (severe); J96.20 Acute and chronic respiratory failure, unspecified whether with hypoxia or hypercapnia; I50.9 Heart failure, unspecified; I35.0 Nonrheumatic aortic (valve) stenosis; R62.7 Adult failure to thrive; E86.0 Dehydration; I25.10 Atherosclerotic heart disease of native coronary artery without angina pectoris; E78.5 Hyperlipidemia, unspecified; R63.4 Abnormal weight loss; I10 Essential (primary) hypertension; F41.1 Generalized anxiety disorder; D64.9 Anemia, unspecified; Z66 Do not resuscitate; Z86.73 Personal history of transient ischemic attack (TIA), and cerebral infarction without residual deficits; Z99.81 Dependence on supplemental oxygen; Z79.899 Other long term (current) drug therapy; Z72.0 Tobacco use